=== PATIENT | female | born 1935 | race Caucasian/White ===

== ENCOUNTER 2023-07-30 11:47 | Inpatient (IN) ==
--- NOTE | 2023-07-30 12:27 | Emergency Department Note ---
Impression & Plan Bradycardia, Complete heart block ED Provider Note Diagnosis: Heart block Disposition: Admission CHIEF COMPLAINT: Dizziness HPI: Patient is an 88-year-old female presenting with complaint of dizziness. Patient states intermittently she has been feeling generalized weakness for the past 2 to 3 days. Patient's family checked her vital signs yesterday and found her to have a pulse of 40. Patient is not on any reported beta-blockers. Patient denies any chest pain or shortness of breath. Patient asymptomatic while sitting down currently in the ER bay. PAST MEDICAL HISTORY: See Below PAST SURGICAL HISTORY: See Below SOCIAL HISTORY: See Below HOME MEDICATIONS: See Below ALLERGIES: See Below VITALS: See Below PHYSICAL EXAMINATION: GENERAL: Well appearing, well nourished, NAD, non-toxic. EYE EXAM: Normal conjunctiva. OROPHARYNX: Moist mucus membranes. Grossly normal dentition. NECK: Supple, LUNGS: Clear to auscultation. Normal chest wall mechanics. HEART: Bradycardia ABDOMEN: Abdomen soft, non-tender, normo-active bowel sounds, no masses, no rebound or guarding BACK: No CVA TTP. SKIN: No rashes and no bruising. UPPER EXTREMITIES: Upper extremities are grossly normal LOWER EXTREMITIES: Grossly normal, no edema. NEURO EXAM: A&O x3,, normal speech, moves all 4 extremities PSYCH: Cooperative MEDICAL DECISION MAKING: Reviewed external documents: History obtained from: Patient ER Course: Patient is a 88-year-old female presenting with 2 days of feeling generalized weakness and dizziness. Patient is asymptomatic upon laying in the stretcher in the emergency room. Patient denies any chest pain or shortness of breath. Patient's EKG shows complete heart block. Patient's blood pressure is 130 systolic. Patient is on no beta-blockers. Case discussed with cardiology team who plans for pacemaker. Patient admitted to hospitalist service. Labs (independently interpreted) are significant for: No significant electrolyte abnormalities, troponin negative Imaging results (independently interpreted): Chest x-ray clear EKG interpretation (independently interpreted): Complete heart block Consultants: Discussed with Dr. Thomas of cardiology came down and evaluated the patient at bedside agrees that heart block is present we will plan for echo and pacemaker Case discussed with hospitalist service accepts patient to their service further treatment evaluation Triage Nursing notes reviewed and agree them. Vital Signs: reviewed and remarkable for: Bradycardia Past Med/Surg History Medical History Asthma Anxiety and depression Hypothyroidism HTN (hypertension) Surgical History History of hysterectomy History of cholecystectomy Family History Other Asthma Cancer Diabetes Stroke Social History Smoking Status: Former smoker Cigarettes Per Day: light smoker for 3 years in 1962; Smoking End Date: smoked 0.1ppd x 3 years in 1962; Hx Alcohol Use: No Hx Substance Use: No Preferred Language: [place] Citizen Feels Safe at Home: Yes Allergies Allergies Allergy/AdvReac Type Severity Reaction Status Date / Time pollen extracts Allergy Intermediate ITCHY Verified 11/26/22 18:52 EYES, SNEEZING, CONGESTION Home Meds Home Medications Medication Instructions Recorded Confirmed hydrochlorothiazide 25 mg tablet 25 mg PO DAILY 11/26/22 07/30/23 levothyroxine 125 mcg tablet 125 mcg PO DAILYBB 11/26/22 07/30/23 (Synthroid) loratadine 10 mg tablet (Claritin) 10 mg PO DAILY 11/26/22 07/30/23 multivitamin 1 tab PO DAILY 11/26/22 07/30/23 sertraline 25 mg tablet 25 mg PO DAILY 11/26/22 07/30/23 hydroxyzine HCl 10 mg tablet 10 mg PO HS PRN Insomnia 07/30/23 07/30/23 lisinopril 10 mg tablet 10 mg PO DAILY 07/30/23 07/30/23 Results & Data (ED) Vital Signs Vital Signs - 24 hr 07/30/23 11:55 07/30/23 11:55 07/30/23 11:55 Temperature 37.1 C 37.1 C Temperature Source Oral Oral Pulse Rate 57 L Pulse Rate [Apical] 57 L Respiratory Rate 18 18 Respiratory Effort / Characteristics Non-Labored Spontaneous Non-Labored Spontaneous Respiratory Depth Normal Normal Blood Pressure 132/44 L Blood Pressure [Left Arm] 132/44 L Blood Pressure Mean 73 Blood Pressure Mean [Left Arm] 73 Blood Pressure Position Semi-fowlers Blood Pressure Position [Left Arm] Semi-fowlers Pulse Oximetry 93 93 93 Oxygen Delivery Method Room Air Room Air Room Air Sepsis Recent Fever Within 48 Hours No Sepsis New/Unexplained Change in Mental Status N/A Sepsis Action Taken by Nursing No Action Required 07/30/23 12:15 07/30/23 12:23 07/30/23 14:39 Temperature Temperature Source Pulse Rate 54 L 56 L Pulse Rate [Apical] 56 L Respiratory Rate 18 18 Respiratory Effort / Characteristics Non-Labored Spontaneous Respiratory Depth Normal Blood Pressure Blood Pressure [Left Arm] 123/60 Blood Pressure Mean Blood Pressure Mean [Left Arm] 81 Blood Pressure Position Blood Pressure Position [Left Arm] Pulse Oximetry 93 91 Oxygen Delivery Method Room Air Room Air Sepsis Recent Fever Within 48 Hours Sepsis New/Unexplained Change in Mental Status Sepsis Action Taken by Nursing Laboratory Data 07/30/23 12:38 07/30/23 12:38 Lab Results 07/30/23 Range/Units 12:38 WBC 12.54 H (4.8-10.8) K/ul RBC 3.57 L (4.20-5.40) M/uL Hgb 10.6 L (12.0-16.0) g/dl Hct 31.7 L (37.0-47.0) % MCV 88.8 (80.0-100.0) fL MCH 29.7 (25.0-34.0) pg MCHC 33.4 (32.0-36.0) g/dL RDW Std Deviation 41.2 (36.4-46.3) fL RDW Coeff of Bruce 12.5 (11.5-14.5) % Plt Count 269 (130-400) K/uL MPV 11.0 (9.4-12.4) fL Immature Gran % (Auto) 0.5 % Neut % (Auto) 79.2 % Lymph % (Auto) 8.6 % [place] % (Auto) 10.2 % Eos % (Auto) 1.0 % Baso % (Auto) 0.5 % Neut # (Auto) 9.94 H (1.40-6.50) K/uL Lymph # (Auto) 1.08 L (1.20-3.40) K/uL [place] # (Auto) 1.28 H (0.11-0.59) K/uL Eos # (Auto) 0.12 (0.00-0.50) K/uL Baso # (Auto) 0.06 (0.00-0.20) K/uL Immature Gran # (Auto) 0.06 (0.01-0.20) K/uL Sodium 135 L (136-145) mmol/L Potassium 3.9 (3.5-5.1) mmol/L Chloride 101 (98-107) mmol/L Carbon Dioxide 27 (21-32) mmol/L Anion Gap 7 (3-11) BUN 25 H (6-23) mg/dl Creatinine 0.73 (0.6-1.2) mg/dl Est Cr Clr Drug Dosing 46.9 ml/min Est GFR ( Amer) 85.8 ml/min Est GFR (Non-Af Amer) 74.1 ml/min BUN/Creatinine Ratio 34.2 H (10-20) Glucose 123 H (70-99(Fasting)) mg/dl Calcium 9.1 (8.6-10.3) mg/dl Magnesium 1.6 L (1.7-2.4) mg/dl Iron 13 L (35-150) mcg/dl Transferrin 141 L (200-360) mg/dl Total Bilirubin 0.5 (0.2-1.0) mg/dl AST 26 (13-39) U/L ALT 34 (7-52) U/L Alkaline Phosphatase 59 (34-104) U/L Troponin I High Sens 16.4 H (0-14) pg/ml Total Protein 6.2 (6.0-8.3) gm/dl Albumin 3.5 (3.4-5.0) gm/dl Globulin 2.7 (2.5-4.0) gm/dl Albumin/Globulin Ratio 1.3 (0.9-2) Lipase 25 (11-82) U/L TSH 3.146 (0.300-4.500) uIu/ml Imaging Data Radiologist's Impression: Chest X-Ray 07/30/23 12:13 SINGLE VIEW CHEST CLINICAL HISTORY: Atypical chest pain. FINDINGS: An AP, portable, upright chest radiograph is obtained. No prior studies are available for comparison at the time of dictation. The examination is degraded by portable technique and patient rotation. The heart is enlarged noting atherosclerotic calcification of the thoracic aorta. There is pulmonary vascular congestion. The mitral annulus is densely calcified. Fullness of the right hilum may be related to enlargement of the pulmonary artery and patient rotation. There is bibasilar scarring/atelectasis. No airspace consolidation or large pleural effusion is identified. No pneumothorax is seen. The skeletal structures are osteopenic. The bony thorax is grossly intact. Advanced arthritic change is seen in the shoulders. IMPRESSION: 1. Cardiomegaly with pulmonary vascular congestion. 2. Fullness of the right hilum may be related to enlargement of the pulmonary artery. Correlation with a contrast enhanced chest CT is recommended to exclude underlying lesion or lymphadenopathy. ACT 112: Negative or not required by law. Electronically signed by: Siva Fan M.D. 07/30/2023 1:11 PM Discharge Plan Visit Data Chief Complaint: Cardiac Assessment Stated Complaint: DIZZINESS, CARDIAC ED Provider: Jason Rodriguez Discharge Problem: Bradycardia, Complete heart block Patient Disposition: Admitted As Inpatient Discharge Instructions Interventions: ED Discharge Assessment Last Done: 07/30/23 15:48
[2023-07-30 13:03] LABS: Basophils # (auto) 0.06 K/uL (0.00-0.20); Basophils % (auto) 0.5 %; Eosinophils # (auto) 0.12 K/uL (0.00-0.50); Hematocrit (blood only) 31.7 % (37.0-47.0); Hemoglobin 10.6 g/dl (12.0-16.0); Immature Granulocytes # (auto) 0.06 K/uL (0.01-0.20); Immature Granulocytes % (auto) 0.5 %; Lymphocytes # (auto) 1.08 K/uL (1.20-3.40); Lymphocytes % (auto) 8.6 %; Mean Corpuscular Hemoglobin 29.7 pg (25.0-34.0); Mean Corpuscular Hgb Conc 33.4 g/dL (32.0-36.0); Mean Corpuscular Volume 88.8 fL (80.0-100.0); Monocytes # (auto) 1.28 K/uL (0.11-0.59); Monocytes % (auto) 10.2 %; Neutrophils # (auto) 9.94 K/uL (1.40-6.50); Neutrophils % (auto) 79.2 %; Platelet Count 269 K/uL (130-400); RDW Coefficient of Variation 12.5 % (11.5-14.5); RDW Standard Deviation 41.2 fL (36.4-46.3); Red Blood Count 3.57 M/uL (4.20-5.40); White Blood Count 12.54 K/ul (4.8-10.8)
--- NOTE | 2023-07-30 13:12 | XRay Report ---
SINGLE VIEW CHEST CLINICAL HISTORY: Atypical chest pain. FINDINGS: An AP, portable, upright chest radiograph is obtained. No prior studies are available for c omparison at the time of dictation. The examination is degraded by portable technique and patient rot ation. The heart is enlarged noting atherosclerotic calcification of the thoracic aorta. There is pu lmonary vascular congestion. The mitral annulus is densely calcified. Fullness of the right hilum may be related to enlargement of the pulmonary artery and patient rotation. There is bibasilar scarring/ atelectasis. No airspace consolidation or large pleural effusion is identified. No pneumothorax is se en. The skeletal structures are osteopenic. The bony thorax is grossly intact. Advanced arthritic viktoria nge is seen in the shoulders. IMPRESSION: 1. Cardiomegaly with pulmonary vascular congestion. 2. Fullness of the right hilum may be related to enlargement of the pulmonary artery. Correlation wit h a contrast enhanced chest CT is recommended to exclude underlying lesion or lymphadenopathy. ACT 112: Negative or not required by law. Electronically signed by: Siva Fan M.D. 07/30/2023 1:11 PM
[2023-07-30 13:39] LABS: Albumin Globulin Ratio 1.3 (0.9-2); Albumin Level 3.5 gm/dl (3.4-5.0); BUN Creatinine Ratio 34.2 (10-20); Bilirubin,Total 0.5 mg/dl (0.2-1.0); Calcium 9.1 mg/dl (8.6-10.3); Creatinine Clr Calc Pharmacy 46.9 ml/min; Est GFR (African American) 85.8 ml/min; Est GFR (Non-African American) 74.1 ml/min; Globulin 2.7 gm/dl (2.5-4.0); Magnesium 1.6 mg/dl (1.7-2.4); Potassium 3.9 mmol/L (3.5-5.1); Total Protein 6.2 gm/dl (6.0-8.3)
[2023-07-30 13:44] LABS: Troponin I High Sensitivity 16.4 pg/ml (0-14)
[2023-07-30 13:53] LABS: Thyroid Stimulating Hormone 3.146 uIu/ml (0.300-4.500)
--- NOTE | 2023-07-30 14:04 | Cardiology Consultation ---
Date of Consultation July 30, 2023 Assessment & Plan (1) High-grade atrioventricular block: Plan 88 year old female who presents today to the ED due to a 1 week history of lightheadedness/dizziness Found to be in high grade AVB. rates 40-50s High grade AV block: CHB on telemetry/EKG- HR 40-50s. Currently asymptomatic. Hemodynamically stable. 1. Patient to remain NPO for possible pace maker placement later this afternoon. 2. Maintain bedrest. Pacing pads to be placed-- not connected. 3. Monitor heart rates/rhythm on telemetry. 4. Echo pending. Case discussed with Dr. Thomas-- further recommendations pending his assessment. I spent a total of 45 minutes on the date of service in preparation, delivery, and documentation of the care provided to the patient excluding any time spent in the performance of separately billed services. VON Clarke Department of Cardiology, [facility] This chart was completed in part utilizing Speech Voice Recognition Software. Grammatical errors, random word insertions, pronoun errors, and incomplete sentences are an occasional consequence of this system due to software limitations, ambient noise, and hardware issues. Any formal questions or concerns about the content, text, or information contained within the body of this dictation should be directly addressed to the provider for clarification. Supervising Physician Co-Signing Physician Notes Patient is an 88-year-old female without prior history of cardiac disease who presents with 3-day history of marked fatigue. Does carry history of past falls in the last 6 months no overt syncope Denies chest pains or shortness of breath. No fevers chills unexplained infections. Exam heart rate 45-50. Rhythm sinus with high degree AV block Well-perfused on exam Echocardiogram with hyperdynamic LV function calcific aortic valve disease without stenosis Chest x-ray with mild increased interstitial markings Plan as outlined. Will require permanent pacemaker Tentatively arrange for a.m. 07/31/2023 N.p.o. after midnight History of Present Illness Reason for Consultation: High grade AV block Requesting Physician: Fausto martin History of Present Illness 88-year-old female who presented to her PCP office today due to 1 week history of lightheadedness/dizziness. Heart rates were in the 40s. EKG in the ED showing high grade AVB. She is not on any AV an blocking agents. No prior cardiac history except hypertension. Upon entrance to the room patient resting comfortably in bed. She is currently asymptomatic. Denies chest pain or shortness of breath. No palpitations. Lightheadedness improved since she has been on bedrest. Blood pressures are stable. Echo currently being obtained. Past medical history: Hypertension Hypothyroidism Allergies Allergy/AdvReac Type Severity Reaction Status Date / Time pollen extracts Allergy Intermediate ITCHY Verified 11/26/22 18:52 EYES, SNEEZING, CONGESTION Home Medications Medication Instructions Recorded Confirmed Type hydrochlorothiazide 25 mg tablet 25 mg PO DAILY 11/26/22 07/30/23 History levothyroxine 125 mcg tablet 125 mcg PO DAILYBB 11/26/22 07/30/23 History (Synthroid) loratadine 10 mg tablet (Claritin) 10 mg PO DAILY 11/26/22 07/30/23 History multivitamin 1 tab PO DAILY 11/26/22 07/30/23 History sertraline 25 mg tablet 25 mg PO DAILY 11/26/22 07/30/23 History hydroxyzine HCl 10 mg tablet 10 mg PO HS PRN Insomnia 07/30/23 07/30/23 History lisinopril 10 mg tablet 10 mg PO DAILY 07/30/23 07/30/23 History Patient History Medical History Asthma Anxiety and depression Hypothyroidism HTN (hypertension) Surgical History History of hysterectomy History of cholecystectomy Family History Other Asthma Cancer Diabetes Stroke Social History Smoking Status: Former smoker Cigarettes Per Day: light smoker for 3 years in 1962; Smoking End Date: smoked 0.1ppd x 3 years in 1962; Hx Alcohol Use: No Hx Substance Use: No Preferred Language: Portuguese Feels Safe at Home: Yes Review of Systems Review of Systems: All systems reviewed & are unremarkable except as noted in HPI & below Physical Exam Constitutional: WD/WN, vitals as above no acute distress ENMT: external ear and nose normal, oropharynx normal Neck: normal visual inspection and trachea midline Respiratory: normal respiratory effort, lungs clear to auscultation Cardiovascular: Rate/Rhythm: + bradycardic Heart Sounds: normal S1, normal S2 and + murmur (soft systolic murmur ) Vessels: no JVD Extremities: no edema Gastrointestinal (Abdomen): normal bowel sounds, soft, nontender, no hep atosplenomegaly Skin: no rashes, warm and dry Psychiatric: Orientation: alert and oriented x 3 Results & Data Vital Signs (Past 12 Hours) Vital Signs Temp Pulse Pulse Resp BP BP Pulse Ox 07/30/23 12:23 56 L 07/30/23 12:15 54 L 18 93 07/30/23 11:55 37.1 C 57 L 18 132/44 L 93 07/30/23 11:55 93 07/30/23 11:55 37.1 C 57 L 18 132/44 L 93 O2 Del Method 07/30/23 12:23 07/30/23 12:15 Room Air 07/30/23 11:55 Room Air 07/30/23 11:55 Room Air 07/30/23 11:55 Room Air Laboratory Results Cardiac Enzymes 07/30/23 Range/Units 12:38 AST 26 (13-39) U/L Troponin I High Sens 16.4 H (0-14) pg/ml CBC 07/30/23 Range/Units 12:38 WBC 12.54 H (4.8-10.8) K/ul RBC 3.57 L (4.20-5.40) M/uL Hgb 10.6 L (12.0-16.0) g/dl Hct 31.7 L (37.0-47.0) % Plt Count 269 (130-400) K/uL Neut # (Auto) 9.94 H (1.40-6.50) K/uL Lymph # (Auto) 1.08 L (1.20-3.40) K/uL [place] # (Auto) 1.28 H (0.11-0.59) K/uL Eos # (Auto) 0.12 (0.00-0.50) K/uL Baso # (Auto) 0.06 (0.00-0.20) K/uL Comprehensive Metabolic Panel 07/30/23 Range/Units 12:38 Sodium 135 L (136-145) mmol/L Potassium 3.9 (3.5-5.1) mmol/L Chloride 101 (98-107) mmol/L Carbon Dioxide 27 (21-32) mmol/L BUN 25 H (6-23) mg/dl Creatinine 0.73 (0.6-1.2) mg/dl Glucose 123 H (70-99(Fasting)) mg/dl Calcium 9.1 (8.6-10.3) mg/dl AST 26 (13-39) U/L ALT 34 (7-52) U/L Alkaline Phosphatase 59 (34-104) U/L Total Protein 6.2 (6.0-8.3) gm/dl Albumin 3.5 (3.4-5.0) gm/dl Intake and Output 07/29/23 07/30/23 07/30/23 22:59 06:59 14:59 Other: Weight 56.5 kg Weight Measurement Method Built in [facility] Patient Weight 07/31/23 06:59 Weight 56.5 kg
--- NOTE | 2023-07-30 14:14 | History & Physical Report ---
Date of Service July 30, 2023 Assessment & Plan (1) High-grade atrioventricular block: (2) CHB (complete heart block): Plan: Patient is 88-year-old female with PMH HTN, hypothyroidism, asthma, depression, anxiety, stress incontinence presented to ER with c/o exertional dizziness and fatigue x 3 days, bradycardia in 40's-50s per home pulse oximeter. Seen today in outpatient clinic and found to be bradycardic In ER afebrile, P: 57, R: 18, BP: 132/44, 93% RA EKG: sinus bradycardia, intermittent complete heart block, rate 57 TSH: 3.1. WBC: 12 In ER BP stable. Patient asymptomatic Lyme pending Pacer pads at bedside Cardiology consult. Ordered echo. Recommended bedrest and ICU admission. Possible pacemaker placement today [employer] consulted CBC, BMP in am (3) Hypomagnesemia: Plan: Magnesium: 1.6 Replace and monitor (4) Anemia: Plan: H/H: 10.6/31.7. Hgb: 15 on 06/15/23 Anemia labs pending (5) Abnormal CXR: Plan: CXR: (6) HTN (hypertension): Plan: BP currently stable Hold home lisinopril and HCTZ for now and monitor vitals (7) Hypothyroidism: Plan: TSH: 3.1 Continue Synthroid (8) Anxiety and depression: Plan: History depression, worse after passing of her months ago Prescribed sertraline 50mg daily and 25mg in the evenings. Patient states 1 week ago started just taking 25mg daily as she feels she is no longer depressed Continue sertraline (9) Asthma: Plan: Reported history asthma years ago. No longer on any inhalers No signs exacerbation at this time DVT Prophylaxis SCDs for now DNR/DNI as per discussion with patient Follows with Dr Poon for routine care Pt was seen and care coordinated with Dr Cat. See addendum I spent a total of 76 minutes reviewing notes, outpatient records, labs, medication, coordinating, documenting and providing care for this patient excluding time spent in the performance of separately billed services. History of Present Illness Chief Complaint: dizziness Primary Care Provider: Mariella Poon DO Patient is 88-year-old female with PMH HTN, hypothyroidism, asthma, depression, anxiety, presented to ER with c/o dizziness. History obtained from patient and outpatient chart review. Patient reports dizziness for past 3 days, worse with ambulation. Patient reports history dizziness described as vertigo but states this dizziness past 3 days feels different. Feeling very fatigued with minimal exertion. Also states SOB with walking past couple of days. She reports used home pulse oximeter yesterday and read pulse as 45bpm and she thought was a false read. Patient presented to PCPs office today and was found to be bradycardic in the 40's and sent to ER via EMS. Currently patient states lying in bed is without any dizziness or other symptoms. States chronic intermittent cough but denies any worsening. States takes loratadine daily for this however past 2-3 days has taken loratadine-D as she wondered if her symptoms were allergy/asthma related. Denies known recent tick bite. Denies fever/chills, diaphoresis, N/V/D/C, melena, hematochezia, WATKINS, syncope, vision changes, neck pain, CP, orthopnea, palpitations, sore throat, choking, otalgia, rhinorrhea, abdominal pain, paresthesias, extremity edema, rashes, urinary symptoms. Only took Synthroid this morning with sip of water. States did not eat or drink anything else today. Allergies Allergy/AdvReac Type Severity Reaction Status Date / Time pollen extracts Allergy Intermediate ITCHY Verified 11/26/22 18:52 EYES, SNEEZING, CONGESTION Home Medications Medication Instructions Recorded Confirmed Type hydrochlorothiazide 25 mg tablet 25 mg PO DAILY 11/26/22 07/30/23 History levothyroxine 125 mcg tablet 125 mcg PO DAILYBB 11/26/22 07/30/23 History (Synthroid) loratadine 10 mg tablet (Claritin) 10 mg PO DAILY 11/26/22 07/30/23 History multivitamin 1 tab PO DAILY 11/26/22 07/30/23 History sertraline 25 mg tablet 25 mg PO DAILY 11/26/22 07/30/23 History hydroxyzine HCl 10 mg tablet 10 mg PO HS PRN Insomnia 07/30/23 07/30/23 History lisinopril 10 mg tablet 10 mg PO DAILY 07/30/23 07/30/23 History Past Med/Surg History Medical History Asthma Anxiety and depression Hypothyroidism HTN (hypertension) Surgical History History of hysterectomy History of cholecystectomy Family History Other Asthma Cancer Diabetes Stroke Social History Smoking Status: Former smoker Cigarettes Per Day: light smoker for 3 years in 1962; Smoking End Date: smoked 0.1ppd x 3 years in 1962; Hx Alcohol Use: No Hx Substance Use: No Preferred Language: Spanish Communication Ability: Effective Electrical Tryout Person Required: No Beliefs That Will Affect Care: None Current Living Situation: Alone Other Information That Helps Us Care for You: No Feels Safe at Home: Yes Safety Concerns: Feels Safe At This Time Assistive Devices: Walker Review of Systems Review of Systems: All systems reviewed & are unremarkable except as noted in HPI & below Physical Exam Physical Exam: General: no distress, WDWN Head: normocephalic, atraumatic Eyes: conjunctiva non-injected, anicteric ENT: normal inspection external ears, nose, mucous membranes moist Neck: supple, trachea midline Lungs: clear, no respiratory distress, no wheezing/rhonchi/rales CV: +bradycardia, rate 54, + murmur, no pretibial edema Abd: normal BS, soft, non-tender Ext: no cyanosis, no calf tenderness Neuro: A&O x 3, no focal deficits noted, normal affect Skin: warm, dry Results & Data Results & Data Vital Signs (Past 12 Hours) Vital Signs Temp Pulse Pulse Resp BP BP Pulse Ox 07/30/23 12:23 56 L 07/30/23 12:15 54 L 18 93 07/30/23 11:55 37.1 C 57 L 18 132/44 L 93 07/30/23 11:55 93 07/30/23 11:55 37.1 C 57 L 18 132/44 L 93 O2 Del Method 07/30/23 12:23 07/30/23 12:15 Room Air 07/30/23 11:55 Room Air 07/30/23 11:55 Room Air 07/30/23 11:55 Room Air Laboratory Results Short CBC 07/30/23 Range/Units 12:38 WBC 12.54 H (4.8-10.8) K/ul Hgb 10.6 L (12.0-16.0) g/dl Hct 31.7 L (37.0-47.0) % Plt Count 269 (130-400) K/uL BMP 07/30/23 12:38 Sodium 135 L Potassium 3.9 Chloride 101 Carbon Dioxide 27 BUN 25 H Creatinine 0.73 Glucose 123 H Calcium 9.1 Liver Function 07/30/23 Range/Units 12:38 Total Bilirubin 0.5 (0.2-1.0) mg/dl AST 26 (13-39) U/L ALT 34 (7-52) U/L Alkaline Phosphatase 59 (34-104) U/L Albumin 3.5 (3.4-5.0) gm/dl Diagnostic Findings Chest X-Ray 07/30/23 12:13 SINGLE VIEW CHEST CLINICAL HISTORY: Atypical chest pain. FINDINGS: An AP, portable, upright chest radiograph is obtained. No prior studies are available for comparison at the time of dictation. The examination is degraded by portable technique and patient rotation. The heart is enlarged noting atherosclerotic calcification of the thoracic aorta. There is pulmonary vascular congestion. The mitral annulus is densely calcified. Fullness of the right hilum may be related to enlargement of the pulmonary artery and patient rotation. There is bibasilar scarring/atelectasis. No airspace consolidation or large pleural effusion is identified. No pneumothorax is seen. The skeletal structures are osteopenic. The bony thorax is grossly intact. Advanced arthritic change is seen in the shoulders. IMPRESSION: 1. Cardiomegaly with pulmonary vascular congestion. 2. Fullness of the right hilum may be related to enlargement of the pulmonary artery. Correlation with a contrast enhanced chest CT is recommended to exclude underlying lesion or lymphadenopathy. ACT 112: Negative or not required by law. Electronically signed by: Siva Fan M.D. 07/30/2023 1:11 PM Supervising Physician Co-Signing Physician Notes I have seen and examined the patient and have discussed the case with the provider above. I have reviewed the advanced practitioner's documentation, and I agree with, and take responsibility for that plan of care. 88-year-old female presented with several days of lightheadedness. History as noted above. Found to be in third-degree heart block. She was evaluated in the ER by cardiology with pacemaker planned for this admission. She is not on any home beta- blockers. No history of tick bites, Lyme screen negative. Echocardiogram reveals EF of greater than 70% with calcified aortic valve. Continue supportive care pending pacemaker placement, planned for a.m. Family was at the bedside and was updated on the plan, Em[place], DO
--- NOTE | 2023-07-30 14:17 | Electrocardiogram Report ---
Test Reason : Blood Pressure : / mmHG Vent. Rate : 057 BPM Atrial Rate : 057 BPM P-R Int : 158 ms QRS Dur : 122 ms QT Int : 452 ms P-R-T Axes : 012 079 030 degrees QTc Int : 439 ms Sinus bradycardia with intermittent complete heart block Septal infarct , age undetermined Abnormal ECG No previous ECGs available Confirmed by Freddie Oviedo ([id number]) on 07/30/2023 2:16:59 PM Referred By: Confirmed By:Freddie Oviedo
[2023-07-30 16:28] LABS: Ferritin 245.8 ng/ml (8-388)
[2023-07-30 16:30] LABS: Folate (Folic Acid),Ser orPlas > 22.30 ng/ml (>5.38)
[2023-07-30 16:31] LABS: Vitamin B12 555 pg/ml (180-914)
[2023-07-30] MEDS: MAGNESIUM SULFATE / D5W 1 GM/100 ML BAG IV STA (16:44)
[2023-07-30 17:40] LABS: Reticulocyte % 1.31 % (0.50-2.00); Reticulocytes # 0.05 10^6/uL (0.020-0.100)
[2023-07-30] MEDS: ICU Protocol for HYPERglycemia SCH (17:50)
[2023-07-30] MEDS: FUROSEMIDE INJ 20 MG/2 ML VIAL IV ONE (17:54)
--- NOTE | 2023-07-30 18:02 | Critical Care Consultation ---
Date of Consultation July 30, 2023 Assessment & Plan (1) Complete heart block: (2) Abnormal CXR: (3) Anemia: (4) Anxiety and depression: (5) Hypothyroidism: (6) HTN (hypertension): Plan Reason Critically Ill: 88-year-old female past medical history of hypertension, anxiety/depression admitted to the ICU with complete heart block. Neuro - [facility]: Negative -- Anxiety/depression On sertraline at home Continue with 25 mg dose Cardiac - -- Bradycardia with complete heart block Not on any beta-blockers at home Continue to monitor, if the patient is symptomatically bradycardic then start the patient on dopamine Pacer pads Cardiology on board EKG 07/30/2023 1156: Complete heart block, PVCs, heart rate 57. QTc 439 TSH within normal limit -- History of hypertension Hold blood pressure medications for the time being Respiratory - Chest x-ray 07/30/2023: Good inspiratory effort, portable film, increased pulmonary vascular congestion, bilateral costophrenic and cardiophrenic angles are clean --Mild pulmonary vascular congestion Saturating well on room air Consider Lasix as needed GI - -- Mild nausea prior to presentation As needed antiemetic RENAL/LYTES - -- Monitor BUNs/creatinine Avoid nephrotoxic medication ENDO - -- Hypothyroidism Continue with levothyroxine TSH 3.14 HEME - -- Normocytic anemia Monitor H&H ID - -- Leukocytosis Likely reactive --Prophylaxis VTE: None GI: None Lines: Peripheral Diet: N.p.o. Plan: Bedrest. Pacer pads to be initiated if patient has symptomatic bradycardia Follow-up lyme antibody Cardiology on board, for possible permanent pacemaker placement tomorrow N.p.o. postmidnight Please note the above document was generated using voice recognition software. It may contain grammatical, syntax or spelling errors.Any formal questions or concerns about the content, text or information contained within the body of this dictation should be directly addressed to the provider for clarification. History of Present Illness Attending Physician: Estela Cat DO History of Present Illness 88-year-old female present to the hospital with complaints of dizziness Past medical history: Hypertension, hypothyroidism, depression, anxiety She was found to be in complete heart block and was sent for to ICU for observation distal she gets pacemaker At the time of examination patient's family was in the room Her heart rate was ranging in the mid 50s with PVCs. Systolic blood pressure was in the 150s. She denies any recent fever or chills No dysuria, or diarrhea No nausea or vomiting. No blurry vision She stated that she has been having exertional shortness of breath and dizziness since the last 3-4 days which has been progressively getting worse Denies any known history of any tick bites. Social history: Lifetime non-smoker. 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 Allergies Allergy/AdvReac Type Severity Reaction Status Date / Time pollen extracts Allergy Intermediate ITCHY Verified 11/26/22 18:52 EYES, SNEEZING, CONGESTION Home Medications Medication Instructions Recorded Confirmed Type hydrochlorothiazide 25 mg tablet 25 mg PO DAILY 11/26/22 07/30/23 History levothyroxine 125 mcg tablet 125 mcg PO DAILYBB 11/26/22 07/30/23 History (Synthroid) loratadine 10 mg tablet (Claritin) 10 mg PO DAILY 11/26/22 07/30/23 History multivitamin 1 tab PO DAILY 11/26/22 07/30/23 History sertraline 25 mg tablet 25 mg PO DAILY 11/26/22 07/30/23 History hydroxyzine HCl 10 mg tablet 10 mg PO HS PRN Insomnia 07/30/23 07/30/23 History lisinopril 10 mg tablet 10 mg PO DAILY 07/30/23 07/30/23 History Patient History Medical History Asthma Anxiety and depression Hypothyroidism HTN (hypertension) Surgical History History of hysterectomy History of cholecystectomy Family History Other Asthma Cancer Diabetes Stroke Social History Smoking Status: Former smoker Cigarettes Per Day: light smoker for 3 years in 1962; Smoking End Date: smoked 0.1ppd x 3 years in 1962; Hx Alcohol Use: No Hx Substance Use: No Preferred Language: Bermudian Communication Ability: Effective Cell Support Operator Required: No Beliefs That Will Affect Care: None Current Living Situation: Alone Other Information That Helps Us Care for You: No Feels Safe at Home: Yes Safety Concerns: Feels Safe At This Time Assistive Devices: Walker Review of Systems 2 Review of Systems: All systems reviewed & are unremarkable except as noted in HPI & below Physical Exam 2 Physical Exam: Constitutional: No acute distress HEENT: EOMI, PERRLA Respiratory system: Good air entry bilaterally, no wheeze, no rhonchi, no crackles CVS: S1-S2 positive, no murmurs or gallops, accentuated P2 Abdomen: Soft, nontender, nondistended, positive bowel sounds x4 Extremities: +2 pulses bilaterally radialis/ dorsalis pedis, no cyanosis, +1 pitting edema bilateral lower extremity Neuro: Awake alert oriented x3 Psych: Normal mood and affect G/U: No Martin Skin: no rashes, warm and dry Lymphatic: no cervical or axillary lymphadenopathy Results & Data Results & Data Vital Signs (Past 12 Hours) Vital Signs Temp Pulse Pulse Resp BP BP Pulse Ox 07/30/23 17:02 116/53 L 07/30/23 17:02 54 L 26 H 95 07/30/23 16:18 54 L 07/30/23 16:08 07/30/23 16:02 156/46 H 07/30/23 16:02 54 L 20 93 07/30/23 16:00 37.0 C 07/30/23 14:39 56 L 18 123/60 91 07/30/23 12:23 56 L 07/30/23 12:15 54 L 18 93 07/30/23 11:55 37.1 C 57 L 18 132/44 L 93 07/30/23 11:55 93 07/30/23 11:55 37.1 C 57 L 18 132/44 L 93 O2 Del Method 07/30/23 17:02 07/30/23 17:02 07/30/23 16:18 07/30/23 16:08 Room Air 07/30/23 16:02 07/30/23 16:02 Room Air 07/30/23 16:00 07/30/23 14:39 Room Air 07/30/23 12:23 07/30/23 12:15 Room Air 07/30/23 11:55 Room Air 07/30/23 11:55 Room Air 07/30/23 11:55 Room Air Laboratory Results 07/30/23 12:38 07/30/23 12:38 Coding Level of Care Code 45847 IN/OBS CONSULT LVL 4,60M Diagnoses Complete heart block I44.2 Abnormal CXR R93.89 Anemia D64.9 Anxiety and depression F41.9; F32.A Hypothyroidism E03.9 HTN (hypertension) I10
[2023-07-31] MEDS: ACETAMINOPHEN 1,000 MG/100 ML VIAL IV PRN (00:53)
--- OUTSIDE RECORDS SUMMARY | 2023-07-31 02:56 | External Medical Summary | Summary of Care ---
Author Name Unknown Organization [facility] Address [address] [place] [address] Phone [phone] Care Team Providers Care Head Refrigerating Engineer Name Role Phone Mariella Poon DO Primary Care Provider [phone] Reason for Visit * Reason Onset Date Comments Advice 06/17/2023 HANDICAPPED PLAC NOMAN Encounter Details Date Type Department Care Team (Late st Contact Info) Description 06/17/2023 Telephone Family Medicine [address] [phone] Mariella Poon DO [address] [place], [place] [address] [phone] Advice (HANDICAPPED PLACARD) Allergies No known active allergiesdocumented as of this encounter (statuses as of 06/22/2023) Medications Medication Sig Dispensed Refills Start Date End Date Status MULTIVITAMINS PO CAPS None Entered 0 A ctive hydroCHLOROthiazide 25 MG Oral Tablet (Hydrodiuril) Take 1 Tablet by mouth in the morning. 90 Tablet 3 06/02/2022 Active Loratadine 10 MG Oral Tablet (Claritin) Take 1 Tablet by mouth in the morning. 30 Tablet 5 06/02/2022 Active Cyclobenzaprine HCl 5 MG Oral Tablet (Flexeril) Take 1 Tablet by mouth daily as needed for Muscle spasms. 90 Tablet 1 11/04/2022 Active Clobetasol Propionate 0.05 % External Cream (Temovate)Indications: Nummular dermatitis APPLY CREAM TOPICALLY TO AFFECTED AREA TWICE DAILY. LEGS/ARMS/TRUNK, TWICE DAILY NEEDED FOR RASH. 60 g 1 11/06/2022 Active Synthroid 125 MCG Oral TabletIndications:Acqu ired hypothyroidism Take 1 Tablet by mouth daily first thing in the morning. (at least 30 min prior to breakfast or other meds) 90 Tablet 3 02/01/2023 Active Sertraline HCl 50 MG Oral Tablet (Zoloft) Take 1 Tablet by mouth in the morning. 90 Tablet 1 03/03/2023 Active Sertraline HCl 25 MG Oral Tablet (Zoloft) Take 1 Tablet by mouth every evening. 90 Tablet 1 03/03/2023 Active Lisinopril 10 MG Oral Tablet (Prinivil) Take 1 Tablet by mouth in the morning. 90 Tablet 3 06/15/2023 Active hydrOXYzine HCl 10 MG Oral Tablet (Atarax) Take 1 Tablet by mouth at bedtime as needed for Anxiety (sleep). 30 Tablet 0 06/15/2023 Active documented as of this encounter (statuses as of 06/22/2023) Active Problems Problem Noted Date Diagnosed Date Adjustment disorder with mix ed disturbance of emotions and conduct 12/01/2022 Asthma in remission 12/17/2020 Seasonal allergies 06/18/2020 Nummular dermatitis 05/05/2017 Essential hypertension with goal blood pressure less than 140/90 04/08/2016 Asthma, allergic 01/28/2010 Sensorineural hearing loss, bilateral 07/02/2009 Overview: Does not need hearing aids Female stress incontinence 11/07/2008 GENERAL OSTEOARTHROSIS 11/06/2003 Acquired hypothyroidism documented as of this encounter (statuses as of 06/22/2023) Resolved Problems Problem Noted Date Diagnosed Date Resolved Date Chronic kidney disease, stage 3a 12/23/2020 06/04/2022 Overview: Per CKD protocol Intermittent asthma with rel iever use up to twice per week 03/20/2015 09/23/2015 COPD, moderate 10/13/2014 08/17/2018 Allergic rhinitis 03/27/2014 03/27/2014 Allergic rhinitis 05/30/2013 01/16/2014 HTN, goal below 140/90 07/29/201104/08 [employer] Other*[id number] 12/13/2009 02/03/2010 Asthma with severity to be determined 12/05/2009 12/12/2009 Overview: Per Asthma Taxonomy ICD-10 update of inactive term ADVANCE DIRECTIVE INFORMATION 09/26/2009 05/05/2017 Overview: No, Advance Directive brochure given to patient at prior appointment. Subjective tinnitus 07/02/2009 05/05/20 17 CHR OTITIS EXTERNA ,W/CERUMENOSIS 07/02/2009 05/05/2017 Impacted cerumen 07/02/2009 01/16/2014 INTERFACED RESULT 11/07/2008 11/12/2011 EXTRINSIC ASTHMA, UNSPEC 12/08/2005 Vasomotor rhinitis 11/06/2003 9 HYPERTENSION NOS 11/06/2003 02/01/2012 Overview: Modified per HTN protocol #16. Syncope and collapse 01/14/2001 014 Malaise and fatigue 01/14/2001 01/17/20 14 documented as of this encounter (statuses as of 06/22/2023) Immunizations Name Administration Dates Next Due COVID-19 mRNA, LNP-s, No Pre serve, 2-Dose Series (Overblog) 04/17/2021,08/10/2020,07/20/2020 COVID-19, LNP-s, No Preserve , Samy-sucrose, Ages 12+ (Pfizer) 12/02/2021 COVID-19, MRNA-LNP, 23-24, P F, 30 MCG/0.3 mL, 12 YRS AND ABOVE, IM (Optify-Comirnat) 03/26/2023 Covid-19, Mrna, Lnp-s, Pf, B ivalent, 30 Mcg, IM, 12 yrs and above (Overblog) 03/24/2022 PPD 05/18/2006 Pneumococcal Conjugate Vacc, 13 Valent (Prevnar) 04/08/2016 Pneumococcal Polysaccharide PPV23 (Pneumovax) 05/15/2008,05/04/2000 RSV Vac., Recomb, Adjuvant, PF,0.5 Ml (Arexvy) 06/17/2023 Season Influenza, Quad, PF, Adjuvanted, 65+ Yrs, IM (FLUAD) 02/08/2020 Seasonal Influenza, PF, 6 M & above, IM , (FluLaval or Fluzone) 08/17/2018,03/08/2017 Seasonal Influenza, Quadriva lent Hd (Fluzone Hd) 03/03/2023,03/24/2022 Seasonal Influenza, Quadriva lent, No Preserve, IM 03/26/2015 Seasonal Influenza, Split, I IV3, With Preserve, Inj 03/13/2016,04/27/2014,03/03/2013,02/24,03/17/2011,02/28/2010,03/18/2009 ,04/11/2008,04/06/2006,03/21/2002 Seasonal Influenza, Trivalen t, Adjuvanted, 65+ yrs 02/20/2021,02/08/2020,04/08/2019 TD, Preservative Free 05/15/2008 TDAP (age 10 and older)(Boostrix) 02/20/2021 Varicella Zoster Vaccine (Adult) 08/16/2006 Zoster Vaccine Recombinant (Shingrix) 05/23/2020 ,02/08/2020 documented as of this encounter Social History Tobacco Use Types Packs/Day Years Used Date Smoking Tobacco: Former Cigarettes 0.1 3 Q uit: 06/14/1965 Smokeless Tobacco: Never Comments:50 years ago Alcohol Use Standard Drinks/Week Comments Yes 0 (1 standard drink = 0.6 oz pur e alcohol) less than 1 drink in a year PHQ-2 Answer Date Recorded PHQ-2 Score 0 04/29/2020 Hunger Vital Sign Answer Date Recorded Worried About Running Out of Food in the Last Ye ar Never true 12/12/2019 Ran Out of Food in the Last Year Never true 12/12/2019 Sex and Gender Information Value Date Recorded Sex Assigned at Not on file Gender Identity Not on file Sexual Orientation Not on file Job Start Date Occupation Industry Not on file Not on file Not on file documented as of this encounter Miscellaneous Notes * Telephone Encounter - Sanya Moffett OSA - 06/22/2023 3:00 PM EST Rec'd call from pt advised form is at front end ui developer and was sent to [facility] per previous note. No additional action taken. * Telephone Encounter - Oralia Aponte RN - 06/22/2023 2:54 PM EST Form at front end ui developer,and sent to [facility]. Message left on patients voice mail * Telephone Encounter - Mariella Poon DO - 06/18/2023 1:27 PM EST Signed and in nurse basket at my desk * Telephone Encounter - Oralia Aponte RN - 06/18/2023 11:33 AM EST Ok for this? Handicap Placard pended under communication tab. Pt has had a lot of falls recently per your note * Telephone Encounter - Slim Leiva OSA - 06/17/2023 12:28 PM EST Pt asking if she can have a Handicapped Placard. Please call pt to discuss it. Thank you. documented in this encounter Plan of Treatment Upcoming Encounters Date Type Department Care Team (Late st Contact Info) Description 01/19/2024 2:30 PM EDT Office Visit Family Medicine [address] [place] [phone] Mariella Poon DO [address] [place] [address] [place] [phone] Health Maintenance Due Date Last Done Comments Depression Screening 04/29/2021 04/29/2020 TSH 12/02/2023 12/01/2022, 04/12/2021, 06/18/2020, Additional history exists DXA Scan 02/07/2024 02/06/2019, 04/14, 05/24/2008 Albumin/Creatinine Ratio 12/01/2025 12/01/2022, 09/13 DTaP,Tdap,and Td Vaccines (2 - Td or Tdap) 02/20/2031 02/20/2021, 05/15/2008 Pneumococcal Vaccine: 65+ Years Completed 04/08/2016, 05/15/2008, 05/04/2000 Zoster Vaccines Completed 05/23/2020, 01/13, 08/16/2006 Influenza Vaccine (FLU shot) Completed , 03/24/2022, 03/24/2022, Additional history exists COVID-19 Vaccine Completed 03/26/2023, 04/2022, 12/02/2021, Additional history exists GARDASIL-HPV IMMUNIZATION SERIES Aged Out No longer eligible based on patient's age to complete this topic Hepatitis B Aged Out No longer eligi ble based on patient's age to complete this topic MENINGOCOCCAL (MENACTRA/MENVEO) Aged Out No longer eligible based on patient's age to complete this topic documented as of this encounter Medical Devices Implanted Type Area Servicing Manager Device Identifier Shelf Expiration Date Model / Serial / Lot Sling Align Retropubic [id number] - [id number] Implanted:Qty: 1 on 11/07/2008 at [place] [facility] [place] N/A: Urethra INACTIVE CR BARD : UROLOGICAL 09/12/2010 [id number] / / [id number] documented as of this encounter Care Teams Head Refrigerating Engineer Relationship Specialty Start Date End Date Mariella Poon DO [address] [place] [address] [place] [address] PCP - General Internal Medicine 05/05/17 documented as of this encounter
--- OUTSIDE RECORDS SUMMARY | 2023-07-31 02:56 | External Medical Summary | Summary of Care ---
Author Name Unknown Organization [facility] Address [address] [place] [address] Phone [phone] Care Team Providers Care Ironworker Foreman Name Role Phone Mariella Poon DO Primary Care Provider [phone] Reason for Visit * Reason Onset Date Comments Advice 06/17/2023 HANDICAPPED PLAC NOMAN Encounter Details Date Type Department Care Team (Late st Contact Info) Description 06/17/2023 Telephone Family Medicine [address] [phone] Mariella Poon DO [address] [place], [place] [address] [phone] Advice (HANDICAPPED PLACARD) Allergies No [...] 05/30/2013 01/16/2014 HTN, goal below 140/90 07/29/201104/08 [employer] Other*[id number] 12/13/2009 02/03/2010 Asthma with severity to be [...] mRNA, LNP-s, No Pre serve, 2-Dose Series (Playbasis) 04/17/2021,08/10/2020,07/20/2020 COVID-19, LNP-s, No Preserve , Samy-sucrose, Ages 12+ (Pfizer) 12/02/2021 COVID-19, MRNA-LNP, 23-24, P F, 30 MCG/0.3 mL, 12 YRS AND ABOVE, IM ([email or web address]-Comirnat) 03/26/2023 Covid-19, Mrna, Lnp-s, Pf, B ivalent, 30 Mcg, IM, 12 yrs and above (Playbasis) 03/24/2022 PPD 05/18/2006 Pneumococcal Conjugate Vacc, 13 [...] from pt advised form is at front desk manager and was sent to [facility] per previous note. No additional action taken. * Telephone Encounter - Oralia Aponte RN - 06/22/2023 2:54 PM EST Form at front desk manager,and sent to [facility]. Message left on patients voice mail * [...] 2:30 PM EDT Office Visit Family Medicine [address] [place] [phone] Mariella Poon DO [address] [place] [address] [place] [address] Health Maintenance Due Date Last Done Comments [...] this encounter Medical Devices Implanted Type Area Newspaper Managing Editor Device Identifier Shelf Expiration Date Model / Serial / Lot Sling Align Retropubic [id number] - [id number] Implanted:Qty: 1 on 11/07/2008 at [place] [facility] [place] N/A: Urethra INACTIVE CR BARD : UROLOGICAL 09/12/2010 [id number] / / [id number] documented as of this encounter Care Teams Ironworker Foreman Relationship Specialty Start Date End Date Mariella Poon DO [address] [place] [address] [place] [phone] PCP - General Internal Medicine 05/05/17 documented as of this encounter
--- OUTSIDE RECORDS SUMMARY | 2023-07-31 02:56 | External Medical Summary | Summary of Care ---
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 LEGS/ARMS/TRUNK , TWICE DAILY NEEDED FOR RASH. 60 g 1 11/06/2022 Active Synthroid 125 MCG Oral TabletIndications:Acq uired hypothyroidism Take 1 Tablet by mouth daily [...] Anxiety (sleep). 30 Tablet 0 06/15/2023 Active RSVPreF3 Vac Recomb Adjuvanted 120 MCG/0.5ML Intramuscular Suspension Reconstituted Inject 1 Each into a large muscle once for 1 dose. 1 Each 0 06/15/2023 06/15/2023 documented as of this encounter (statuses as of 06/17/2023) Active Problems Problem Noted Date Diagnosed Date [...] as of this encounter (statuses as of 06/17/2023) Resolved Problems Problem Noted Date Diagnosed Date Resolved Date Chronic kidney disease, stage 3a 12/23/2020 06/04/2022 Overview: Per CKD protocol Intermittent asthma with rel iever use up to twice per week 03/20/2015 09/23/2015 COPD, moderate 10/13/2014 08/17/2018 Allergic rhinitis 03/27/2014 03/27/2014 Allergic rhinitis 05/30/2013 01/16/2014 HTN, goal below 140/90 07/29/201104/08 [employer] Other*[id number] 12/13/2009 02/03/2010 Asthma with severity to be [...] as of this encounter (statuses as of 06/17/2023) Immunizations Name Administration Dates Next Due COVID-19 mRNA, LNP-s, No Pre serve, 2-Dose Series ([employer]) 04/17/2021,08/10/2020,07/20/2020 COVID-19, LNP-s, No Preserve , Samy-sucrose, Ages 12+ (Pfizer) 12/02/2021 COVID-19, MRNA-LNP, 23-24, P F, 30 MCG/0.3 mL, 12 YRS AND ABOVE, IM ([employer]-Comirnat) 03/26/2023 Covid-19, Mrna, Lnp-s, Pf, B ivalent, 30 Mcg, IM, 12 yrs and above ([employer]) 03/24/2022 PPD 05/18/2006 Pneumococcal Conjugate Vacc, 13 Valent (Prevnar) 04/08/2016 Pneumococcal Polysaccharide PPV23 (Pneumovax) 05/15/2008,05/04/2000 Season Influenza, Quad, PF, Adjuvanted, 65+ Yrs, [...] as of this encounter Miscellaneous Notes * Addendum Note - Yessi Lozano DO - 06/17/2023 2:03 PM ESTAddended by: YESSI LOZANO on: 06/17/2023 02:03 PM Modules accepted: Orders documented in this encounter Plan of Treatment Upcoming Encounters Date Type Department Care Team (Late st Contact Info) Description 01/19/2024 2:30 PM EDT Office Visit Family Medicine [address] [place] [phone] Yessi Lozano DO [address] [place] [address] [place] [address] Scheduled Orders Name Type Priority Associated Diagnoses Orde r Schedule BASIC METABOLIC PANEL Lab Routine Hyponatremia Expected: 07/01/2023 (Approximate), Expires: 06/16/2024 Health Maintenance Due Date Last Done Comments Depression Screening 04/29/2021 04/29/2020 TSH 12/02/2023 12/01/2022, 09/13, 06/18/2020, Additional history exists DXA Scan 02/07/2024 [...] this encounter Medical Devices Implanted Type Area Client Services Analyst Device Identifier Shelf Expiration Date Model / Serial / Lot Sling Align Retropubic [id number] - [id number] Implanted:Qty: 1 on 11[place]07[place] [facility] [place]: Urethra INACTIVE CR BARD : UROLOGICAL 09/12/2010 [id number] / / [id number] documented as of this encounter Procedures Procedure Name Priority Date/Time Associated Diagnosis Comments DIFFERENTIAL, AUTOMATED Routine 06/15/2023 3:35 PM EST group home current use of therapeutic drug HEMOGLOBIN A1C Routine 06/15/2023 3:35 PM EST Elevated blood sugar COMPREHENSIVE METABOLIC PANEL Routine 06/15/2023 3:35 PM EST aix architect current use of therapeutic drug CBC Routine 06/15/2023 3:35 PM EST group home current use of therapeutic drug CBC Routine 06/15/2023 3:35 PM EST group home current use of therapeutic drug documented in this encounter Results * (ABNORMAL) DIFFERENTIAL, AUTOMATED (06/15/2023 3:35 PM EST) WBC 8.76 4.00 - 10.80 K/uL 06/15/2023 9:54 PM EST [facility] Neutrophils % 62.5 40.0 - 75.0 % 06/15/2023 9:54 PM EST [facility] Lymphocytes % 23.7 18.0 - 42.0 % 06/15/2023 9:54 PM EST [facility] Monocytes % 11.2(H) 1.0 - 11.0 % 06/15/2023 9:54 PM EST [facility] Eosinophils % 1.5 0.0 - 6.0 % 06/15/2023 9:54 PM EST [facility] Basophils % 0.9 0.0 - 2.0 % 06/15/2023 9:54 PM EST [facility] Immature Granulocytes % 0.2 0.0 - 2.0 % 06/15/2023 9:54 PM EST [facility] Absolute Neutrophils 5.47 1.80 - 7.70 K/uL 06/15/2023 9:54 PM EST [facility] Absolute Lymphocytes 2.08 1.00 - 4.80 K/ul 06/15/2023 9:54 PM EST [facility] Absolute Monocytes 0.98 0.00 - 1.10 K/uL 06/15/2023 9:54 PM EST [facility] Absolute Eosinophils 0.13 0.00 - 0.70 K/uL 06/15/2023 9:54 PM EST [facility] Absolute Basophils 0.08 0.00 - 0.20 K/uL 06/15/2023 9:54 PM EST [facility] Absolute Immature Granulocytes 0.02 0.00 - 0.20 K/uL 06/15/2023 9:54 PM EST [facility] Blood Venous blood specimen / Unknown Venipuncture / Unknown 06/15/2023 3:35 PM EST 06/15/2023 3:35 PM EST Yessi Lozano DO LAB BLOOD ORDERABLES Performing Organization Address City/State/[facility] Co de Phone Number [facility] [address] [place] [address] * CBC (06/15/2023 3:35 PM EST) WBC 8.76 4.00 - 10.80 K/uL 06/15/2023 9:54 PM EST [facility] RBC 4.32 3.85 - 5.15 M/uL 06/15/2023 9:54 PM EST [facility] HGB 15.2 12.0 - 15.3 g/dL 06/15/2023 9:54 PM EST [facility] HCT 41.8 36.0 - 45.2 % 06/15/2023 9:54 PM EST [facility] MCV 96.8 81.5 - 97.5 fL 06/15/2023 9:54 PM EST [facility] MCH 35.2 27.0 - 34.0 pg 06/15/2023 9:54 PM EST [facility] MCHC 36.4 32.0 - 36.0 g/dL 06/15/2023 9:54 PM EST [facility] RDW 12.8 11.5 - 15.5 % 06/15/2023 9:54 PM EST [facility] PLT 368 140 - 400 K/uL 06/15/2023 9:54 PM EST [facility] MPV 10.1 6.6 - 11.1 fL 06/15/2023 9:54 PM EST [facility] nRBCs 0 <=0 /100 WBCs 06/15/2023 9:54 PM EST [facility] Blood Venous blood specimen / Unknown Venipuncture / Unknown 06/15/2023 3:35 PM EST 06/15/2023 3:35 PM EST Yessi Lozano LAB BLOOD ORDERABLES Performing Organization Address City/[facility] Co de Phone Number [facility] [address] [place] [address] * HEMOGLOBIN A1C (06/15/2023 3:35 PM EST) Hemoglobin A1C 5.4 4.0 - 5.6 % 06/15/2023 10:09 PM EST [facility] Comment:The use of HbA1c to monitor glycemic status is based on normal hemoglobin and HbA composition. This test should not be used in patients with abnormal hemoglobin that affects the half life of the red blood cell or the in vivo glycation rates. Estimated Average Glucose 108 <126 mg/dL 06/15/2023 10:09 PM EST [facility] Blood Venous blood specimen / Unknown Venipuncture / Unknown 06/15/2023 3:35 PM EST 06/15/2023 3:35 PM EST Yessi Lozano LAB BLOOD ORDERABLES Performing Organization Address [facility] Co de Phone Number [facility] [address] [place] [address] * (ABNORMAL) COMPREHENSIVE METABOLIC PANEL (06/15/2023 3:35 PM EST) BUN 15 6 - 20 mg/dL 06/15/2023 10:06 PM EST [facility] Creatinine 0.5 0.5 - 1.0 mg/dL 06/15/2023 10:06 PM EST [facility] Estimated Glomerular Filtration Rate 89 >=60 mL/min 06/15/2023 10:06 PM EST [facility] Comment:eGFR is calculated b ased on the CKD-EPI 2020 equation Sodium 133(L) 135 - 146 mmol/L 06/15/2023 10:06 PM EST [facility] Potassium 4.4 3.5 - 5.1 mmol/L 06/15/2023 10:06 PM EST [facility] Chloride 91(L) 98 - 107 mmol/L 06/15/2023 10:06 PM EST [facility] CO2 29 22 - 32 mmol/L 06/15/2023 10:06 PM EST [facility] Anion Gap 13 7 - 15 mmol/L 06/15/2023 10:06 PM EST [facility] Glucose 102 70 - 120 mg/dL 06/15/2023 10:06 PM EST [facility] Albumin 4.8 3.8 - 5.0 g/dL 06/15/2023 10:06 PM EST [facility] AST 25 10 - 35 U/L 06/15/2023 10:06 PM EST [facility] Alkaline Phosphatase 78 35 - 130 U/L 06/15/2023 10:06 PM EST [facility] Bilirubin, Total 0.3 <=1.2 mg/dL 06/15/2023 10:06 PM EST [facility] Calcium 10.1 8.4 - 10.2 mg/dL 06/15/2023 10:06 PM EST [facility] Protein 6.9 6.0 - 8.3 g/dL 06/15/2023 10:06 PM EST [facility] ALT 30 10 - 35 U/L 06/15/2023 10:06 PM EST [facility] Blood Venous blood specimen / Unknown Venipuncture / Unknown 06/15/2023 3:35 PM EST 06/15/2023 3:35 PM EST Yessi Lozano DO LAB BLOOD ORDERABLES [facility] [address] [facility] [place] [address] documented in this encounter Visit Diagnoses Diagnosis Hyponatremia- Primary Hyposmolality and/or hyponatremia aix architect current use of therapeutic drug Elevated blood sugar Other abnormal glucose documented in this encounter Care Teams Planning Lead Relationship Specialty Start Date End Date Yessi Lozano DO [address] [place] [address] [place] [phone] PCP - General Internal Medicine 05/05/17 documented as of this encounter
--- OUTSIDE RECORDS SUMMARY | 2023-07-31 02:57 | External Medical Summary ---
Author Name Unknown Address Unknown Organization K01:LABORATORY [facility] - [address] [facility] [address] Laboratory Report Ordering Provider Test Date Status MARTA DIKCSON 06/15/2023 15:35:28 Final Observation Date Value Abnormality Reference (Units ) Status SYNC LEUKOCYTES IN BLOOD BY AUTOMATED COUNT 06/15/2023 15:35:28 8.76 4.00-10.80 (K/uL) Final Segs 06/15/2023 15:35:28 62.5 40.0-75.0 (%) Final Lymphs % 06/15/2023 15:35:28 23.7 18.0-42.0 (%) Final Monos 06/15/2023 15:35:28 11.2 Above high normal 1.0-11.0 (%) Final Eosinophils 06/15/2023 15:35:28 1.5 0.0-6.0 (%) Final Basos 06/15/2023 15:35:28 0.9 0.0-2.0 (%) Final Immature Granulocyte, Percent 06/15/2023 15:35:28 0.2 0.0-2.0 (%) Final Absolute Segs 06/15/2023 15:35:28 5.47 1.80-7.70 (K/uL) Final Lymphs, absolute 06/15/2023 15:35:28 2.08 1.00-4.80 (K/ul) Final Monos, Abs 06/15/2023 15:35:28 0.98 0.00-1.10 (K/uL) Final Eos, Abs 06/15/2023 15:35:28 0.13 0.00-0.70 (K/uL) Final Basos, Abs 06/15/2023 15:35:28 0.08 0.00-0.20 (K/uL) Final Immature Granulocytes, Number 06/15/2023 15:35:28 0.02 0.00-0.20 (K/uL) Final Performing Location LABORATORY [facility] - [facility] [address]. [facility] [address]
--- OUTSIDE RECORDS SUMMARY | 2023-07-31 02:57 | External Medical Summary | Summary of Care ---
Author Name Unknown Organization [facility] Address [address] [place] [address] Phone [phone] Care Team Providers Care Personnel Associate Name Role Phone Mariella Poon DO Primary Care Provider Reason for Visit * Reason Onset Date Comments Appointment 04/28/2023 Encounter Details Date Type Department Care Team (Late st Contact Info) Description 04/28/2023 Telephone Radiology [address] [place] [address] Jennie Loja TECH Appointment Allergies No known active allergiesdocumented as of this encounter (statuses as of 04/28/2023) Medications Medication Sig Dispensed Refills Start Date [...] every evening. 90 Tablet 1 03/03/2023 Active documented as of this encounter (statuses as of 04/28/2023) Active Problems Problem Noted Date Diagnosed Date [...] as of this encounter (statuses as of 04/28/2023) Resolved Problems Problem Noted Date Diagnosed Date Resolved Date Chronic kidney disease, stage 3a 12/23/2020 06/04/2022 Overview: Per CKD protocol Intermittent asthma with rel iever use up to twice per week 03/20/2015 09/23/2015 COPD, moderate 10/13/2014 08/17/2018 Allergic rhinitis 03/27/2014 03/27/2014 Allergic rhinitis 05/30/2013 01/16/2014 HTN, goal below 140/90 07/29/201104/08 [employer] Other*[id number] 12/13/2009 02/03/2010 Asthma with severity to be [...] as of this encounter (statuses as of 04/28/2023) Immunizations Name Administration Dates Next Due COVID-19 mRNA, LNP-s, No Pre serve, 2-Dose Series ([employer]) 04/17/2021,08/10/2020,07/20/2020 COVID-19, LNP-s, No Preserve , Samy-sucrose, Ages 12+ ([employer]) 12/02/2021 COVID-19, MRNA-LNP, 23-24, P F, 30 MCG/0.3 mL, 12 YRS AND ABOVE, IM ([employer]-Comirnat) 03/26/2023 Covid-19, Mrna, Lnp-s, Pf, B ivalent, 30 Mcg, IM, 12 yrs and above ([employer]) 03/24/2022 PPD 05/18/2006 Pneumococcal Conjugate Vacc, 13 Valent (Prevnar) 04/08/2016 Pneumococcal Polysaccharide PPV23 (Pneumovax) 05/15/2008,05/04/2000 SEASONAL INFLUENZA, PF, 6 M & Above, IM , (FLULAVAL or FLUZONE) 08/17/2018,03/08/2017 Season Influenza, Quad, PF, Adjuvanted, 65+ Yrs, IM (FLUAD) 02/08/2020 Seasonal Influenza, Quadriva lent Hd (Fluzone Hd) 03/03/2023,03/24/2022 Seasonal Influenza, Quadriva lent, No Preserve, IM 03/26/2015 Seasonal Influenza, Split, I IV3, With Preserve, Inj 03/13/2016,04/27/2014,03/03/2013,02/24,03/17/2011,02/28/2010,03/18/2009 ,04/11/2008,04/06/2006 Seasonal Influenza, Trivalen t, Adjuvanted, 65+ yrs [...] on file documented as of this encounter Plan of Treatment Upcoming Encounters Date Type Department Care Team (Late st Contact Info) Description 04/29/2023 1:45 PM EST Imaging Radiology [address] [place] [address] 06/15/2023 2:30 PM EST Office Visit Family Medicine [address] [place] [phone] [address] [place] [address] Health Maintenance Due Date Last Done Comments Depression Screening 04/29/2021 04/29/2020 TSH 12/02/2023 12/01/2022, 0412/2021, 06/18/2020, Additional history exists DXA Scan 02/07/2024 [...] this encounter Medical Devices Implanted Type Area Hourly Sign Language Interpreter Device Identifier Shelf Expiration Date Model / Serial / Lot Sling Align Retropubic [id number] - [id number] Implanted:Qty: 1 on 11/07/[address] [facility] [place] N/A: Urethra INACTIVE CR BARD : UROLOGICAL 09/12/2010 [id number] / / [id number] documented as of this encounter Care Teams Personnel Associate Relationship Specialty Start Date End Date Mariella Poon DO [address] [place] [address] [place] [phone] PCP - General Internal Medicine 05/05/17 documented as of this encounter
--- OUTSIDE RECORDS SUMMARY | 2023-07-31 02:57 | External Medical Summary | Summary of Care ---
Author Name Unknown Organization [facility] Address [address] [place] [address] Phone [phone] Care Team Providers Care Gas Controller Name Role Phone Mariella Poon DO Primary Care Provider Reason for Visit * Reason Comments Re-Check Encounter Details Date Type Department Care Team (Late st Contact Info) Description 06/15/2023 2:30 PM EST Office Visit Family Medicine [address] [phone] Mariella Poon DO [address] [place] [address] [place] [address] Acquired hypothyroidism*; Essential hypertension with goal blood pressure less than 140/90; Adjustment disorder with mixed disturbance of emotions and conduct; 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 90 Tablet 3 06/15/2023 Active RSVPreF3 Vac Recomb Adjuvanted 120 MCG/0.5ML Intramuscular Suspension Reconstituted Inject 1 Each into a large muscle once for 1 dose. 1 Each 0 06/15/2023 06/15/2023 Active hydrOXYzine HCl 10 MG Oral Tablet (Atarax) Take 1 Tablet by mouth at bedtime as needed for Anxiety (sleep). 30 Tablet 0 06/15/2023 Active documented as of this encounter (statuses as of 06/15/2023) Active Problems Problem Noted Date Diagnosed Date [...] as of this encounter (statuses as of 06/15/2023) Resolved Problems Problem Noted Date Diagnosed Date Resolved Date Chronic kidney disease, stage 3a 12/23/2020 06/04/2022 Overview: Per CKD protocol Intermittent asthma with rel iever use up to twice per week 03/20/2015 09/23/2015 COPD, moderate 10/13/2014 08/17/2018 Allergic rhinitis 03/27/2014 03/27/2014 Allergic rhinitis 05/30/2013 01/16/2014 HTN, goal below 140/90 07/29/201104/08 [employer] Other*[id number] 12/13/2009 02/03/2010 Asthma with severity to be [...] as of this encounter (statuses as of 06/15/2023) Immunizations Name Administration Dates Next Due COVID-19 mRNA, LNP-s, No Pre serve, 2-Dose Series ([employer]) 04/17/2021,08/10/2020,07/20/2020 COVID-19, LNP-s, No Preserve , Samy-sucrose, Ages 12+ ([employer]) 12/02/2021 COVID-19, MRNA-LNP, 23-24, P F, 30 MCG/0.3 mL, 12 YRS AND ABOVE, IM ([employer]-Comirnaty) 03/26/2023 Covid-19, Mrna, Lnp-s, Pf, B ivalent, 30 Mcg, IM, 12 yrs and above ([employer]) 03/24/2022 PPD 05/18/2006 Pneumococcal Conjugate Vacc, 13 [...] on file documented as of this encounter Last Filed Vital Signs Vital Sign Reading Time Taken Comments Blood Pressure 164/82 06/15/2023 2:34 PM EST Pulse 84 06/15/2023 2:34 PM EST Temperature 36.3 C (97.4 F) 06/15/2023 2:34 PM ES T Respiratory Rate - - Oxygen Saturation 97% 06/15/2023 2:34 PM EST Inhaled Oxygen Concentration - - Weight 60.1 kg (132 lb 6.4 oz) 06/15/2023 2:34 P M EST Height - - Body Mass Index 23.09 06/02/2022 2:07 PM EST documented in this encounter Progress Notes * Mariella Poon, - 06/15/2023 2:53 PM EST Subjective: Mayda Olvera is a 88 year old female. Chief Complaint Patient presents with Re-Check HPI: Mayda Olvera presents today for routine follow up. Since her last appointment her . She is having a hard time with this, but she istrying to get by. She has had multiple falls over the past year. She thinks most of this is due to her not paying attention to things. Her grandson is now staying with her at night and her family is checking in with her regularly. She continues to take her sertraline - not sure how much it is helping. She has been taking her thyroid medicine. She asks whether or not she should get her RSV vaccine. Discussed that I think she should. 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 BP is high since stopping the lisinopril. She is wiling to restart it. 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 90 Tablet 3 Loratadine 10 MG Oral Tablet (Claritin) Take 1 Tablet by mouth in the morning. 30 Tablet 5 Cyclobenzaprine HCl 5 MG Oral Tablet (Flexeril) Take 1 Tablet by mouth daily as needed for Muscle spasms. 90 Tablet 1 Clobetasol Propionate 0.05 % External Cream (Temovate) APPLY CREAM TOPICALLY TO AFFECTED AREA TWICEDAILY. LEGS/ARMS/TRUNK, TWICE DAILY NEEDED FOR RASH. 60 g 1 Synthroid 125 MCG Oral Tablet Take 1 Tablet by mouth daily first thing in the morning. (at least 30min prior to breakfast or other meds) 90 Tablet 3 Sertraline HCl 50 MG Oral Tablet (Zoloft) Take 1 Tablet by mouth in the morning. 90 Tablet 1 Sertraline HCl 25 MG Oral Tablet (Zoloft) Take 1 Tablet by mouth every evening. 90 Tablet 1 No current facility-administered medications for this visit. Review of patient's allergies indicates: No Known Allergies Objective: BP 164/82 | Pulse 84 | Temp 36.3 C (97.4 F) | Wt 60.1 kg (132 lb 6.4 oz) | SpO2 97% | BMI 23.09kg/m | BSA 1.64 m General: alert, healthy, no distress, well nourished, and well developed Neck: supple, no adenopathy, thyroid normal size, non-tender, without nodularity Heart: regular rate & rhythm and no murmur Lungs: chest symmetric with normal AP diameter, no chest deformities noted, normal respiratory rateand rhythm, lungs clear to auscultation Abdomen: abdomen soft and non-tender Extremities: no joint deformities, effusion, or inflammation, no edema Neuro Exam: alert & oriented x 3 with fluent speech, no focal motor/sensory deficits, gait normal Skin: skin color, texture, turgor are normal, no rashes or significant lesions Psych: tearful ASSESSMENT/PLAN: Acquired hypothyroidism (Primary) - continue levothyroxine. Essential hypertension with goal blood pressure less than 140/90 - continue HCTZ, restart lisinopril 10 mg. 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 Low dose hydroxyzine given to help her with sleep/anxiety at bedtime. 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 - HEMOGLOBIN A1C; Future; Expected date: 06/15/2023 Grief - her approximately 3 months ago. The holidays were difficult for her. Thankfully she has good family support. Other orders - Lisinopril 10 MG Oral Tablet (Prinivil); Take 1 Tablet by mouth in the morning. - RSVPreF3 Vac Recomb Adjuvanted 120 MCG/0.5ML Intramuscular Suspension Reconstituted; Inject 1 Each into a large muscle once for 1 dose. - hydrOXYzine HCl 10 MG Oral Tablet (Atarax); Take 1 Tablet by mouth at bedtime as needed for Anxiety (sleep). Follow-up: Return in about 6 months (around 12/14/2023). | Check-out note: Labs today Mariella Poon DO documented in this encounter Plan of Treatment Upcoming Encounters Date Type Department Care Team (Late st Contact Info) Description 01/19/2024 2:30 PM EDT Office Visit Family Medicine [address] [phone] Mariella Poon DO [address] [place] [address] [place] [address] Pending Results Name Type Priority Associated Diagnoses Date /Time COMPREHENSIVE METABOLIC PANEL Lab Routine [facility] current use of therapeutic drug 06/15/2023 3:35 PM EST HEMOGLOBIN A1C Lab Routine Elevated blood sugar 06/15/2023 3:35 PM EST CBC WITH WBC DIFFERENTIAL Lab Routine [facility] current use of therapeutic drug 06/15/2023 3:35 PM EST Scheduled Orders Name Type Priority Associated Diagnoses Orde r Schedule COMPREHENSIVE METABOLIC PANEL Lab Routine [facility] current use of therapeutic drug Expected: 06/15/2023 (Approximate), Expires: 06/14/2024 HEMOGLOBIN A1C Lab Routine Elevated blood sugar Expected: 06/15/2023 (Approximate), Expires: 06/14/2024 CBC WITH WBC DIFFERENTIAL Lab Routine [facility] current use of therapeutic drug Expected: 06/15/2023 (Approximate), Expires: 06/15/2024 Health Maintenance Due Date Last Done Comments [...] this encounter Medical Devices Implanted Type Area Bunch Breaker Machine Operator Device Identifier Shelf Expiration Date Model / Serial / Lot Sling Align Retropubic [id number] - [id number] Implanted:Qty: 1 on 11/07/2008 at [place] [facility] [place]/A: Urethra INACTIVE CR BARD : UROLOGICAL 09/12/2010 [id number] / / [id number] documented as of this encounter Visit Diagnoses Diagnosis Acquired hypothyroidism- Primary Unspecified hypothyroidism Essential hypertension with goal blood pressure less than 140/90 Adjustment disorder with mixed disturbance of emotions and conduct 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
--- OUTSIDE RECORDS SUMMARY | 2023-07-31 02:57 | External Medical Summary | Summary of Care ---
Author Name Unknown Organization [facility] Address [address] [place] [address] Phone [phone] Care Team Providers Care Medicare Specialist Name Role Phone Mariella Poon DO Primary Care Provider Reason for Visit * Reason Comments Outpatient Testing Encounter Details Date Type Department Care Team (Late st Contact Info) Description 06/15/2023 3:40 PM EST Laboratory Laboratory [address] [place] [phone] [place] [address] snf current use of therapeutic drug; Elevated blood [...] HTN, goal below 140/90 07/29/201104/08 [employer] Other*[id number] 12/13/2009 02/03/2010 Asthma with severity to be [...] mRNA, LNP-s, No Pre serve, 2-Dose Series ([employer]) 04/17/2021,08/10/2020,07/20/2020 COVID-19, LNP-s, No Preserve , Samy-sucrose, Ages 12+ (Pfizer) 12/02/2021 COVID-19, MRNA-LNP, 23-24, P F, 30 MCG/0.3 mL, 12 YRS AND ABOVE, IM ([employer]-Comirnaty) 03/26/2023 Covid-19, Mrna, Lnp-s, Pf, B ivalent, 30 Mcg, IM, 12 yrs and above ([employer]) 03/24/2022 PPD 05/18/2006 Pneumococcal Conjugate Vacc, 13 [...] 2:30 PM EDT Office Visit Family Medicine [address] [place] [phone] Mariella Poon [address] [place] [address] Pending Results Name Type Priority Associated Diagnoses Date /Time COMPREHENSIVE METABOLIC PANEL Lab Routine snf current use of therapeutic drug 06/15/2023 3:35 PM EST HEMOGLOBIN A1C Lab Routine Elevated blood sugar 06/15/2023 3:35 PM EST CBC WITH WBC DIFFERENTIAL Lab Routine watermaster current use of therapeutic drug 06/15/2023 3:35 PM EST CBC Lab Routine snf current use of therapeutic drug 06/15/2023 3:35 PM EST DIFFERENTIAL, AUTOMATED Lab Routine watermaster current use of therapeutic drug 06/15/2023 3:35 PM EST Health Maintenance Due Date Last Done Comments [...] this encounter Medical Devices Implanted Type Area Brass Bobbin Winder Device Identifier Shelf Expiration Date Model / Serial / Lot Sling Align Retropubic [id number] - [id number] Implanted:Qty: 1 on 11/07/2008 at OR [facility] [place] N/A: Urethra INACTIVE CR BARD : UROLOGICAL 09/12/2010 [id number] / / [id number] documented as of this encounter Visit Diagnoses Diagnosis watermaster current use of therapeutic drug Elevated blood sugar Other abnormal glucose documented in this encounter Care Teams Medicare Specialist Relationship Specialty Start Date End Date Mariella Poon DO [address] [place] [address] [place] [address] PCP - General Internal Medicine 05/05/17 documented as of this encounter
--- OUTSIDE RECORDS SUMMARY | 2023-07-31 02:57 | External Medical Summary | Summary of Care ---
Author Name Unknown Organization [facility] Address [address] [place] [address] Phone [phone] Care Team Providers Care Wastewater Treatment Plant Supervisor Name Role Phone Mariella Poon Primary Care Provider [phone] Reason for Referral * Precert (Within 10 days (routine)) - Pending Review Specialty Diagnoses / Procedures Referred By Contac t Referred To Contact Radiology Diagnoses Abnormal CT scan, cervical spine Procedures MRI C SPINE W WO CONTRAST Jodie Martin PA-C [address] [place] [address] [place] [address] Referral ID Status Reason Start Date Expiration Date V isits Requested Visits Authorized [id number] Pending Review 04/02/2023 999 999 Reason for Visit * Reason Comments Hospital Follow-Up Encounter Details Date Type Department Care Team Description 03/26/2023 Office Visit Family Medicine [address] [place] [phone] Jodie Martin PA-C [address] [place] [address] [place] [address] Encounter for removal of sutures*; Abnormal CT scan, cervical spine Allergies No known active allergiesdocumented as of this encounter (statuses as of 03/26/2023) Medications Medication Sig Dispensed Refills Start Date [...] as of this encounter (statuses as of 03/26/2023) Active Problems Problem Noted Date 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 12/01/2022 Asthma in remission 12/17/2020 Seasonal allergies 06/18/2020 Nummular dermatitis 05/05/2017 Essential hypertension with goal blood p ressure less than 140/90 04/08/2016 Asthma, allergic 01/28/2010 Sensorineural hearing loss, bilateral Overview: Does not need hearing aids Female stress incontinence 11/07/2008 GENERAL OSTEOARTHROSIS 11/06/2003 Acquired hypothyroidism documented as of this encounter (statuses as of 03/26/2023) Resolved Problems Problem Noted Date Resolved Date Chronic kidney disease, stage 3a 12/23/2020 06/04/2022 Overview: Per CKD protocol Intermittent asthma with reliever use up to twic e per week 03/20/2015 09/23/2015 COPD, moderate 10/13/2014 08/17/2018 Allergic rhinitis 03/27/2014 03/27/2014 Allergic rhinitis 05/30/2013 01/16/2014 HTN, goal below 140/90 07/29/2011 6 [employer] Other*[id number] 12/13/2009 02/03/2010 Asthma with severity to be determined 12/05/2009 12/12/2009 Overview: Per Asthma Taxonomy ICD-10 update of inactive term ADVANCE DIRECTIVE INFORMATION 09/26/2009 Overview: No, Advance Directive brochure given to patient at prior appointment. Subjective tinnitus 07/02/2009 05/05/2017 CHR OTITIS EXTERNA ,W/CERUMENOSIS 07/02/2009 05/05/2017 Impacted cerumen 07/02/2009 01/16/2014 INTERFACED RESULT 11/07/2008 11/12/2011 EXTRINSIC ASTHMA, UNSPEC 12/08/2005 010 Vasomotor rhinitis 11/06/2003 02/06/2019 HYPERTENSION NOS 11/06/2003 02/01/2012 Overview: Modified per HTN protocol #16. Syncope and collapse 01/14/2001 01/16/2014 Malaise and fatigue 01/14/2001 01/16/2014 documented as of this encounter (statuses as of 03/26/2023) Immunizations Name Administration Dates Next Due COVID-19 mRNA, LNP-s, No Pre serve, 2-Dose Series ([employer]) 04/17/2021,08/10/2020,07/20/2020 COVID-19, LNP-s, No Preserve , Samy-sucrose, Ages 12+ (Pfizer) 12/02/2021 COVID-19, MRNA-LNP, 23-24, P F, 30 MCG/0.3 mL, 12 YRS AND ABOVE, IM ([employer]-Comirnaty) 03/26/2023 Covid-19, Mrna, Lnp-s, Pf, B ivalent, 30 Mcg, IM, 12 yrs and above ([employer]) 03/24/2022 PPD 05/18/2006 Pneumococcal Conjugate Vacc, 13 [...] 3 Q uit: 06/14/1964 Smokeless Tobacco: Never Tobacco Cessation:Counseling Given: Not Answered Comments:50 years ago Alcohol Use Standard Drinks/Week Comments Yes 0 (1 standard drink = 0.6 oz pur e alcohol) less than 1 drink in a year Food Insecurity Answer Date Recorded Within the past 12 months, y ou worried that your food would run out before you got money to buy more. Never true 12/12/2019 Within the past 12 months, t he food you bought just didn't last and you didn't have money to get more. Never true 12/12/2019 Sex Assigned at Date Recorded Not on file Job Start Date Occupation Industry Not on file Not on file Not on file documented as of this encounter Last Filed Vital Signs Vital Sign Reading Time Taken Comments Blood Pressure 140/72 03/26/2023 2:18 PM EDT Pulse 80 03/26/2023 2:18 PM EDT Temperature 36.8 C (98.3 F) 03/26/2023 2:18 PM ED T Respiratory Rate - - Oxygen Saturation 99% 03/26/2023 2:18 PM EDT Inhaled Oxygen Concentration - - Weight 57.8 kg (127 lb 6.4 oz) 03/26/2023 2:18 P M EDT Height - - Body Mass Index 22.21 06/02/2022 2:07 PM EST documented in this encounter Progress Notes * Jodie Martin PA-C - 03/26/2023 2:17 PM EDT Nursing Notes: Catie Morrison LPN 03/26/23 1424 Signed Chief Complaint Patient presents with Hospital Follow-Up Fell on 03/15/2023 and Hit back right head Went to [facility] Laceration on back of scalp stapled CT done at hospital CT at hospital showed changes and they Recommend MRI The patient has been properly identified by confirmation of name and date of . Pt here today for suture removal. Pt fell and hit her head on 03/15/23. She had 3 patrice placed at [facility] ER. CT of cervical spine shows possible abnormality - could be realted to osteomyelitis. Rec MRI. This is ordered. Pt is doing well. Has no issues today. Her just a couple of days ago. Review of patient's allergies indicates: No Known Allergies Current Outpatient Medications Medication Sig Dispense Refill [...] No current facility-administered medications for this visit. Past Medical History: Diagnosis Date Allergic rhinitis due to other allergen Asthma, allergic CHR OTITIS EXTERNA ,W/CERUMENOSIS 07/02/2009 COPD, moderate (HCC) 10/13/2014 Essential hypertension with goal blood pressure less than 140/90 04/08/2016 FEM STRESS INCONTINENCE 11/07/2008 Generalized osteoarthritis HTN, goal below 140/90 07/29/2011 HTN, goal to be determined Impacted cerumen 07/02/2009 Intermittent asthma with reliever use up to twice per week 03/20/2015 MALAISE AND FATIGUE NOS 01/14/2001 Other specified acquired hypothyroidism Sensorineural hearing loss, bilateral 07/02/2009 Subjective tinnitus 07/02/2009 Syncope and collapse 01/14/2001 Vasomotor rhinitis 11/06/2003 Social History Socioeconomic History Marital status: Spouse name: Not on file Number of children: 2 Years of education: Not on file Highest education level: Not on file Occupational History 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 Tobacco Use Smoking status: Former Packs/day: 0.10 Years: 3.00 Pack years: 0.30 Types: Cigarettes Quit date: 06/14/1965 Years since quittin.8 Smokeless tobacco: Never Tobacco comments: 50 years ago Substance and Sexual Activity Alcohol use: Yes Comment: less than 1 drink in a year Drug use: No Sexual activity: Yes Partners: Male Other Topics Concern Service No Blood Transfusions No Caffeine Concern Yes Occupational Exposure No Hobby Hazards No Sleep Concern No Stress Concern No Weight Concern No Special Diet No Back Care Yes Exercise Yes Bike Helmet Not Asked Seat Belt Yes Self-Exams Not Asked Social History Narrative Not on file Social Determinants of Health Financial Resource Strain: Not on file Food Insecurity: Not on file Transportation Needs: Not on file Physical Activity: Not on file Stress: Not on file Social Connections: Not on file Intimate Partner Violence: Not on file Housing Stability: Not on file O:Blood pressure 140/72, pulse 80, temperature 36.8 C (98.3 F), temperature source Tympanic, weight 57.8 kg (127 lb 6.4 oz), SpO2 99 %. HEAD: 3 patrice placed at back of scalp. Healing well. No signs of infection A:Encounter for removal of sutures (Primary) - SUTURE REMOVAL-BY OTHER PROVIDER Abnormal CT scan, cervical spine - MRI C SPINE W WO CONTRAST; Future; Expected date: 04/02/2023 [place] removed using sterile staple remover. MRI ordered. Any questions/problems, please call. If anything changes, worsens, develops new sx, please call [facility]. Follow Up: Return if symptoms worsen or fail to improve. Jodie Martin PA-C documented in this encounter Nursing Notes * Catie Morrison LPN - 03/26/2023 2:16 PM EDT Chief Complaint Patient presents with Hospital Follow-Up Fell on 03/15/2023 and Hit back right head Went to [facility] Laceration on back of scalp stapled CT done at hospital CT at hospital showed changes and they Recommend MRI The patient has been properly identified by confirmation of name and date of . documented in this encounter Plan of Treatment Upcoming Encounters Date Type Specialty Care Team Description 03/26/2023 Immunization [place], Covid19 Vaccine [address] [place] [address] 04/29/2023 Imaging Radiology 06/15/2023 Office Visit Family Medicine Mariella Poon, [address] [place] [address] Scheduled Orders Name Type Priority Associated Diagnoses Orde r Schedule SUTURE REMOVAL-BY OTHER PROVIDER Procedures Routine Encounter for removal of sutures Ordered: 03/26/2023 MRI C SPINE W WO CONTRAST Medical Imaging Routine Abnormal CT scan, cervical spine Expected: 04/02/2023, Expires: 04/26/2024 Health Maintenance Due Date Last Done Comments [...] this encounter Medical Devices Implanted Type Area Clarification Operator Device Identifier Shelf Expiration Date Model / Serial / Lot Sling Align Retropubic [id number] - [id number] Implanted:Qty: 1 on 11/07/2008 [place] [facility] [place] Urethra INACTIVE CR BARD : UROLOGICAL 09/12/2010 [id number] / / [id number] documented as of this encounter Visit Diagnoses Diagnosis Encounter for removal of sutures- Primary Abnormal CT scan, cervical spine Nonspecific (abnormal) findings on radiological and other examination of musculoskeletal system documented in this encounter Care Teams Wastewater Treatment Plant Supervisor Relationship Specialty Start Date End Date Mariella Poon, [address] [place] [address] PCP - General Internal Medicine 05/05/17 documented as of this encounter
--- OUTSIDE RECORDS SUMMARY | 2023-07-31 02:57 | External Medical Summary ---
Author Name Unknown Address Unknown Organization [id number]:[facility] [place] [facility] [address] [facility] [address] Laboratory Report Ordering Provider Test Date Status MARTA DICKSON 06/15/2023 15:35:28 Final Observation Date Value Abnormality Reference (Units ) Status WBC, Total 06/15/2023 15:35:28 8.76 4.00-10.80 (K/uL) Final RBC 06/15/2023 15:35:28 4.32 3.85-5.15 (M/uL) Final Hemoglobin 06/15/2023 15:35:28 15.2 12.0-15.3 (g/dL) Final HCT 06/15/2023 15:35:28 41.8 36.0-45.2 (%) Final MCV 06/15/2023 15:35:28 96.8 81.5-97.5 (fL) Final MCH 06/15/2023 15:35:28 35.2 27.0-34.0 (pg) Final MCHC 06/15/2023 15:35:28 36.4 32.0-36.0 (g/dL) Final RDW 06/15/2023 15:35:28 12.8 11.5-15.5 (%) Final Platelets 06/15/2023 15:35:28 368 140-400 (K/uL) Final MPV 06/15/2023 15:35:28 10.1 6.6-11.1 (fL) Final Nucleated erythrocytes/100 leukocytes [Ratio] in Blood by Automated count 06/15/2023 15:35:28 0 <=0 (/100 WBCs) Final Performing Location [facility] [place] [address] [facility] [address]
--- OUTSIDE RECORDS SUMMARY | 2023-07-31 02:57 | External Medical Summary | Summary of Care ---
Author Name Unknown Organization [facility] Address [address] [place] [address] Phone [phone] Care Team Providers Care Seafood Service Team Member Name Role Phone Mariella Poon DO Primary Care Provider Encounter Details Date Type Department Care Team (Late st Contact Info) Description 03/15/2023 Orders Only Family Medicine [address] [place] [phone] Jodie Martin PA-C [address] [place] [address] [place] [address] Allergies No known active allergiesdocumented as of this encounter (statuses as of 04/29/2023) Medications Medication Sig Dispensed Refills Start Date [...] as of this encounter (statuses as of 04/29/2023) Active Problems Problem Noted Date Diagnosed Date [...] as of this encounter (statuses as of 04/29/2023) Resolved Problems Problem Noted Date Diagnosed Date Resolved Date Chronic kidney disease, stage 3a 12/23/2020 06/04/2022 Overview: Per CKD protocol Intermittent asthma with rel iever use up to twice per week 03/20/2015 09/23/2015 COPD, moderate 10/13/2014 08/17/2018 Allergic rhinitis 03/27/2014 03/27/2014 Allergic rhinitis 05/30/2013 01/16/2014 HTN, goal below 140/90 07/29/201104/08 [email or web address] Other*[id number] 12/13/2009 02/03/2010 Asthma with severity to be [...] as of this encounter (statuses as of 04/29/2023) Immunizations Name Administration Dates Next Due COVID-19 mRNA, LNP-s, No Pre serve, 2-Dose Series ([employer]) 04/17/2021,08/10/2020,07/20/2020 COVID-19, LNP-s, No Preserve , Samy-sucrose, Ages 12+ (Pfizer) 12/02/2021 Covid-19, Mrna, Lnp-s, Pf, B ivalent, 30 Mcg, IM, 12 yrs and above (Pfizer) 03/24/2022 PPD 05/18/2006 Pneumococcal Conjugate Vacc, 13 [...] 2:30 PM EST Office Visit Family Medicine [address] [place] [phone] [place] [address] Health Maintenance Due Date Last Done Comments [...] this encounter Medical Devices Implanted Type Area Curb Attendant Device Identifier Shelf Expiration Date Model / Serial / Lot Sling Align Retropubic [id number] - [id number] Implanted:Qty: 1 on 11/07/2008 at [place] [facility] [place]: Urethra INACTIVE CR BARD : UROLOGICAL 09/12/2010 [id number] / / [id number] documented as of this encounter Procedures Procedure Name Priority Date/Time Associated Diagnosis Comments RADIOLOGY EXAM - CT (IMAGES ONLY, NO REPORT) Routine 03/15/2023 8:25 PM EDT documented in this encounter Results * RADIOLOGY EXAM - CT (IMAGES ONLY, NO REPORT) (03/15/2023 8:25 PM EDT) 03/15/2023 8:21 PM EDT Narrative Scheduling, Silent - 04/29/2023 2:02 PM EST This is an imaging study not interpreted or resulted by a [facility] or [facility] [employer] contracted radiologist. Jodie Martin PA-C RAD CT documented in this encounter Care Teams Seafood Service Team Member Relationship Specialty Start Date End Date Mariella Poon DO [address] [place] [address] [place] [phone] PCP - General Internal Medicine 05/05/17 documented as of this encounter
--- OUTSIDE RECORDS SUMMARY | 2023-07-31 02:57 | External Medical Summary ---
Author Name Unknown Address Unknown Organization K01:[facility] [place] [address] [facility] [address] Laboratory Report Ordering Provider Test Date Status MARTA DICKSON 06/15/2023 15:35:28 Final Observation Date Value Abnormality Reference (Units ) Status HbA1C 06/15/2023 15:35:28 5.4 4.0-5.6 (% ) Final The use of HbA1c to monitor glycemic status is based on normal hemoglobin and HbA composition. This test should not be used in patients with abnormal hemoglobin that affects the half life of the red blood cell or the in vivo glycation rates. Glucose, estimated average 06/15/2023 15:35:28 108 <126 (mg/dL) Final Performing Location [facility] [place] [address] [facility] [address]
--- OUTSIDE RECORDS SUMMARY | 2023-07-31 02:57 | External Medical Summary | Summary of Care ---
Author Name Unknown Organization [facility] Address [address] [place] [address] Phone [phone] Care Team Providers Care Behavioral Health Assistant Name Role Phone Mariella Poon DO Primary Care Provider Encounter Details Date Type Department Care Team (Latest Contact Info) Description 03/15/2023 8:25 PM EDT - 03/15/2023 11:59 PM EDT Hospital Encounter Radiology Film File [address] [place] [address] Discharge Disposition: Home - Self Care Allergies No known active allergiesdocumented as of this encounter (statuses as of 04/30/2023) Medications Medication Sig Dispensed Refills Start Date [...] as of this encounter (statuses as of 04/30/2023) Active Problems Problem Noted Date Diagnosed Date [...] as of this encounter (statuses as of 04/30/2023) Resolved Problems Problem Noted Date Diagnosed Date Resolved Date Chronic kidney disease, stage 3a 12/23/2020 06/04/2022 Overview: Per CKD protocol Intermittent asthma with rel iever use up to twice per week 03/20/2015 09/23/2015 COPD, moderate 10/13/2014 08/17/2018 Allergic rhinitis 03/27/2014 03/27/2014 Allergic rhinitis 05/30/2013 01/16/2014 HTN, goal below 140/90 07/29/201104/08 [employer] Other*[id number] 12/13/2009 02/03/2010 Asthma with severity to be [...] as of this encounter (statuses as of 04/30/2023) Immunizations Name Administration Dates Next Due COVID-19 mRNA, LNP-s, No Pre serve, 2-Dose Series ([employer]) 04/17/2021,08/10/2020,07/20/2020 COVID-19, LNP-s, No Preserve , Samy-sucrose, Ages 12+ ([employer]) 12/02/2021 Covid-19, Mrna, Lnp-s, Pf, B ivalent, [...] 2:30 PM EST Office Visit Family Medicine [address] [place] [phone] [place] [address] Health Maintenance Due Date Last Done Comments [...] this encounter Medical Devices Implanted Type Area Editorial Clerk Device Identifier Shelf Expiration Date Model / Serial / Lot Sling Align Retropubic [id number] - [id number] Implanted:Qty: 1 on 11/07/2008 at OR [facility] [place] N/A: Urethra INACTIVE CR BARD : UROLOGICAL 09/12/2010 [id number] / / [id number] documented as of this encounter Procedures Procedure [...] study not interpreted or resulted by a [facility] or [facility] contracted radiologist. Jodie Martin PA-C RAD CT documented in this encounter Care Teams Behavioral Health Assistant Relationship Specialty Start Date End Date Mariella Poon DO [address] [place] [address] [place] [id number] PCP - General Internal Medicine 05/05/17 documented as of this encounter
--- OUTSIDE RECORDS SUMMARY | 2023-07-31 02:58 | External Medical Summary | Summary of Care ---
Author Name Unknown Organization [facility] Address [address] [place] [address] Phone [phone] Care Team Providers Care Production Lapping Machine Operator Name Role Phone Mariella Poon DO Primary Care Provider Reason for Visit * Reason Onset Date Comments Medication Refill 02/01/2023 Encounter Details Date Type Department Care Team Description 02/01/2023 Refill Family Medicine [address] [phone] Mariella Poon DO [address] [place], [place] [address] [address] Acquired hypothyroidism Allergies No known active allergiesdocumented as of this encounter (statuses as of 02/01/2023) Medications Medication Sig Dispensed Refills Start Date End Date Status MULTIVITAMINS PO CAPS None Entered 0 Active hydroCHLOROthiazide 25 MG Oral Tablet (Hydrodiuril) Take [...] Active Clobetasol Propionate 0.05 % External Cream (Temovate)Indication s:Nummular dermatitis APPLY CREAM TOPICALLY TO AFFECTED AREA TWICE DAILY. LEGS/ARMS/TRUN K, TWICE DAILY NEEDED FOR RASH. 60 g 1 11/06/2022 Active Sertraline HCl 25 MG Oral Tablet (Zoloft) Take 1 Tablet by mouth in the morning and 1 Tablet before bedtime. 180 Tablet 1 12/01/2022 Active Synthroid 125 MCG Oral TabletIndications:Ac quired hypothyroidism Take 1 Tablet by mouth daily first thing in the morning. (at least 30 min prior to breakfast or other meds) 90 Tablet 3 02/01/2023 Active Synthroid 125 MCG Oral TabletIndications:Ac quired hypothyroidism Take 1 Tablet by mouth daily first thing in the morning. (at least 30 min prior to breakfast or other meds) 90 Tablet 0 10/23/2022 3 Discontinue d(Refill) documented as of this encounter (statuses as of 02/01/2023) Active Problems Problem Noted Date Adjustment disorder [...] as of this encounter (statuses as of 02/01/2023) Resolved Problems Problem Noted Date Resolved Date Chronic kidney disease, stage 3a 12/23/2020 06/04/2022 Overview: Per CKD protocol Intermittent asthma with reliever use up to twic e per week 03/20/2015 09/23/2015 COPD, moderate 10/13/2014 08/17/2018 Allergic rhinitis 03/27/2014 03/27/2014 Allergic rhinitis 05/30/2013 01/16/2014 HTN, goal below 140/90 07/29/2011 6 MyCode Research Other*[id number] 12/13/2009 02/03/2010 Asthma with severity to be [...] as of this encounter (statuses as of 02/01/2023) Immunizations Name Administration Dates Next Due COVID-19 mRNA, LNP-s, No Pre serve, 2-Dose Series (Billetto) 04/17/2021,08/10/2020,07/20/2020 COVID-19, LNP-s, No Preserve , Samy-sucrose, Ages 12+ (Pfizer) 12/02/2021 Covid-19, Mrna, Lnp-s, Pf, B ivalent, 30 Mcg, IM, 12 yrs and above (Pfizer) 03/24/2022 PPD 05/18/2006 Pneumococcal Conjugate Vacc, 13 Valent (Prevnar) 04/08/2016 Pneumococcal Polysaccharide PPV23 (Pneumovax) 05/15/2008,05/04/2000 Season Influenza, Quad, PF, Adjuvanted, 65+ Yrs, IM (FLUAD) 02/08/2020 Seasonal Influenza, PF, 6 mo ns & Above, IM , (Flulaval) 08/17/2018,03/08/2017 Seasonal Influenza, Quadriva lent Hd (Fluzone Hd) 03/24/2022 Seasonal Influenza, Quadriva lent, No Preserve, IM [...] encounter Miscellaneous Notes * Telephone Encounter - Sathya Alonso MD - 02/01/2023 10:33 AM EDTSigned Prescriptions: Disp Refills Synthroid 125 MCG Oral Tablet 90 Tab*3 Sig: Take 1 Tablet by mouth daily first thing in the morning. (at least 30 min prior to breakfast or other meds) Authorizing Provider: SATHYA ALONSO * Telephone Encounter - Chanell Lilly LPN - 02/01/2023 8:58 AM EDTPending Prescriptions: Disp Refills Synthroid 125 MCG Oral Tablet 90 Tab*3 Sig: Take 1 Tablet by mouth daily first thing in the morning. (at least 30 min prior to breakfast or other meds) * Telephone Encounter - Chanell Lilly LPN - 02/01/2023 8:57 AM EDT Provider to address: refill Reason for Call: Medication Refill Contact: In Clinic Contact Type: Medication Outcome: Total Time including non face to face (minutes): 5 * Telephone Encounter - Mariela Tapia - 02/01/2023 8:47 AM EDT Did you pend patient's preferred pharmacy and medication before forwarding?yes Pharmacy: [facility] [address] [facility] Pending Prescriptions: Disp Refills Synthroid 125 MCG Oral Tablet 90 Tab*0 Sig: Take 1 Tablet by mouth daily first thing in the morning. (at least 30 min prior to breakfast or other meds) Last Visit: 12/08/2022 (in office), Visit date not found (telemedicine) Next Visit: 03/03/2023 If no future appointments scheduled, and last appointment is greater than a year ago, please schedule patient for a follow-up appointment Last date the medication was ordered: 10/23/2022 Is this request for a controlled substance?No Urine Drug Screen:No results found for this or any previous visit. Patient Phone Numbers Labs: Lab Results Component Value Date/Time CREAT 0.7 12/01/2022 04:06 PM CREAT 0.9 06/18/2020 11:54 AM POTASSIUM 3.7 12/01/2022 04:06 PM POTASSIUM 4.4 06/18/2020 11:54 AM TSH 1.34 12/01/2022 04:06 PM TSH 1.92 06/18/2020 11:54 AM LDLCALC 92 05/02/2012 10:31 AM ALT 21 02/16/2013 11:30 AM documented in this encounter Plan of Treatment Upcoming Encounters Date Type Specialty Care Team Description 03/03/2023 Office Visit Family Medicine Sierra Paulino PA-Priya [address] [place] [address] [place] [address] 06/15/2023 Office Visit Family Medicine Mariella Poon DO [address] [place] [address] [place] [address] Health Maintenance Due Date Last Done Comments Depression Screening, Annual for Pts 12 and Over 04/29/2021 04/29/2020 Influenza Vaccine (FLU shot) (#1) 2023 03/24/2022, 03/24/2022, 02/20/2021, Additional history exists TSH 12/02/2023 12/01/2022, 09/13, 06/18/2020, Additional history exists DXA Scan 02/07/2024 02/06/2019, 04/14, 05/24/2008 Albumin/Creatinine Ratio 12/01/2025 12/01/2022, 09/13 DTaP,Tdap,and Td Vaccines (2 - Td or Tdap) 02/20/2031 02/20/2021, 05/15/2008 Pneumococcal Vaccine: 65+ Years Completed 04/08/2016, 05/15/2008, 05/04/2000 Zoster Vaccines Completed 05/23/2020, 01/13, 08/16/2006 COVID-19 Vaccine Completed 03/24/2022, , 04/17/2021, Additional history exists GARDASIL-HPV IMMUNIZATION SERIES Aged Out No longer eligible based on patient's age to complete this topic Hepatitis B Aged Out No longer eligi ble based on patient's age to complete this topic MENINGOCOCCAL (MENACTRA/MENVEO) Aged Out No longer eligible based on patient's age to complete this topic documented as of this encounter Medical Devices Implanted Type Area Maternal Child Nurse Device Identifier Shelf Expiration Date Model / Serial / Lot Sling Align Retropubic [id number] - [id number] [place]ed:Q[place] 1 [place] [facility] [place] Urethra INACTIVE CR BARD : UROLOGICAL 09/12/2010 [id number] / / [id number] documented as of this encounter Visit Diagnoses Diagnosis Acquired hypothyroidism Unspecified hypothyroidism documented in this encounter Care Teams Production Lapping Machine Operator Relationship Specialty Start Date End Date Mariella Poon[address] [place] [address] PCP - General Internal Medicine 05/05/17 documented as of this encounter
--- OUTSIDE RECORDS SUMMARY | 2023-07-31 02:58 | External Medical Summary | Summary of Care ---
Author Name Unknown Organization [facility] Address [address] [place] [address] Phone [phone] Care Team Providers Care Respiratory Care Instructor Name Role Phone Mariella Poon DO Primary Care Provider Reason for Visit * Reason Onset Date Comments Re-Check Medication Administration 03/03/2023 Flu an d/or Pneumo Inj Encounter Details Date Type Department Care Team Description 03/03/2023 Office Visit Family Medicine [address] [phone] Sierra Paulino PALobo [address] [place] [address] [place] [address] Essential hypertension with goal blood pressure less than 140/90*; Need for prophylactic vaccination and inoculation against influenza; Adjustment disorder with mixed disturbance of emotions and conduct Allergies No known active allergiesdocumented as of this encounter (statuses as of 03/03/2023) Medications Medication Sig Dispensed Refills Start Date [...] 1 11/06/2022 Active Synthroid 125 MCG Oral TabletIndications:Ac quired [...] every evening. 90 Tablet 1 03/03/2023 Active Sertraline HCl 25 MG Oral Tablet (Zoloft) Take 1 Tablet by mouth in the morning and 1 Tablet before bedtime. 180 Tablet 1 12/01/2022 Discontinue d(Refill) documented as of this encounter (statuses as of 03/03/2023) Active Problems Problem Noted Date Adjustment disorder [...] as of this encounter (statuses as of 03/03/2023) Resolved Problems Problem Noted Date Resolved Date Chronic kidney disease, stage 3a 12/23/2020 06/04/2022 Overview: Per CKD protocol Intermittent asthma with reliever use up to twic e per week 03/20/2015 09/23/2015 COPD, moderate 10/13/2014 08/17/2018 Allergic rhinitis 03/27/2014 03/27/2014 Allergic rhinitis 05/30/2013 01/16/2014 HTN, goal below 140/90 07/29/2011 6 MyCode Research Other*[id number] 12/13/2009 02/03/2010 Asthma with severity to be [...] as of this encounter (statuses as of 03/03/2023) Immunizations Name Administration Dates Next Due COVID-19 mRNA, LNP-s, No Pre serve, 2-Dose Series (MySiteApp) 04/17/2021,08/10/2020,07/20/2020 COVID-19, LNP-s, No Preserve , Samy-sucrose, [...] Sign Reading Time Taken Comments Blood Pressure 148/76 03/03/2023 11:29 AM EDT Pulse 91 03/03/2023 11:29 AM EDT Temperature 36.1 C (96.9 F) 03/03/2023 11:29 AM E DT Respiratory Rate - - Oxygen Saturation 95% 03/03/2023 11:29 AM EDT Inhaled Oxygen Concentration - - Weight 58 kg (127 lb 14.4 oz) 03/03/2023 11:29 A M EDT Height - - Body Mass Index 22.3 06/02/2022 2:07 PM EST documented in this encounter Progress Notes * Sierra Paulino PA-C - 03/03/2023 11:37 AM EDT Images from the original note were not included. History of Present Illness Mayda Olvera is a 88 year old female that presents for Re-Check and Medication Administration (Flu and/or Pneumo Inj) Nursing Notes: Lakia Encarnacion, [facility] 03/03/23 1128 Sign at exiting of workspace She is here for a regular recheck today. She has no new complaints today. Brief Clinical History Ms. Olvera is an 88 year old woman last seen in Family Medicine 2 months ago (12-08-22). She is not due for eval of any conditions. HPI: Mayda Olvera is a 88 year old female presenting to the office today for recheck. She had 2 more falls since her appt in November. She has been up in the middle of the night for the other 2 and in the bathroom, and she didn't have lights turned on. She had the windows open and there was some moisture on the floor, and she slipped and fell. She has had some pain in her back since then. These were about 2 months ago. She has been taking some Motrin from time to time because of the back pain. She has been getting some pain patches OTC as well which have been helpful as well. Her has been on hospice for multiple months now, and he had an episode in November where he ended up being admitted to the hospital again for a few weeks. He had an episode at home of extreme vomiting and then they ended up deciding to call an ambulance. He was admitted after the hospital stay to [facility] in [place] where he is currently. He is expected to come home next week. They have [facility] involved with him, and they are going to provide services again when he gets home. Duyen's anxiety and depression have been worse again recently because of all of these things. She hasn't been eating well because of her nerves as well. Current Outpatient Medications Medication Instructions Clobetasol Propionate 0.05 % External Cream (Temovate) APPLY CREAM TOPICALLY TO AFFECTED AREA TWICEDAILY. LEGS/ARMS/TRUNK, TWICE DAILY NEEDED FOR RASH. cyclobenzaprine (FLEXERIL) 5 mg, Oral, DAILY PRN hydroCHLOROthiazide (HYDRODIURIL) 25 mg, Oral, Daily(AM) Loratadine (CLARITIN) 10 mg, Oral, Daily(AM) MULTIVITAMINS PO CAPS None Entered sertraline (ZOLOFT) 25 mg, Oral, BID (.AM/PM) Synthroid 125 mcg, Oral, [id number], (at least 30 min prior to breakfast or other meds) Med list reviewed by me today. Physical Exam Vitals: 03/03/23 1129 Temp: 36.1 C (96.9 F) Pulse: 91 SpO2: 95% BP: 148/76 BP Readings from Last 3 Encounters: 03/03/23 148/76 12/08/22 144/74 12/01/22 122/60 Wt Readings from Last 3 Encounters: 03/03/23 58 kg (127 lb 14.4 oz) 12/08/22 61.1 kg (134 lb 12.8 oz) 12/01/22 61 kg (134 lb 6.4 oz) Physical exam: General: Well-Developed. Well appearing. No acute distress. HENT: Normocephalic. Atraumatic. Hearing normal. Cardiovascular: RRR. Normal S1/S2 noted. No murmur, rub or gallop appreciated. Pulmonary: No respiratory distress. No accessory muscle use. No adventitious sounds appreciated. Normal breath sounds. Abdominal: Bowel sounds heard throughout. No tenderness to palpation. No organomegally or masses noted. No distention. Musculoskeletal: Walking with a cane. Psych: Mood and affect labile. Assessment and Plan Essential hypertension with goal blood pressure less than 140/90 BP controlled. Continue same. Need for prophylactic vaccination and inoculation against influenza - INFLUENZA VACC, QUAD, HIGH DOSE (FLUZONE HD) Adjustment disorder with mixed disturbance of emotions and conduct Increase sertraline to 50 mg in AM and keep 25 mg in PM. She agreed. Wrap-Up Check-out note: F/U with me my last week Time: I spent a total of 40-54 minutes (exact time 45 mins) on the date of service in preparation, delivery, and documentation of the care provided to Mayda Olvera excluding any time spent in the performance of separately billed services. * Lakia Encarnacion CMA - 03/03/2023 11:30 AM EDT PRE - ADMINISTRATION DOCUMENTATION Are you experiencing any cold symptoms or fever? No Have you had Guillain-[place] Syndrome (an illness that causes paralysis) within the last 6 weeks? No Have you had the flu shot in the past? YES Have you ever had a reaction to the flu shot? No Lakia Encarnacion CMA, 03/03/2023 11:30 AM Immunization Administration Documentation Time Out Procedure Performed: Yes Patient Identified (Ask Name/Date of ): Yes Does the patient have a fever greater than 101 degrees today? No Patient allergic to latex? No VFC Stock: No Immunization(s) verified: Yes, Immunization Name: Flu, VIS Sheet(s) given: Yes Verified Side and Site: Yes Verified Shot(s) with Parent(s)/Patient: Yes documented in this encounter Nursing Notes * Lakia Encarnacion CMA - 03/03/2023 11:28 AM EDT She is here for a regular recheck today. She has no new complaints today. documented in this encounter Plan of Treatment Upcoming Encounters Date Type Specialty Care Team Description 03/25/2023 Office Visit Family Medicine Sierra Paulino PA-C [address] [place] [address] [place] [id number] 06/15/2023 Office Visit Family Medicine Mariella Poon DO [address] [place] [address] [place] [address] Health Maintenance Due Date Last Done Comments [...] Completed 03/24/2022, , 04/17/2021, Additional history exists Influenza Vaccine (FLU shot) Completed , 03/24/2022, 03/24/2022, Additional history exists GARDASIL-HPV IMMUNIZATION SERIES Aged Out No longer eligible based on patient's age to complete this topic Hepatitis B Aged Out No longer eligi ble based on patient's age to complete this topic MENINGOCOCCAL (MENACTRA/MENVEO) Aged Out No longer eligible based on patient's age to complete this topic documented as of this encounter Medical Devices Implanted Type Area Head Of Global [employer] Partnerships Device Identifier Shelf Expiration Date Model / Serial / Lot Sling Align Retropubic [id number] - [id number] Implanted:Qty: 1 on 11/07/2008 at [place] [facility] [place] N/A: Urethra INACTIVE CR BARD : UROLOGICAL 09/12/2010 [id number] / / [id number] documented as of this encounter Visit Diagnoses Diagnosis Essential hypertension with goal blood pressure less than 140/90- Primary Need for prophylactic vaccination and inoculation against influenza Adjustment disorder with mixed disturbance of emotions and conduct documented in this encounter Care Teams Respiratory Care Instructor Relationship Specialty Start Date End Date Mariella Poon, [address] [place] [phone] PCP - General Internal Medicine 05/05/17 documented as of this encounter
--- OUTSIDE RECORDS SUMMARY | 2023-07-31 02:58 | External Medical Summary | Summary of Care ---
Author Name Unknown Organization [facility] Address [address] [place] [address] Phone [phone] Care Team Providers Care Commercial Retoucher Name Role Phone Mariella Poon DO Primary Care Provider Encounter Details Date Type Department Care Team Description 03/26/2023 Immunization Ancillary [address] [place] [address] [facility] Covid19 Vaccine [address] [place] [address] Allergies No known active allergiesdocumented as of [...] goal below 140/90 07/29/2011 6 MyCode Research Other*[id number] 12/13/2009 02/03/2010 Asthma with severity to be [...] mRNA, LNP-s, No Pre serve, 2-Dose Series (C3Nano) 04/17/2021,08/10/2020,07/20/2020 COVID-19, LNP-s, No Preserve , Samy-sucrose, Ages 12+ (C3Nano) 12/02/2021 COVID-19, MRNA-LNP, 23-24, P F, 30 MCG/0.3 mL, 12 YRS AND ABOVE, IM ([facility] [employer]) 03/26/2023 Covid-19, Mrna, Lnp-s, Pf, B ivalent, 30 Mcg, IM, 12 yrs and above (C3Nano) 03/24/2022 PPD 05/18/2006 Pneumococcal Conjugate Vacc, 13 [...] Encounters Date Type Specialty Care Team Description 04/29/2023 Imaging Radiology 06/15/2023 Office Visit Family Medicine Mariella Poon, [address] [place] [address] Health Maintenance Due Date Last Done Comments [...] this encounter Medical Devices Implanted Type Area Residence Counselor Device Identifier Shelf Expiration Date Model / Serial / Lot Sling Align Retropubic [id number] - [id number] Implanted:[place] 1 [place] [facility] [place] Urethra INACTIVE CR BARD : UROLOGICAL 09/12/2010 [id number] / / [id number] documented as of this encounter Care Teams Commercial Retoucher Relationship Specialty Start Date End Date Mariella Poon, [address] [place] [address] PCP - General Internal Medicine 05/05/17 documented as of this encounter
[2023-07-31 04:47] LABS: Basophils # (auto) 0.07 K/uL (0.00-0.20); Basophils % (auto) 0.6 %; Eosinophils # (auto) 0.25 K/uL (0.00-0.50); Hematocrit (blood only) 32.3 % (37.0-47.0); Immature Granulocytes # (auto) 0.06 K/uL (0.01-0.20); Immature Granulocytes % (auto) 0.5 %; Lymphocytes % (auto) 14.4 %; Mean Corpuscular Hgb Conc 34.1 g/dL (32.0-36.0); Mean Platelet Volume 10.7 fL (9.4-12.4); Monocytes # (auto) 1.56 K/uL (0.11-0.59); Monocytes % (auto) 12.5 %; Neutrophils # (auto) 8.74 K/uL (1.40-6.50); Platelet Count 314 K/uL (130-400); RDW Coefficient of Variation 12.6 % (11.5-14.5); Red Blood Count 3.67 M/uL (4.20-5.40); White Blood Count 12.48 K/ul (4.8-10.8)
[2023-07-31 05:05] LABS: BUN Creatinine Ratio 29.8 (10-20); Creatinine Clr Calc Pharmacy 36.4 ml/min; Est GFR (African American) 63.2 ml/min; Est GFR (Non-African American) 54.5 ml/min; Magnesium 1.9 mg/dl (1.7-2.4); Potassium 3.9 mmol/L (3.5-5.1)
--- NOTE | 2023-07-31 07:59 | Hospitalist Progress Note ---
Date of Service July 31, 2023 Assessment & Plan (1) High-grade atrioventricular block: (2) CHB (complete heart block): Plan: Patient is 88-year-old female with PMH HTN, hypothyroidism, asthma, depression, anxiety, stress incontinence presented to ER with c/o exertional dizziness and fatigue x 3 days, bradycardia in 40's-50s per home pulse oximeter. Seen today in outpatient clinic and found to be bradycardic In ER afebrile, P: 57, R: 18, BP: 132/44, 93% RA EKG: sinus bradycardia, intermittent complete heart block, rate 57 TSH: 3.1. WBC: 12 In ER BP stable. Patient asymptomatic Lyme negative Pacer pads at bedside Cardiology consulted - pt underwent pacemaker placement today 07/31/2023 [employer] consulted ->ok to downgrade to PCU CBC, BMP in am (3) Hypomagnesemia: Plan: Magnesium: 1.6 Replace and monitor (4) Anemia: Plan: H/H: 10.6/31.7. Hgb: 15 on 06/15/23 Anemia labs pending (5) Abnormal CXR: Plan: CXR: reviewed by editor sound/pulmonary - Good inspiratory effort, portable film, increased pulmonary vascular congestion, bilateral costophrenic and cardiophrenic angles are clean (6) HTN (hypertension): Plan: BP currently stable Hold home lisinopril and HCTZ for now and monitor vitals (7) Hypothyroidism: Plan: TSH: 3.1 Continue Synthroid (8) Anxiety and depression: Plan: History depression, worse after passing of her months ago Prescribed sertraline 50mg daily and 25mg in the evenings. Patient states 1 week ago started just taking 25mg daily as she feels she is no longer depressed Continue sertraline (9) Asthma: Plan: Reported history asthma years ago. No longer on any inhalers No signs exacerbation at this time DVT Prophylaxis SCDs for now DNR/DNI as per discussion with patient Follows with Dr Poon for routine care Admission and Anticipated Discharge Date Admission Date: July 30, 2023 Subjective Pt seen in follow up of complete heart block Cardiology consulted on admission, currently pt in ICU Patient underwent pacemaker placement earlier today Currently laying in bed, in no acute distress, feeling well. Says she is feeling a lot better. Denies chest pain shortness of breath, denies palpitations. Denies abdominal pain nausea vomiting Review of Systems Review of Systems: All systems reviewed & are unremarkable except as noted in Subjective Physical Exam Physical Exam: General: WDWN elderly F in NAD Head: normocephalic, atraumatic Eyes: conjunctiva non-injected, anicteric ENT: normal inspection external ears, nose, mucous membranes moist Neck: supple Lungs: clear, no respiratory distress, no wheezing/rhonchi/rales CV: rrr, + murmur, no pretibial edema Abd: normal BS, soft, non-tender Ext: moves extremities Neuro: A&O x 3, no focal deficits noted, normal affect Skin: warm, dry Results & Data Results & Data Vital Signs (Past 12 Hours) Vital Signs Pulse Resp BP Pulse Ox O2 Del Method O2 Flow Rate 07/31/23 07:40 39 L 24 95 07/31/23 07:30 39 L 26 H 96 07/31/23 07:20 39 L 14 96 07/31/23 07:10 39 L 25 H 93 07/31/23 07:01 38 L 22 94 07/31/23 07:01 135/51 L 07/31/23 07:00 39 L 25 H 93 07/31/23 06:50 40 L 19 94 07/31/23 06:40 40 L 26 H 95 07/31/23 06:30 41 L 21 96 07/31/23 06:20 41 L 14 97 07/31/23 06:10 39 L 20 94 Nasal Cannula 2 07/31/23 06:00 38 L 15 95 07/31/23 06:00 142/56 H 07/31/23 05:01 138/51 L 07/31/23 05:01 39 L 18 93 07/31/23 05:00 38 L 20 94 07/31/23 04:01 39 L 23 92 07/31/23 04:01 94/43 L 07/31/23 04:00 38 L 15 91 07/31/23 03:00 127/44 L 07/31/23 03:00 40 L 23 93 07/31/23 02:01 124/49 L 07/31/23 02:01 43 L 18 93 07/31/23 02:00 43 L 22 92 07/31/23 01:01 162/58 H 07/31/23 01:01 48 L 21 07/31/23 01:00 55 L 22 07/31/23 00:00 138/47 L 07/31/23 00:00 56 L 28 H 91 07/31/23 00:00 46 L 07/30/23 23:01 140/49 L 07/30/23 23:01 54 L 20 91 07/30/23 23:00 46 L 32 H 92 07/30/23 22:00 146/59 H 07/30/23 22:00 46 L 28 H 94 07/30/23 21:00 46 L 29 H 94 07/30/23 20:01 151/48 H 07/30/23 20:01 54 L 27 H 94 07/30/23 20:00 Nasal Cannula 2 07/30/23 20:00 56 L 24 92 07/30/23 20:00 53 L Laboratory Results 07/31/23 07/30/23 07/30/23 Range/Units 04:26 19:30 17:44 WBC 12.48 H (4.8-10.8) K/ul RBC 3.67 L (4.20-5.40) M/uL Hgb 11.0 L (12.0-16.0) g/dl Hct 32.3 L (37.0-47.0) % MCV 88.0 (80.0-100.0) fL MCH 30.0 (25.0-34.0) pg MCHC 34.1 (32.0-36.0) g/dL RDW Std Deviation 41.0 (36.4-46.3) fL RDW Coeff of Bruce 12.6 (11.5-14.5) % Plt Count 314 (130-400) K/uL MPV 10.7 (9.4-12.4) fL Immature Gran % (Auto) 0.5 % Neut % (Auto) 70.0 % Lymph % (Auto) 14.4 % Bond % (Auto) 12.5 % Eos % (Auto) 2.0 % Baso % (Auto) 0.6 % Reticulocyte % (Auto) (0.50-2.00) % Neut # (Auto) 8.74 H (1.40-6.50) K/uL Lymph # (Auto) 1.80 (1.20-3.40) K/uL Bond # (Auto) 1.56 H (0.11-0.59) K/uL Eos # (Auto) 0.25 (0.00-0.50) K/uL Baso # (Auto) 0.07 (0.00-0.20) K/uL Reticulocyte # (0.020-0.100) 10^6/uL Immature Gran # (Auto) 0.06 (0.01-0.20) K/uL Sodium 137 (136-145) mmol/L Potassium 3.9 (3.5-5.1) mmol/L Chloride 102 (98-107) mmol/L Carbon Dioxide 27 (21-32) mmol/L Anion Gap 8 (3-11) BUN 28 H (6-23) mg/dl Creatinine 0.94 (0.6-1.2) mg/dl Est Cr Clr Drug Dosing 36.4 ml/min Est GFR ( Amer) 63.2 ml/min Est GFR (Non-Af Amer) 54.5 ml/min BUN/Creatinine Ratio 29.8 H (10-20) Glucose 106 H (70-99(Fasting)) mg/dl POC Glucose 118 H 106 H (70-99) mg/dl Calcium 9.0 (8.6-10.3) mg/dl Magnesium 1.9 (1.7-2.4) mg/dl Iron (35-150) mcg/dl Transferrin (200-360) mg/dl Ferritin (8-388) ng/ml Total Bilirubin (0.2-1.0) mg/dl AST (13-39) U/L ALT (7-52) U/L Alkaline Phosphatase (34-104) U/L Troponin I High Sens (0-14) pg/ml Total Protein (6.0-8.3) gm/dl Albumin (3.4-5.0) gm/dl Globulin (2.5-4.0) gm/dl Albumin/Globulin Ratio (0.9-2) Lipase (11-82) U/L Vitamin B12 (180-914) pg/ml Folate (>5.38) ng/ml TSH (0.300-4.500) uIu/ml Nasal Screen MRSA (PCR) (Negative) Lyme Disease Screen (Negative) 02/16/24 02/16/24 02/16/24 Range/Units 16:00 15:34 12:38 WBC 12.54 H (4.8-10.8) K/ul RBC 3.57 L (4.20-5.40) M/uL Hgb 10.6 L (12.0-16.0) g/dl Hct 31.7 L (37.0-47.0) % MCV 88.8 (80.0-100.0) fL MCH 29.7 (25.0-34.0) pg MCHC 33.4 (32.0-36.0) g/dL RDW Std Deviation 41.2 (36.4-46.3) fL RDW Coeff of Bruce 12.5 (11.5-14.5) % Plt Count 269 (130-400) K/uL MPV 11.0 (9.4-12.4) fL Immature Gran % (Auto) 0.5 % Neut % (Auto) 79.2 % Lymph % (Auto) 8.6 % Bond % (Auto) 10.2 % Eos % (Auto) 1.0 % Baso % (Auto) 0.5 % Reticulocyte % (Auto) 1.31 (0.50-2.00) % Neut # (Auto) 9.94 H (1.40-6.50) K/uL Lymph # (Auto) 1.08 L (1.20-3.40) K/uL Bond # (Auto) 1.28 H (0.11-0.59) K/uL Eos # (Auto) 0.12 (0.00-0.50) K/uL Baso # (Auto) 0.06 (0.00-0.20) K/uL Reticulocyte # 0.050 (0.020-0.100) 10^6/uL Immature Gran # (Auto) 0.06 (0.01-0.20) K/uL Sodium 135 L (136-145) mmol/L Potassium 3.9 (3.5-5.1) mmol/L Chloride 101 (98-107) mmol/L Carbon Dioxide 27 (21-32) mmol/L Anion Gap 7 (3-11) BUN 25 H (6-23) mg/dl Creatinine 0.73 (0.6-1.2) mg/dl Est Cr Clr Drug Dosing 46.9 ml/min Est GFR ( Amer) 85.8 ml/min Est GFR (Non-Af Amer) 74.1 ml/min BUN/Creatinine Ratio 34.2 H (10-20) Glucose 123 H (70-99(Fasting)) mg/dl POC Glucose (70-99) mg/dl Calcium 9.1 (8.6-10.3) mg/dl Magnesium 1.6 L (1.7-2.4) mg/dl Iron Cancelled 13 L (35-150) mcg/dl Transferrin Cancelled 141 L (200-360) mg/dl Ferritin Cancelled 245.8 (8-388) ng/ml Total Bilirubin 0.5 (0.2-1.0) mg/dl AST 26 (13-39) U/L ALT 34 (7-52) U/L Alkaline Phosphatase 59 (34-104) U/L Troponin I High Sens 16.4 H (0-14) pg/ml Total Protein 6.2 (6.0-8.3) gm/dl Albumin 3.5 (3.4-5.0) gm/dl Globulin 2.7 (2.5-4.0) gm/dl Albumin/Globulin Ratio 1.3 (0.9-2) Lipase 25 (11-82) U/L Vitamin B12 555 (180-914) pg/ml Folate > 22.30 (>5.38) ng/ml TSH 3.146 (0.300-4.500) uIu/ml Nasal Screen MRSA (PCR) Negative (Negative) Lyme Disease Screen Negative (Negative) Medications Administered Current Inpatient Medications Acetaminophen (Ofirmev) 1,000 mg in 100 mls @ 400 mls/hr IV Q8H PRN PRN Reason: pain while NPO Stop: 08/03/23 00:19 Last Infusion: 07/31/23 02:35 Dose: Infused Magnesium Sulfate/Dextrose (Magnesium Sulfate / D5w) 1 gm in 100 mls @ 50 mls/ hr IV ONE ONE Stop: 07/31/23 09:52 Miscellaneous (Icu Protocol For Hyperglycemia) 1 each N/A ACHS ROBB Stop: 08/01/23 16:29 Last Admin: 07/31/23 07:32 Dose: Not Given Miscellaneous (Synthroid ~ Order Awaiting Action) 1 each N/A QS ROBB Stop: 08/30/23 00:00 Last Admin: 07/31/23 00:30 Dose: Not Given Sertraline HCl (Sertraline Hcl 50 Mg Tablet) 25 mg PO DAILY ROBB Stop: 08/30/23 08:59
[2023-07-31] MEDS: MAGNESIUM SULFATE / D5W 1 GM/100 ML BAG IV ONE (08:11)
--- NOTE | 2023-07-31 08:27 | Pre Anesthesia Assessment ---
Date of Service July 31, 2023 Pre Sedation Assessment Vital Signs Temp Pulse Pulse Resp BP BP Pulse Ox 07/31/23 07:40 39 L 24 95 07/31/23 07:30 39 L 26 H 96 07/31/23 07:20 39 L 14 96 07/31/23 07:10 39 L 25 H 93 07/31/23 07:01 38 L 22 94 07/31/23 07:01 135/51 L 07/31/23 07:00 39 L 25 H 93 07/31/23 06:50 40 L 19 94 07/31/23 06:40 40 L 26 H 95 07/31/23 06:30 41 L 21 96 07/31/23 06:20 41 L 14 97 07/31/23 06:10 39 L 20 94 07/31/23 06:00 38 L 15 95 07/31/23 06:00 142/56 H 07/31/23 05:01 138/51 L 07/31/23 05:01 39 L 18 93 07/31/23 05:00 38 L 20 94 07/31/23 04:01 39 L 23 92 07/31/23 04:01 94/43 L 07/31/23 04:00 38 L 15 91 07/31/23 03:00 127/44 L 07/31/23 03:00 40 L 23 93 07/31/23 02:01 124/49 L 07/31/23 02:01 43 L 18 93 07/31/23 02:00 43 L 22 92 07/31/23 01:01 162/58 H 07/31/23 01:01 48 L 21 07/31/23 01:00 55 L 22 07/31/23 00:00 138/47 L 07/31/23 00:00 56 L 28 H 91 07/31/23 00:00 46 L 07/30/23 23:01 140/49 L 07/30/23 23:01 54 L 20 91 07/30/23 23:00 46 L 32 H 92 07/30/23 22:00 146/59 H 07/30/23 22:00 46 L 28 H 94 07/30/23 21:00 46 L 29 H 94 07/30/23 20:01 151/48 H 07/30/23 20:01 54 L 27 H 94 07/30/23 20:00 07/30/23 20:00 56 L 24 92 07/30/23 20:00 53 L 07/30/23 19:28 36.8 C 07/30/23 19:01 53 L 21 95 07/30/23 19:01 160/89 H 07/30/23 19:00 46 L 17 95 07/30/23 18:25 07/30/23 18:24 07/30/23 18:09 155/50 H 07/30/23 18:09 54 L 22 92 07/30/23 17:02 116/53 L 07/30/23 17:02 54 L 26 H 95 07/30/23 16:18 54 L 07/30/23 16:08 07/30/23 16:02 156/46 H 07/30/23 16:02 54 L 20 93 07/30/23 16:00 37.0 C 07/30/23 14:39 56 L 18 123/60 91 07/30/23 12:23 56 L 07/30/23 12:15 54 L 18 93 07/30/23 11:55 37.1 C 57 L 18 132/44 L 93 07/30/23 11:55 93 07/30/23 11:55 37.1 C 57 L 18 132/44 L 93 O2 Del Method O2 Flow Rate 07/31/23 07:40 07/31/23 07:30 07/31/23 07:20 07/31/23 07:10 07/31/23 07:01 07/31/23 07:01 07/31/23 07:00 07/31/23 06:50 07/31/23 06:40 07/31/23 06:30 07/31/23 06:20 07/31/23 06:10 Nasal Cannula 2 07/31/23 06:00 07/31/23 06:00 07/31/23 05:01 07/31/23 05:01 07/31/23 05:00 07/31/23 04:01 07/31/23 04:01 07/31/23 04:00 07/31/23 03:00 07/31/23 03:00 07/31/23 02:01 07/31/23 02:01 07/31/23 02:00 07/31/23 01:01 07/31/23 01:01 07/31/23 01:00 07/31/23 00:00 07/31/23 00:00 07/31/23 00:00 07/30/23 23:01 07/30/23 23:01 07/30/23 23:00 07/30/23 22:00 07/30/23 22:00 07/30/23 21:00 07/30/23 20:01 07/30/23 20:01 07/30/23 20:00 Nasal Cannula 2 07/30/23 20:00 07/30/23 20:00 07/30/23 19:28 07/30/23 19:01 07/30/23 19:01 07/30/23 19:00 07/30/23 18:25 Nasal Cannula 2 07/30/23 18:24 Nasal Cannula 2 07/30/23 18:09 07/30/23 18:09 07/30/23 17:02 07/30/23 17:02 07/30/23 16:18 07/30/23 16:08 Room Air 07/30/23 16:02 07/30/23 16:02 Room Air 07/30/23 16:00 07/30/23 14:39 Room Air 07/30/23 12:23 07/30/23 12:15 Room Air 07/30/23 11:55 Room Air 07/30/23 11:55 Room Air 07/30/23 11:55 Room Air Cardiovascular + bradycardic Respiratory normal respiratory effort, lungs clear to auscultation Pre-Sedation Airway Assessment Smoking Status: Former smoker Hx Sleep Apnea: No Hx Difficult Intubation: No Short, Thick Neck: No Thyromental Distance: < 3.5 Finger Breadths Oral Cavity: + Dental Abnormalities Mallampati Class: II ASA: ASA3 NPO Status Date of Last Intake of Fluids: 07/30/23 Date of Last Intake of Solid Food: 07/30/23 Procedure Planning Contraindications for Sedation: none Current Medications Reviewed: Yes Notes The planned sedation has been discussed with the patient. Informed Consent was obtained. I have identified the patient, determined the appropriateness of sedation and have assessed the patient immediately prior to the procedure. All medicine(s) and interventions are by my order.
--- NOTE | 2023-07-31 08:29 | History & Physical Bridge Note ---
Date of Service July 31, 2023 History & Physical Bridge Note I have examined the patient, reviewed the History & Physical and in the interval since the performance of the History & Physical I have noted the following changes of clinical significance: Pt with CHB for an urgent pacemaker; discussed the procedure and potential risks with the patient she expressed an understanding and consents signed.
[2023-07-31] MEDS: BUPIVACAINE 0.25% PF 30 ML VIAL ONE (09:05)
[2023-07-31] MEDS: WATER, STERILE FOR INJ 10 ML VIAL ONE (09:05)
[2023-07-31] MEDS: ceFAZolin 330 MG/ML 1 GM VIAL ONE (09:05)
[2023-07-31] MEDS: LIDOCAINE 1% LOCAL 20 ML VIAL ONE (09:05)
[2023-07-31] MEDS: VANCOMYCIN HCL 1000MG/20ML VIAL ONE (09:05)
[2023-07-31] MEDS: MIDAZOLAM HCL 5 MG/ML 1 ML VIAL ONE (09:57)
[2023-07-31] MEDS: fentaNYL citrate PF 100 MCG/2 ML VIAL ONE ×2 (09:57→10:40)
[2023-07-31] MEDS: diphenhydrAMINE 50 MG/ML VIAL ONE (09:58)
--- NOTE | 2023-07-31 10:37 | Critical Care Progress Note ---
Date of Service July 31, 2023 Assessment & Plan (1) Complete heart block: (2) Abnormal CXR: (3) Anemia: (4) Anxiety and depression: (5) Hypothyroidism: (6) HTN (hypertension): Plan Reason Critically Ill: 88-year-old female past medical history of hypertension, anxiety/depression admitted to the ICU with complete heart block. Neuro - [facility] ICU: Negative -- Anxiety/depression On sertraline at home Continue with 25 mg dose Cardiac - -- Bradycardia with intermittent complete heart block Not on any beta-blockers at home Continue to monitor, if the patient is symptomatically bradycardic then start the patient on dopamine Pacer pads Cardiology on board EKG 07/30/2023 1156: Complete heart block, PVCs, heart rate 57. QTc 439 TSH within normal limit -- History of hypertension Hold blood pressure medications for the time being Respiratory - Chest x-ray 07/30/2023: Good inspiratory effort, portable film, increased pulmonary vascular congestion, bilateral costophrenic and cardiophrenic angles are clean --Mild pulmonary vascular congestion Saturating well on room air Consider Lasix as needed GI - -- Mild nausea prior to presentation As needed antiemetic RENAL/LYTES - -- Monitor BUNs/creatinine Avoid nephrotoxic medication ENDO - -- Hypothyroidism Continue with levothyroxine TSH 3.14 HEME - -- Normocytic anemia Monitor H&H ID - -- Leukocytosis Likely reactive --Prophylaxis VTE: None GI: None Lines: Peripheral Diet: N.p.o. Plan: In/out: -100, urine output 300 Magnesium being replaced Patient is for permanent pacemaker today Lyme disease screen was negative Please note the above document was generated using voice recognition software. It may contain grammatical, syntax or spelling errors.Any formal questions or concerns about the content, text or information contained within the body of this dictation should be directly addressed to the provider for clarification. Admission and Anticipated Discharge Date Admission Date: July 30, 2023 Subjective Patient seen and examined at bedside. No acute distress, no adverse events overnight No chest pain, no dizziness, no palpitation Heart rate was in the high 30s to low 40s seem to be in Mobitz type I on the telemetry strip Systolic blood pressure was in the 140s. Got Tylenol last night for shoulder pain which resolved her issues Review of Systems 2 Review of Systems: All systems reviewed & are unremarkable except as noted in Subjective Physical Exam 2 Physical Exam: Constitutional: No acute distress HEENT: EOMI, PERRLA Respiratory system: Good air entry bilaterally, no wheeze, no rhonchi, no crackles CVS: S1-S2 positive, no murmurs or gallops, accentuated P2 Abdomen: Soft, nontender, nondistended, positive bowel sounds x4 Extremities: +2 pulses bilaterally radialis/ dorsalis pedis, no cyanosis, +1 pitting edema bilateral lower extremity Neuro: Awake alert oriented x3 Psych: Normal mood and affect G/U: No Martin Skin: no rashes, warm and dry Lymphatic: no cervical or axillary lymphadenopathy Results & Data Results & Data Vital Signs (Past 12 Hours) Vital Signs Temp Pulse Resp BP Pulse Ox O2 Del Method O2 Flow Rate 07/31/23 08:27 36.7 C 07/31/23 08:20 40 L 25 H 07/31/23 08:10 43 L 20 07/31/23 08:00 145/70 H 07/31/23 08:00 39 L 24 95 07/31/23 07:50 40 L 18 94 07/31/23 07:40 39 L 24 95 07/31/23 07:30 39 L 26 H 96 07/31/23 07:20 39 L 14 96 07/31/23 07:10 39 L 25 H 93 07/31/23 07:01 38 L 22 94 07/31/23 07:01 135/51 L 07/31/23 07:00 39 L 25 H 93 07/31/23 06:50 40 L 19 94 07/31/23 06:40 40 L 26 H 95 07/31/23 06:30 41 L 21 96 07/31/23 06:20 41 L 14 97 07/31/23 06:10 39 L 20 94 Nasal Cannula 2 07/31/23 06:00 38 L 15 95 07/31/23 06:00 142/56 H 07/31/23 05:01 138/51 L 07/31/23 05:01 39 L 18 93 07/31/23 05:00 38 L 20 94 07/31/23 04:01 39 L 23 92 07/31/23 04:01 94/43 L 07/31/23 04:00 38 L 15 91 07/31/23 03:00 127/44 L 07/31/23 03:00 40 L 23 93 07/31/23 02:01 124/49 L 07/31/23 02:01 43 L 18 93 07/31/23 02:00 43 L 22 92 07/31/23 01:01 162/58 H 07/31/23 01:01 48 L 21 07/31/23 01:00 55 L 22 07/31/23 00:00 138/47 L 07/31/23 00:00 56 L 28 H 91 07/31/23 00:00 46 L 07/30/23 23:01 140/49 L 07/30/23 23:01 54 L 20 91 07/30/23 23:00 46 L 32 H 92 Laboratory Results 07/31/23 04:26 07/31/23 04:26 Coding Level of Care Code 20611 SUB INP/OBS CARE 3/50MIN Diagnoses Complete heart block I44.2 Abnormal CXR R93.89 Anemia D64.9 Anxiety and depression F41.9; F32.A Hypothyroidism E03.9 HTN (hypertension) I10
--- OUTSIDE RECORDS SUMMARY | 2023-07-31 10:46 | External Medical Summary | Summary of Care ---
Author Name Unknown Organization [facility] Address [address] [place] [address] Phone [phone] Care Team Providers Care Financial Service Representative Name Role Phone Mariella Poon DO Primary Care Provider [phone] Reason for Visit * Reason Comments Acute Encounter Details Date Type Department Care Team (Late st Contact Info) Description 07/30/2023 10:10 AM EST Office Visit Family Medicine [address] [phone] Mariella Poon DO [address] [place] [address] [place] [address] Cardiac arrhythmia, unspecified cardiac arrhythmia type*; Bradycardia; Generalized weakness Allergies No known active allergiesdocumented as of this encounter (statuses as of 07/30/2023) Medications Medication Sig Dispensed Refills Start Date End Date Status MULTIVITAMINS PO CAPS None Entered 0 Active hydroCHLOROthiazide 25 MG Oral Tablet (Hydrodiuril) Take 1 Tablet by mouth in the morning. 90 Tablet 3 06/02/2022 Active Loratadine 10 MG Oral Tablet (Claritin) Take 1 Tablet by mouth in the morning. 30 Tablet 5 06/02/2022 Active Clobetasol Propionate 0.05 % External Cream (Temovate)Indicatio ns:Nummular dermatitis APPLY CREAM TOPICALLY TO AFFECTED AREA TWICE DAILY. LEGS/ARMS/TRUN K, TWICE DAILY NEEDED FOR RASH. 60 g 1 11/06/2022 Active Synthroid 125 MCG Oral TabletIndications:A cquired hypothyroidism Take 1 Tablet by mouth daily [...] Anxiety (sleep). 30 Tablet 0 06/15/2023 Active Cyclobenzaprine HCl 5 MG Oral Tablet (Flexeril) Take 1 Tablet by mouth daily as needed for Muscle spasms. 90 Tablet 1 11/04/2022 Discontinued documented as of this encounter (statuses as of 07/30/2023) Active Problems Problem Noted Date Diagnosed Date [...] as of this encounter (statuses as of 07/30/2023) Resolved Problems Problem Noted Date Diagnosed Date Resolved Date Chronic kidney disease, stage 3a 12/23/2020 06/04/2022 Overview: Per CKD protocol Intermittent asthma with rel iever use up to twice per week 03/20/2015 09/23/2015 COPD, moderate 10/13/2014 08/17/2018 Allergic rhinitis 03/27/2014 03/27/2014 Allergic rhinitis 05/30/2013 01/16/2014 HTN, goal below 140/90 07/29/201104/08 [employer] Other*[id number] 12/13/2009 02/03/2010 Asthma with severity to be [...] as of this encounter (statuses as of 07/30/2023) Immunizations Name Administration Dates Next Due COVID-19 mRNA, LNP-s, No Pre serve, 2-Dose Series ([employer]) 04/17/2021,08/10/2020,07/20/2020 COVID-19, LNP-s, No Preserve , Samy-sucrose, Ages 12+ ([employer]) 12/02/2021 COVID-19, MRNA-LNP, 23-24, P F, 30 MCG/0.3 mL, 12 YRS AND ABOVE, IM ([employer]) 03/26/2023 Covid-19, Mrna, Lnp-s, Pf, B ivalent, 30 Mcg, IM, 12 yrs and above ([employer]) 03/24/2022 PPD 05/18/2006 Pneumococcal Conjugate Vacc, 13 [...] Sign Reading Time Taken Comments Blood Pressure 132/63 07/30/2023 10:38 AM EST Pulse 42 07/30/2023 10:38 AM EST Temperature - - Respiratory Rate - - Oxygen Saturation 90% 07/30/2023 10:38 AM EST Inhaled Oxygen Concentration - - Weight 59.9 kg (132 lb) 07/30/2023 10:38 AM EST Height 161.3 cm (5' 3.5") 07/30/2023 10:38 AM ES T Body Mass Index 23.02 07/30/2023 10:38 AM EST documented in this encounter Progress Notes * Mariella Poon, DO - 07/30/2023 10:54 AM EST Subjective: Mayda Olvera is a 88 year old female. Chief Complaint Patient presents with Acute HPI: Mayda Olvera presents today for evaluation of low heart rate and dizziness x 1 week. HR has been in the 40-50s at home. No chest pain. She does feel weak and short of breath. PMH: Patient Active Problem List Diagnosis Code [...] by mouth every evening. 90 Tablet 1 Lisinopril 10 MG Oral Tablet (Prinivil) Take 1 Tablet by mouth in the morning. 90 Tablet 3 hydrOXYzine HCl 10 MG Oral Tablet (Atarax) Take 1 Tablet by mouth at bedtime as needed for Anxiety (sleep). 30 Tablet 0 No current facility-administered medications for this visit. Review of patient's allergies indicates: No Known Allergies Objective: BP 132/63 | Pulse 42 | Ht 1.613 m (5' 3.5") | Wt 59.9 kg (132 lb) | SpO2 90% | BMI 23.02 kg/m | BSA 1.64 m General: alert, well nourished, well developed, and (+) laying on exam table. Heart: (+) irregular rhythm, bradycardic Lungs: normal respiratory effort ASSESSMENT/PLAN: Cardiac arrhythmia, unspecified cardiac arrhythmia type (Primary) - pt sent to ER for evaluation and treatment. EMS called for transport. Bradycardia Generalized weakness Stop cyclobenzaprine, which she had been taking daily. Check-out note: Follow up pending ER evaluation. Mariella Poon DO documented in this encounter Nursing Notes * Hilda Abreu LPN - 07/30/2023 10:30 AM EST 1 week of not feeling well Very weak Heart rate at home on pulsox in low 40's-50's Oxygen running low 90's at home documented in this encounter Plan of Treatment Upcoming Encounters Date Type Department Care Team (Late st Contact Info) Description 01/19/2024 2:30 PM EDT Office Visit Family Medicine [address] [place] [phone] Mariella Poon DO [address] [place] [address] [place] [id number] Health Maintenance Due Date Last Done Comments Depression Screening 04/29/2021 04/29/2020 TSH 12/02/2023 12/01/2022, 04/2 12/2021, 06/18/2020, Additional history exists DXA Scan 02/07/2024 [...] this encounter Medical Devices Implanted Type Area Keno Attendant Device Identifier Shelf Expiration Date Model / Serial / Lot Mesh Pelvic Gynamesh Gpsl - [id number] [place]ed:Q[place]: 1 [place]07[place] [facility] [place] Vaginal Vault [employer] 06/14/2013 GPSL / / [id number] Sling Align Retropubic [id number] - [id number] Implanted:Qty: 1 on 11[place]07/2008 [place] [facility] [place] Urethra INACTIVE CR BARD : UROLOGICAL 09/12/2010 [id number] / / [id number] documented as of this encounter Visit Diagnoses Diagnosis Cardiac arrhythmia, unspecified cardiac arrhythmia type- Primary Bradycardia Other specified cardiac dysrhythmias Generalized weakness Other malaise and fatigue documented in this encounter Care Teams Financial Service Representative Relationship Specialty Start Date End Date Mariella Poon DO [address] [place] [address] [place] [id number] PCP - General Internal Medicine 05/05/17 documented as of this encounter
--- NOTE | 2023-07-31 10:57 | Post Anesthesia Assessment ---
Date of Service July 31, 2023 Post Sedation Assessment Vital Signs Temp Pulse Pulse Resp BP BP Pulse Ox 07/31/23 08:27 36.7 C 07/31/23 08:20 40 L 25 H 07/31/23 08:10 43 L 20 07/31/23 08:00 145/70 H 07/31/23 08:00 39 L 24 95 07/31/23 07:50 40 L 18 94 07/31/23 07:40 39 L 24 95 07/31/23 07:30 39 L 26 H 96 07/31/23 07:20 39 L 14 96 07/31/23 07:10 39 L 25 H 93 07/31/23 07:01 38 L 22 94 07/31/23 07:01 135/51 L 07/31/23 07:00 39 L 25 H 93 07/31/23 06:50 40 L 19 94 07/31/23 06:40 40 L 26 H 95 07/31/23 06:30 41 L 21 96 07/31/23 06:20 41 L 14 97 07/31/23 06:10 39 L 20 94 07/31/23 06:00 38 L 15 95 07/31/23 06:00 142/56 H 07/31/23 05:01 138/51 L 07/31/23 05:01 39 L 18 93 07/31/23 05:00 38 L 20 94 07/31/23 04:01 39 L 23 92 07/31/23 04:01 94/43 L 07/31/23 04:00 38 L 15 91 07/31/23 03:00 127/44 L 07/31/23 03:00 40 L 23 93 07/31/23 02:01 124/49 L 07/31/23 02:01 43 L 18 93 07/31/23 02:00 43 L 22 92 07/31/23 01:01 162/58 H 07/31/23 01:01 48 L 21 07/31/23 01:00 55 L 22 07/31/23 00:00 138/47 L 07/31/23 00:00 56 L 28 H 91 07/31/23 00:00 46 L 07/30/23 23:01 140/49 L 07/30/23 23:01 54 L 20 91 07/30/23 23:00 46 L 32 H 92 07/30/23 22:00 146/59 H 07/30/23 22:00 46 L 28 H 94 07/30/23 21:00 46 L 29 H 94 07/30/23 20:01 151/48 H 07/30/23 20:01 54 L 27 H 94 07/30/23 20:00 07/30/23 20:00 56 L 24 92 07/30/23 20:00 53 L 07/30/23 19:28 36.8 C 07/30/23 19:01 53 L 21 95 07/30/23 19:01 160/89 H 07/30/23 19:00 46 L 17 95 07/30/23 18:25 07/30/23 18:24 07/30/23 18:09 155/50 H 07/30/23 18:09 54 L 22 92 07/30/23 17:02 116/53 L 07/30/23 17:02 54 L 26 H 95 07/30/23 16:18 54 L 07/30/23 16:08 07/30/23 16:02 156/46 H 07/30/23 16:02 54 L 20 93 07/30/23 16:00 37.0 C 07/30/23 14:39 56 L 18 123/60 91 07/30/23 12:23 56 L 07/30/23 12:15 54 L 18 93 07/30/23 11:55 37.1 C 57 L 18 132/44 L 93 07/30/23 11:55 93 07/30/23 11:55 37.1 C 57 L 18 132/44 L 93 O2 Del Method O2 Flow Rate 07/31/23 08:27 07/31/23 08:20 07/31/23 08:10 07/31/23 08:00 07/31/23 08:00 07/31/23 07:50 07/31/23 07:40 07/31/23 07:30 07/31/23 07:20 07/31/23 07:10 07/31/23 07:01 07/31/23 07:01 07/31/23 07:00 07/31/23 06:50 07/31/23 06:40 07/31/23 06:30 07/31/23 06:20 07/31/23 06:10 Nasal Cannula 2 07/31/23 06:00 07/31/23 06:00 07/31/23 05:01 07/31/23 05:01 07/31/23 05:00 07/31/23 04:01 07/31/23 04:01 07/31/23 04:00 07/31/23 03:00 07/31/23 03:00 07/31/23 02:01 07/31/23 02:01 07/31/23 02:00 07/31/23 01:01 07/31/23 01:01 07/31/23 01:00 07/31/23 00:00 07/31/23 00:00 07/31/23 00:00 07/30/23 23:01 07/30/23 23:01 07/30/23 23:00 07/30/23 22:00 07/30/23 22:00 07/30/23 21:00 07/30/23 20:01 07/30/23 20:01 07/30/23 20:00 Nasal Cannula 2 07/30/23 20:00 07/30/23 20:00 07/30/23 19:28 07/30/23 19:01 07/30/23 19:01 07/30/23 19:00 07/30/23 18:25 Nasal Cannula 2 07/30/23 18:24 Nasal Cannula 2 07/30/23 18:09 07/30/23 18:09 07/30/23 17:02 07/30/23 17:02 07/30/23 16:18 07/30/23 16:08 Room Air 07/30/23 16:02 07/30/23 16:02 Room Air 07/30/23 16:00 07/30/23 14:39 Room Air 07/30/23 12:23 07/30/23 12:15 Room Air 07/30/23 11:55 Room Air 07/30/23 11:55 Room Air 07/30/23 11:55 Room Air Recovery Score Activity: Moves 4 extremities Respiration: Deep Breath/Cough Circulation: +/-20% PreAnes Value Consciousness: Fully Awake Oxygen Saturation: > 92% On Room Air Discharge Sedation Level of Care: Fast Track Phase II Post Sedation Plan On clinical assessment, the patient appears to have tolerated the sedation without complications. Patient is recovering as anticipated. Patient will continue to be monitored by nursing and may be discharged when sedation discharge criteria are met per below protocol. Upon Completions of procedure up to 15 minutes continue every 5 minute vital signs and the P.A.R. score; then discharge to a Phase I or Fast Track to Phase II per the following guidelines: * Discharge Patient to appropriate Phase II area if PAR is 8 or greater or return to pre- procedure baseline. The post - procedure orders will be as directed. * If PAR score is less than 8 or not return to pre-procedure baseline then patient will follow Phase I monitoring till PAR is reached for Phase II. The Phase I may be done in procedure room or may call to secure a Phase I area. * If naloxone or flumazenil are used for reversal, hold in Phase I for continued monitoring from when last reversal dose was given for a minimum of 60 minutes or longer pending the nurse and/or physician discretion of patient condition before discharge to Phase II. Please call the Sedation Physician to re-evaluate and complete post-note for discharge to Phase II area. Do NOT discharge from procedure sedation or Phase 1 until post- sedation evaluation note is complete by procedure /sedation MD Sedation Discharge Instructions to be given to the patient at discharge to home.
--- NOTE | 2023-07-31 12:35 | XRay Report ---
XR chest 1V portable HISTORY: 88 years-old Female s/p ppm ensure no PTX status post placement of a left subclavian pacer COMPARISON: 07/30/2023 TECHNIQUE: AP view the chest FINDINGS: Cardiac silhouette is upper limits of normal in size. Pulmonary vascular congestion with interstitial coarsening. Status post placement of a dual lead left subclavian pacer. No pneumothorax, large pleur al effusion or new lobar airspace consolidation. Unchanged asymmetric right hilar prominence. IMPRESSION: Status post placement of a dual lead left subclavian pacer. No postprocedural pneumothora x identified. ACT 112: Negative or not required by law. The above report was generated using voice recognition software. It may contain grammatical, syntax o r spelling errors. Electronically signed by: Shahid Mccabe M.D. 07/31/2023 12:33 PM
--- NOTE | 2023-07-31 13:29 | Operative Report ---
Post Operative Report DICTATED BY:Teresita Bland D.O. DATE OF PROCEDURE: 07/31/2023 PREOPERATIVE DIAGNOSES: Complete heart block POSTOPERATIVE DIAGNOSIS: Same PROCEDURE: A dual-chamber rate responsive permanent pacemaker and intracardiac electrogram along with a peripheral venogram under fluoroscopic guidance. SURGEON: Teresita Bland DO ASSISTANTS: None. ANESTHESIA: Monitored conscious sedation administered under my supervision by Noam Montez. Start time 8:54, end time 10:46, a total of 5 mg of Versed and 200 mcg of fentanyl. INTRAVENOUS FLUIDS: 100 mL. CONTRAST: 30 mL. ANTIBIOTICS: 2 grams of Ancef. ADDITIONAL MEDICATIONS: 25mg Benadryl BLOOD LOSS: 60 mL. URINE OUTPUT: Not applicable. SPECIMENS: None. FINDINGS: See below. DRAINS: None. COMPLICATIONS: None. CONDITION: Stable. INDICATIONS: This is a 88-year-old female who has a past medical history HTN, Hypothyroidism, depression and anxiety. She presented to ED with increased dizziness and fatigue found to be in high degree AV block. She was recommended a dual chamber pacemaker prior to hospital discharge. CONSENT: Consent was obtained prior to the patient going into the electrophysiology lab. The patient was informed of the risks, benefits, and alternatives to the procedure. Risks include, but not limited to, sudden cardiac , cardiac arrhythmias, cerebrovascular accident, myocardial infarction, injury to his blood vessels, chamber of the heart and lung, bleeding and infection. The patient understood these risks and agreed to the procedure as planned. Informed consent was obtained. DESCRIPTION OF PROCEDURE: The patient was brought into electrophysiology lab in a fasting state. She was connected to continuous cardiac monitoring. A timeout was performed to ensure the patient's identity and procedure correctly. She was prepped and draped in the left infraclavicular space in normal surgical standard fashion. Monitored conscious sedation was given throughout the procedure for the patient's comfort level. [place] precautions were maintained throughout the procedure. Prophylactic antibiotics were given prior to incision. A 20 mL of 1% lidocaine and bupivacaine mixture were given in the left deltopectoral groove. An incision was made in the left deltopectoral groove. Blunt dissection was performed down to the pectoralis muscle. Then, using blunt dissection over the pectoralis muscle within the pectoral fascia, a pacemaker pocket was created. Then, a peripheral venogram was performed to identify the axillary vein. Venous axillary access was obtained through a needlestick without any problems. A guidewire was inserted without any resistance. A 6-Gibraltarian sheath was inserted over the guidewire without any resistance. Dilator was removed and a second guidewire was inserted through the sheath to allow for retained venous access. Then the 6 Gibraltarian sheath was flushed and reinserted over the dilator; then inserted over the guidewire into the axiliary vein without any resistance. The dilator and guidewire were removed. Then the right atrial lead was temporarily positioned into the RV apex to have back up pacing while positioning the left bundle lead. Of note the initial placement of the lead was not much beyond the tricuspid valve but it was capturing unipolar so I left it. But then at some point during the case while repositioning the Left bundle lead the back up lead was not capturing-so i did reposition the back up lead and this time it went further out into the RV apex and captured, Then a 9 Gibraltarian sheath was inserted over the retained guidewire. The guidewire and dilator were removed. Then, the [employer] Supervisor 3D medium sheath was inserted through the 9-Gibraltarian sheath over a Glidewire into the right ventricle. The Glidewire and dilator were removed. Then, the left bundle lead was advanced through the sheath. The patient's heart was rotated so SOTOMAYOR 10 was more like a true AP; I then moved the camera to SOTOMAYOR 40 and came on left bundle pacing. Given the heart rotation it was difficult to get perpendicular to the septum. The medium curve I felt was positioning me too low. So after a few attempts and I felt like I was not getting into the conduction system. I then swapped out for a small curved sheath; i tried positioning the bundle lead with this sheath a few times but felt again like the position and the EGMs did not look right. I then went back to the medium curved sheath but had manually altered the curve slightly. I then came on pacing and found the complex was an acceptable W formed pace complex in my lead V1, I then moved the camera to AMHARIC 20. Then the helix was extended into the septum. Then the helix locking tool was placed. Then the lead was screwed further into the septum while pacing by giving slow clockwise turns. The paced complex changed somewhat and impedance as well. I then gave contrast through the sheath to see how far the lead was into the septum and then I slit the [employer] Supervisor 3D medium sheath under fluoroscopic guidance and left the 9-Gibraltarian sheath in while I positioned the right atrial lead. The right atrial lead that was being used for pacing from the RV apex screw was retracted. The lead was then positioned into the right atrial appendage under fluoroscopic guidance. There was adequate pacing and sensing thresholds and no diaphragmatic stimulation with high output pacing. The 6-Gibraltarian sheath was peeled away and the lead was fixated to the pectoralis muscle using 0 silk suture. The 9-Gibraltarian sheath around the left bundle lead was peeled away and the lead was fixated to pectoralis muscle using 0 silk suture. The pocket was flushed with copious amounts of vancomycin and saline wash and inspected for hemostasis. The leads were then attached to the pulse generator making sure the pins were in appropriate position, passed set screws, and set screws were all tightened. Pulse generator was then placed in the pocket, making sure the leads were lying flat beneath the device. The incision was closed in a 3-layer fashion using 2-0 Vicryl interrupted suture, followed by 3-0 Vicryl interrupted suture, followed by 4-0 Monocryl running stitch. Then a primaseal dressing was placed EQUIPMENT: 1. Pulse generator is a [employer] MRI Model Number [id number] SN: [id number]. 2. Right atrial lead, [employer]arte SJM Tendril STS 8TC SN: [id number] 3. Left bundle lead, [employer] SJM Tendril STS 8TC SN: [id number] INTRAPROCEDURAL FINDINGS: 1. Right atrial lead, P waves 1.2 millivolts, impedance 450 ohms, threshold 1 volts at 0.4 milliseconds. 2. Left bundle lead, R waves none pt is paced, impedance 638 ohms, threshold 0.6 volts at 0.4 milliseconds. FINAL MEASUREMENTS THROUGH THE DEVICE: 1. Right atrial lead, P waves 1 millivolts, impedance 510 ohms, threshold 1 volt at 0.4 milliseconds. 2. Left bundle lead, R waves none pt is paced, impedance 600 ohms, threshold 0.75 volts at 0.4 milliseconds. FINAL PARAMETERS: DDD 60/120, right atrial amplitude 3.5 volts, pulse width 0.4 milliseconds, sensitivity 0.5 millivolts. Left bundle lead amplitude 4 volts, pulse width 0.4 milliseconds, sensitivity 2 millivolts. IMPRESSION: Successful dual chamber rate responsive permanent pacemaker under fluoroscopic guidance along with peripheral venogram, all under fluoroscopic guidance secondary to complete heart block PLAN: Monitor the patient post-procedure. A 12-lead ECG, chest x-ray. She is not to lift the left elbow or left shoulder for 1 month. She cannot lift more than 10 pounds with the left arm for 2 weeks. She is to keep the dressing on and dry until her wound check next week. Monitor overnight on telemetry. Remote check tomorrow.
--- NOTE | 2023-07-31 13:45 | Cardiology Progress Note ---
Date of Service July 31, 2023 Assessment & Plan (1) High-grade atrioventricular block: Plan 88 year old female who presented to the emergency department on 07/30/2023 with 1 week history of dizziness and lightheadedness. Patient found to be in complete heart block with ventricular rate in the 40s. Lyme screen was negative. She remained hemodynamically stable overnight last night and underwent an [employer]arte dual-chamber perm pacemaker, 1 to 07/31/2023. Patient resting comfortably post procedure during my assessment. Son at the bedside. No heparin or Lovenox for 72 hours to help reduce the risk of pocket hematoma. Will likely resume lisinopril/HCTZ on 08/01/2023. Stable for discharge out of the ICU to the PCU. Will arrange outpt wound check , device check in 7-10 days and outpt cardio visit. Admission and Anticipated Discharge Date Admission Date: July 30, 2023 Subjective Patient seen and in room 107 status post permanent pacemaker. Telemetry reveals atrial sensed rhythm with ventricular pacing in the 70s. Physical Exam Physical Exam: resting comfortably Results & Data Vital Signs (Past 12 Hours) Vital Signs Temp Pulse Resp BP Pulse Ox O2 Del Method O2 Flow Rate 07/31/23 13:15 75 17 96 07/31/23 13:00 120/71 07/31/23 13:00 74 19 95 07/31/23 12:45 75 17 95 07/31/23 12:45 126/61 07/31/23 12:31 75 16 93 07/31/23 12:31 130/58 L 07/31/23 12:31 130/58 L 07/31/23 12:30 74 16 95 07/31/23 12:15 111/53 L 07/31/23 12:15 76 15 96 07/31/23 12:00 126/55 L 07/31/23 12:00 77 16 94 07/31/23 11:45 121/61 07/31/23 11:45 76 17 95 07/31/23 11:31 77 28 H 96 07/31/23 11:31 112/55 L 07/31/23 11:30 77 14 95 07/31/23 11:15 78 17 96 07/31/23 11:15 146/63 H 07/31/23 11:12 125/57 L 07/31/23 11:12 78 12 96 07/31/23 11:07 77 28 H 95 07/31/23 11:00 Nasal Cannula 2 07/31/23 08:30 40 L 20 07/31/23 08:27 36.7 C 07/31/23 08:20 40 L 25 H 07/31/23 08:10 43 L 20 07/31/23 08:00 38 L 07/31/23 08:00 145/70 H 07/31/23 08:00 39 L 24 95 07/31/23 07:50 40 L 18 94 07/31/23 07:40 39 L 24 95 07/31/23 07:30 39 L 26 H 96 07/31/23 07:20 39 L 14 96 07/31/23 07:10 39 L 25 H 93 07/31/23 07:01 38 L 22 94 07/31/23 07:01 135/51 L 07/31/23 07:00 39 L 25 H 93 07/31/23 06:50 40 L 19 94 07/31/23 06:40 40 L 26 H 95 07/31/23 06:30 41 L 21 96 07/31/23 06:20 41 L 14 97 07/31/23 06:10 39 L 20 94 Nasal Cannula 2 07/31/23 06:00 38 L 15 95 07/31/23 06:00 142/56 H 07/31/23 05:01 138/51 L 07/31/23 05:01 39 L 18 93 07/31/23 05:00 38 L 20 94 07/31/23 04:01 39 L 23 92 07/31/23 04:01 94/43 L 07/31/23 04:00 38 L 15 91 07/31/23 03:00 127/44 L 07/31/23 03:00 40 L 23 93 07/31/23 02:01 124/49 L 07/31/23 02:01 43 L 18 93 07/31/23 02:00 43 L 22 92
[2023-07-31] MEDS: [UNRECOGNIZED DRUG - REMARK] PO SCH (15:24)
[2023-07-31] MEDS: SERTRALINE HCL 50 MG TABLET PO SCH (15:24)
--- NOTE | 2023-07-31 18:16 | Electrocardiogram Report ---
Test Reason : Blood Pressure : / mmHG Vent. Rate : 039 BPM Atrial Rate : 077 BPM P-R Int : 286 ms QRS Dur : 138 ms QT Int : 552 ms P-R-T Axes : 067 074 040 degrees QTc Int : 444 ms Sinus rhythm with 2nd degree A-V block with 2:1 A-V conduction Non-specific intra-ventricular conduction block Cannot rule out Septal infarct (cited on or before 30-JUL-2023) Abnormal ECG When compared with ECG of 30-JUL-2023 11:56, Sinus rhythm is now with 2nd degree A-V block Confirmed by Greg Garcia ([id number]) on 07/31/2023 6:16:06 PM Referred By: REFERRED SELF Confirmed By:Greg Garcia
[2023-08-01 05:25] LABS: Hematocrit (blood only) 30.7 % (37.0-47.0); Hemoglobin 10.5 g/dl (12.0-16.0); Mean Corpuscular Hemoglobin 30.3 pg (25.0-34.0); Mean Corpuscular Hgb Conc 34.2 g/dL (32.0-36.0); Mean Corpuscular Volume 88.5 fL (80.0-100.0); Mean Platelet Volume 10.8 fL (9.4-12.4); Platelet Count 296 K/uL (130-400); RDW Coefficient of Variation 12.4 % (11.5-14.5); RDW Standard Deviation 39.8 fL (36.4-46.3); Red Blood Count 3.47 M/uL (4.20-5.40); White Blood Count 10.03 K/ul (4.8-10.8)
[2023-08-01 05:49] LABS: BUN Creatinine Ratio 39.7 (10-20); Calcium 8.6 mg/dl (8.6-10.3); Est GFR (African American) 96.1 ml/min; Est GFR (Non-African American) 82.9 ml/min; Magnesium 1.9 mg/dl (1.7-2.4); Phosphorus 3.2 mg/dl (2.5-4.9); Potassium 4.2 mmol/L (3.5-5.1)
--- NOTE | 2023-08-01 10:38 | Cardiology Progress Note ---
Date of Service August 01, 2023 Assessment & Plan (1) High-grade atrioventricular block: (2) HTN (hypertension): Plan 88 year old female who presented to the emergency department on 07/30/2023 with 1 week history of dizziness and lightheadedness. Patient found to be in complete heart block with ventricular rate in the 40s. Lyme screen was negative. She remained hemodynamically stable overnight last night and underwent an Duarte dual-chamber permanent pacemaker 07/31/2023. Postprocedure chest x-ray on 07/31/2023 without evidence of pneumothorax. Remote device interrogation performed today 08/01/2023 and reviewed with the [employer] outbound telemarketing representative with normal device function. Will resume prior to hospital treatment with lisinopril 10 mg, HCTZ 25 mg as patient's blood pressures have rebounded toward being on the higher side, most recent measurement 158/78. Patient lives independently, she has a grandson that spends the night in her home and has children that live within 5 minutes. She is eager for discharge, but the nurse to care for her overnight did express some concerns with regards to her safety with ambulation. Patient stable from a cardiac perspective for discharge when deemed stable from an ambulation standpoint. I contacted the outpatient cardiology clinic and have requested a wound check/device check appointment within 6 to 10 days of procedure as well as a general cardiology follow-up visit. Admission and Anticipated Discharge Date Admission Date: July 30, 2023 Subjective Patient seen in cardiology follow-up. Sitting in the bedside chair in ICU room 107. Denies acute complaint. Telemetry reveals sinus rhythm with ventricular paced QRS complexes in the 70s. Physical Exam Physical Exam: resting comfortably Constitutional: WD/WN, vitals as above no acute distress Respiratory: normal respiratory effort, lungs clear to auscultation Cardiovascular: Heart Sounds: normal S1, normal S2 and + murmur (soft systolic murmur ) Vessels: no JVD Extremities: no edema Chest (Breasts): Additional Comments: Left infraclavicular pacemaker pocket dressing in place, not removed Gastrointestinal (Abdomen): normal bowel sounds, soft, nontender, no hepatosplenomegaly Skin: no rashes, warm and dry Psychiatric: Orientation: alert and oriented x 3 Results & Data Vital Signs (Past 12 Hours) Vital Signs Temp Pulse Resp BP Pulse Ox O2 Del Method O2 Flow Rate 08/01/23 09:11 36.5 C 02/18/24 09:01 21 92 Room Air 08/01/23 09:01 158/78 H 08/01/23 08:00 72 08/01/23 05:00 71 23 91 08/01/23 04:32 73 19 93 08/01/23 04:32 149/77 H 08/01/23 04:00 68 20 92 08/01/23 03:00 70 34 H 92 08/01/23 02:00 73 20 92 08/01/23 01:00 74 23 92 08/01/23 00:00 76 25 H 95 08/01/23 00:00 36.9 C 07/31/23 23:35 76 22 150/69 H 95 Nasal Cannula 1 07/31/23 23:35 77 28 H 95 07/31/23 23:00 75 30 H 92 Laboratory Results CBC 08/01/23 Range/Units 04:26 WBC 10.03 (4.8-10.8) K/ul RBC 3.47 L (4.20-5.40) M/uL Hgb 10.5 L (12.0-16.0) g/dl Hct 30.7 L (37.0-47.0) % Plt Count 296 (130-400) K/uL Comprehensive Metabolic Panel 08/01/23 Range/Units 04:26 Sodium 135 L (136-145) mmol/L Potassium 4.2 (3.5-5.1) mmol/L Chloride 102 (98-107) mmol/L Carbon Dioxide 29 (21-32) mmol/L BUN 23 (6-23) mg/dl Creatinine 0.58 L D (0.6-1.2) mg/dl Glucose 104 H (70-99(Fasting)) mg/dl Calcium 8.6 (8.6-10.3) mg/dl Intake and Output 07/31/23 08/01/23 08/01/23 22:59 06:59 14:59 Intake Total 400 / 940 440 / 940 240 / 240 Balance 400 / 940 440 / 940 240 / 240 Intake: IV 100 / 300 100 / 300 Acetaminophen 1,000 mg In 100 100 / 200 100 / 200 ml @ 400 mls/hr IV Q8H PRN Rx#: [id number] Oral 300 / 640 340 / 640 240 / 240 Other: # Unmeasured Voids 1 1
[2023-08-01] MEDS: hydroCHLOROthiazide 25 MG TAB PO SCH (11:04)
[2023-08-01] MEDS: lisinopril 10 MG TAB PO SCH (11:04)
--- NOTE | 2023-08-01 13:05 | Discharge Summary ---
Date of Service August 01, 2023 Admission HPI Per Admitting Provider Patient is 88-year-old female with PMH HTN, hypothyroidism, asthma, depression, anxiety, presented to ER with c/o dizziness. History obtained from patient and outpatient chart review. Patient reports dizziness for past 3 days, worse with ambulation. Patient reports history dizziness described as vertigo but states this dizziness past 3 days feels different. Feeling very fatigued with minimal exertion. Also states SOB with walking past couple of days. She reports used home pulse oximeter yesterday and read pulse as 45bpm and she thought was a false read. Patient presented to PCPs office today and was found to be bradycardic in the 40's and sent to ER via EMS. Currently patient states lying in bed is without any dizziness or other symptoms. States chronic intermittent cough but denies any worsening. States takes loratadine daily for this however past 2-3 days has taken loratadine-D as she wondered if her symptoms were allergy/asthma related. Denies known recent tick bite. Denies fever/chills, diaphoresis, N/V/D/C, melena, hematochezia, WATKINS, syncope, vision changes, neck pain, CP, orthopnea, palpitations, sore throat, choking, otalgia, rhinorrhea, abdominal pain, paresthesias, extremity edema, rashes, urinary symptoms. Only took Synthroid this morning with sip of water. States did not eat or drink anything else today. 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 Discharge Exam General: WDWN elderly F in NAD Head: normocephalic, atraumatic Eyes: conjunctiva non-injected, anicteric ENT: normal inspection external ears, nose, mucous membranes moist Neck: supple Lungs: clear, no respiratory distress, no wheezing/rhonchi/rales CV: rrr, + murmur, no pretibial edema Abd: normal BS, soft, non-tender Ext: moves extremities Neuro: A&O x 3, no focal deficits noted, normal affect Skin: warm, dry Discharge Data Allergies Allergy/AdvReac Type Severity Reaction Status Date / Time pollen extracts Allergy Intermediate ITCHY Verified 11/26/22 18:52 EYES, SNEEZING, CONGESTION Consultations 07/30/23 14:00 ED Decision to Admit Stat 07/30/23 16:18 Consult Cardiology Routine Consult Paralegal Internship Routine Procedures Performed Operation Date: 07/31/23 08:30 Actual Procedures p Pacer with A/V Leads (Dual) - Teresita Bland, DO p Venogram Extremity Unilateral - Teresita Bland, DO p Bundle of his Recording - Teresita Bland DO Ordered Studies 07/31/23 08:30 EP Lab Images for PACS ONCE Hospital Course (1) High-grade atrioventricular block: (2) CHB (complete heart block): Patient is 88-year-old female with PMH HTN, hypothyroidism, asthma, depression, anxiety, stress incontinence presented to ER with c/o exertional dizziness and fatigue x 3 days, bradycardia in 40's-50s per home pulse oximeter. Seen in outpatient clinic and found to be bradycardic In ER afebrile, P: 57, R: 18, BP: 132/44, 93% RA EKG: sinus bradycardia, intermittent complete heart block, rate 57 TSH: 3.1. WBC: 12 In ER BP stable. Patient asymptomatic Lyme negative Pacer pads at bedside Cardiology consulted - pt underwent pacemaker placement on 07/31/2023 (3) Hypomagnesemia: Magnesium: 1.6 Replace and monitor (4) Anemia: H/H: 10.6/31.7. Hgb: 15 on 06/15/23 iron level low, start iron supplement (5) Abnormal CXR: CXR: reviewed by eeg tech/pulmonary - Good inspiratory effort, portable film, increased pulmonary vascular congestion, bilateral costophrenic and cardiophrenic angles are clean (6) HTN (hypertension): BP currently stable Held home lisinopril and HCTZ initially, can resume on discharge (7) Hypothyroidism: TSH: 3.1 Continue Synthroid (8) Anxiety and depression: History depression, worse after passing of her months ago Prescribed sertraline 50mg daily and 25mg in the evenings. Patient states 1 week ago started just taking 25mg daily as she feels she is no longer depressed Continue sertraline (9) Asthma: Reported history asthma years ago. 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 Activity: As commented below Activity Comment: do not raise the left elbow over the left shoulder for 1 month Lifting: No more than 10 pounds Lifting Comment: do not lift more than 10 pounds with the left arm for 2 weeks Bathing: Keep incision dry Bathing Comment: keep dressing on & dry until wound check next week Non-emergency contact: Primary Care Provider and Av Specialist Call non-emergency contact if: you have any medication questions and your symptoms worsen Follow-up/Referrals: Mariella Poon DO [Primary Care Provider] - Diet: Heart Healthy Addtl Attending Provider Instructions: Follow up with primary care doctor and cardiology. Device and wound check at [facility] on Wednesday08/10/2023. Your iron level was found low, recommend to start taking iron supplement. Pending Studies at Discharge: No Stand-Alone Forms: My [facility] [email or web address], Smoking Cessation Medications and DC Order Prescriptions: New ferrous sulfate 325 mg (65 mg iron) tablet 325 mg PO DAILY Qty: 30 0RF Continued multivitamin Tablet 1 tab PO DAILY levothyroxine [Synthroid] 125 mcg tablet 125 mcg PO DAILYBB Rx Instructions: MUST BE BRAND NAME sertraline 25 mg tablet 25 mg PO DAILY hydrochlorothiazide 25 mg tablet 25 mg PO DAILY loratadine [Claritin] 10 mg Tablet 10 mg PO DAILY lisinopril 10 mg tablet 10 mg PO DAILY hydroxyzine HCl 10 mg tablet 10 mg PO HS PRN (Reason: Insomnia) Discharge Orders: Discharge Order (Routine); Ordered 08/01/23 Ordered By: Bob Samuel Admission Data Admit Date/Time: 07/30/23 14:46 Attending Provider: Bob Samuel Admit Provider: Estela Cat Primary Care Provider: Mariella Poon Other Providers: Estela Cat; Manpreet Thomas; Jhon Ascencio Other Interventions: Discharge Summary Assessment (RN) Last Done: 08/01/23 13:09
--- NOTE | 2023-08-01 21:53 | Electrocardiogram Report ---
Test Reason : Blood Pressure : / mmHG Vent. Rate : 076 BPM Atrial Rate : 076 BPM P-R Int : 172 ms QRS Dur : 148 ms QT Int : 446 ms P-R-T Axes : 062 -73 091 degrees QTc Int : 501 ms Atrial-sensed ventricular-paced rhythm Abnormal ECG When compared with ECG of 31-JUL-2023 05:51, (unconfirmed) Electronic ventricular pacemaker is now present Vent. rate has increased BY 37 BPM Confirmed by Greg Garcia ([id number]) on 08/01/2023 9:53:33 PM Referred By: REFERRED SELF Confirmed By:Greg Garcia
--- NOTE | 2023-08-02 06:42 | Electrocardiogram Report ---
Test Reason : Blood Pressure : / mmHG Vent. Rate : 071 BPM Atrial Rate : 071 BPM P-R Int : 174 ms QRS Dur : 144 ms QT Int : 440 ms P-R-T Axes : 074 -77 088 degrees QTc Int : 478 ms Atrial-sensed ventricular-paced rhythm Abnormal ECG When compared with ECG of 31-JUL-2023 11:36, (unconfirmed) Vent. rate has decreased BY 5 BPM Confirmed by Greg Garcia ([id number]) on 08/02/2023 6:42:34 AM Referred By: REFERRED SELF Confirmed By:Greg Garcia
== END 2023-08-01 13:58 | disposition home or self-care (01) | DRG 244 ==
LOC: ED 11:47 → 1E 14:46 → SUATTDRO 14:46 → 1E 15:48
DX: E83.42 Hypomagnesemia; I44.2 Atrioventricular block, complete; E03.9 Hypothyroidism, unspecified; Z87.891 Personal history of nicotine dependence; Z66 Do not resuscitate; Z79.890 Hormone replacement therapy; Z79.899 Other long term (current) drug therapy; J45.909 Unspecified asthma, uncomplicated; F41.9 Anxiety disorder, unspecified; Z91.048 Other nonmedicinal substance allergy status; D64.9 Anemia, unspecified; I10 Essential (primary) hypertension

== ENCOUNTER 2023-08-11 17:58 | Inpatient (IN) ==
[2023-08-11] MEDS: SODIUM CHLORIDE 0.9% 1,000 ML IV ONE (18:14)
--- NOTE | 2023-08-11 18:14 | Emergency Department Note ---
Impression & Plan Acute hyponatremia, Influenza A, Fever, Weakness ED Provider Note NAME: ANAHI NUNEZ AGE: 88 SEX: F : 1935 ARRIVES VIA: Ambulance INFORMANT: Patient ED PROVIDER(S): Faustino Browne DO CHIEF COMPLAINT: fever HPI: Patient is an 88-year-old female with a past medical history of anxiety, asthma, hypertension, complete heart block with a pacer placed 10 days ago who presents to the ER for fever. Patient admits to cough, congestion, and runny nose which has been present since Wednesday. Denies any headache or change in vision. No belly pain. No nausea, vomiting, or diarrhea. No dysuria, urgency, or frequency. No other exacerbating or remitting factors. ADDITIONAL HISTORY OBTAINED: Per HPI Chronic Medical/Social Conditions Affecting Care: Per HPI PAST MEDICAL HISTORY:See Below PAST SURGICAL HISTORY:See Below FAMILY HISTORY:See Below SOCIAL HISTORY:See Below HOME MEDICATIONS:See Below ALLERGIES:See Below VITALS:See Below PHYSICAL EXAMINATION: GENERAL: Sitting up in bed, alert, well appearing, well nourished, no distress, non-toxic, with a persistent cough EYE EXAM: normal conjunctiva. PERRL and EOM's grossly intact. OROPHARYNX: mucous membranes are moist CHEST: Pacer pocket left upper chest wall with no sutures in place. Faint erythema around the margin of the incision but no other surrounding erythema or induration. No drainage. NECK: supple, no nuchal rigidity, no adenopathy, non-tender LUNGS: Clear to auscultation. Normal chest wall mechanics HEART: no murmurs, S1 normal and S2 normal ABDOMEN: abdomen soft, non-tender, normo-active bowel sounds, no masses, no rebound or guarding. UPPER EXTREMITIES: upper extremities are grossly normal. LOWER EXTREMITIES: No pitting edema. NEURO EXAM: Normal sensorium, cranial nerves II-XII grossly intact, normal speech, no gross weakness of arms, no gross weakness of legs. MEDICAL DECISION MAKING: Patient is an 88-year-old female brought in for fevers and weakness. IV was established blood work was obtained. Prior to arrival per EMS patient had fever of 103. She was given IV Tylenol. She does also have a cough. Labs show no significant leukocytosis and mild anemia 11.3. BMP with a mild hyponatremia 128. BMP was otherwise unremarkable. Mag slightly low at 1.5. LFTs bilirubin was unremarkable. Troponin negative. Pro-Tico normal. Influenza A was positive. Chest x-ray showed some mild right hilar fullness which is unchanged from previous. Patient was given IV fluids and IV antibiotics prior to the results of the influenza testing and admitted to the hospital for further evaluation and close monitoring with recent surgery/pacer placement although I favor symptoms are purely secondary to influenza. Consults/Care Managements Discussions: Per [facility] Triage Nursing notes reviewed. Limited review of prior medical records performed Vital Signs: reviewed and remarkable for febrile and tachycardic Differential diagnosis: Differential diagnosis includes etiologies such as sepsis, UTI, pneumonia, metabolic, electrolyte abnormalities, cardiac sources, intracerebral event, toxicologic, neurological, as well as others were entertained. ER treatment provided: See below Diagnostics interpreted by me include EKG and cardiac monitoring as listed below: -Cardiac Monitoring: An order was placed for continuous cardiac monitoring. The monitor shows a rate of 80 with sinus rhythm. -ECG: Sinus rhythm with rate of 83 First-degree AV block T wave inversion in the inferior leads T wave inversion in V3 through V6 with ST depressions in V3 through V6 T wave inversions and ST depressions are changed from previous. -Laboratory studies:Interpreted by me as stated above in MDM and shown below. Imaging studies: Xrays: As interpreted by me: Portable AP upright 1 view of the chest shows no focal infiltrate CTs show: none Procedures:none Critical Care: None Past Med/Surg History Medical History Asthma Anxiety and depression Hypothyroidism HTN (hypertension) Surgical History History of hysterectomy History of cholecystectomy Family History Other Asthma Cancer Diabetes Stroke Social History Smoking Status: Former smoker Tobacco Type: Cigarettes Cigarettes Per Day: light smoker for 3 years in 1963; Hx Alcohol Use: No Hx Substance Use: No Preferred Language: Indonesian Communication Ability: Effective Master Motorcycle Technician Required: No Beliefs That Will Affect Care: None Current Living Situation: Alone Feels Safe at Home: Yes Assistive Devices: Cane and Walker Allergies Allergies Allergy/AdvReac Type Severity Reaction Status Date / Time pollen extracts Allergy Intermediate ITCHY Verified 08/11/23 18:47 EYES, SNEEZING, CONGESTION Home Meds Home Medications Medication Instructions Recorded Confirmed hydrochlorothiazide 25 mg tablet 25 mg PO DAILY 11/26/22 08/11/23 levothyroxine 125 mcg tablet 125 mcg PO DAILYBB 11/26/22 08/11/23 (Synthroid) loratadine 10 mg tablet (Claritin) 10 mg PO BID 11/26/22 08/11/23 multivitamin 1 tab PO DAILY 11/26/22 08/11/23 sertraline 25 mg tablet 25 mg PO QPM 11/26/22 08/11/23 hydroxyzine HCl 10 mg tablet 10 mg PO HS PRN Insomnia 07/30/23 08/11/23 lisinopril 10 mg tablet 10 mg PO DAILY 07/30/23 08/11/23 Results & Data (ED) Vital Signs Vital Signs - 24 hr 08/11/23 18:15 08/11/23 18:15 08/11/23 18:15 Temperature 37.3 C Temperature Source Oral Pulse Rate 81 81 Pulse Rate [Apical] 80 Pulse Rate from SpO2 Sensor Pulse Rhythm Regular Pulse Rhythm [Apical] Regular Pulse Strength Normal Pulse Strength [Apical] Normal Respiratory Rate 18 18 Respiratory Effort / Characteristics Non-Labored Non-Labored Respiratory Depth Normal Normal Respiratory Pattern Regular Blood Pressure 129/95 Blood Pressure Mean 106 Pulse Oximetry 98 98 Oxygen Delivery Method Room Air Room Air Sepsis Recent Fever Within 48 Hours No Sepsis New/Unexplained Change in Mental Status No Sepsis Action Taken by Nursing No Action Required 08/11/23 18:20 08/11/23 19:00 08/11/23 19:30 Temperature Temperature Source Pulse Rate 76 76 Pulse Rate [Apical] Pulse Rate from SpO2 Sensor 76 77 Pulse Rhythm Pulse Rhythm [Apical] Pulse Strength Pulse Strength [Apical] Respiratory Rate 24 20 Respiratory Effort / Characteristics Respiratory Depth Respiratory Pattern Blood Pressure 141/70 H Blood Pressure Mean 93 Pulse Oximetry 98 96 100 Oxygen Delivery Method Room Air Sepsis Recent Fever Within 48 Hours Sepsis New/Unexplained Change in Mental Status Sepsis Action Taken by Nursing 08/11/23 19:37 08/11/23 20:00 08/11/23 20:30 Temperature Temperature Source Pulse Rate 76 76 76 Pulse Rate [Apical] Pulse Rate from SpO2 Sensor 76 Pulse Rhythm Pulse Rhythm [Apical] Pulse Strength Pulse Strength [Apical] Respiratory Rate 24 23 27 H Respiratory Effort / Characteristics Respiratory Depth Respiratory Pattern Blood Pressure 140/68 141/70 H Blood Pressure Mean 92 93 Pulse Oximetry 97 Oxygen Delivery Method Sepsis Recent Fever Within 48 Hours Sepsis New/Unexplained Change in Mental Status Sepsis Action Taken by Nursing Laboratory Data 08/11/23 18:48 08/11/23 18:48 Lab Results 08/11/23 08/11/23 08/11/23 Range/Units 18:22 18:48 19:26 WBC 6.45 (4.8-10.8) K/ul RBC 3.73 L (4.20-5.40) M/uL Hgb 11.3 L (12.0-16.0) g/dl Hct 32.3 L (37.0-47.0) % MCV 86.6 (80.0-100.0) fL MCH 30.3 (25.0-34.0) pg MCHC 35.0 (32.0-36.0) g/dL RDW Std Deviation 40.3 (36.4-46.3) fL RDW Coeff of Bruce 12.9 (11.5-14.5) % Plt Count 289 (130-400) K/uL MPV 9.7 (9.4-12.4) fL Immature Gran % (Auto) 0.6 % Neut % (Auto) 65.8 % Lymph % (Auto) 13.0 % Briscoe % (Auto) 19.2 % Eos % (Auto) 0.3 % Baso % (Auto) 1.1 % Neut # (Auto) 4.24 (1.40-6.50) K/uL Lymph # (Auto) 0.84 L (1.20-3.40) K/uL Briscoe # (Auto) 1.24 H (0.11-0.59) K/uL Eos # (Auto) 0.02 (0.00-0.50) K/uL Baso # (Auto) 0.07 (0.00-0.20) K/uL Immature Gran # (Auto) 0.04 (0.01-0.20) K/uL Sodium 128 L (136-145) mmol/L Potassium 3.7 (3.5-5.1) mmol/L Chloride 95 L (98-107) mmol/L Carbon Dioxide 26 (21-32) mmol/L Anion Gap 7 (3-11) BUN 14 (6-23) mg/dl Creatinine 0.60 (0.6-1.2) mg/dl Est Cr Clr Drug Dosing 59.9 ml/min Est GFR ( Amer) 95.0 ml/min Est GFR (Non-Af Amer) 82.0 ml/min BUN/Creatinine Ratio 23.3 H (10-20) Glucose 107 H (70-99(Fasting)) mg/dl Lactate 0.9 (0.4-2.0) mmol/L Calcium 8.3 L (8.6-10.3) mg/dl Magnesium 1.5 L (1.7-2.4) mg/dl Total Bilirubin 0.2 (0.2-1.0) mg/dl Direct Bilirubin 0.1 (0-0.2) mg/dl AST 22 (13-39) U/L ALT 18 (7-52) U/L Alkaline Phosphatase 60 (34-104) U/L Troponin I High Sens 8.8 (0-14) pg/ml Total Protein 6.2 (6.0-8.3) gm/dl Albumin 3.6 (3.4-5.0) gm/dl Procalcitonin 0.03 (0-0.5) ng/ml Nasal Influ A H1 2008 PCR DETECTED A (NotDetected) Adenovirus (PCR) Not Detected (NotDetected) B. pertussis DNA (PCR) Not Detected (NotDetected) B.parapertussis DNA PCR Not Detected (NotDetected) C. pneumoniae DNA (PCR) Not Detected (NotDetected) Coronavirus OC43 (PCR) Not Detected (NotDetected) Coronavirus HKU1 (PCR) Not Detected (NotDetected) Coronavirus 229E (PCR) Not Detected (NotDetected) SARS-CoV-2 (PCR) Not Detected (NotDetected) Coronavirus NL63 (PCR) Not Detected (NotDetected) Human Metapneumovir PCR Not Detected (NotDetected) Influenza Type B (PCR) Not Detected (NotDetected) M. pneumoniae (PCR) Not Detected (NotDetected) Parainfluenza 1 (PCR) Not Detected (NotDetected) Parainfluenza 2 (PCR) Not Detected (NotDetected) Parainfluenza 3 (PCR) Not Detected (NotDetected) Parainfluenza 4 (PCR) Not Detected (NotDetected) RSV (PCR) Not Detected (NotDetected) Entero/Rhino (PCR) Not Detected (NotDetected) Administered Medications Discontinued Medications Sodium Chloride (Nss) 1,000 mls @ 999 mls/hr IV .Q1H1M ONE Stop: 08/11/23 19:09 Last Infusion: 08/11/23 19:17 Dose: Infused Documented By: Admin: 08/11/23 18:14 Dose: 999 mls/hr Documented By: SAWYER Cefepime HCl (Maxipime) 2,000 mg in 20 mls @ 5 mls/min IV NOW STA; Protocol Stop: 08/11/23 18:51 Last Admin: 08/11/23 19:34 Dose: 5 mls/min Documented By: ALVIN Imaging Data Radiologist's Impression: Chest X-Ray 08/11/23 18:09 XR chest 1V portable HISTORY: Sepsis COMPARISON: Chest 07/31/2023. FINDINGS: No pneumothorax. No pleural effusions. The heart is top normal in size. The left-sided dual-chamber pacemaker again noted. Mild pulmonary vascular congestion has improved. No new focal lung consolidations to suggest a pneumonia. Mild S-shaped scoliosis of the thoracolumbar spine. Degenerative changes within the shoulders. IMPRESSION: Interval improvement in the mild pulmonary vascular congestion. ACT 112: Negative or not required by law. Electronically signed by: Madi Ontiveros M.D. 08/11/2023 7:12 PM Discharge Plan Visit Data Chief Complaint: Weakness Stated Complaint: WEAKNESS ED Provider: Faustino Browne Discharge Problem: Acute hyponatremia, Influenza A, Fever, Weakness Forms Stand Alone Forms: My [employer] Prescriptions Prescriptions: No Action multivitamin Tablet 1 tab PO DAILY levothyroxine [Synthroid] 125 mcg tablet 125 mcg PO DAILYBB Rx Instructions: MUST BE BRAND NAME sertraline 25 mg tablet 25 mg PO QPM Rx Instructions: PER PT "HAVEN'T TAKEN FOR 2 WEEKS, NOT DEPRESSED, JUST SAD". hydrochlorothiazide 25 mg tablet 25 mg PO DAILY loratadine [Claritin] 10 mg Tablet 10 mg PO BID lisinopril 10 mg tablet 10 mg PO DAILY hydroxyzine HCl 10 mg tablet 10 mg PO HS PRN (Reason: Insomnia) Referrals Referrals: Mariella Poon DO [Primary Care Provider] - Discharge Problem: Fever Qualifiers: Fever type: unspecified Qualified Code(s): R50.9 - Fever, unspecified
--- NOTE | 2023-08-11 19:13 | XRay Report ---
XR chest 1V portable HISTORY: Sepsis COMPARISON: Chest 07/31/2023. FINDINGS: No pneumothorax. No pleural effusions. The heart is top normal in size. The left-sided dual -chamber pacemaker again noted. Mild pulmonary vascular congestion has improved. No new focal lung co nsolidations to suggest a pneumonia. Mild S-shaped scoliosis of the thoracolumbar spine. Degenerative changes within the shoulders. IMPRESSION: Interval improvement in the mild pulmonary vascular congestion. ACT 112: Negative or not required by law. Electronically signed by: Madi Ontiveros M.D. 08/11/2023 7:12 PM
[2023-08-11 19:24] LABS: Adenovirus PCR Not Detected (NotDetected); Bordetella parapertussis PCR Not Detected (NotDetected); Bordetella pertussis PCR Not Detected (NotDetected); Chlamydia pneumoniae PCR Not Detected (NotDetected); Coronavirus 229E PCR Not Detected (NotDetected); Coronavirus CoV-2 (COVID19)PCR Not Detected (NotDetected); Coronavirus HKU1 PCR Not Detected (NotDetected); Coronavirus NL63 PCR Not Detected (NotDetected); Coronavirus OC43PCR Not Detected (NotDetected); Human Metapneumovirus PCR Not Detected (NotDetected); Influenza A (H1 2009) PCR DETECTED (NotDetected); Influenza B PCR Not Detected (NotDetected); Mycoplasma pneumoniae PCR Not Detected (NotDetected); Parainfluenza Virus 1 PCR Not Detected (NotDetected); Parainfluenza Virus 2 PCR Not Detected (NotDetected); Parainfluenza Virus 3 PCR Not Detected (NotDetected); Parainfluenza Virus 4 PCR Not Detected (NotDetected); Respiratory Syncytial VirusPCR Not Detected (NotDetected); Rhinovirus/Enterovirus PCR Not Detected (NotDetected)
[2023-08-11 19:26] LABS: Albumin Level 3.6 gm/dl (3.4-5.0); BUN Creatinine Ratio 23.3 (10-20); Bilirubin Direct 0.1 mg/dl (0-0.2); Bilirubin,Total 0.2 mg/dl (0.2-1.0); Calcium 8.3 mg/dl (8.6-10.3); Creatinine Clr Calc Pharmacy 59.9 ml/min; Magnesium 1.5 mg/dl (1.7-2.4); Potassium 3.7 mmol/L (3.5-5.1); Total Protein 6.2 gm/dl (6.0-8.3)
[2023-08-11 19:32] LABS: Troponin I High Sensitivity 8.8 pg/ml (0-14)
[2023-08-11] MEDS: CEFEPIME 2,000 MG/20 ML VIAL IV STA (19:34)
[2023-08-11 20:02] LABS: Basophils # (auto) 0.07 K/uL (0.00-0.20); Basophils % (auto) 1.1 %; Eosinophils # (auto) 0.02 K/uL (0.00-0.50); Eosinophils % (auto) 0.3 %; Hematocrit (blood only) 32.3 % (37.0-47.0); Hemoglobin 11.3 g/dl (12.0-16.0); Immature Granulocytes # (auto) 0.04 K/uL (0.01-0.20); Immature Granulocytes % (auto) 0.6 %; Lymphocytes # (auto) 0.84 K/uL (1.20-3.40); Mean Corpuscular Hemoglobin 30.3 pg (25.0-34.0); Mean Corpuscular Volume 86.6 fL (80.0-100.0); Mean Platelet Volume 9.7 fL (9.4-12.4); Monocytes # (auto) 1.24 K/uL (0.11-0.59); Monocytes % (auto) 19.2 %; Neutrophils # (auto) 4.24 K/uL (1.40-6.50); Neutrophils % (auto) 65.8 %; Platelet Count 289 K/uL (130-400); RDW Coefficient of Variation 12.9 % (11.5-14.5); RDW Standard Deviation 40.3 fL (36.4-46.3); Red Blood Count 3.73 M/uL (4.20-5.40); White Blood Count 6.45 K/ul (4.8-10.8)
--- NOTE | 2023-08-11 22:01 | History & Physical Report ---
Date of Service August 11, 2023 Assessment & Plan (1) Weakness: Plan: 88-year-old female with past med history significant for hypothyroidism, allergic asthma, hypertension, female stress incontinence, general osteoarthrosis, bilateral sensorineural hearing loss, seasonal allergies, adjustment disorder, was recently in the hospital for complete heart block s/p pacemaker on July 31, 2023 and was discharged on August 01, 2023 and followed in cardiology office August 10, 2023 who lives at home and the grandson lives with her in the night time presents with weakness and found to have influenza. Son is in the room. For last couple of days patient is getting weak. Generally she can climb steps. Last night she required help of her grandson. But today she was feeling very weak. She was sitting on a chair but she could not get up when she slid down and fell down. Cleaning lady was there at that time. Her [id number], came and checked her. And later son came and checked her. And when son checked her temperature it was running at 101 F. And she was somewhat tachypneic. When she was laid down flat her oxygen sats were 86%. And she was brought to the hospital. Patient currently alert and oriented. Can give her history. When she fell she did not hit her head. No headache. Has some runny nose. No sore throat. Has some cough. Denies chest pain or shortness of breath. No nausea. No abdominal pain. Appetite has been not great. No diarrhea or constipation. Normal bowel and bladder movements. No rash. No swelling in the legs. Generally ambulates sometimes with walker and sometimes with cane. Weakness Influenza Tamiflu Supportive care Gentle fluids PT OT when stable History of complete heart block S/p pacemaker on July 31, 2023 Monitoring med/tele Cardiology consult in am per son request Hypomagnesemia Will replace Follow repeat labs Hyponatremia Sodium 128 Holding hydrochlorothiazide Gentle fluids Follow repeat labs Hypertension Continue lisinopril Holding hydrochlorothiazide Will monitor Hypothyroidism On Synthyroid Depression On Zoloft DVT prophylaxis SCDs Heparin subcu Disposition Med/tele CODE STATUS full code if there is chance of recovery as per discussion with the son. History of Present Illness Chief Complaint: Weakness and influenza Primary Care Provider: Mariella Poon DO 88-year-old female with past med history significant for hypothyroidism, allergic asthma, hypertension, female stress incontinence, general osteoarthrosis, bilateral sensorineural hearing loss, seasonal allergies, adjustment disorder, was recently in the hospital for complete heart block s/p pacemaker on July 31, 2023 and was discharged on August 01, 2023 and followed in cardiology office on August 10, 2023 who lives at home and the grandson lives with her in the night time presents with weakness and found to have influenza. Son is in the room. For last couple of days patient is getting weak. Generally she can climb steps. Last night she required help of her grandson. But today she was feeling very weak. She was sitting on a chair but she could not get up when she slid down and fell down. Cleaning lady was there at that time. Her [id number], came and checked her. And later son came and checked her. And when son checked her temperature it was running at 101 F. And she was somewhat tachypneic. When she was laid flat down her oxygen sats were 86%. And she was brought to the hospital. Patient currently alert and oriented. Can give her history. When she fell she did not hit her head. No headache. Has some runny nose. No sore throat. Has some cough. Denies chest pain or shortness of breath. No nausea. No abdominal pain. Appetite has been not great. No diarrhea or constipation. Normal bowel and bladder movements. No rash. No swelling in the legs. Generally ambulates sometimes with walker and sometimes with cane. Past medical history. As mentioned above Past surgical history. Bilateral cataracts. Laparoscopic surgical colpopexy. Cholecystectomy. Repair of bladder defect. Repair of vaginal. Vaginal hysterectomy. Social history. Quit smoking 1965. Smoked 0.1 pack a day for 3 years. Alcohol occasional. No drug use. Family history. Father had COPD. Mother had stroke. Brother has diabetes. Brother had lymphoma. Sister has asthma. Brother has asthma. Allergies Allergy/AdvReac Type Severity Reaction Status Date / Time pollen extracts Allergy Intermediate ITCHY Verified 08/11/23 18:47 EYES, SNEEZING, CONGESTION Home Medications Medication Instructions Recorded Confirmed Type hydrochlorothiazide 25 mg tablet 25 mg PO DAILY 11/26/22 08/11/23 History levothyroxine 125 mcg tablet 125 mcg PO DAILYBB 11/26/22 08/11/23 History (Synthroid) loratadine 10 mg tablet (Claritin) 10 mg PO BID 11/26/22 08/11/23 History multivitamin 1 tab PO DAILY 11/26/22 08/11/23 History sertraline 25 mg tablet 25 mg PO QPM 11/26/22 08/11/23 History hydroxyzine HCl 10 mg tablet 10 mg PO HS PRN Insomnia 07/30/23 08/11/23 History lisinopril 10 mg tablet 10 mg PO DAILY 07/30/23 08/11/23 History Past Med/Surg History Medical History Asthma Anxiety and depression Hypothyroidism HTN (hypertension) Surgical History History of hysterectomy History of cholecystectomy Family History Other Asthma Cancer Diabetes Stroke Social History Smoking Status: Former smoker Tobacco Type: Cigarettes Cigarettes Per Day: light smoker for 3 years in 1963; Hx Alcohol Use: No Hx Substance Use: No Preferred Language: Turkmen Communication Ability: Effective [employer] Tax Required: No Beliefs That Will Affect Care: None Current Living Situation: Alone Feels Safe at Home: Yes Safety Concerns: Feels Safe At This Time Assistive Devices: Cane and Walker Review of Systems Review of Systems: All systems reviewed & are unremarkable except as noted in HPI & below Physical Exam Physical Exam: General-Not in distress Head- atraumatic Eyes- PERRL. ENT- oropharynx clear Neck- supple, no JVD. Lungs- clear to auscultation no wheezing or crackles. Heart- regular rhythm; no murmur, no gallop.Pacemaker site no drainage seen Abdomen- normal bowel sounds, soft, nontender, no distension. Extremities- no pretibial edema, no erythema seen. Neuro- alert, oriented PERRL, no facial palsy; no dysarthria; obeys simple commands. Skin- warm & dry Results & Data Results & Data Vital Signs (Past 12 Hours) Vital Signs Temp Pulse Pulse Resp BP Pulse Ox O2 Del Method 08/11/23 21:31 79 21 161/74 H 08/11/23 21:30 79 22 08/11/23 21:00 77 22 142/75 H 08/11/23 20:34 77 22 146/83 H 08/11/23 20:30 76 27 H 08/11/23 20:00 76 23 141/70 H 08/11/23 19:37 76 24 140/68 97 08/11/23 19:30 76 20 141/70 H 100 08/11/23 19:00 76 24 96 08/11/23 18:20 98 Room Air 08/11/23 18:15 80 18 98 Room Air 08/11/23 18:15 37.3 C 81 18 129/95 98 Room Air 08/11/23 18:15 81 Diagnostic Findings Laboratory Results WBC 6.45 K/ul (4.8-10.8) 08/11/23 18:48 RBC 3.73 M/uL (4.20-5.40) L 08/11/23 18:48 Hgb 11.3 g/dl (12.0-16.0) L 08/11/23 18:48 Hct 32.3 % (37.0-47.0) L 08/11/23 18:48 MCV 86.6 fL (80.0-100.0) 08/11/23 18:48 MCH 30.3 pg (25.0-34.0) 08/11/23 18:48 MCHC 35.0 g/dL (32.0-36.0) 08/11/23 18:48 RDW Std Deviation 40.3 fL (36.4-46.3) 08/11/23 18:48 RDW Coeff of Bruce 12.9 % (11.5-14.5) 08/11/23 18:48 Plt Count 289 K/uL (130-400) 08/11/23 18:48 MPV 9.7 fL (9.4-12.4) 08/11/23 18:48 Immature Gran % (Auto) 0.6 % 08/11/23 18:48 Neut % (Auto) 65.8 % 08/11/23 18:48 Lymph % (Auto) 13.0 % 08/11/23 18:48 [place] % (Auto) 19.2 % 08/11/23 18:48 Eos % (Auto) 0.3 % 08/11/23 18:48 Baso % (Auto) 1.1 % 08/11/23 18:48 Neut # (Auto) 4.24 K/uL (1.40-6.50) 08/11/23 18:48 Lymph # (Auto) 0.84 K/uL (1.20-3.40) L 08/11/23 18:48 [place] # (Auto) 1.24 K/uL (0.11-0.59) H 08/11/23 18:48 Eos # (Auto) 0.02 K/uL (0.00-0.50) 08/11/23 18:48 Baso # (Auto) 0.07 K/uL (0.00-0.20) 08/11/23 18:48 Immature Gran # (Auto) 0.04 K/uL (0.01-0.20) 08/11/23 18:48 Sodium 128 mmol/L (136-145) L 08/11/23 18:48 Potassium 3.7 mmol/L (3.5-5.1) 08/11/23 18:48 Chloride 95 mmol/L (98-107) L 08/11/23 18:48 Carbon Dioxide 26 mmol/L (21-32) 08/11/23 18:48 Anion Gap 7 (3-11) 08/11/23 18:48 BUN 14 mg/dl (6-23) 08/11/23 18:48 Creatinine 0.60 mg/dl (0.6-1.2) 08/11/23 18:48 Est Cr Clr Drug Dosing 59.9 ml/min 08/11/23 18:48 Est GFR ( Amer) 95.0 ml/min 08/11/23 18:48 Est GFR (Non-Af Amer) 82.0 ml/min 08/11/23 18:48 BUN/Creatinine Ratio 23.3 (10-20) H 08/11/23 18:48 Glucose 107 mg/dl (70-99(Fasting)) H 08/11/23 18:48 Lactate 0.9 mmol/L (0.4-2.0) 08/11/23 19:26 Calcium 8.3 mg/dl (8.6-10.3) L 08/11/23 18:48 Magnesium 1.5 mg/dl (1.7-2.4) L 08/11/23 18:48 Total Bilirubin 0.2 mg/dl (0.2-1.0) 08/11/23 18:48 Direct Bilirubin 0.1 mg/dl (0-0.2) 08/11/23 18:48 AST 22 U/L (13-39) 08/11/23 18:48 ALT 18 U/L (7-52) 08/11/23 18:48 Alkaline Phosphatase 60 U/L (34-104) 08/11/23 18:48 Troponin I High Sens 8.8 pg/ml (0-14) 08/11/23 18:48 Total Protein 6.2 gm/dl (6.0-8.3) 08/11/23 18:48 Albumin 3.6 gm/dl (3.4-5.0) 08/11/23 18:48 Procalcitonin 0.03 ng/ml (0-0.5) 08/11/23 18:48 Nasal Influ A H1 2008 PCR DETECTED (NotDetected) A 08/11/23 18:22 Adenovirus (PCR) Not Detected (NotDetected) 08/11/23 18:22 B. pertussis DNA (PCR) Not Detected (NotDetected) 08/11/23 18:22 B.parapertussis DNA PCR Not Detected (NotDetected) 08/11/23 18:22 C. pneumoniae DNA (PCR) Not Detected (NotDetected) 08/11/23 18:22 Coronavirus OC43 (PCR) Not Detected (NotDetected) 08/11/23 18:22 Coronavirus HKU1 (PCR) Not Detected (NotDetected) 08/11/23 18:22 Coronavirus 229E (PCR) Not Detected (NotDetected) 08/11/23 18:22 SARS-CoV-2 (PCR) Not Detected (NotDetected) 08/11/23 18:22 Coronavirus NL63 (PCR) Not Detected (NotDetected) 08/11/23 18:22 Human Metapneumovir PCR Not Detected (NotDetected) 08/11/23 18:22 Influenza Type B (PCR) Not Detected (NotDetected) 08/11/23 18:22 M. pneumoniae (PCR) Not Detected (NotDetected) 08/11/23 18:22 Parainfluenza 1 (PCR) Not Detected (NotDetected) 08/11/23 18:22 Parainfluenza 2 (PCR) Not Detected (NotDetected) 08/11/23 18:22 Parainfluenza 3 (PCR) Not Detected (NotDetected) 08/11/23 18:22 Parainfluenza 4 (PCR) Not Detected (NotDetected) 08/11/23 18:22 RSV (PCR) Not Detected (NotDetected) 08/11/23 18:22 Entero/Rhino (PCR) Not Detected (NotDetected) 08/11/23 18:22 Impressions Chest X-Ray 08/11/23 18:09 XR chest 1V portable HISTORY: Sepsis COMPARISON: Chest 07/31/2023. FINDINGS: No pneumothorax. No pleural effusions. The heart is top normal in size. The left-sided dual-chamber pacemaker again noted. Mild pulmonary vascular congestion has improved. No new focal lung consolidations to suggest a pneumonia. Mild S-shaped scoliosis of the thoracolumbar spine. Degenerative changes within the shoulders. IMPRESSION: Interval improvement in the mild pulmonary vascular congestion. ACT 112: Negative or not required by law. Electronically signed by: Madi Ontiveros M.D. 08/11/2023 7:12 PM ECG Additional Comments: ECG. Sinus rhythm with first-degree AV block at a rate of 83.. Nonspecific intravitreal conduction block. T wave inversions in leads V3, V4, V5 and V6 Code Status & VTE Plan VTE Prophylaxis Plan VTE Prophylaxis will be ordered: Yes
[2023-08-11] MEDS ORDERED: NITROGLYCERIN SL 0.4 MG/TAB TAB SL PRN (22:42)
[2023-08-11] MEDS: MAGNESIUM SULFATE / D5W 1 GM/100 ML BAG IV SCH (23:04)
[2023-08-11] MEDS: OSELTAMIVIR PHOSPHATE 75 MG CAP PO SCH (23:04)
[2023-08-11] MEDS: SODIUM CHLORIDE 0.9% 1,000 ML IV SCH (23:04)
[2023-08-12 04:53] LABS: Basophils # (auto) 0.07 K/uL (0.00-0.20); Basophils % (auto) 1.2 %; Eosinophils # (auto) 0.05 K/uL (0.00-0.50); Eosinophils % (auto) 0.9 %; Hematocrit (blood only) 34.2 % (37.0-47.0); Hemoglobin 11.6 g/dl (12.0-16.0); Immature Granulocytes # (auto) 0.06 K/uL (0.01-0.20); Lymphocytes # (auto) 0.94 K/uL (1.20-3.40); Mean Corpuscular Hemoglobin 29.2 pg (25.0-34.0); Mean Corpuscular Hgb Conc 33.9 g/dL (32.0-36.0); Mean Corpuscular Volume 86.1 fL (80.0-100.0); Mean Platelet Volume 9.5 fL (9.4-12.4); Monocytes # (auto) 1.64 K/uL (0.11-0.59); Neutrophils % (auto) 52.9 %; Platelet Count 270 K/uL (130-400); RDW Coefficient of Variation 12.9 % (11.5-14.5); RDW Standard Deviation 40.1 fL (36.4-46.3); Red Blood Count 3.97 M/uL (4.20-5.40); White Blood Count 5.86 K/ul (4.8-10.8)
[2023-08-12 05:01] LABS: BUN Creatinine Ratio 24.5 (10-20); Calcium 8.5 mg/dl (8.6-10.3); Creatinine Clr Calc Pharmacy 67.8 ml/min; Est GFR (African American) 98.9 ml/min; Est GFR (Non-African American) 85.4 ml/min; Magnesium 2.1 mg/dl (1.7-2.4); Potassium 3.8 mmol/L (3.5-5.1)
[2023-08-12] MEDS: lisinopril 10 MG TAB PO SCH (09:47)
[2023-08-12] MEDS: MULTIVITAMIN TAB PO SCH (09:47)
[2023-08-12] MEDS: LEVOTHYROXINE SODIUM 125 MCG PO SCH (09:48)
[2023-08-12] MEDS: HEPARIN SOD 5,000 UNIT/0.5 ML VIAL SQ SCH (09:48)
--- NOTE | 2023-08-12 12:51 | Hospitalist Progress Note ---
Date of Service August 12, 2023 Assessment & Plan (1) Weakness: Plan: Patient is an 88 yr old female with past med history significant for hypothyroidism, allergic asthma, hypertension, female stress incontinence, general osteoarthrosis, bilateral sensorineural hearing loss, seasonal allergies, adjustment disorder, was recently in the hospital for complete heart block s/p pacemaker on July 31, 2023 and was discharged on August 01, 2023 and followed in cardiology office August 10, 2023 who lives at home and the grandson lives with her in the night time presents with weakness and found to have influenza. Son is in the room. For last couple of days patient is getting weak. Generally she can climb steps. Last night she required help of her grandson. But today she was feeling very weak. She was sitting on a chair but she could not get up when she slid down and fell down. Cleaning lady was there at that time. Her [id number], came and checked her. And later son came and checked her. And when son checked her temperature it was running at 101 F. And she was somewhat tachypneic. When she was laid down flat her oxygen sats were 86%. And she was brought to the hospital. Patient currently alert and oriented. Can give her history. When she fell she did not hit her head. No headache. Has some runny nose. No sore throat. Has some cough. Denies chest pain or shortness of breath. No nausea. No abdominal pain. Appetite has been not great. No diarrhea or constipation. Normal bowel and bladder movements. No rash. No swelling in the legs. Generally ambulates sometimes with walker and sometimes with cane. Influenza A Generalized deconditioning Continue Tamiflu Saturating well on room air PT OT as able H/O complete heart block S/p pacemaker on July 31, 2023 Cardiology consulted per patient's family's request Hypomagnesemia Replete electrolytes as needed Monitor Acute on chronic hyponatremia HCTZ, dehydration contributing Continue gentle IV fluids Consider to discontinue HCTZ upon discharge as well Monitor sodium levels Consider nephrology evaluation if needed Hypertension Continue lisinopril Hold HCTZ for now Monitor BP Hypothyroidism Continue levothyroxine Depression On Zoloft DVT Px: Heparin SQ CODE STATUS Full Code Admission and Anticipated Discharge Date Admission Date: August 11, 2023 Subjective Patient is seen and examined at bedside Subjectively feels minimally improved today Still has some cough associated with dyspnea and generalized weakness Denies any chest pain, nausea, vomiting, abdominal pain No other complaints Saturating well on room air Review of Systems Review of Systems: All systems reviewed & are unremarkable except as noted in Subjective Physical Exam Physical Exam: Physical Exam: Vitals signs as noted above General Appearance:Moderately built and nourished, no apparent distress, elderly, frail Head: normocephalic, Atraumatic Eyes: normal inspection, EOMI Neck: supple, Trachea midline Respiratory/Chest: Normal breath sounds, CTA, No accessory muscle use Cardiovascular: S1, S2,+murmur Abdomen/GI:Soft, Non tender, Bowel sounds present Extremities/Musculoskeletal:normal inspection, no edema Neurologic/Psych:AAO, grossly no focal neurological deficits Skin: normal color, warm Results & Data Results & Data Vital Signs (Past 12 Hours) Vital Signs Pulse 08/12/23 07:16 79 08/12/23 00:49 76 Laboratory Results Short CBC 08/11/23 08/12/23 Range/Units 18:48 04:16 WBC 6.45 5.86 (4.8-10.8) K/ul Hgb 11.3 L 11.6 L (12.0-16.0) g/dl Hct 32.3 L 34.2 L (37.0-47.0) % Plt Count 289 270 (130-400) K/uL BMP 08/11/23 08/12/23 18:48 04:16 Sodium 128 L 125 L Potassium 3.7 3.8 Chloride 95 L 92 L Carbon Dioxide 26 27 BUN 14 13 Creatinine 0.60 0.53 L Glucose 107 H 104 H Calcium 8.3 L 8.5 L Liver Function 08/11/23 Range/Units 18:48 Total Bilirubin 0.2 (0.2-1.0) mg/dl Direct Bilirubin 0.1 (0-0.2) mg/dl AST 22 (13-39) U/L ALT 18 (7-52) U/L Alkaline Phosphatase 60 (34-104) U/L Albumin 3.6 (3.4-5.0) gm/dl
--- NOTE | 2023-08-12 13:02 | Electrocardiogram Report ---
Test Reason : Blood Pressure : / mmHG Vent. Rate : 083 BPM Atrial Rate : 083 BPM P-R Int : 282 ms QRS Dur : 140 ms QT Int : 392 ms P-R-T Axes : 070 073 -66 degrees QTc Int : 460 ms Sinus rhythm with 1st degree A-V block Non-specific intra-ventricular conduction block T wave abnormality, consider anterolateral ischemia T wave abnormality, consider inferior ischemia Abnormal ECG When compared with ECG of 01-AUG-2023 06:07, Sinus rhythm has replaced Electronic ventricular pacemaker Confirmed by Freddie Oviedo ([id number]) on 08/12/2023 1:02:20 PM Referred By: REFERRED SELF Confirmed By:Freddie Oviedo
--- OUTSIDE RECORDS SUMMARY | 2023-08-12 15:04 | External Medical Summary | Summary of Care ---
Author Name Unknown Organization [facility] Address [address] [place] [address] Phone [phone] Care Team Providers Care Sports Official Name Role Phone Mariella Poon DO Primary Care Provider Reason for Visit * Reason Onset Date Comments Hospital Follow-Up Pt states fee ling "each day gets better". Pt denies any concerns. Hospital Follow-Up 08/06/2023 Encounter Details Date Type Department Care Team (Late st Contact Info) Description 08/06/2023 11:50 AM EST Office Visit Family Medicine [address] [phone] Mariella Poon [address] [place] [address] Hospital discharge follow-up*; AV block, complete (HCC); S/P placement of cardiac pacemaker Allergies No known active allergiesdocumented as of this encounter (statuses as of 08/06/2023) Medications Medication Sig Dispensed Refills Start Date End Date Status MULTIVITAMINS PO CAPS None Entered 0 Active Loratadine 10 MG Oral Tablet (Claritin) Take 1 Tablet by mouth in the morning. 30 Tablet 5 2 Active Clobetasol Propionate 0.05 % External Cream (Temovate)Indicatio ns:Nummular dermatitis APPLY CREAM TOPICALLY TO AFFECTED AREA TWICE DAILY. LEGS/ARMS/TRUNK, TWICE DAILY NEEDED FOR RASH. 60 g 1 3 Active Synthroid 125 MCG Oral TabletIndications:A cquired hypothyroidism Take 1 Tablet by mouth daily first thing in the morning. (at least 30 min prior to breakfast or other meds) 90 Tablet 3 3 Active Sertraline HCl 25 MG Oral Tablet (Zoloft) Take 1 Tablet by mouth every evening. 90 Tablet 1 3 Active Lisinopril 10 MG Oral Tablet (Prinivil) Take 1 Tablet by mouth in the morning. 90 Tablet 3 4 Active hydrOXYzine HCl 10 MG Oral Tablet (Atarax) Take 1 Tablet by mouth at bedtime as needed for Anxiety (sleep). 30 Tablet 0 4 Active Walker Use as needed for ambulation. Dx: ambulatory dysfunction 1 Each 0 4 Active Ferrous Sulfate 325 (65 Fe) MG Oral Tablet Delayed Release Take 1 Tablet by mouth in the morning. 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 Essential hypertension with goal blood pressure less than 140/90 04/08/2016 Asthma, allergic 01/28/2010 Sensorineural hearing loss, bilateral 07/02/2009 Overview: Does not need hearing aids Female stress incontinence 11/07/2008 GENERAL OSTEOARTHROSIS 11/06/2003 Acquired hypothyroidism documented as of this encounter (statuses as of 08/06/2023) Resolved Problems Problem Noted Date Diagnosed Date Resolved Date Chronic kidney disease, stage 3a 12/23/2020 06/04/2022 Overview: Per CKD protocol Intermittent asthma with rel iever use up to twice per week 03/20/2015 09/23/2015 COPD, moderate 10/13/2014 08/17/2018 Allergic rhinitis 03/27/2014 03/27/2014 Allergic rhinitis 05/30/2013 01/16/2014 HTN, goal below 140/90 07/29/201104/08 [employer] Other*[id number] 12/13/2009 02/03/2010 Asthma with severity to be [...] as of this encounter (statuses as of 08/06/2023) Immunizations Name Administration Dates Next Due COVID-19 mRNA, LNP-s, No Pre serve, 2-Dose Series ([employer]ed) 04/17/2021,08/10/2020,07/20/2020 COVID-19, LNP-s, No Preserve , Samy-sucrose, Ages 12+ (Pfizer) 12/02/2021 COVID-19, MRNA-LNP, 23-24, P F, 30 MCG/0.3 mL, 12 YRS AND ABOVE, IM (PFIZER-Comirnaty) 03/26/2023 Covid-19, Mrna, Lnp-s, Pf, B ivalent, 30 Mcg, IM, 12 yrs and above (AdAdapted) 03/24/2022 PPD 05/18/2006 Pneumococcal Conjugate Vacc, 13 [...] Date Smoking Tobacco: Former Cigarettes 0.1 3 0 06/14/1962 - 06/14/1965 Smokeless Tobacco: Never Comments:50 years ago [...] Sign Reading Time Taken Comments Blood Pressure 146/70 08/06/2023 11:55 AM EST Pulse 96 08/06/2023 11:55 AM EST Temperature - - Respiratory Rate - - Oxygen Saturation - - Inhaled Oxygen Concentration - - Weight 60 kg (132 lb 3.2 oz) 08/06/2023 11:55 AM EST Height - - Body Mass Index 23.05 07/30/2023 10:38 AM EST documented in this encounter Progress Notes * Ahmet Poonanda Shireen, - 08/06/2023 12:08 PM EST SUBJECTIVE: Mayda Olvera is a 88 year old female. Chief Complaint Patient presents with Hospital Follow-Up Pt states feeling "each day gets better". Pt denies any concerns. Hospital Follow-Up Recent Admission: Patient was recently admitted to [facility]. The date of discharge was 08/01/23. Discharge report receivedand reviewed. Sent to the ER for high grade AV block with symptomatic bradycardia. Underwent dual chamber pacemaker placement. HPI: Mayda Olvera presents today for HD follow up. Today she reports doing okay. Feels a little stronger every day. She cancelled her pacemaker follow up appointment as she would like to go on Wednesday next week when her daughter is able to take her. Strength is coming back a little bit at a time. No fevers, chills. No redness around the dressing, which remains in place. Patient Active Problem List Diagnosis Code Acquired [...] Dispense Refill MULTIVITAMINS PO CAPS None Entered Loratadine 10 MG Oral Tablet (Claritin) Take 1 Tablet by mouth in the morning. 30 Tablet 5 Clobetasol Propionate 0.05 % External Cream (Temovate) APPLY CREAM TOPICALLY TO AFFECTED AREA TWICEDAILY. LEGS/ARMS/TRUNK, TWICE DAILY NEEDED FOR RASH. 60 g 1 Synthroid 125 MCG Oral Tablet Take 1 Tablet by mouth daily first thing in the morning. (at least 30min prior to breakfast or other meds) 90 Tablet 3 Sertraline HCl 25 MG Oral Tablet (Zoloft) Take 1 Tablet by mouth every evening. 90 Tablet 1 Lisinopril 10 MG Oral Tablet (Prinivil) Take 1 Tablet by mouth in the morning. 90 Tablet 3 hydrOXYzine HCl 10 MG Oral Tablet (Atarax) Take 1 Tablet by mouth at bedtime as needed for Anxiety (sleep). 30 Tablet 0 Walker Use as needed for ambulation. Dx: ambulatory dysfunction 1 Each 0 Ferrous Sulfate 325 (65 Fe) MG Oral Tablet Delayed Release Take 1 Tablet by mouth in the morning. (Patient not taking: Reported on 08/06/2023) No current facility-administered medications for this visit. Current and discharge medications have been reconciled. Review of patient's allergies indicates: No Known Allergies OBJECTIVE: BP 146/70 | Pulse 96 | Wt 60 kg (132 lb 3.2 oz) | BMI 23.05 kg/m | BSA 1.64 m Review Of Systems: Skin: negative Eyes: negative Ears/Nose/Throat: negative Respiratory: negative Cardiovascular: negative Gastrointestinal: negative Genitourinary: negative Musculoskeletal: negative Neurologic: negative Psychiatric: negative Hematologic/Lymphatic/Immunologic: negative Endocrine: negative PHYSICAL EXAM: General: alert, healthy, no distress, well nourished, and well developed Neck: supple, no adenopathy, thyroid normal size, non-tender, without nodularity Heart: regular rate & rhythm and no murmur, pacemaker dressing is in place Lungs: chest symmetric with normal AP diameter, no chest deformities noted, normal respiratory rateand rhythm, lungs clear to auscultation Abdomen: abdomen soft and non-tender Extremities: no joint deformities, effusion, or inflammation, no edema Neuro Exam: alert & oriented x 3 with fluent speech, no focal motor/sensory deficits, gait normal ASSESSMENT/PLAN: Hospital discharge follow-up (Primary) - overall doing well. HR improved today. Her strength is coming back. Will make sure she gets rescheduled with cardiology pacemaker clinic. - DISCH MED RECON CUR MED LIS AV block, complete (HCC) S/P placement of cardiac pacemaker Follow Up: Return for as scheduled. | For: as scheduled I spent a total of 30-39 minutes (exact time 31 mins) minutes on the date of service in preparation, delivery, and documentation of the care provided to Mayda Olvera excluding any time spent in performance of separately billed services. Mariella Poon DO documented in this encounter Plan of Treatment Upcoming Encounters Date Type Department Care Team (Late st Contact Info) Description 01/19/2024 2:30 PM EDT Office Visit Family Medicine [address] [place] [phone] Mariella Poon[address] [place] [address] Health Maintenance Due Date Last Done Comments [...] this encounter Medical Devices Implanted Type Area Dental Hygiene Professor Device Identifier Shelf Expiration Date Model / Serial / Lot Mesh Pelvic Gynamesh Gpsl - [id number] Implanted:Qty: 1 on 11/07/2008 at OR [facility] [place] N/A: Vaginal Vault [employer] 06/14/2013 GPSL / / [id number] Sling Align Retropubic [id number] - [id number] Implanted:Qty: 1 on 11/07/2008 at OR [facility] [place] N/A: Urethra INACTIVE CR BARD : UROLOGICAL 09/12/2010 [id number] / / [id number] documented as of this encounter Visit Diagnoses Diagnosis Hospital discharge follow-up- Primary Other follow-up examination AV block, complete (HCC) Atrioventricular block, complete S/P placement of cardiac pacemaker Cardiac pacemaker in situ documented in this encounter Care Teams Sports Official Relationship Specialty Start Date End Date Mariella Poon DO [address] [place] [address] [place] [address] PCP - General Internal Medicine 05/05/17 documented as of this encounter
--- OUTSIDE RECORDS SUMMARY | 2023-08-12 15:04 | External Medical Summary | Summary of Care ---
Author Name Unknown Organization [facility] Address [address] [place] [address] Phone [phone] Care Team Providers Care Dietetic Intern Name Role Phone Mariella Poon DO Primary Care Provider Encounter Details Date Type Department Care Team (Late st Contact Info) Description 08/03/2023 Orders Only Family Medicine [address] [phone] Mariella Poon DO [address] [place] [address] [place] [address] Allergies No known active allergiesdocumented as of this encounter (statuses as of 08/03/2023) Medications Medication Sig Dispensed Refills Start Date End Date Status MULTIVITAMINS PO CAPS None Entered 0 A ctive Loratadine 10 MG Oral Tablet (Claritin) Take [...] 90 Tablet 3 02/01/2023 Active Sertraline HCl 25 MG Oral Tablet (Zoloft) Take 1 Tablet by mouth every evening. 90 Tablet 1 03/03/2023 Active Lisinopril 10 MG Oral Tablet (Prinivil) Take 1 Tablet by mouth in the morning. 90 Tablet 3 06/15/2023 Active hydrOXYzine HCl 10 MG Oral Tablet (Atarax) Take 1 Tablet by mouth at bedtime as needed for Anxiety (sleep). 30 Tablet 0 06/15/2023 Active Walker Use as needed for ambulation. Dx: ambulatory dysfunction 1 Each 0 08/02/2023 Active Ferrous Sulfate 325 (65 Fe) MG Oral Tablet Delayed Release Take 1 Tablet by mouth in the morning. 0 08/01/2023 Active documented as of this encounter (statuses as of 08/03/2023) Active Problems Problem Noted Date Diagnosed Date [...] as of this encounter (statuses as of 08/03/2023) Resolved Problems Problem Noted Date Diagnosed Date Resolved Date Chronic kidney disease, stage 3a 12/23/2020 06/04/2022 Overview: Per CKD protocol Intermittent asthma with rel iever use up to twice per week 03/20/2015 09/23/2015 COPD, moderate 10/13/2014 08/17/2018 Allergic rhinitis 03/27/2014 03/27/2014 Allergic rhinitis 05/30/2013 01/16/2014 HTN, goal below 140/90 07/29/201104/08 [employer] Other*[id number] 12/13/2009 02/03/2010 Asthma with severity to be [...] as of this encounter (statuses as of 08/03/2023) Immunizations Name Administration Dates Next Due COVID-19 mRNA, LNP-s, No Pre serve, 2-Dose Series ([employer]) 04/17/2021,08/10/2020,07/20/2020 COVID-19, LNP-s, No Preserve , Samy-sucrose, Ages 12+ ([employer]) 12/02/2021 COVID-19, MRNA-LNP, 23-24, P F, 30 MCG/0.3 mL, 12 YRS AND ABOVE, IM (amBX-Comirnat) 03/26/2023 Covid-19, Mrna, Lnp-s, Pf, B ivalent, 30 Mcg, IM, 12 yrs and above ([employer]) 03/24/2022 PPD 05/18/2006 Pneumococcal Conjugate Vacc, 13 [...] 11:50 AM EST Office Visit Family Medicine [address] [place] [phone] Mareilla Poon [address] [place] [address] 08/10/2023 1:30 PM EST Cardiac Studies Cardiology, [facility] 132 [facility] [place] [address] [facility] [address] [place] [address] 01/19/2024 2:30 PM EDT Office Visit Family Medicine [address] [place] [phone] Mariella Poon[address] [place] [address] Health Maintenance Due Date Last Done Comments [...] this encounter Medical Devices Implanted Type Area Insurance Verify Rep Device Identifier Shelf Expiration Date Model / Serial / Lot Mesh Pelvic Gynamesh Gpsl - [id number] Implanted:Qty: 1 on 11/07/2008 at OR [facility] N/A: Vaginal Vault [employer] 06/14/2013 GPSL / / [id number] Sling Align Retropubic [id number] - [id number] Implanted:Qty: 1 on 11/07/2008 at OR [facility] N/A: Urethra INACTIVE CR BARD : UROLOGICAL 09/12/2010 [id number] / / [id number] documented as of this encounter Procedures Procedure Name Priority Date/Time Associated Diagnosis Comments XR CHEST 1 VIEW Routine 07/31/2023 documented in this encounter Results * XR CHEST 1 VIEW (07/31/2023) Anatomical Region Laterality Modality Chest Other 07/31/2023 Teresita Bland DO RADIOLOGY (RAD GENERAL) documented in this encounter Care Teams Dietetic Intern Relationship Specialty Start Date End Date Mariella Poon DO [address] [place] [address] [place] [address] PCP - General Internal Medicine 05/05/17 documented as of this encounter
--- OUTSIDE RECORDS SUMMARY | 2023-08-12 15:04 | External Medical Summary | Summary of Care ---
Author Name Unknown Organization [facility] Address [address] [place] [address] Phone [phone] Care Team Providers Care Mold Repair Technician Name Role Phone Mariella Poon Primary Care Provider [phone] Reason for Visit * Reason Onset Date Comments Hospital Follow-Up 07/31/2023 Encounter Details Date Type Department Care Team (Late st Contact Info) Description 07/31/2023 Telephone Cardiology, [facility] [address] [place] [address] Saturnion Almaraz DO [address] [place] [address] Hospital Follow-Up Allergies No known active allergiesdocumented as of this encounter (statuses as of 08/04/2023) Medications Medication Sig Dispensed Refills Start Date [...] Anxiety (sleep). 30 Tablet 0 06/15/2023 Active hydroCHLOROthiazide 25 MG Oral Tablet (Hydrodiuril) Take 1 Tablet by mouth in the morning. 90 Tablet 3 06/02/2022 4 Discontinue d(Medicatio n List Clean Up) Sertraline HCl 50 MG Oral Tablet (Zoloft) Take 1 Tablet by mouth in the morning. 90 Tablet 1 03/03/2023 4 Discontinue d(Medicatio n List Clean Up) documented as of this encounter (statuses as of 08/04/2023) Active Problems Problem Noted Date Diagnosed Date [...] as of this encounter (statuses as of 08/04/2023) Resolved Problems Problem Noted Date Diagnosed Date Resolved Date Chronic kidney disease, stage 3a 12/23/2020 06/04/2022 Overview: Per CKD protocol Intermittent asthma with rel iever use up to twice per week 03/20/2015 09/23/2015 COPD, moderate 10/13/2014 08/17/2018 Allergic rhinitis 03/27/2014 03/27/2014 Allergic rhinitis 05/30/2013 01/16/2014 HTN, goal below 140/90 07/29/201104/08 [employer] Other*[id number] 12/13/2009 02/03/2010 Asthma with severity to be [...] as of this encounter (statuses as of 08/04/2023) Immunizations Name Administration Dates Next Due COVID-19 mRNA, LNP-s, No Pre serve, 2-Dose Series ([employer]) 04/17/2021,08/10/2020,07/20/2020 COVID-19, LNP-s, No Preserve , Samy-sucrose, Ages 12+ (Pfizer) 12/02/2021 COVID-19, MRNA-LNP, 23-24, P F, 30 MCG/0.3 mL, 12 YRS AND ABOVE, IM (PFIZER-Comirnaty) 03/26/2023 Covid-19, Mrna, Lnp-s, Pf, B ivalent, 30 Mcg, IM, 12 yrs and above ([employer]) 03/24/2022 PPD 05/18/2006 Pneumococcal Conjugate Vacc, 13 [...] encounter Miscellaneous Notes * Telephone Encounter - Sowmya Stoll OSA - 08/04/2023 10:28 AM EST Pt added to the spreadsheet for Dr. Bland on 08/30 at 1:15. * Telephone Encounter - Saturnino Almaraz DO - 07/31/2023 1:44 PM EST Pt underwent Duarte Dual chamber pacemaker with Dr Bland on 07/30/23. Anticipate discharge in the next 24-48 hrs. Please help arrange wound check / device check as per new device protocol in 7- 10 days. EP / general cardiology follow up in a month. Saturnino Almaraz DO documented in this encounter Plan of Treatment Upcoming Encounters Date Type Department Care Team (Late st Contact Info) Description 08/06/2023 11:50 AM EST Office Visit [address] [place] [phone] Mariella Poon [address] [place] [address] 08/10/2023 1:30 PM EST Cardiac Studies Cardiology, [facility] 132 [facility] [place] [address] [place], [facility] 132 [facility] [place] [address] 01/19/2024 2:30 PM EDT Office Visit [address] [place] [phone] Mariella Poon [address] [place] [address] Health Maintenance Due Date Last Done Comments [...] this encounter Medical Devices Implanted Type Area Lvn Device Identifier Shelf Expiration Date Model / Serial / Lot Mesh Pelvic Gynamesh Gpsl - [id number] Implanted:Qty: 1 on 11/07/2008 at OR [facility] [place] N/A: Vaginal Vault [employer] 06/14/2013 GPSL / / [id number] Sling Align Retropubic [id number] - [id number] Implanted:Qty: 1 on 11/07/2008 at OR [facility] N/A: Urethra INACTIVE CR BARD : UROLOGICAL 09/12/2010 [id number] / / [id number] documented as of this encounter Care Teams Mold Repair Technician Relationship Specialty Start Date End Date Mariella Poon DO [address] [place] [address] [place] [address] PCP - General Internal Medicine 05/05/17 documented as of this encounter
--- OUTSIDE RECORDS SUMMARY | 2023-08-12 15:04 | External Medical Summary | Summary of Care ---
Author Name Unknown Organization [facility] Address [address] [place] [address] Phone [phone] Care Team Providers Care Patient Portal Representative Name Role Phone Mariella Poon DO Primary Care Provider Reason for Visit * Reason Comments Pacemaker Clinic Encounter Details Date Type Department Care Team (Latest Contact Info) Description 08/10/2023 1:30 PM EST Cardiac Studies Cardiology, [facility] [address] [place] [address] [place], Pacer Clinic [facility] [address] [place] [address] Cardiac pacemaker in situ*; Third degree heart block (HCC) Allergies No known active allergiesdocumented as of this encounter (statuses as of 08/10/2023) Medications Medication Sig Dispensed Refills Start Date [...] ambulatory dysfunction 1 Each 0 08/02/2023 Active documented as of this encounter (statuses as of 08/10/2023) Active Problems Problem Noted Date Diagnosed Date [...] as of this encounter (statuses as of 08/10/2023) Resolved Problems Problem Noted Date Diagnosed Date Resolved Date Chronic kidney disease, stage 3a 12/23/2020 06/04/2022 Overview: Per CKD protocol Intermittent asthma with rel iever use up to twice per week 03/20/2015 09/23/2015 COPD, moderate 10/13/2014 08/17/2018 Allergic rhinitis 03/27/2014 03/27/2014 Allergic rhinitis 05/30/2013 01/16/2014 HTN, goal below 140/90 07/29/201104/08 [employer] Other*[id number] 12/13/2009 02/03/2010 Asthma with severity to be [...] as of this encounter (statuses as of 08/10/2023) Immunizations Name Administration Dates Next Due COVID-19 mRNA, LNP-s, No Pre serve, 2-Dose Series ([employer]) 04/17/2021,08/10/2020,07/20/2020 COVID-19, LNP-s, No Preserve , Samy-sucrose, Ages 12+ ([employer]) 12/02/2021 COVID-19, MRNA-LNP, 23-24, P F, 30 MCG/0.3 mL, 12 YRS AND ABOVE, IM (SANDOW-Comirnat) 03/26/2023 Covid-19, Mrna, Lnp-s, Pf, B ivalent, 30 Mcg, IM, 12 yrs and above ([employer]) 03/24/2022 PPD 05/18/2006 Pneumococcal Conjugate Vacc, 13 [...] on file documented as of this encounter Nursing Notes * Joceline Headley RN - 08/10/2023 2:30 PM EST In office device / wound check performed. Providers see scanned report in scans tab. Post op dressing removed at visit today. Incision well approximated. No swelling, redness, or drainage. Dried blood noted at incision line, area cleaned with chlora prep. Incision left open to air. Patient teaching about new devices and device follow explained. Do not raise your elbow on the incision side above shoulder level in a repetitive manner. This gives the device lead wires time to attach securely inside your heart. Cleanse area with antibacterial soap and pat dry Advoidance of dental procedures for 6 months Carry an ID card that contains information about your pacemaker. You can show this card if your pacemaker sets off a metal detector. You should also show it to avoid screening with a hand-held security wand. Keep your cell phone away from your pacemaker. Dont carry the phone in your shirt pocket, even when its turned off. Avoid strong magnets. Examples are those used in MRIs or in hand-held security wands. Avoid strong electrical ryan. Examples are those made by radio transmitting towers, ham radios, and heavy-duty electrical equipment. Avoid leaning over the open douglass of a running car. A running engine creates an electrical field. Return in 3 months for chronic threshold testing. Rep: Felicia Terrell documented in this encounter Plan of Treatment Upcoming Encounters Date Type Department Care Team (Late st Contact Info) Description 01/19/2024 2:30 PM EDT Office Visit Family Medicine [address] [place] [phone] Mariella Poon[address] [place] [address] Scheduled Orders Name Type Priority Associated Diagnoses Orde r Schedule POSTOP F-UP VISIT IN GLOBAL Procedures Routine Cardiac pacemaker in situ Third degree heart block (HCC) Ordered: 08/10/2023 Health Maintenance Due Date Last Done Comments [...] this encounter Medical Devices Implanted Type Area Phlebotomy Technologist Device Identifier Shelf Expiration Date Model / Serial / Lot Mesh Pelvic Gynamesh Gpsl - [id number] Implanted:Qty: 1 on 11/07/2008 at OR [facility] N/A: Vaginal Vault [employer] 06/14/2013 GPSL / / [id number] Sling Align Retropubic [id number] - [id number] Implanted:Qty: 1 on 11/07/2008 at OR [facility] N/A: Urethra INACTIVE CR BARD : UROLOGICAL 09/12/2010 [id number] / / [id number] documented as of this encounter Visit Diagnoses Diagnosis Cardiac pacemaker in situ- Primary Third degree heart block (HCC) Atrioventricular block, complete documented in this encounter Care Teams Patient Portal Representative Relationship Specialty Start Date End Date Mariella Poon DO [address] [place] [address] [place] [phone] PCP - General Internal Medicine 05/05/17 documented as of this encounter
--- OUTSIDE RECORDS SUMMARY | 2023-08-12 15:04 | External Medical Summary | Summary of Care ---
Author Name Unknown Organization [facility] Address [address] [place] [address] Phone [phone] Care Team Providers Care Printer Assistant Name Role Phone Mariella Poon DO Primary Care Provider [phone] Reason for Visit * Reason Onset Date Comments Appointment 08/10/2023 Encounter Details Date Type Department Care Team (Late st Contact Info) Description 08/10/2023 Telephone Access Center, [place] [address] [facility] *DO NOT REMOVE THIS DEPARTMENT* [place] [address] Services, Scheduling [address] [place] [address] Appointment Allergies No known active allergiesdocumented as [...] 05/30/2013 01/16/2014 HTN, goal below 140/90 07/29/201104/08 [employer] Other*[id number] 12/13/2009 02/03/2010 Asthma with severity to be [...] mRNA, LNP-s, No Pre serve, 2-Dose Series ([employer]) 04/17/2021,08/10/2020,07/20/2020 COVID-19, LNP-s, No Preserve , Samy-sucrose, Ages 12+ (Pfizer) 12/02/2021 COVID-19, MRNA-LNP, 23-24, P F, 30 MCG/0.3 mL, 12 YRS AND ABOVE, IM ([employer]-Comirnaty) 03/26/2023 Covid-19, Mrna, Lnp-s, Pf, B ivalent, 30 Mcg, IM, 12 yrs and above ([employer]) 03/24/2022 PPD 05/18/2006 Pneumococcal Conjugate Vacc, 13 [...] Telephone Encounter - Sowmya Stoll OSA - 08/10/2023 10:17 AM EST Spoke with Pt's daughter, Pt added back on the schedule for 1:30 today. Okay per Joceline. * Telephone Encounter - Sowmya Stoll OSA - 08/10/2023 10:00 AM EST Pt is a wound check that the daughter cancelled. Please advise. * Telephone Encounter - Cheryl Braswell OSA - 08/10/2023 9:44 AM EST Person calling: Clover Relationship to patient: Daughter Number to return call: [phone] Reason for call: Would like to schedule pacer check for today if possible. I was unable to schedulethis due to restrictions. Please advise. Outcome: N/A Pharmacy: N/A Provider Name: N/A documented in this encounter Plan of Treatment Upcoming Encounters Date Type Department Care Team (Late st Contact Info) Description 08/10/2023 1:30 PM EST Cardiac Studies Cardiology, [facility] [address] [facility] [place] [address] [place], Pacer Clinic [facility] [address] [facility] [place] [address] 01/19/2024 2:30 PM EDT Office Visit Family Medicine [address] [place] [phone] [place] [address] Health Maintenance Due Date Last Done Comments [...] this encounter Medical Devices Implanted Type Area Looseleaf Binder Coverer Device Identifier Shelf Expiration Date Model / Serial / Lot Mesh Pelvic Gynamesh Gpsl - [id number] Implanted:Qty: 1 on 11/07/2008 at OR [facility] [place] N/A: Vaginal Vault CAROL [employer] CAROL 06/14/2013 GPSL / / [id number] Sling Align Retropubic [id number] - [id number] Implanted:Qty: 1 on 11/07/2008 at OR [facility] [place] N/A: Urethra INACTIVE CR BARD : UROLOGICAL 09/12/2010 [id number] / / [id number] documented as of this encounter Care Teams Printer Assistant Relationship Specialty Start Date End Date Mariella Poon DO [address] [place] [address] [place] [address] PCP - General Internal Medicine 05/05/17 documented as of this encounter
--- OUTSIDE RECORDS SUMMARY | 2023-08-12 15:04 | External Medical Summary | Summary of Care ---
Author Name Unknown Organization [facility] Address [address] [place] [address] Phone [phone] Care Team Providers Care Dowel Inserting Machine Operator Name Role Phone Mariella Poon DO Primary Care Provider [phone] Encounter Details Date Type Department Care Team (Late st Contact Info) Description 07/31/2023 Result Scan Unspecified Department <No scans attached> Allergies No known active allergiesdocumented as of [...] 05/30/2013 01/16/2014 HTN, goal below 140/90 07/29/201104/08 [employer] Other*[id number] 12/13/2009 02/03/2010 Asthma with severity to be [...] HYPERTENSION NOS 11/06/2003 02/01/2012 Overview: Modified per [facility] protocol #16. Syncope and collapse 01/14/2001 014 Malaise and fatigue 01/14/2001 01/17/20 14 documented as of this encounter (statuses as of 08/03/2023) Immunizations Name Administration Dates Next Due COVID-19 mRNA, LNP-s, No Pre serve, 2-Dose Series ([employer]) 04/17/2021,08/10/2020,07/20/2020 COVID-19, LNP-s, No Preserve , Samy-sucrose, Ages 12+ (Pfizer) 12/02/2021 COVID-19, MRNA-LNP, 23-24, P F, 30 MCG/0.3 mL, 12 YRS AND ABOVE, IM ([facility]) 03/26/2023 Covid-19, Mrna, Lnp-s, Pf, B ivalent, 30 Mcg, IM, 12 yrs and above ([employer]ics) 03/24/2022 PPD 05/18/2006 Pneumococcal Conjugate Vacc, 13 [...] 08/06/2023 11:50 AM EST Office Visit Family [address] [phone] [place] [address] 08/10/2023 1:30 PM EST Cardiac Studies Cardiology, [facility] [address] [facility] [place] [address] [place], Pacer Clinic [facility] [address] [facility] [place] [address] 01/19/2024 2:30 PM EDT Office Visit Family Medicine [address] [place] [address] [address] [place] [address] Health Maintenance Due Date Last Done Comments [...] this encounter Medical Devices Implanted Type Area Tip Banding Machine Operator Device Identifier Shelf Expiration Date Model / Serial / Lot Mesh Pelvic Gynamesh Gpsl - [id number] Implanted:Qty: 1 on 11/07/2008 at [place] [facility] [place] N/A: Vaginal Vault CAROL [employer] CAROL 06/14/2013 GPSL / / [id number] Sling Align Retropubic [id number] - [id number] Implanted:Qty: 1 on 11/07/2008 at [place] [facility] [place] N/A: Urethra INACTIVE CR BARD : UROLOGICAL 09/12/2010 [id number] / / [id number] documented as of this encounter Procedures Procedure Name Priority Date/Time Associated Diagnosis Comments EKG SCANNED RESULT 07/31/2023 documented in this encounter Results * EKG SCANNED RESULT (07/31/2023) 07/31/2023 No Physician Data Unknown EKG documented in this encounter Care Teams Dowel Inserting Machine Operator Relationship Specialty Start Date End Date Mariella Poon DO [address] [place] [address] [place] [address] PCP - General Internal Medicine 05/05/17 documented as of this encounter
--- OUTSIDE RECORDS SUMMARY | 2023-08-12 15:04 | External Medical Summary | Summary of Care ---
Author Name Unknown Organization [facility] Address [address] [place] [address] Phone [phone] Care Team Providers Care Licensed Clinical Social Worker Name Role Phone Mariella Poon DO Primary Care Provider [phone] Reason for Visit * Reason Onset Date Comments Appointment 08/10/2023 Encounter Details Date Type Department Care Team (Late st Contact Info) Description 08/10/2023 Telephone Access Center, [place] [address] [facility] *DO NOT REMOVE THIS DEPARTMENT* [place] [address] Services, Scheduling [address] [place] [address] Appointment Allergies No known active allergiesdocumented as [...] 05/30/2013 01/16/2014 HTN, goal below 140/90 07/29/201104/08 [employer] Other*[id number] 12/13/2009 02/03/2010 Asthma with severity to be [...] mRNA, LNP-s, No Pre serve, 2-Dose Series ([employer]) 04/17/2021,08/10/2020,07/20/2020 COVID-19, LNP-s, No Preserve , Samy-sucrose, Ages 12+ (Pfizer) 12/02/2021 COVID-19, MRNA-LNP, 23-24, P F, 30 MCG/0.3 mL, 12 YRS AND ABOVE, IM ([employer]-Comirnaty) 03/26/2023 Covid-19, Mrna, Lnp-s, Pf, B ivalent, 30 Mcg, IM, 12 yrs and above ([employer]) 03/24/2022 PPD 05/18/2006 Pneumococcal Conjugate Vacc, 13 [...] to patient: Daughter Number to return call: [phone] Reason for call: Would like to schedule pacer check for today if possible. I was unable to schedulethis due to restrictions. Please advise. Outcome: N/A Pharmacy: N/A Provider Name: N/A documented in this encounter Plan of Treatment Upcoming Encounters Date Type Department Care Team (Late st Contact Info) Description 01/19/2024 2:30 PM EDT Office Visit Family Medicine [address] [place] [address] [place] [address] Health Maintenance Due Date Last Done Comments [...] this encounter Medical Devices Implanted Type Area Bolt Loader Device Identifier Shelf Expiration Date Model / Serial / Lot Mesh Pelvic Gynamesh Gpsl - [id number] Implanted:Qty: 1 on 11/07/2008 at [place] [facility] [place]/A: Vaginal Vault [employer]OL [employer] CAROL 06/14/2013 GPSL / / [id number] Sling Align Retropubic [id number] - [id number] Implanted:Qty: 1 on 11/07/2008 at [place] [facility] [place] N/A: Urethra INACTIVE CR BARD : UROLOGICAL 09/12/2010 [id number] / / [id number] documented as of this encounter Care Teams Licensed Clinical Social Worker Relationship Specialty Start Date End Date Mariella Poon DO [address] [place] [address] [place] [address] PCP - General Internal Medicine 05/05/17 documented as of this encounter
--- OUTSIDE RECORDS SUMMARY | 2023-08-12 15:04 | External Medical Summary | Summary of Care ---
Author Name Unknown Organization [facility] Address [address] [place] [address] Phone [phone] Care Team Providers Care Dispatcher Tugboat Name Role Phone Mariella Poon DO Primary Care Provider Reason for Visit * Reason Onset Date Comments Appointment 08/10/2023 Encounter Details Date Type Department Care Team (Late st Contact Info) Description 08/10/2023 Telephone Access Center, [place] [address] [facility] *DO NOT REMOVE THIS DEPARTMENT* [place] [address] Services, Scheduling [address] [place] [address] Appointment Allergies No known active allergiesdocumented as [...] 05/30/2013 01/16/2014 HTN, goal below 140/90 07/29/201104/08 [employer] Other*[id number] 12/13/2009 02/03/2010 Asthma with severity to be [...] mRNA, LNP-s, No Pre serve, 2-Dose Series ([employer]ir[employer]) 04/17/2021,08/10/2020,07/20/2020 COVID-19, LNP-s, No Preserve , Samy-sucrose, Ages 12+ (Pfizer) 12/02/2021 COVID-19, MRNA-LNP, 23-24, P F, 30 MCG/0.3 mL, 12 YRS AND ABOVE, IM ([employer]-Comirnaty) 03/26/2023 Covid-19, Mrna, Lnp-s, Pf, B ivalent, 30 Mcg, IM, 12 yrs and above (TeraFirrma) 03/24/2022 PPD 05/18/2006 Pneumococcal Conjugate Vacc, 13 [...] to patient: Daughter Number to return call: [phone] Reason for call: Would like to schedule pacer check for today if possible. I was unable to schedulethis due to restrictions. Please advise. Outcome: N/A Pharmacy: N/A Provider Name: N/A documented in this encounter Plan of Treatment Upcoming Encounters Date Type Department Care Team (Late st Contact Info) Description 01/19/2024 2:30 PM EDT Office Visit Family Medicine [address] [place] [address] [address] [place] [address] Health Maintenance Due Date Last Done Comments [...] this encounter Medical Devices Implanted Type Area Electric Arc Welder Device Identifier Shelf Expiration Date Model / Serial / Lot Mesh Pelvic Gynamesh Gpsl - [id number] Implanted:Qty: 1 on 11/07/2008 [place] [facility] [place]/A: Vaginal Vault CAROL [employer] CAROL 06/14/2013 GPSL / / [id number] Sling Align Retropubic [id number] - [id number] Implanted:Qty: 1 on 11/07/2008 [place] [facility] [place] N/A: Urethra INACTIVE CR BARD : UROLOGICAL 09/12/2010 [id number] / / [id number] documented as of this encounter Care Teams Dispatcher Tugboat Relationship Specialty Start Date End Date Mariella Poon DO [address] [place] [address] [place] [address] PCP - General Internal Medicine 05/05/17 documented as of this encounter
--- OUTSIDE RECORDS SUMMARY | 2023-08-12 15:04 | External Medical Summary | Summary of Care ---
Author Name Unknown Organization [facility] Address [address] [place] [address] Phone [phone] Care Team Providers Care Marine Architect Name Role Phone Mariella Poon DO Primary Care Provider Reason for Visit * Reason Onset Date Comments Appointment 08/10/2023 Encounter Details Date Type Department Care Team (Late st Contact Info) Description 08/10/2023 Telephone Access Center, [place] [address] [facility] *DO NOT REMOVE THIS DEPARTMENT* [place] [address] Services, Scheduling [address] [place] [address] Appointment Allergies No known active allergiesdocumented as [...] 05/30/2013 01/16/2014 HTN, goal below 140/90 07/29/201104/08 [employer] Other*[id number] 12/13/2009 02/03/2010 Asthma with severity to be [...] mRNA, LNP-s, No Pre serve, 2-Dose Series ([employer]) 04/17/2021,08/10/2020,07/20/2020 COVID-19, LNP-s, No Preserve , Samy-sucrose, Ages 12+ (Pfizer) 12/02/2021 COVID-19, MRNA-LNP, 23-24, P F, 30 MCG/0.3 mL, 12 YRS AND ABOVE, IM ([employer]-Comirnaty) 03/26/2023 Covid-19, Mrna, Lnp-s, Pf, B ivalent, 30 Mcg, IM, 12 yrs and above ([employer]) 03/24/2022 PPD 05/18/2006 Pneumococcal Conjugate Vacc, 13 [...] to patient: Daughter Number to return call: [phone] Reason for call: Would like to schedule pacer check for today if possible. I was unable to schedulethis due to restrictions. Please advise. Outcome: N/A Pharmacy: N/A Provider Name: N/A documented in this encounter Plan of Treatment Upcoming Encounters Date Type Department Care Team (Late st Contact Info) Description 01/19/2024 2:30 PM EDT Office Visit Family Medicine [address] [place] [address] [place] [address] Health Maintenance Due Date Last Done Comments [...] this encounter Medical Devices Implanted Type Area Ammonia Box Operator Device Identifier Shelf Expiration Date Model / Serial / Lot Mesh Pelvic Gynamesh Gpsl - [id number] Implanted:Qty: 1 on 11/07/2008 at [place] [facility] [place] N/A: Vaginal Vault [employer]OL [employer] CAROL 06/14/2013 GPSL / / [id number] Sling Align Retropubic [id number] - [id number] Implanted:Qty: 1 on 11/07/2008 at [place] [facility] [place] N/A: Urethra INACTIVE CR BARD : UROLOGICAL 09/12/2010 [id number] / / [id number] documented as of this encounter Care Teams Marine Architect Relationship Specialty Start Date End Date Mariella Poon DO [address] [place] [address] [place] [address] PCP - General Internal Medicine 05/05/17 documented as of this encounter
--- OUTSIDE RECORDS SUMMARY | 2023-08-12 15:05 | External Medical Summary | Summary of Care ---
Author Name Unknown Organization [facility] Address [address] [place] [address] Phone [phone] Care Team Providers Care Golf Course Laborer Name Role Phone Yessi Lozano DO Primary Care Provider Reason for Visit * Reason Comments Acute Encounter Details Date Type Department Care Team (Late st Contact Info) Description 07/30/2023 10:10 AM EST Office Visit Family Medicine [address] [phone] Yessi Lozano DO [address] [place] [address] [place] [address] Cardiac arrhythmia, unspecified cardiac arrhythmia type*; Bradycardia; [...] 05/30/2013 01/16/2014 HTN, goal below 140/90 07/29/201104/08 [employer] Other*[id number] 12/13/2009 02/03/2010 Asthma with severity to be [...] mRNA, LNP-s, No Pre serve, 2-Dose Series ([employer]) 04/17/2021,08/10/2020,07/20/2020 COVID-19, LNP-s, No Preserve , Samy-sucrose, Ages 12+ ([employer]) 12/02/2021 COVID-19, MRNA-LNP, 23-24, P F, 30 MCG/0.3 mL, 12 YRS AND ABOVE, IM ([employer]Comirnaty) 03/26/2023 Covid-19, Mrna, Lnp-s, Pf, B ivalent, 30 Mcg, IM, 12 yrs and above ([employer]) 03/24/2022 PPD 05/18/2006 Pneumococcal Conjugate Vacc, 13 [...] documented in this encounter Progress Notes * Yessi Lozano, DO - 07/30/2023 10:54 AM EST Subjective: [...] Check-out note: Follow up pending ER evaluation. Yessi Lozano DO documented in this encounter Nursing Notes * Hilda Abreu LPN - 07/30/2023 10:30 AM EST 1 week of not feeling well Very weak Heart rate at home on pulsox in low 40's-50's Oxygen running low 90's at home documented in this encounter Miscellaneous Notes * Addendum Note - Yessi Lozano DO - 07/30/2023 1:34 PM ESTAddended by: YESSI LOZANO on: 07/30/2023 01:34 PM Modules accepted: Orders documented in this encounter Plan of Treatment Upcoming Encounters Date Type Department Care Team (Late st Contact Info) Description 01/19/2024 2:30 PM EDT Office Visit [address] [phone] Yessi Lozano, [address] [place] [address] Scheduled Orders Name Type Priority Associated Diagnoses Orde r Schedule EKG EKG Routine Cardiac arrhythmia, unspecified cardiac arrhythmia type Bradycardia Expected: 07/30/2023 (Approximate), Expires: 08/27/2024 Health Maintenance Due Date Last Done Comments [...] this encounter Medical Devices Implanted Type Area Loading Machine Operator Helper Device Identifier Shelf Expiration Date Model / Serial / Lot Mesh Pelvic Gynamesh Gpsl - [id number] Implanted:Qty: 1 on 11[place]07[place] [facility] [place]A: Vaginal Vault CAROL [employer] CAROL 06/14/2013 GPSL / / [id number] Sling Align Retropubic [id number] - [id number] Implanted:Qty: 1 on 11/07/2008 [place] [facility] [place]/A: Urethra INACTIVE CR BARD : UROLOGICAL 09/12/2010 [id number] / / [id number] documented as of this encounter Visit Diagnoses Diagnosis Cardiac arrhythmia, unspecified cardiac arrhythmia type- Primary Bradycardia Other specified cardiac dysrhythmias Generalized weakness Other malaise and fatigue documented in this encounter Care Teams Golf Course Laborer Relationship Specialty Start Date End Date Yessi Lozano DO [address] [place] [address] [place] [id number] PCP - General Internal Medicine 05/05/17 documented as of this encounter
--- OUTSIDE RECORDS SUMMARY | 2023-08-12 15:05 | External Medical Summary | Summary of Care ---
Author Name Unknown Organization [facility] Address [address] [place] [address] Phone [phone] Care Team Providers Care Bryologist Name Role Phone Mariella Poon DO Primary Care Provider Reason for Visit * Reason Onset Date Comments Order Request 07/30/2023 Encounter Details Date Type Department Care Team ([facility] st Contact Info) Description 07/30/2023 Telephone Family Medicine [address] [phone] Mariella Poon DO [address] [place] [address] [place] [address] Order Request Allergies No known active allergiesdocumented as of [...] 05/30/2013 01/16/2014 HTN, goal below 140/90 07/29/201104/08 [employer] Research Other*[id number] 12/13/2009 02/03/2010 Asthma with severity to be [...] mRNA, LNP-s, No Pre serve, 2-Dose Series ([employer]) 04/17/2021,08/10/2020,07/20/2020 COVID-19, LNP-s, No Preserve , Samy-sucrose, Ages 12+ ([employer]) 12/02/2021 COVID-19, MRNA-LNP, 23-24, P F, 30 MCG/0.3 mL, 12 YRS AND ABOVE, IM ([facility]) 03/26/2023 Covid-19, Mrna, Lnp-s, Pf, B ivalent, 30 Mcg, IM, 12 yrs and above ([employer]) 03/24/2022 PPD 05/18/2006 Pneumococcal Conjugate Vacc, 13 [...] encounter Miscellaneous Notes * Telephone Encounter - Mariella Poon DO - 07/30/2023 1:34 PM EST Order placed. * Telephone Encounter - Carie Flowers OSA - 07/30/2023 1:04 PM EST Can you please place an order for the EKG done today for processing and billing. documented in this encounter Plan of Treatment Upcoming Encounters Date Type Department Care Team (Late st Contact Info) Description 01/19/2024 2:30 PM EDT Office Visit Family Medicine [address] [place] [phone] [place] [address] Health Maintenance Due Date Last Done Comments [...] this encounter Medical Devices Implanted Type Area Straightening Press Operator Helper Device Identifier Shelf Expiration Date Model / Serial / Lot Mesh Pelvic Gynamesh Gpsl - [id number] Implanted:Qty: 1 on 11/07/2008 at [place] [facility] [place] N/A: Vaginal Vault CAROL [employer] CAROL 06/14/2013 GPSL / / [id number] Sling Align Retropubic [id number] - [id number] Implanted:Qty: 1 on 11/07/2008 at [place] [facility] [place] N/A: Urethra INACTIVE CR BARD : UROLOGICAL 09/12/2010 [id number] / / [id number] documented as of this encounter Care Teams Bryologist Relationship Specialty Start Date End Date Mariella Poon DO [address] [place] [address] [place] [id number] PCP - General Internal Medicine 05/05/17 documented as of this encounter
--- OUTSIDE RECORDS SUMMARY | 2023-08-12 15:05 | External Medical Summary | Summary of Care ---
Author Name Unknown Organization [facility] Address [address] [place] [address] Phone [phone] Care Team Providers Care Form Maker Name Role Phone Mariella Poon DO Primary Care Provider Reason for Visit * Reason Onset Date Comments Order Request 08/02/2023 Encounter Details Date Type Department Care Team ([facility] st Contact Info) Description 08/02/2023 Telephone Family Medicine [address] [phone] Mariella Poon DO [address] [place] [address] [place] [address] Order Request Allergies No known active allergiesdocumented as of this encounter (statuses as of 08/02/2023) Medications Medication Sig Dispensed Refills Start Date [...] as of this encounter (statuses as of 08/02/2023) Active Problems Problem Noted Date Diagnosed Date [...] as of this encounter (statuses as of 08/02/2023) Resolved Problems Problem Noted Date Diagnosed Date Resolved Date Chronic kidney disease, stage 3a 12/23/2020 06/04/2022 Overview: Per CKD protocol Intermittent asthma with rel iever use up to twice per week 03/20/2015 09/23/2015 COPD, moderate 10/13/2014 08/17/2018 Allergic rhinitis 03/27/2014 03/27/2014 Allergic rhinitis 05/30/2013 01/16/2014 HTN, goal below 140/90 07/29/201104/08 [employer] Other*[id number] 12/13/2009 02/03/2010 Asthma with severity to be [...] as of this encounter (statuses as of 08/02/2023) Immunizations Name Administration Dates Next Due COVID-19 mRNA, LNP-s, No Pre serve, 2-Dose Series ([employer]) 04/17/2021,08/10/2020,07/20/2020 COVID-19, LNP-s, No Preserve , Samy-sucrose, Ages 12+ (Pfizer) 12/02/2021 COVID-19, MRNA-LNP, 23-24, P F, 30 MCG/0.3 mL, 12 YRS AND ABOVE, IM ([facility] 03/26/2023 Covid-19, Mrna, Lnp-s, Pf, B ivalent, 30 Mcg, IM, 12 yrs and above ([employer]) 03/24/2022 PPD 05/18/2006 Pneumococcal Conjugate Vacc, 13 [...] encounter Miscellaneous Notes * Telephone Encounter - Joceline Headley RN - 08/02/2023 12:51 PM EST Family notified script ready for worm picker at [facility]. * Telephone Encounter - Mariella Poon DO - 08/02/2023 12:06 PM EST I ordered a walker - script printed. Please notify pt/family that they can come to the office to pick it up. * Telephone Encounter - Joceline Headley RN - 08/02/2023 8:38 AM EST Patient d/c'd from [facility] over the weekend s/p pacemaker implant. Upon d/c, patient advised will need walker for use with ambulating. Please advise if able to place order as per d/c recommendation from primary care standpoint. documented in this encounter Plan of Treatment Upcoming Encounters Date Type Department Care Team (Late st Contact Info) Description 08/10/2023 1:30 PM EST Cardiac Studies Cardiology, [facility] [address] [facility] [place] [address] [place], Pacer Clinic [facility] [address] [facility] [place] [address] 01/19/2024 2:30 PM EDT Office Visit Family Medicine [address] [place] [phone] Mariella Poon DO [address] [place] [address] [place] [address] Health Maintenance Due Date Last Done Comments [...] this encounter Medical Devices Implanted Type Area Database Support Device Identifier Shelf Expiration Date Model / Serial / Lot Mesh Pelvic Gynamesh Gpsl - [id number] [place] 1 [place] [facility] [place]A: Vaginal Vault [employer] 06/14/2013 GPSL / / [id number] Sling Align Retropubic [id number] - [id number] Implanted:Qty: 1 on 11[place]07[place] [facility] [place]A: Urethra INACTIVE CR BARD : UROLOGICAL 09/12/2010 [id number] / / [id number] documented as of this encounter Care Teams Form Maker Relationship Specialty Start Date End Date Mariella Poon DO [address] [place] [address] [place] [phone] PCP - General Internal Medicine 05/05/17 documented as of this encounter
--- OUTSIDE RECORDS SUMMARY | 2023-08-12 15:05 | External Medical Summary | Summary of Care ---
Author Name Unknown Organization [facility] Address [address] [place] [address] Phone [phone] Care Team Providers Care It Communications Manager Name Role Phone Mariella Poon DO Primary Care Provider [phone] Reason for Visit * Reason Onset Date Comments Hospital Follow-Up 08/02/2023 Jessica for [facility] Encounter Details Date Type Department Care Team (Late st Contact Info) Description 08/02/2023 Telephone Ancillary [address] [place] [address] Aleyda Maynard, [facility] Hospital Follow-Up (Jessica for [facility]) Allergies No known active allergiesdocumented as of [...] mouth in the morning. 0 08/01/2023 Active hydroCHLOROthiazide 25 MG Oral Tablet (Hydrodiuril) [...] 05/30/2013 01/16/2014 HTN, goal below 140/90 07/29/201104/08 [employer] Other*[id number] 12/13/2009 02/03/2010 Asthma with severity to be [...] mRNA, LNP-s, No Pre serve, 2-Dose Series (Placeword) 04/17/2021,08/10/2020,07/20/2020 COVID-19, LNP-s, No Preserve , Samy-sucrose, [...] encounter Miscellaneous Notes * Telephone Encounter - Aleyda Maynard RN - 08/02/2023 1:14 PM EST Transitions of Care Note Reason for Referral:Recent Admission Phone visit for follow up: jessica Admitted to: [facility], Date: 07.30.23 Discharged to: home, Date: 08.01.23 Diagnosis driving hospitalization: 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 Poon CV: Denies problems Pulmonary: Denies problems Chills/Sweats/Fever:Denies chills/sweats Denies fever Appetite:Denies problems such as nausea, vomiting, burning, decreased appetite, patient trying "to make herself eat something, even if its small", counseled her to stay hydrated too. Current diet: reg Bowel: denies problems Bladder: denies problems Wound (If applicable): N/A Pain:Denies Sleep:Denies problems FUNCTIONAL STATUS: ADL'S: Needs Assistance With:N/A as pt is independent IADL'S: Needs Assistance With:N/A as pt is independent Cognitive and Mental Health: denies problems, alert and oriented x 3, and able to communicate, understand instructions, process information. MEDICATION RECONCILIATION Medications: patient does decline iron tabs and has stopped her sertraline 5 days ago and "is doingfine off of them" New ferrous sulfate 325 mg (65 mg iron) tablet 325 mg PO DAILY Qty: 30 0RF OBJECTIVE ASSESSMENT Medication Risk Assessment: counseled patient they did want her to start a iron tab, patient declined. Did patient fail outpatient treatment? Yes Discharge instructions available for review? Yes PLAN Symptom Monitoring Interventions:Member/caregiver education - signs and symptoms to contact PrimaryCare (DO NOT DELETE-Three goldman symptoms patient is to report to PCP) 1. Chest pain 2. sob 3. palpitations Supervisor Engine RepairBlower Installer of Care interventions/Action Plan: 5 - 7 day follow-up with PCP in place - Date: 08.06.23 Educated on role of JESSICA completed with patient/caregiver. Educated patient/caregiver on patient right to have input on JESSICA plan of care. Verification of Home Health/DME if indicated: NO patient declined, states she has two kids that work locally. Identified Care Gaps: Yes Care Gaps closed this call: Transition of Care follow-up communication Re-evaluation of Plan of Care and progress towards goals achievement: Patient education this visit: Verbal, patient to rest , stay hydrated and no living over 10lbs Plan to follow-up as previously scheduled, instructed to call Primary Care Provider with change in symptoms or as needed before next follow-up, verbalizes understanding and agrees with plan. Aleyda Maynard RN documented in this encounter Plan of Treatment Upcoming Encounters Date Type Department Care Team (Late st Contact Info) Description 08/06/2023 11:50 AM EST Office Visit Family [address] [place] [address] [place] [address] 08/10/2023 1:30 PM EST Cardiac Studies Cardiology, [facility] [address] [facility] [place] [address] Cristóbal aLndin [facility] 132 [facility] [place] [address] 01/19/2024 2:30 PM EDT Office Visit [address] [place] [address] [place] [address] Health Maintenance Due Date Last Done Comments [...] this encounter Medical Devices Implanted Type Area Woodworking Belt Sander Device Identifier Shelf Expiration Date Model / Serial / Lot Mesh Pelvic Gynamesh Gpsl - [id number] Implanted:Qty: 1 on 11/07/2008 [place] [facility] [place]: Vaginal Vault [employer] 06/14/2013 GPSL / / [id number] Sling Align Retropubic [id number] - [id number] Implanted:Qty: 1 on 11/07/2008 at [place] [facility] [place] N/A: Urethra INACTIVE CR BARD : UROLOGICAL 09/12/2010 [id number] / / [id number] documented as of this encounter Care Teams It Communications Manager Relationship Specialty Start Date End Date Mariella Poon DO [address] [place] [address] [place] [address] PCP - General Internal Medicine 05/05/17 documented as of this encounter
--- OUTSIDE RECORDS SUMMARY | 2023-08-12 15:05 | External Medical Summary | Summary of Care ---
Author Name Unknown Organization [facility] Address [address] [place] [address] Phone [phone] Care Team Providers Care Company Truck Driver Name Role Phone Mariella Poon DO Primary Care Provider [phone] Encounter Details Date Type Department Care Team (Late st Contact Info) Description 07/30/2023 Result Scan Unspecified Department Manpreet Thomas MD [address] [place] [address] <No scans attached> Allergies No known active [...] HTN, goal below 140/90 07/29/201104/08 [employer] Other*[id number] 12/13/2009 02/03/2010 Asthma with severity to be [...] mRNA, LNP-s, No Pre serve, 2-Dose Series (SweetSlap) 04/17/2021,08/10/2020,07/20/2020 COVID-19, LNP-s, No Preserve , Samy-sucrose, Ages 12+ (Pfizer) 12/02/2021 COVID-19, MRNA-LNP, 23-24, P F, 30 MCG/0.3 mL, 12 YRS AND ABOVE, IM ([employer] [facility]) 03/26/2023 Covid-19, Mrna, Lnp-s, Pf, B ivalent, 30 Mcg, IM, 12 yrs and above (SweetSlap) 03/24/2022 PPD 05/18/2006 Pneumococcal Conjugate Vacc, 13 [...] 08/06/2023 11:50 AM EST Office Visit Family [address] [phone] Mariella Poon, [address] [place] [address] 08/10/2023 1:30 PM EST Cardiac Studies Cardiology, [facility] 132 [facility] [place] [address] [facility] 132 [facility] [place] [address] 01/19/2024 2:30 PM EDT Office Visit Family [address] [phone] Mariella Poon, [address] [place] [address] Health Maintenance Due Date Last Done Comments [...] this encounter Medical Devices Implanted Type Area Wafer Slicer Device Identifier Shelf Expiration Date Model / Serial / Lot Mesh Pelvic Gynamesh Gpsl - [id number] [place]ed:[place] 1 [place] [facility] [place] Vaginal Vault [employer] 06/14/2013 GPSL / / [id number] Sling Align Retropubic [id number] - [id number] Implanted:Qty: 1 [place] 11[place]07[place] [facility] [place]A: Urethra INACTIVE CR BARD : UROLOGICAL 09/12/2010 [id number] / / [id number] documented as of this encounter Procedures Procedure Name Priority Date/Time Associated Diagnosis Comments ECHOCARDIOLOGY SCANNED RESULT 07/30/2023 documented in this encounter Results * ECHOCARDIOLOGY SCANNED RESULT (07/30/2023) 07/30/2023 Manpreet Thomas MD ECHOCARDIOLOGY documented in this encounter Care Teams Company Truck Driver Relationship Specialty Start Date End Date Mariella Poon DO [address] [place] [address] [place] [address] PCP - General Internal Medicine 05/05/17 documented as of this encounter
[2023-08-12 15:28] LABS: BUN Creatinine Ratio 22.2 (10-20); Calcium 8.3 mg/dl (8.6-10.3); Creatinine Clr Calc Pharmacy 79.2 ml/min; Est GFR (African American) 104.4 ml/min; Est GFR (Non-African American) 90.1 ml/min; Potassium 4.2 mmol/L (3.5-5.1)
--- NOTE | 2023-08-12 16:06 | Cardiology Consultation ---
Date of Consultation August 12, 2023 Assessment & Plan (1) Influenza A: (2) Fever: (3) Complete heart block: (4) Cardiac pacemaker in situ: Plan Assessment: 88 year-old female admitted with acute weakness and URI symptoms, subsequently diagnosed with influenza. Cardiology asked to see patient at family's request due to recent pacemaker implant. Plan: 1. Influenza A 2. Fever -Continued management per primary team with use of Belén-flu and supportive care. 3. Complete heart block 4. Cardiac pacemaker in situ - Review of telemetry shows SR,no acute events. -patient was to have initial Pacemaker clinic appt on 08/10/23; however, cancelled due to acute illness. Will send telephone encounter to office to please reschedule once flu symptoms have resolved. -Will obtain device interrogation for good measure due to recent implant (Duarte) We will continue to follow as needed during course of hospitalization Case has been discussed with Dr. Torres. Further recommendations regarding plan of care as per his assessment. I spent a total of 30 minutes on the date of service in preparation, delivery, documentation of the care provided to the patient excluding any time spent in the performance of separately billed services. [facility] Cardiology [facility] Supervising Physician Co-Signing Physician Notes I have reviewed the advance practitioner's documentation, and I agree with, and take responsibility for the plan of care. 88-year-old female admitted with influenza infection. Recent pacemaker implantation 07/31/2023. Denies chest pain or shortness of breath. Hydrochlorothiazide on hold due to hyponatremia. Telemetry reveals sinus rhythm in the 70s with an interventricular conduction delay. PE: VSS. Gen: NAD, AAO x3. Heart: regular rhythm. Normal S1-S2. 1/6 systolic ejection murmur. Lungs: Diminished breath sounds at the bases bilateral. No rales, rhonchi, wheeze. Extremities: Trace edema. A/P: 88-year-old female admitted with acute influenza A infection. Recent cardiac history significant for complete heart block status post pacemaker implantation. No acute cardiac issues at present. Continue current medications as noted above. Will arrange for pacemaker interrogation remotely (Duarte device). I spent a total of 20 minutes on the date of service in preparation, delivery, and documentation of the care provided to this patient, excluding any time spent in the performance of separately billed services. History of Present Illness Reason for Consultation: hx of recent pacemaker implant, son's request Requesting Physician: Fausto cardiology Attending Physician: Ranjan Shankar MD History of Present Illness HPI: Patient is a 88 year-ole female with PMHx significant for complete heart block s/p PPM placement on 07/31/23, HTN, hypothyroidism, stress incontinence, OA, and hearing loss that presented to the ED with concerns of progressive weakness and subsequently diagnosed with influenza. patient seen and examined at bedside today reporting that she has just felt so weak, but did not provide details of her encounter. Per review of record, family reports that patient has progressive weakness over the past 3 days, a fever of 101F and was noted to be tachypneic. She does endorse a weak cough and a runny nose. EKG demonstrates SR with 1st degree AVB. IVCD. patient denies any chest pain, pressure, palpitations, no PND, pre-syncope, syncope or edema. Allergies Allergy/AdvReac Type Severity Reaction Status Date / Time pollen extracts Allergy Intermediate ITCHY Verified 08/11/23 18:47 EYES, SNEEZING, CONGESTION Home Medications Medication Instructions Recorded Confirmed Type hydrochlorothiazide 25 mg tablet 25 mg PO DAILY 11/26/22 08/11/23 History levothyroxine 125 mcg tablet 125 mcg PO DAILYBB 11/26/22 08/11/23 History (Synthroid) loratadine 10 mg tablet (Claritin) 10 mg PO BID 11/26/22 08/11/23 History multivitamin 1 tab PO DAILY 11/26/22 08/11/23 History sertraline 25 mg tablet 25 mg PO QPM 11/26/22 08/11/23 History hydroxyzine HCl 10 mg tablet 10 mg PO HS PRN Insomnia 07/30/23 08/11/23 History lisinopril 10 mg tablet 10 mg PO DAILY 07/30/23 08/11/23 History Patient History Medical History Asthma Anxiety and depression Hypothyroidism HTN (hypertension) Surgical History History of hysterectomy History of cholecystectomy Family History Other Asthma Cancer Diabetes Stroke Social History Smoking Status: Former smoker Tobacco Type: Cigarettes Cigarettes Per Day: light smoker for 3 years in 1963; Hx Alcohol Use: No Hx Substance Use: No Preferred Language: Greek Communication Ability: Effective Tmd Teacher Assistant Required: No Beliefs That Will Affect Care: None Current Living Situation: Alone Feels Safe at Home: Yes Safety Concerns: Feels Safe At This Time Assistive Devices: Cane and Walker Review of Systems Review of Systems: All systems reviewed & are unremarkable except as noted in HPI & below Physical Exam Constitutional: well developed, well nourished and + ill appearing; no acute distress Neck: normal visual inspection and trachea midline Respiratory: normal respiratory effort and + cough (weak, non-productive ); no respiratory distress Auscultation: + wheezes (scattered exp. wheezes throughout ) Cardiovascular: Rate/Rhythm: regular rate and regular rhythm Heart Sounds: normal S1 and normal S2; no murmur Vessels: dorsalis pedis pulses present; no JVD Extremities: no edema Skin: no rashes, warm and dry (left anterior chest wall PPM pocket c/d/i well approximated. ) Psychiatric: Orientation: oriented x 3 Results & Data Vital Signs (Past 12 Hours) Vital Signs Pulse 08/12/23 07:16 79 Laboratory Results Cardiac Enzymes 08/11/23 Range/Units 18:48 AST 22 (13-39) U/L Troponin I High Sens 8.8 (0-14) pg/ml CBC 08/11/23 08/12/23 Range/Units 18:48 04:16 WBC 6.45 5.86 (4.8-10.8) K/ul RBC 3.73 L 3.97 L (4.20-5.40) M/uL Hgb 11.3 L 11.6 L (12.0-16.0) g/dl Hct 32.3 L 34.2 L (37.0-47.0) % Plt Count 289 270 (130-400) K/uL Neut # (Auto) 4.24 3.10 (1.40-6.50) K/uL Lymph # (Auto) 0.84 L 0.94 L (1.20-3.40) K/uL [place] # (Auto) 1.24 H 1.64 H (0.11-0.59) K/uL Eos # (Auto) 0.02 0.05 (0.00-0.50) K/uL Baso # (Auto) 0.07 0.07 (0.00-0.20) K/uL Comprehensive Metabolic Panel 08/11/23 08/12/23 08/12/23 Range/Units 18:48 04:16 14:34 Sodium 128 L 125 L 127 L (136-145) mmol/L Potassium 3.7 3.8 4.2 (3.5-5.1) mmol/L Chloride 95 L 92 L 92 L (98-107) mmol/L Carbon Dioxide 26 27 29 (21-32) mmol/L BUN 14 13 10 (6-23) mg/dl Creatinine 0.60 0.53 L 0.45 L (0.6-1.2) mg/dl Glucose 107 H 104 H 127 H (70-99(Fasting)) mg/dl Calcium 8.3 L 8.5 L 8.3 L (8.6-10.3) mg/dl Direct Bilirubin 0.1 (0-0.2) mg/dl AST 22 (13-39) U/L ALT 18 (7-52) U/L Alkaline Phosphatase 60 (34-104) U/L Total Protein 6.2 (6.0-8.3) gm/dl Albumin 3.6 (3.4-5.0) gm/dl Intake and Output 08/12/23 08/12/23 08/12/23 06:59 14:59 22:59 Intake Total 200 / 1200 942.5 / 942.5 Balance 200 / 1200 942.5 / 942.5 Intake: IV 200 / 1200 942.5 / 942.5 Magnesium Sulfate / D5w 1 gm In 200 / 200 100 ml @ 50 mls/hr IV Q2H ROBB Rx#:[id number] Sodium Chloride 0.9% 1,000 ml @ 942.5 / 942.5 75 mls/hr IV .[id number] ROBB Rx#: [id number] Oral 0 / 0 Other: Weight 65 kg 63.8 kg Weight Measurement Method Wheelchair Patient Weight 03/01/24 06:59 Weight 63.8 kg (2) Fever Fever type: unspecified Qualified Code(s): R50.9 - Fever, unspecified
[2023-08-12 19:49] LABS: Appearance Urine Clear (Clear); Bilirubin Urine Negative (Negative); Blood Urine Negative (Negative); Color Urine Yellow; Glucose Urine UA Negative (Negative); Ketones Urine Negative (Negative); Leukocyte Esterase Urine Negative (Negative); Nitrite Urine Negative (Negative); Protein Urine Negative (Negative); Specific Gravity Urine 1.009 (1.000-1.030); Urobilinogen Urine Negative (Negative); pH Urine 5.5 (4.5-7.5)
[2023-08-12] MEDS: SERTRALINE HCL 50 MG TABLET PO SCH (20:36)
[2023-08-12] MEDS: ACETAMINOPHEN 325 MG TAB PO PRN (20:40)
[2023-08-12 21:15] LABS: BUN Creatinine Ratio 21.8 (10-20); Calcium 8.6 mg/dl (8.6-10.3); Creatinine Clr Calc Pharmacy 64.8 ml/min; Est GFR (African American) 97.7 ml/min; Est GFR (Non-African American) 84.3 ml/min; Potassium 4.4 mmol/L (3.5-5.1)
[2023-08-13 05:22] LABS: Hematocrit (blood only) 35.7 % (37.0-47.0); Hemoglobin 12.2 g/dl (12.0-16.0); Mean Corpuscular Hemoglobin 29.4 pg (25.0-34.0); Mean Corpuscular Hgb Conc 34.2 g/dL (32.0-36.0); Platelet Count 271 K/uL (130-400); RDW Coefficient of Variation 12.8 % (11.5-14.5); RDW Standard Deviation 39.8 fL (36.4-46.3); Red Blood Count 4.15 M/uL (4.20-5.40); White Blood Count 4.39 K/ul (4.8-10.8)
[2023-08-13 05:34] LABS: Calcium 8.4 mg/dl (8.6-10.3); Creatinine Clr Calc Pharmacy 84.9 ml/min; Est GFR (African American) 106.8 ml/min; Est GFR (Non-African American) 92.2 ml/min; Magnesium 1.8 mg/dl (1.7-2.4); Potassium 4.2 mmol/L (3.5-5.1)
[2023-08-13] MEDS: LORATADINE 10 MG TAB PO SCH (11:45)
--- NOTE | 2023-08-13 14:55 | Hospitalist Progress Note ---
Date of Service August 13, 2023 Assessment & Plan (1) Weakness: Plan: Patient is an 88 yr old female with past med history significant for hypothyroidism, allergic asthma, hypertension, female stress incontinence, general osteoarthrosis, bilateral sensorineural hearing loss, seasonal allergies, adjustment disorder, was recently in the hospital for complete heart block s/p pacemaker on July 31, 2023 and was discharged on August 01, 2023 and followed in cardiology office August 10, 2023 who lives at home and the grandson lives with her in the night time presents with weakness and found to have influenza. Son is in the room. For last couple of days patient is getting weak. Generally she can climb steps. Last night she required help of her grandson. But today she was feeling very weak. She was sitting on a chair but she could not get up when she slid down and fell down. Cleaning lady was there at that time. Her [id number], came and checked her. And later son came and checked her. And when son checked her temperature it was running at 101 F. And she was somewhat tachypneic. When she was laid down flat her oxygen sats were 86%. And she was brought to the hospital. Patient currently alert and oriented. Can give her history. When she fell she did not hit her head. No headache. Has some runny nose. No sore throat. Has some cough. Denies chest pain or shortness of breath. No nausea. No abdominal pain. Appetite has been not great. No diarrhea or constipation. Normal bowel and bladder movements. No rash. No swelling in the legs. Generally ambulates sometimes with walker and sometimes with cane. Influenza A Generalized deconditioning Continue Tamiflu Saturating well on room air Has cough, no mucus. Monitor changes in sputum production/color. PT OT as able H/O complete heart block S/p pacemaker on July 31, 2023 Cardiology consulted per patient's family's request - cardio evaled, appreciate recs. Plan for pacemaker interrogation remotely. Hypomagnesemia Replete electrolytes as needed Monitor Acute on chronic hyponatremia HCTZ, dehydration contributing DC IVF, pt w/ improving po intake. Consider to discontinue HCTZ upon discharge as well Monitor sodium levels - improving w/ improving appetite. Consider nephrology evaluation if needed Hypertension Continue lisinopril Hold HCTZ for now Monitor BP Hypothyroidism Continue levothyroxine Depression On Zoloft DVT Px: Heparin SQ CODE STATUS Full Code Admission and Anticipated Discharge Date Admission Date: August 11, 2023 Subjective Patient is seen and examined at bedside Patient reports cough but is not making mucus. Patient reports eating okay and is moving bowels. Patient denies any chest pain, nausea, vomiting, abdominal pain. Saturating well on room air. Patient has been afebrile. Physical Exam Physical Exam: General Appearance:Moderately built and nourished, no apparent distress, elderly, frail Head: normocephalic, Atraumatic Eyes: normal inspection, EOMI Neck: supple, Trachea midline Respiratory/Chest: Normal breath sounds, CTA, No accessory muscle use, occ b/l crackles Cardiovascular: S1, S2,+murmur Abdomen/GI:Soft, Non tender, Bowel sounds present Extremities/Musculoskeletal:normal inspection, no edema Neurologic/Psych:AAO, grossly no focal neurological deficits Skin: normal color, warm Results & Data Results & Data Vital Signs (Past 12 Hours) Vital Signs Temp Pulse Pulse Resp BP Pulse Ox O2 Del Method 08/13/23 11:40 36.9 C 74 16 153/73 H 94 Room Air 08/13/23 09:14 Room Air 08/13/23 08:26 76 08/13/23 07:45 36.6 C 76 18 159/76 H 95 Room Air 08/13/23 03:28 36.4 C L 74 18 173/79 H 98 Room Air
[2023-08-13] MEDS: PANTOprazole 40 MG TAB PO PRN (21:25)
[2023-08-14] MEDS: hydrOXYzine HCl 10 MG TAB PO PRN (02:35)
[2023-08-14 07:28] LABS: Hematocrit (blood only) 36.1 % (37.0-47.0); Hemoglobin 12.1 g/dl (12.0-16.0); Mean Corpuscular Hemoglobin 29.3 pg (25.0-34.0); Mean Corpuscular Hgb Conc 33.5 g/dL (32.0-36.0); Mean Corpuscular Volume 87.4 fL (80.0-100.0); Mean Platelet Volume 9.6 fL (9.4-12.4); Platelet Count 297 K/uL (130-400); RDW Coefficient of Variation 12.8 % (11.5-14.5); RDW Standard Deviation 40.8 fL (36.4-46.3); Red Blood Count 4.13 M/uL (4.20-5.40); White Blood Count 4.46 K/ul (4.8-10.8)
[2023-08-14 07:51] LABS: BUN Creatinine Ratio 32.6 (10-20); Calcium 8.9 mg/dl (8.6-10.3); Creatinine Clr Calc Pharmacy 76.2 ml/min; Est GFR (Non-African American) 91.5 ml/min; Magnesium 1.7 mg/dl (1.7-2.4); Phosphorus 3.1 mg/dl (2.5-4.9); Potassium 4.8 mmol/L (3.5-5.1)
--- NOTE | 2023-08-14 17:57 | Hospitalist Progress Note ---
Date of Service August 14, 2023 Assessment & Plan (1) Weakness: Plan: Patient is an 88 yr old female with past med history significant for hypothyroidism, allergic asthma, hypertension, female stress incontinence, general osteoarthrosis, bilateral sensorineural hearing loss, seasonal allergies, adjustment disorder, was recently in the hospital for complete heart block s/p pacemaker on July 31, 2023 and was discharged on August 01, 2023 and followed in cardiology office August 10, 2023 who lives at home and the grandson lives with her in the night time presents with weakness and found to have influenza. Son is in the room. For last couple of days patient is getting weak. Generally she can climb steps. Last night she required help of her grandson. But today she was feeling very weak. She was sitting on a chair but she could not get up when she slid down and fell down. Cleaning lady was there at that time. Her [id number], came and checked her. And later son came and checked her. And when son checked her temperature it was running at 101 F. And she was somewhat tachypneic. When she was laid down flat her oxygen sats were 86%. And she was brought to the hospital. Patient currently alert and oriented. Can give her history. When she fell she did not hit her head. No headache. Has some runny nose. No sore throat. Has some cough. Denies chest pain or shortness of breath. No nausea. No abdominal pain. Appetite has been not great. No diarrhea or constipation. Normal bowel and bladder movements. No rash. No swelling in the legs. Generally ambulates sometimes with walker and sometimes with cane. Influenza A Generalized deconditioning Continue Tamiflu Saturating well on room air Has cough, no mucus. Monitor changes in sputum production/color. PT OT as able-likely to need placement Clinically improved with decreasing cough and also shortness of breath which has improved a lot Remains very weak and lethargic and will need to have more physical therapy No fever and or chills and has been saturating normally on room air H/O complete heart block S/p pacemaker on July 31, 2023 Cardiology consulted per patient's family's request - cardio evaled, appreciate recs. Plan for pacemaker interrogation remotely. Heart rate remains stable and without any more cardiac symptoms Hypomagnesemia Replete electrolytes as needed Monitor Acute on chronic hyponatremia HCTZ, dehydration contributing DC IVF, pt w/ improving po intake. Consider to discontinue HCTZ upon discharge as well Monitor sodium levels - improving w/ improving appetite. Consider nephrology evaluation if needed Sodium level has been stable at 133 Will monitor while in the hospital Hypertension Continue lisinopril Hold HCTZ for now Monitor BP Hypothyroidism Continue levothyroxine Depression On Zoloft DVT Px: Heparin SQ CODE STATUS Full Code Admission and Anticipated Discharge Date Admission Date: August 11, 2023 Subjective 08/14/2023 The patient was seen and examined in medical telemetry unit She has been feeling much better today Remains extremely weak and lethargic Respiratory symptoms are better Advised to continue with PT and OT Review of Systems Review of Systems: All systems reviewed and are unremarkable except as noted below Physical Exam Physical Exam: Lying in bed without any acute distress Constitutional: + ill appearing and average body habitus Eyes: PERRL, conjunctivae normal, anicteric sclerae ENMT: external ear and nose normal, oropharynx normal Neck: trachea midline, no thyromegaly Respiratory: no respiratory distress Auscultation: + diminished lung sounds and + crackles (Minimal crackles at the bases ) Cardiovascular: Rate/Rhythm: regular rate and regular rhythm; not tachycardic Heart Sounds: normal S1 and normal S2; no murmur Extremities: + edema (Trace edema bilaterally) Gastrointestinal (Abdomen): Inspection/Auscultation: abdomen not distended Percussion/Palpation: abdomen soft; abdomen nontender Musculoskeletal: No acute arthritis involving any of the joint Neurologic: normal touch/pain/proprioception and moves all extremities; no focal motor deficits Lymphatic: no cervical or axillary lymphadenopathy Results & Data Results & Data Vital Signs (Past 12 Hours) Vital Signs Temp Pulse Pulse Resp BP Pulse Ox O2 Del Method 08/14/23 15:32 83 08/14/23 15:10 36.7 C 77 18 168/83 H 98 Room Air 08/14/23 11:25 36.3 C L 74 16 132/73 93 Room Air 08/14/23 11:16 Room Air 08/14/23 07:29 70 08/14/23 07:14 36.8 C 74 16 154/74 H 92 Room Air Laboratory Results Short CBC 08/14/23 Range/Units 07:04 WBC 4.46 L (4.8-10.8) K/ul Hgb 12.1 (12.0-16.0) g/dl Hct 36.1 L (37.0-47.0) % Plt Count 297 (130-400) K/uL BMP 08/14/23 07:04 Sodium 133 L Potassium 4.8 Chloride 99 Carbon Dioxide 30 BUN 14 Creatinine 0.43 L Glucose 96 Calcium 8.9 Medications Administered Current Inpatient Medications Acetaminophen (Acetaminophen 325 Mg Tab) 650 mg PO Q4H PRN PRN Reason: Pain or Fever Stop: 09/10/23 22:41 Last Admin: 08/13/23 23:12 Dose: 650 mg Heparin Sodium (Porcine) (Heparin Sod 5,000 Unit/0.5 Ml Vial) 5,000 units SQ Q12 [facility] Stop: 09/11/23 08:59 Last Admin: 08/14/23 08:42 Dose: 5,000 units Hydroxyzine HCl (Hydroxyzine Hcl 10 Mg Tab) 10 mg PO HS PRN PRN Reason: Insomnia Stop: 09/10/23 22:41 Last Admin: 08/14/23 02:35 Dose: 10 mg Levothyroxine Sodium (Pom - Levothyroxine Sodium 125 Mcg Tablet) 125 mcg PO DAILYBB [facility] Stop: 09/11/23 06:29 Last Admin: 08/14/23 05:19 Dose: 125 mcg Lisinopril (Lisinopril 10 Mg Tab) 10 mg PO DAILY [facility] Stop: 09/11/23 08:59 Last Admin: 08/14/23 08:42 Dose: 10 mg Loratadine (Loratadine 10 Mg Tab) 10 mg PO BID [facility] Stop: 09/12/23 11:29 Last Admin: 08/14/23 08:42 Dose: 10 mg Multivitamins (Multivitamin Tab) 1 tab PO DAILY [facility] Stop: 09/11/23 08:59 Last Admin: 08/14/23 08:42 Dose: 1 tab Nitroglycerin (Nitroglycerin Sl 0.4 Mg/Tab Tab) 0.4 mg SL Q5M PRN PRN Reason: Chest Pain Stop: 09/10/23 22:41 Oseltamivir Phosphate (Oseltamivir Phosphate 75 Mg Cap) 75 mg PO BID [facility]; Protocol Stop: 08/16/23 22:41 Last Admin: 08/14/23 08:42 Dose: 75 mg Pantoprazole Sodium (Pantoprazole 40 Mg Tab) 40 mg PO HS PRN PRN Reason: Heartburn Stop: 09/12/23 20:59 Last Admin: 08/13/23 21:25 Dose: 40 mg Sertraline HCl (Sertraline Hcl 50 Mg Tablet) 25 mg PO QPM [facility] Stop: 09/11/23 20:59 Last Admin: 08/13/23 21:26 Dose: Not Given
[2023-08-15 07:20] LABS: Calcium 9.2 mg/dl (8.6-10.3); Magnesium 1.7 mg/dl (1.7-2.4); Potassium 4.4 mmol/L (3.5-5.1)
[2023-08-15 07:26] LABS: Creatinine Clr Calc Pharmacy 65.6 ml/min; Est GFR (African American) 100.9 ml/min; Phosphorus 3.6 mg/dl (2.5-4.9)
[2023-08-15] MEDS: guaiFENesin/DEXTROM SYRUP 200MG/20MG 10ML UDC PO SCH (12:44)
--- NOTE | 2023-08-15 16:15 | Hospitalist Progress Note ---
Date of Service August 15, 2023 Assessment & Plan (1) Weakness: Plan: Patient is an 88 yr old female with past med history significant for hypothyroidism, allergic asthma, hypertension, female stress incontinence, general osteoarthrosis, bilateral sensorineural hearing loss, seasonal allergies, adjustment disorder, was recently in the hospital for complete heart block s/p pacemaker on July 31, 2023 and was discharged on August 01, 2023 and followed in cardiology office August 10, 2023 who lives at home and the grandson lives with her in the night time presents with weakness and found to have influenza. Son is in the room. For last couple of days patient is getting weak. Generally she can climb steps. Last night she required help of her grandson. But today she was feeling very weak. She was sitting on a chair but she could not get up when she slid down and fell down. Cleaning lady was there at that time. Her [id number], came and checked her. And later son came and checked her. And when son checked her temperature it was running at 101 F. And she was somewhat tachypneic. When she was laid down flat her oxygen sats were 86%. And she was brought to the hospital. Patient currently alert and oriented. Can give her history. When she fell she did not hit her head. No headache. Has some runny nose. No sore throat. Has some cough. Denies chest pain or shortness of breath. No nausea. No abdominal pain. Appetite has been not great. No diarrhea or constipation. Normal bowel and bladder movements. No rash. No swelling in the legs. Generally ambulates sometimes with walker and sometimes with cane. Influenza A Generalized deconditioning Continue Tamiflu Saturating well on room air Has cough, no mucus. Monitor changes in sputum production/color. PT OT as able-likely to need placement Clinically improved with decreasing cough and also shortness of breath which has improved a lot Remains very weak and lethargic and will need to have more physical therapy No fever and or chills and has been saturating normally on room air Has been coughing a lot without any shortness of breath at rest Denies any fever and or chills but remains extremely weak and lethargic Will give cough medicine and continue with PT and OT evaluation Likely to need placement H/O complete heart block S/p pacemaker on July 31, 2023 Cardiology consulted per patient's family's request - cardio evaled, appreciate recs. Plan for pacemaker interrogation remotely. Heart rate remains stable and without any more cardiac symptoms Hypomagnesemia Replete electrolytes as needed Monitor Acute on chronic hyponatremia HCTZ, dehydration contributing DC IVF, pt w/ improving po intake. Consider to discontinue HCTZ upon discharge as well Monitor sodium levels - improving w/ improving appetite. Consider nephrology evaluation if needed Sodium level has been stable at 133 Will monitor while in the hospital-sodium level is lipid low at 130 today Hypertension Continue lisinopril Hold HCTZ for now Monitor BP Hypothyroidism Continue levothyroxine Depression On Zoloft DVT Px: Heparin SQ CODE STATUS Full Code Admission and Anticipated Discharge Date Admission Date: August 11, 2023 Subjective 08/14/2023 The patient was seen and examined in medical telemetry unit She has been feeling much better today Remains extremely weak and lethargic Respiratory symptoms are better Advised to continue with PT and OT 08/15/2023 The patient was seen and examined in medical telemetry unit She has been feeling much better today Has been coughing a lot and remains very weak and lethargic Denies any chest pain and/or palpitation or shortness of breath Review of Systems Review of Systems: All systems reviewed and are unremarkable except as noted below Physical Exam Physical Exam: Lying in bed without any acute distress Constitutional: + ill appearing and average body habitus Eyes: PERRL, conjunctivae normal, anicteric sclerae ENMT: external ear and nose normal, oropharynx normal Neck: trachea midline, no thyromegaly Respiratory: no respiratory distress Auscultation: + diminished lung sounds and + crackles (Minimal crackles at the bases ) Cardiovascular: Rate/Rhythm: regular rate and regular rhythm; not tachycardic Heart Sounds: normal S1 and normal S2; no murmur Extremities: + edema (Trace edema bilaterally) Gastrointestinal (Abdomen): Inspection/Auscultation: abdomen not distended Percussion/Palpation: abdomen soft; abdomen nontender Musculoskeletal: No acute arthritis involving any of the joint Neurologic: normal touch/pain/proprioception and moves all extremities; no focal motor deficits Lymphatic: no cervical or axillary lymphadenopathy Results & Data Results & Data Vital Signs (Past 12 Hours) Vital Signs Temp Pulse Pulse Resp BP Pulse Ox O2 Del Method 08/15/23 15:13 37.0 C 77 18 156/68 H 94 Room Air 08/15/23 11:25 37.2 C 84 18 153/82 H 91 Room Air 08/15/23 09:26 76 08/15/23 07:31 36.4 C L 75 18 137/71 91 Room Air Laboratory Results [facility] 08/15/23 05:59 Sodium 130 L Potassium 4.4 Chloride 96 L Carbon Dioxide 29 BUN 11 Creatinine 0.50 L Glucose 89 Calcium 9.2 Medications Administered Current Inpatient Medications Acetaminophen (Acetaminophen 325 Mg Tab) 650 mg PO Q4H PRN PRN Reason: Pain or Fever Stop: 09/10/23 22:41 Last Admin: 08/15/23 11:46 Dose: 650 mg Guaifenesin/Dextromethorphan (Guaifenesin/Dextrom Syrup 200mg/20mg 10ml Udc) 10 ml PO Q6H [facility] Stop: 09/14/23 11:59 Last Admin: 08/15/23 12:55 Dose: 10 ml Heparin Sodium (Porcine) (Heparin Sod 5,000 Unit/0.5 Ml Vial) 5,000 units SQ Q12 [facility] Stop: 09/11/23 08:59 Last Admin: 08/15/23 08:54 Dose: 5,000 units Hydroxyzine HCl (Hydroxyzine Hcl 10 Mg Tab) 10 mg PO HS PRN PRN Reason: Insomnia Stop: 09/10/23 22:41 Last Admin: 08/14/23 23:22 Dose: 10 mg Levothyroxine Sodium (Pom - Levothyroxine Sodium 125 Mcg Tablet) 125 mcg PO DAILYBB [facility] Stop: 09/11/23 06:29 Last Admin: 08/15/23 05:33 Dose: 125 mcg Lisinopril (Lisinopril 10 Mg Tab) 10 mg PO DAILY [facility] Stop: 09/11/23 08:59 Last Admin: 08/15/23 08:53 Dose: 10 mg Loratadine (Loratadine 10 Mg Tab) 10 mg PO BID [facility] Stop: 09/12/23 11:29 Last Admin: 08/15/23 10:02 Dose: 10 mg Multivitamins (Multivitamin Tab) 1 tab PO DAILY [facility] Stop: 09/11/23 08:59 Last Admin: 08/15/23 08:53 Dose: 1 tab Nitroglycerin (Nitroglycerin Sl 0.4 Mg/Tab Tab) 0.4 mg SL Q5M PRN PRN Reason: Chest Pain Stop: 09/10/23 22:41 Oseltamivir Phosphate (Oseltamivir Phosphate 75 Mg Cap) 75 mg PO BID [facility]; Protocol Stop: 08/16/23 22:41 Last Admin: 08/15/23 08:53 Dose: 75 mg Pantoprazole Sodium (Pantoprazole 40 Mg Tab) 40 mg PO HS PRN PRN Reason: Heartburn Stop: 09/12/23 20:59 Last Admin: 08/14/23 21:36 Dose: 40 mg Sertraline HCl (Sertraline Hcl 50 Mg Tablet) 25 mg PO QPM [facility] Stop: 09/11/23 20:59 Last Admin: 08/14/23 21:34 Dose: Not Given
[2023-08-16 07:52] LABS: BUN Creatinine Ratio 27.1 (10-20); Calcium 9.3 mg/dl (8.6-10.3); Creatinine Clr Calc Pharmacy 55.6 ml/min; Est GFR (African American) 95.5 ml/min; Est GFR (Non-African American) 82.4 ml/min; Potassium 4.5 mmol/L (3.5-5.1)
--- NOTE | 2023-08-16 15:31 | Hospitalist Progress Note ---
Date of Service August 16, 2023 Assessment & Plan (1) Weakness: Plan: Patient is an 88 yr old female with past med history significant for hypothyroidism, allergic asthma, hypertension, female stress incontinence, general osteoarthrosis, bilateral sensorineural hearing loss, seasonal allergies, adjustment disorder, was recently in the hospital for complete heart block s/p pacemaker on July 31, 2023 and was discharged on August 01, 2023 and followed in cardiology office August 10, 2023 who lives at home and the grandson lives with her in the night time presents with weakness and found to have influenza. Son is in the room. For last couple of days patient is getting weak. Generally she can climb steps. Last night she required help of her grandson. But today she was feeling very weak. She was sitting on a chair but she could not get up when she slid down and fell down. Cleaning lady was there at that time. Her [id number], came and checked her. And later son came and checked her. And when son checked her temperature it was running at 101 F. And she was somewhat tachypneic. When she was laid down flat her oxygen sats were 86%. And she was brought to the hospital. Patient currently alert and oriented. Can give her history. When she fell she did not hit her head. No headache. Has some runny nose. No sore throat. Has some cough. Denies chest pain or shortness of breath. No nausea. No abdominal pain. Appetite has been not great. No diarrhea or constipation. Normal bowel and bladder movements. No rash. No swelling in the legs. Generally ambulates sometimes with walker and sometimes with cane. Influenza A Generalized deconditioning Continue Tamiflu Saturating well on room air Has cough, no mucus. Monitor changes in sputum production/color. PT OT as able-likely to need placement Clinically improved with decreasing cough and also shortness of breath which has improved a lot Remains very weak and lethargic and will need to have more physical therapy No fever and or chills and has been saturating normally on room air Has been coughing a lot without any shortness of breath at rest Denies any fever and or chills but remains extremely weak and lethargic Will give cough medicine and continue with PT and OT evaluation Cough is much improved and PT/OT recommended that she could go home Clinically much improved and better She will be discharged tomorrow H/O complete heart block S/p pacemaker on July 31, 2023 Cardiology consulted per patient's family's request - cardio jemima, rachel recharika. Plan for pacemaker interrogation remotely. Heart rate remains stable and without any more cardiac symptoms Hypomagnesemia Replete electrolytes as needed Monitor Acute on chronic hyponatremia HCTZ, dehydration contributing DC IVF, pt w/ improving po intake. Consider to discontinue HCTZ upon discharge as well Monitor sodium levels - improving w/ improving appetite. Consider nephrology evaluation if needed Sodium level has been stable at 133 Will monitor while in the hospital-sodium level is lipid low at 130 Sodium level remains low at 130-continue with salt tablet Hypertension Continue lisinopril Hold HCTZ for now Monitor BP Hypothyroidism Continue levothyroxine Depression On Zoloft DVT Px: Heparin SQ CODE STATUS Full Code Admission and Anticipated Discharge Date Admission Date: August 11, 2023 Subjective 08/14/2023 The patient was seen and examined in medical telemetry unit She has been feeling much better today Remains extremely weak and lethargic Respiratory symptoms are better Advised to continue with PT and OT 08/15/2023 The patient was seen and examined in medical telemetry unit She has been feeling much better today Has been coughing a lot and remains very weak and lethargic Denies any chest pain and/or palpitation or shortness of breath 08/16/2023 The patient was seen and examined in medical telemetry unit She has been feeling much better and the cough is improved Her weakness is getting better to She has had physical therapy and recommended home Review of Systems Review of Systems: All systems reviewed and are unremarkable except as noted below Physical Exam Physical Exam: Lying in bed without any acute distress Constitutional: + ill appearing and average body habitus Eyes: PERRL, conjunctivae normal, anicteric sclerae ENMT: external ear and nose normal, oropharynx normal Neck: trachea midline, no thyromegaly Respiratory: no respiratory distress Auscultation: + diminished lung sounds and + crackles (Minimal crackles at the bases ) Cardiovascular: Rate/Rhythm: regular rate and regular rhythm; not tachycardic Heart Sounds: normal S1 and normal S2; no murmur Extremities: + edema (Trace edema bilaterally) Gastrointestinal (Abdomen): Inspection/Auscultation: abdomen not distended Percussion/Palpation: abdomen soft; abdomen nontender Musculoskeletal: No acute arthritis involving any of the joint Neurologic: normal touch/pain/proprioception and moves all extremities; no focal motor deficits Lymphatic: no cervical or axillary lymphadenopathy Results & Data Results & Data Vital Signs (Past 12 Hours) Vital Signs Temp Pulse Pulse Resp BP Pulse Ox O2 Del Method 08/16/23 12:09 36.9 C 80 16 126/86 93 Room Air 08/16/23 09:09 Room Air 08/16/23 08:25 36.9 C 69 16 150/66 H 95 Room Air 08/16/23 07:16 75 Laboratory Results [facility] 08/16/23 07:01 Sodium 130 L Potassium 4.5 Chloride 96 L Carbon Dioxide 28 BUN 16 Creatinine 0.59 L Glucose 104 H Calcium 9.3 Medications Administered Current Inpatient Medications Acetaminophen (Acetaminophen 325 Mg Tab) 650 mg PO Q4H PRN PRN Reason: Pain or Fever Stop: 09/10/23 22:41 Last Admin: 08/16/23 05:04 Dose: 650 mg Guaifenesin/Dextromethorphan (Guaifenesin/Dextrom Syrup 200mg/20mg 10ml Udc) 10 ml PO Q6H [facility] Stop: 09/14/23 11:59 Last Admin: 08/16/23 11:06 Dose: 10 ml Heparin Sodium (Porcine) (Heparin Sod 5,000 Unit/0.5 Ml Vial) 5,000 units SQ Q12 [facility] Stop: 09/11/23 08:59 Last Admin: 08/16/23 08:45 Dose: 5,000 units Hydroxyzine HCl (Hydroxyzine Hcl 10 Mg Tab) 10 mg PO HS PRN PRN Reason: Insomnia Stop: 09/10/23 22:41 Last Admin: 08/15/23 23:02 Dose: 10 mg Levothyroxine Sodium (Pom - Levothyroxine Sodium 125 Mcg Tablet) 125 mcg PO DAILYBB [facility] Stop: 09/11/23 06:29 Last Admin: 08/16/23 06:00 Dose: 125 mcg Lisinopril (Lisinopril 10 Mg Tab) 10 mg PO DAILY [facility] Stop: 09/11/23 08:59 Last Admin: 08/16/23 08:48 Dose: 10 mg Loratadine (Loratadine 10 Mg Tab) 10 mg PO BID [facility] Stop: 09/12/23 11:29 Last Admin: 08/16/23 08:47 Dose: 10 mg Multivitamins (Multivitamin Tab) 1 tab PO DAILY [facility] Stop: 09/11/23 08:59 Last Admin: 08/16/23 08:48 Dose: 1 tab Nitroglycerin (Nitroglycerin Sl 0.4 Mg/Tab Tab) 0.4 mg SL Q5M PRN PRN Reason: Chest Pain Stop: 09/10/23 22:41 Oseltamivir Phosphate (Oseltamivir Phosphate 75 Mg Cap) 75 mg PO BID [facility]; Protocol Stop: 08/16/23 22:41 Last Admin: 08/16/23 08:47 Dose: 75 mg Pantoprazole Sodium (Pantoprazole 40 Mg Tab) 40 mg PO HS PRN PRN Reason: Heartburn Stop: 09/12/23 20:59 Last Admin: 08/15/23 20:51 Dose: 40 mg Sertraline HCl (Sertraline Hcl 50 Mg Tablet) 25 mg PO QPM [facility] Stop: 09/11/23 20:59 Last Admin: 08/15/23 20:51 Dose: Not Given
[2023-08-17 08:13] LABS: BUN Creatinine Ratio 22.8 (10-20); Calcium 9.2 mg/dl (8.6-10.3); Creatinine Clr Calc Pharmacy 57.5 ml/min; Est GFR (African American) 96.6 ml/min; Est GFR (Non-African American) 83.4 ml/min; Magnesium 1.7 mg/dl (1.7-2.4); Phosphorus 3.3 mg/dl (2.5-4.9); Potassium 4.3 mmol/L (3.5-5.1)
--- NOTE | 2023-08-17 15:27 | Hospitalist Progress Note ---
Date of Service August 17, 2023 Assessment & Plan (1) Weakness: Plan: Patient is an 88 yr old female with past med history significant for hypothyroidism, allergic asthma, hypertension, female stress incontinence, general osteoarthrosis, bilateral sensorineural hearing loss, seasonal allergies, adjustment disorder, was recently in the hospital for complete heart block s/p pacemaker on July 31, 2023 and was discharged on August 01, 2023 and followed in cardiology office August 10, 2023 who lives at home and the grandson lives with her in the night time presents with weakness and found to have influenza. Son is in the room. For last couple of days patient is getting weak. Generally she can climb steps. Last night she required help of her grandson. But today she was feeling very weak. She was sitting on a chair but she could not get up when she slid down and fell down. Cleaning lady was there at that time. Her pegngvzt-ea-iqm, came and checked her. And later son came and checked her. And when son checked her temperature it was running at 101 F. And she was somewhat tachypneic. When she was laid down flat her oxygen sats were 86%. And she was brought to the hospital. Patient currently alert and oriented. Can give her history. When she fell she did not hit her head. No headache. Has some runny nose. No sore throat. Has some cough. Denies chest pain or shortness of breath. No nausea. No abdominal pain. Appetite has been not great. No diarrhea or constipation. Normal bowel and bladder movements. No rash. No swelling in the legs. Generally ambulates sometimes with walker and sometimes with cane. Influenza A Generalized deconditioning Continue Tamiflu Saturating well on room air Has cough, no mucus. Monitor changes in sputum production/color. PT OT as able-likely to need placement Clinically improved with decreasing cough and also shortness of breath which has improved a lot Remains very weak and lethargic and will need to have more physical therapy No fever and or chills and has been saturating normally on room air Has been coughing a lot without any shortness of breath at rest Denies any fever and or chills but remains extremely weak and lethargic Will give cough medicine and continue with PT and OT evaluation Cough is much improved and PT/OT recommended that she could go home Clinically much improved and better She will be discharged tomorrow Still has minimal cough but no shortness of breath at rest Minimal wheezing and she feels she is not yet ready to be discharged Continue PT and likely discharge on when more help will be available at home H/O complete heart block S/p pacemaker on July 31, 2023 Cardiology consulted per patient's family's request - cardio jemima, rachel brown. Plan for pacemaker interrogation remotely. Heart rate remains stable and without any more cardiac symptoms Hypomagnesemia Replete electrolytes as needed Monitor -corrected Acute on chronic hyponatremia HCTZ, dehydration contributing DC IVF, pt w/ improving po intake. Consider to discontinue HCTZ upon discharge as well Monitor sodium levels - improving w/ improving appetite. Consider nephrology evaluation if needed Sodium level has been stable at 133 Will monitor while in the hospital-sodium level is lipid low at 130 Sodium level remains low at 130-continue with salt tablet Continue the salt tablet and she was advised to have extra salt in her diet Hypertension Continue lisinopril Hold HCTZ for now Monitor BP Hypothyroidism Continue levothyroxine Depression On Zoloft DVT Px: Heparin SQ CODE STATUS Full Code Admission and Anticipated Discharge Date Admission Date: August 11, 2023 Subjective 08/14/2023 The patient was seen and examined in medical telemetry unit She has been feeling much better today Remains extremely weak and lethargic Respiratory symptoms are better Advised to continue with PT and OT 08/15/2023 The patient was seen and examined in medical telemetry unit She has been feeling much better today Has been coughing a lot and remains very weak and lethargic Denies any chest pain and/or palpitation or shortness of breath 08/16/2023 The patient was seen and examined in medical telemetry unit She has been feeling much better and the cough is improved Her weakness is getting better to She has had physical therapy and recommended home 08/17/2023 The patient was seen and examined in medical telemetry unit She has been feeling better but remains very weak and lethargic Cough is improved and shortness of breath is better to She feels she is not yet ready to go home Review of Systems Review of Systems: All systems reviewed and are unremarkable except as noted below Physical Exam Physical Exam: Lying in bed without any acute distress Constitutional: + ill appearing and average body habitus Eyes: PERRL, conjunctivae normal, anicteric sclerae ENMT: external ear and nose normal, oropharynx normal Neck: trachea midline, no thyromegaly Respiratory: no respiratory distress Auscultation: + diminished lung sounds and + crackles (Minimal crackles at the bases ) Cardiovascular: Rate/Rhythm: regular rate and regular rhythm; not tachycardic Heart Sounds: normal S1 and normal S2; no murmur Extremities: + edema (Trace edema bilaterally) Gastrointestinal (Abdomen): Inspection/Auscultation: abdomen not distended Percussion/Palpation: abdomen soft; abdomen nontender Neurologic: normal touch/pain/proprioception and moves all extremities; no focal motor deficits Lymphatic: no cervical or axillary lymphadenopathy Results & Data Results & Data Vital Signs (Past 12 Hours) Vital Signs Temp Pulse Pulse Resp BP Pulse Ox O2 Del Method 08/17/23 15:17 76 08/17/23 12:31 36.9 C 77 16 141/73 H 93 Room Air 08/17/23 09:06 Room Air 08/17/23 07:32 37.0 C 70 16 139/77 95 Room Air 08/17/23 06:58 76 Laboratory Results BMP 08/17/23 07:05 Sodium 129 L Potassium 4.3 Chloride 96 L Carbon Dioxide 27 BUN 13 Creatinine 0.57 L Glucose 111 H Calcium 9.2 Medications Administered Current Inpatient Medications Acetaminophen (Acetaminophen 325 Mg Tab) 650 mg PO Q4H PRN PRN Reason: Pain or Fever Stop: 09/10/23 22:41 Last Admin: 08/17/23 06:00 Dose: 650 mg Guaifenesin/Dextromethorphan (Guaifenesin/Dextrom Syrup 200mg/20mg 10ml Udc) 10 ml PO Q6H ROBB Stop: 09/14/23 11:59 Last Admin: 08/17/23 12:21 Dose: 10 ml Heparin Sodium (Porcine) (Heparin Sod 5,000 Unit/0.5 Ml Vial) 5,000 units SQ Q12 ROBB Stop: 09/11/23 08:59 Last Admin: 08/17/23 08:50 Dose: 5,000 units Hydroxyzine HCl (Hydroxyzine Hcl 10 Mg Tab) 10 mg PO HS PRN PRN Reason: Insomnia Stop: 09/10/23 22:41 Last Admin: 08/16/23 23:13 Dose: 10 mg Levothyroxine Sodium (Pom - Levothyroxine Sodium 125 Mcg Tablet) 125 mcg PO DAILYBB ROBB Stop: 09/11/23 06:29 Last Admin: 08/17/23 06:01 Dose: 125 mcg Lisinopril (Lisinopril 10 Mg Tab) 10 mg PO DAILY [facility] Stop: 09/11/23 08:59 Last Admin: 08/17/23 08:53 Dose: 10 mg Loratadine (Loratadine 10 Mg Tab) 10 mg PO BID [facility] Stop: 09/12/23 11:29 Last Admin: 08/17/23 08:51 Dose: 10 mg Multivitamins (Multivitamin Tab) 1 tab PO DAILY [facility] Stop: 09/11/23 08:59 Last Admin: 08/17/23 08:52 Dose: 1 tab Nitroglycerin (Nitroglycerin Sl 0.4 Mg/Tab Tab) 0.4 mg SL Q5M PRN PRN Reason: Chest Pain Stop: 09/10/23 22:41 Pantoprazole Sodium (Pantoprazole 40 Mg Tab) 40 mg PO HS PRN PRN Reason: Heartburn Stop: 09/12/23 20:59 Last Admin: 08/15/23 20:51 Dose: 40 mg Sertraline HCl (Sertraline Hcl 50 Mg Tablet) 25 mg PO QPM [facility] Stop: 09/11/23 20:59 Last Admin: 08/16/23 20:02 Dose: 25 mg
--- NOTE | 2023-08-18 13:20 | Hospitalist Progress Note ---
Date of Service August 18, 2023 Assessment & Plan (1) Weakness: Plan: Patient is an 88 yr old female with past med history significant for hypothyroidism, allergic asthma, hypertension, female stress incontinence, general osteoarthrosis, bilateral sensorineural hearing loss, seasonal allergies, adjustment disorder, was recently in the hospital for complete heart block s/p pacemaker on July 31, 2023 and was discharged on August 01, 2023 and followed in cardiology office August 10, 2023 who lives at home and the grandson lives with her in the night time presents with weakness and found to have influenza. Son is in the room. For last couple of days patient is getting weak. Generally she can climb steps. Last night she required help of her grandson. But today she was feeling very weak. She was sitting on a chair but she could not get up when she slid down and fell down. Cleaning lady was there at that time. Her [id number], came and checked her. And later son came and checked her. And when son checked her temperature it was running at 101 F. And she was somewhat tachypneic. When she was laid down flat her oxygen sats were 86%. And she was brought to the hospital. Patient currently alert and oriented. Can give her history. When she fell she did not hit her head. No headache. Has some runny nose. No sore throat. Has some cough. Denies chest pain or shortness of breath. No nausea. No abdominal pain. Appetite has been not great. No diarrhea or constipation. Normal bowel and bladder movements. No rash. No swelling in the legs. Generally ambulates sometimes with walker and sometimes with cane. Influenza A Generalized deconditioning Completed Tamiflu course Saturating well on room air Evaluated by PT OT Plan to discharge home today H/O complete heart block S/p pacemaker on July 31, 2023 Cardiology consulted per patient's family's request - cardio jemima, appreciate recs. Plan for pacemaker interrogation remotely. Heart rate remains stable and without any more cardiac symptoms Hypomagnesemia Replete electrolytes as needed Monitor Acute on chronic hyponatremia HCTZ, dehydration contributed HCTZ discontinued Received gentle IV fluids Also received salt tablets Hypertension Continue lisinopril HCTZ discontinued due to chronic hyponatremia Monitor BP Hypothyroidism Continue levothyroxine Depression On Zoloft DVT Px: Heparin SQ CODE STATUS Full Code Disposition Home Admission and Anticipated Discharge Date Admission Date: August 11, 2023 Subjective Patient is seen and examined at bedside Reports minimal cough intermittently Had vomiting overnight secondary to cough but no issues this morning Denies any chest pain, dyspnea, dizziness, nausea, abdominal pain today Eager to get discharged home today Review of Systems Review of Systems: All systems reviewed & are unremarkable except as noted in Subjective Physical Exam Physical Exam: Physical Exam: Vitals signs as noted above General Appearance:Moderately built and nourished, no apparent distress, elderly, frail Head: normocephalic, Atraumatic Eyes: normal inspection, EOMI Neck: supple, Trachea midline Respiratory/Chest: Normal breath sounds, scattered crackles, No accessory muscle use Cardiovascular: S1, S2,+murmur Abdomen/GI:Soft, Non tender, Bowel sounds present Extremities/Musculoskeletal:normal inspection, no edema Neurologic/Psych:AAO, grossly no focal neurological deficits Skin: normal color, warm Results & Data Results & Data Vital Signs (Past 12 Hours) Vital Signs Temp Pulse Pulse Resp BP Pulse Ox O2 Del Method 08/18/23 11:20 36.6 C 80 16 145/75 H 92 Room Air 08/18/23 08:04 Room Air 08/18/23 07:47 36.9 C 89 16 155/83 H 92 Room Air 08/18/23 07:24 78 08/18/23 03:13 36.5 C 91 H 20 185/75 H 92 Room Air
--- NOTE | 2023-08-18 13:30 | Discharge Summary ---
Date of Service August 18, 2023 Admission HPI Per Admitting Provider 88-year-old female with past med history significant for hypothyroidism, allergic asthma, hypertension, female stress incontinence, general osteoarthrosis, bilateral sensorineural hearing loss, seasonal allergies, adjust ment disorder, was recently in the hospital for complete heart block s/p pacemaker on July 31, 2023 and was discharged on August 01, 2023 and followed in cardiology office on August 10, 2023 who lives at home and the grandson lives with her in the night time presents with weakness and found to have influenza. Son is in the room. For last couple of days patient is getting weak. Generally she can climb steps. Last night she required help of her grandson. But today she was feeling very weak. She was sitting on a chair but she could not get up when she slid down and fell down. Cleaning lady was there at that time. Her [id number], came and checked her. And later son came and checked her. And when son checked her temperature it was running at 101 F. And she was somewhat tachypneic. When she was laid flat down her oxygen sats were 86%. And she was brought to the hospital. Patient currently alert and oriented. Can give her history. When she fell she did not hit her head. No headache. Has some runny nose. No sore throat. Has some cough. Denies chest pain or shortness of breath. No nausea. No abdominal pain. Appetite has been not great. No diarrhea or constipation. Normal bowel and bladder movements. No rash. No swelling in the legs. Generally ambulates sometimes with walker and sometimes with cane. Past medical history. As mentioned above Past surgical history. Bilateral cataracts. Laparoscopic surgical colpopexy. Cholecystectomy. Repair of bladder defect. Repair of vaginal. Vaginal hysterectomy. Social history. Quit smoking 1965. Smoked 0.1 pack a day for 3 years. Alcohol occasional. No drug use. Family history. Father had COPD. Mother had stroke. Brother has diabetes. Brother had lymphoma. Sister has asthma. Brother has asthma. Admission Exam Per Admitting Provider General-Not in distress Head- atraumatic Eyes- PERRL. ENT- oropharynx clear Neck- supple, no JVD. Lungs- clear to auscultation no wheezing or crackles. Heart- regular rhythm; no murmur, no gallop.Pacemaker site no drainage seen Abdomen- normal bowel sounds, soft, nontender, no distension. Extremities- no pretibial edema, no erythema seen. Neuro- alert, oriented PERRL, no facial palsy; no dysarthria; obeys simple commands. Skin- warm & dry Principal Diagnosis Influenza A infection Hypomagnesemia Acute on Chronic Hyponatremia Discharge Data Allergies Allergy/AdvReac Type Severity Reaction Status Date / Time pollen extracts Allergy Intermediate ITCHY Verified 08/11/23 18:47 EYES, SNEEZING, CONGESTION Consultations 08/11/23 19:49 ED Decision to Admit Stat 08/12/23 08:00 Consult Cardiology Routine Hospital Course (1) Weakness: Patient is an 88 yr old female with past med history significant for hypothyroidism, allergic asthma, hypertension, female stress incontinence, ge neral osteoarthrosis, bilateral sensorineural hearing loss, seasonal allergies, adjustment disorder, was recently in the hospital for complete heart block s/p pacemaker on July 31, 2023 and was discharged on August 01, 2023 and followed in cardiology office August 10, 2023 who lives at home and the grandson lives with her in the night time presents with weakness and found to have influenza. Son is in the room. For last couple of days patient is getting weak. Generally she can climb steps. Last night she required help of her grandson. But today she was feeling very weak. She was sitting on a chair but she could not get up when she slid down and fell down. Cleaning lady was there at that time. Her [id number]-poa, came and checked her. And later son came and checked her. And when son checked her temperature it was running at 101 F. And she was somewhat tachypneic. When she was laid down flat her oxygen sats were 86%. And she was brought to the hospital. Patient currently alert and oriented. Can give her history. When she fell she did not hit her head. No headache. Has some runny nose. No sore throat. Has some cough. Denies chest pain or shortness of breath. No nausea. No abdominal pain. Appetite has been not great. No diarrhea or constipation. Normal bowel and bladder movements. No rash. No swelling in the legs. Generally ambulates sometimes with walker and sometimes with cane. Influenza A Generalized deconditioning Completed Tamiflu course Saturating well on room air Evaluated by PT OT Plan to discharge home today H/O complete heart block S/p pacemaker on July 31, 2023 Cardiology consulted per patient's family's request - cardio rachel onofre. Plan for pacemaker interrogation remotely. Heart rate remains stable and without any more cardiac symptoms Hypomagnesemia Replete electrolytes as needed Monitor Acute on chronic hyponatremia HCTZ, dehydration contributed HCTZ discontinued Received gentle IV fluids Also received salt tablets Hypertension Continue lisinopril HCTZ discontinued due to chronic hyponatremia Monitor BP Hypothyroidism Continue levothyroxine Depression On Zoloft DVT Px: Heparin SQ CODE STATUS Full Code Disposition Home Total Time Total Time Spent Total Time Spent (In Minutes): 54 minutes Discharge Plan Discharge Items Patient Disposition: Home - Self-Care Reason For Visit: WEAKNESS, FLU Discharge Diagnosis: Influenza A infection Hypomagnesemia Acute on Chronic Hyponatremia Activity: Per Instructions section Exercise/Sports: Gradually increase as tolerated Non-emergency contact: Primary Care Provider Call non-emergency contact if: you have any medication questions, your symptoms worsen, your pain is concerning for you and you have a fever Follow-up/Referrals: Mariella Poon, [Primary Care Provider] - (Date & Time 08/25/2023 11:00 AM Provider Jodie Martin PA-C Department Family [facility] ) Diet: Heart Healthy Diet Texture: Easy to Chew Addtl Attending Provider Instructions: Follow-up with your primary care physician on 08/25/2023 11:00 AM -- Get blood test (basic metabolic panel) in 1 week and follow-up with your physician for monitoring sodium levels --Monitor your blood pressure regularly at home and discuss with your physician for further adjustment of medications as needed. Seek immediate medical attention if your symptoms reoccur or worsen Please take all medications as instructed on discharge list below. Please call if you have any questions or problems. You can reach a [facility] hospitalist on duty at [facility] 24 hours a day by calling [phone] Pending Studies at Discharge: No Stand-Alone Forms: My [facility] [place], Smoking Cessation Medications and DC Order Prescriptions: Continued multivitamin Tablet 1 tab PO DAILY levothyroxine [Synthroid] 125 mcg tablet 125 mcg PO DAILYBB Rx Instructions: MUST BE BRAND NAME sertraline 25 mg tablet 25 mg PO QPM Rx Instructions: PER PT "HAVEN'T TAKEN FOR 2 WEEKS, NOT DEPRESSED, JUST SAD". loratadine [Claritin] 10 mg Tablet 10 mg PO BID omeprazole 20 mg PO HS lisinopril 10 mg tablet 10 mg PO DAILY hydroxyzine HCl 10 mg tablet 10 mg PO HS PRN (Reason: Insomnia) Discontinued hydrochlorothiazide 25 mg tablet 25 mg PO DAILY Discharge Orders: Discharge Order (Routine); Ordered 08/18/23 Ordered By: Ranjan Shankar Admission Data Admit Date/Time: 08/11/23 21:53 Attending Provider: Ranjan Shankar Admit Provider: Isaias Westfall Primary Care Provider: Mariella Poon Other Providers: Isaias Westfall; Indra Ramirez
== END 2023-08-18 15:47 | disposition home or self-care (01) | DRG 194 ==
LOC: ED 17:58 → SUATTDRO 21:53 → EDINP 21:53 → 2W 22:42

== ENCOUNTER 2023-08-19 01:33 | Inpatient (IN) ==
--- NOTE | 2023-08-19 02:08 | CT Scan Report ---
Exam(s): CT HEAD Without Contrast EXAM: CT Head Without Intravenous Contrast CLINICAL HISTORY: Reason for exam: fall from standing. TECHNIQUE: Axial computed tomography images of the head/brain without intravenous contrast. CTDI is 36 mGy and DLP is 624.41 mGy-cm. Automated exposure control was utilized for the study. A dose lowering technique was utilized adhering to the principles of ALARA. COMPARISON: CT Head dated 03/15/23 FINDINGS: Brain: Volume loss with prominent ventricles and sulci. Periventricular and subcortical white matter hypoattenuation likely reflects chronic small vessel disease. No hemorrhage. Punctate right frontoparietal calcifications are nonspecific. May relate to prior neurocysticercosis or other dystrophic calcifications. Ventricles: See above. Bones/joints: Unremarkable. No acute fracture. Soft tissues: Posterior scalp swelling. Sinuses: Unremarkable as visualized. No acute sinusitis. Mastoid air cells: Unremarkable as visualized. No mastoid effusion. IMPRESSION: 1. No evidence of acute intracranial abnormality or skull fracture. 2. Posterior scalp swelling. Electronically signed by: Blayne Venegas M.D. 08/19/23 02:07 AM
--- NOTE | 2023-08-19 02:14 | CT Scan Report ---
Exam(s): CT C SPINE EXAM: CT Cervical Spine Without Intravenous Contrast CLINICAL HISTORY: Reason for exam: fall from standing. TECHNIQUE: Axial computed tomography images of the cervical spine without intravenous contrast. CTDI is 23.77 mGy and DLP is 419.27 mGy-cm. Automated exposure control was utilized for the study. A dose lowering technique was utilized adhering to the principles of ALARA. COMPARISON: CT Cervical Spine dated 03/15/23 FINDINGS: Vertebrae: Straightening of the cervical lordosis, stable appearance. No acute fracture. Discs/spinal canal/neural foramina: Multilevel degenerative changes mostly similar. 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 Varying degrees of canal and foraminal stenoses, similar to the prior. Moderate to severe canal stenosis at C5-6. Soft tissues: Unremarkable. IMPRESSION: No evidence of acute fracture or malalignment. Electronically signed by: Blayne Venegas M.D. 08/19/23 02:14 AM
--- NOTE | 2023-08-19 02:40 | Emergency Department Note ---
Impression & Plan Fall from standing, Laceration of scalp, Generalized weakness, Ambulatory dysfunction ED Provider Note HISTORY OF PRESENT ILLNESS: Patient is an 88-year-old female presenting with a head laceration after a fall. Patient reports she was ambulating to the bathroom to get some Vicks vapor rub for her nose when she lost her balance and fell, falling down about 5 stairs. She did strike her head but did not lose consciousness. She is currently on subq. heparin. She was able to ambulate post fall. Denies any pelvic pain or leg pain. Denies any chest pain, shortness of breath or lightheadedness prior to the fall. Reports that she just lost her balance. She denies any headache or changes in vision. Denies any numbness or tingling or weakness in her extremities. She is complaining of some right flank pain. Tetanus is up-to-date. ROS: as above PHYSICAL EXAM: Constitutional: Patient appears in no acute distress. HENT: Head: Normocephalic. 5 cm linear laceration to the crown of the head with some gaping. Eyes: EOMI, PERRL Mouth/Throat: Mucous membranes moist. Neck: Trachea midline. Neck supple. No midline cervical spine tenderness to palpation Cardiovascular: RRR, No murmurs, rubs or gallops. Intact distal pulses. Pulmonary/Chest: No respiratory distress. Breath sounds clear and equal bilaterally. No wheezes or rales. No chest wall tenderness to palpation. Abdominal: Abdomen soft, no tenderness, rebound or guarding. Back: No midline spinal tenderness, no paraspinal tenderness, no CVA tenderness. Musculoskeletal: No edema, tenderness or deformity noted. Skin: Warm and dry. Psychiatric: Appropriate mood and affect for situation. Neurological: Alert and keenly responsive. CN II-XII grossly intact, moving all extremities equally and fully. MDM: - Vitals signs showed hypertension - History obtained via patient. History as above. - Chronic conditions affecting care: HTN; hypothyroidism - Differential diagnoses include, but are not limited to: Intracranial hemorrhage; skull fracture; UTI; pneumonia; electrolyte abnormality - Order placed for continuous cardiac monitoring. At this time, monitor showed rate of 90 bpm with normal sinus rhythm, per my interpretation. - External medical records reviewed. Discharge summary dated 08/18/2023 was reviewed. Patient was admitted at that time for weakness and found to have influenza. Patient was admitted from 08/11/2023 to 08/18/2023. - Laboratory workup interpreted by myself showed leukocytosis (WBC 16.43) with left shift; hyponatremia (Na 127) - CXR negative for pneumonia, per my interpretation - CT head wo contrast negative for acute pathology - CT cervical spine wo contrast negative for acute pathology - Laceration repaired by myself. Please see procedure note. - Discussed results with the patient and his family at bedside. Family does not feel comfortable taking the patient home, secondary to her recurrent falls. - Discussion was had with case finishing machine adjuster about patient's case and need for admission - Hospitalist consulted for admission - Patient admitted to [facility] service for further evaluation and management. PROCEDURE: Laceration repair Location: crown of head Total length: 5 cm Complexity: simple Verbal consent was obtained after the risks and benefits were explained, including but not limited to bleeding, scarring, infection, pain, and bone/joint/nerve damage. At this time, the risks of the procedure are less than the risks of NOT performing the procedure. A time out was taken and the correct patient and site identified. Copious irrigation was performed using hydrogen peroxide. The wound was explored for foreign bodies and none found. Examination revealed no injury to deep structures such as tendons, bone, or significant blood vessels. Debridement was not performed. The wound edges were approximated using 5 patrice. Hemostasis and excellent approximation was achieved. Detailed wound care instructions and signs and symptoms of infection reviewed with the patient. No complications and the patient tolerated the procedure well. 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 Beliefs That Will Affect Care: None Current Living Situation: Alone Feels Safe at Home: Yes Assistive Devices: Cane and Walker Allergies Allergies Allergy/AdvReac Type Severity Reaction Status Date / Time pollen extracts Allergy Intermediate ITCHY Verified 08/19/23 02:53 EYES, SNEEZING, CONGESTION dust Allergy Intermediate itchy Uncoded 08/19/23 02:54 eyes, sneezing Home Meds Home Medications Medication Instructions Recorded Confirmed levothyroxine 125 mcg tablet 125 mcg PO DAILYBB 11/26/22 08/19/23 (Synthroid) loratadine 10 mg tablet (Claritin) 10 mg PO BID 11/26/22 08/19/23 multivitamin 1 tab PO DAILY 11/26/22 08/19/23 sertraline 25 mg tablet 25 mg PO QPM 11/26/22 08/19/23 hydroxyzine HCl 10 mg tablet 10 mg PO HS PRN Insomnia 07/30/23 08/19/23 lisinopril 10 mg tablet 10 mg PO DAILY 07/30/23 08/19/23 pantoprazole 20 mg tablet,delayed 20 mg PO HS 08/19/23 08/19/23 release Results & Data (ED) Vital Signs Vital Signs - 24 hr 08/19/23 01:39 Temperature 36.5 C Temperature Source Temporal Artery Scan Pulse Rate 92 H Respiratory Rate 19 Blood Pressure 173/100 H Blood Pressure Mean 124 Pulse Oximetry 95 Oxygen Delivery Method Room Air Sepsis Recent Fever Within 48 Hours No Sepsis New/Unexplained Change in Mental Status N/A Sepsis Action Taken by Nursing No Action Required Laboratory Data 08/19/23 03:36 08/19/23 03:36 Lab Results 08/19/23 Range/Units 03:36 WBC 16.43 H (4.8-10.8) K/ul RBC 4.67 (4.20-5.40) M/uL Hgb 13.9 (12.0-16.0) g/dl Hct 40.6 (37.0-47.0) % MCV 86.9 (80.0-100.0) fL MCH 29.8 (25.0-34.0) pg MCHC 34.2 (32.0-36.0) g/dL RDW Std Deviation 40.5 (36.4-46.3) fL RDW Coeff of Bruce 13.1 (11.5-14.5) % Plt Count 309 (130-400) K/uL MPV 9.7 (9.4-12.4) fL Immature Gran % (Auto) 0.8 % Neut % (Auto) 78.5 % Lymph % (Auto) 11.3 % [place] % (Auto) 8.6 % Eos % (Auto) 0.4 % Baso % (Auto) 0.4 % Neut # (Auto) 12.89 H (1.40-6.50) K/uL Lymph # (Auto) 1.86 (1.20-3.40) K/uL [place] # (Auto) 1.42 H (0.11-0.59) K/uL Eos # (Auto) 0.07 (0.00-0.50) K/uL Baso # (Auto) 0.06 (0.00-0.20) K/uL Immature Gran # (Auto) 0.13 (0.01-0.20) K/uL PT 10.6 (9.0-12.0) Seconds INR 1.0 (0.9-1.1) APTT 31 (21-31) Seconds PTT Ratio 1.1 Sodium 127 L (136-145) mmol/L Potassium TNP Chloride 93 L (98-107) mmol/L Carbon Dioxide 27 (21-32) mmol/L Anion Gap 7 (3-11) BUN 15 (6-23) mg/dl Creatinine 0.70 (0.6-1.2) mg/dl Est Cr Clr Drug Dosing 46.8 ml/min Est GFR ( Amer) 90.3 ml/min Est GFR (Non-Af Amer) 77.9 ml/min BUN/Creatinine Ratio 21.4 H (10-20) Glucose 117 H (70-99(Fasting)) mg/dl Osmolality 273 L (280-300) mOsm/kg Calcium 9.9 (8.6-10.3) mg/dl Magnesium 1.8 (1.7-2.4) mg/dl Total Bilirubin 0.6 (0.2-1.0) mg/dl AST TNP ALT 72 H (7-52) U/L Alkaline Phosphatase 67 (34-104) U/L Total Protein 7.8 (6.0-8.3) gm/dl Albumin 4.6 (3.4-5.0) gm/dl Globulin 3.2 (2.5-4.0) gm/dl Albumin/Globulin Ratio 1.4 (0.9-2) TSH 1.101 (0.300-4.500) uIu/ml Administered Medications Discontinued Medications Amlodipine Besylate (Amlodipine Besylate 5 Mg Tab) 2.5 mg PO NOW STA Stop: 08/19/23 05:04 Last Admin: 08/19/23 05:31 Dose: 2.5 mg Documented By: SB Imaging Data Radiologist's Impression: Cervical Spine CT 08/19/23 01:37 Exam(s): CT C SPINE EXAM: CT Cervical Spine Without Intravenous Contrast CLINICAL HISTORY: Reason for exam: fall from standing. TECHNIQUE: Axial computed tomography images of the cervical spine without intravenous contrast. CTDI is 23.77 mGy and DLP is 419.27 mGy-cm. Automated exposure control was utilized for the study. A dose lowering technique was utilized adhering to the principles of ALARA. COMPARISON: CT Cervical Spine dated 03/15/23 FINDINGS: Vertebrae: Straightening of the cervical lordosis, stable appearance. No acute fracture. Discs/spinal canal/neural foramina: Multilevel degenerative changes mostly similar. 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 Varying degrees of canal and foraminal stenoses, similar to the prior. Moderate to severe canal stenosis at C5-6. Soft tissues: Unremarkable. IMPRESSION: No evidence of acute fracture or malalignment. Electronically signed by: Blayne Venegas M.D. 08/19/23 02:[address] 08/19/23 01:37 Exam(s): CT HEAD Without Contrast EXAM: CT Head Without Intravenous Contrast CLINICAL HISTORY: Reason for exam: fall from standing. TECHNIQUE: Axial computed tomography images of the head/brain without intravenous contrast. CTDI is 36 mGy and DLP is 624.41 mGy-cm. Automated exposure control was utilized for the study. A dose lowering technique was utilized adhering to the principles of ALARA. COMPARISON: CT Head dated 03/15/23 FINDINGS: Brain: Volume loss with prominent ventricles and sulci. Periventricular and subcortical white matter hypoattenuation likely reflects chronic small vessel disease. No hemorrhage. Punctate right frontoparietal calcifications are nonspecific. May relate to prior neurocysticercosis or other dystrophic calcifications. Ventricles: See above. Bones/joints: Unremarkable. No acute fracture. Soft tissues: Posterior scalp swelling. Sinuses: Unremarkable as visualized. No acute sinusitis. Mastoid air cells: Unremarkable as visualized. No mastoid effusion. IMPRESSION: 1. No evidence of acute intracranial abnormality or skull fracture. 2. Posterior scalp swelling. Electronically signed by: Blayne Venegas M.D. 08/19/23 02:07 AM Discharge Plan Visit Data Chief Complaint: Head Injury, Minor Stated Complaint: FALL AND HIT HEAD,LAC,BLEEDING ED Provider: Dianelys Childress Discharge Problem: Fall from standing, Laceration of scalp, Generalized weakness, Ambulatory dysfunction Forms Stand Alone Forms: My [facility] Prescriptions Prescriptions: No Action multivitamin Tablet 1 tab PO DAILY levothyroxine [Synthroid] 125 mcg tablet 125 mcg PO DAILYBB Rx Instructions: MUST BE BRAND NAME sertraline 25 mg tablet 25 mg PO QPM Rx Instructions: PER PT "HAVEN'T TAKEN FOR 2 WEEKS, NOT DEPRESSED, JUST SAD". loratadine [Claritin] 10 mg Tablet 10 mg PO BID lisinopril 10 mg tablet 10 mg PO DAILY hydroxyzine HCl 10 mg tablet 10 mg PO HS PRN (Reason: Insomnia) pantoprazole 20 mg Tablet,Delayed Release (Dr/Ec) 20 mg PO HS Referrals Referrals: Mariella Poon DO [Primary Care Provider] -
[2023-08-19 04:04] LABS: Basophils # (auto) 0.06 K/uL (0.00-0.20); Basophils % (auto) 0.4 %; Eosinophils # (auto) 0.07 K/uL (0.00-0.50); Eosinophils % (auto) 0.4 %; Hematocrit (blood only) 40.6 % (37.0-47.0); Hemoglobin 13.9 g/dl (12.0-16.0); Immature Granulocytes # (auto) 0.13 K/uL (0.01-0.20); Immature Granulocytes % (auto) 0.8 %; Lymphocytes # (auto) 1.86 K/uL (1.20-3.40); Lymphocytes % (auto) 11.3 %; Mean Corpuscular Hemoglobin 29.8 pg (25.0-34.0); Mean Corpuscular Hgb Conc 34.2 g/dL (32.0-36.0); Mean Corpuscular Volume 86.9 fL (80.0-100.0); Mean Platelet Volume 9.7 fL (9.4-12.4); Monocytes # (auto) 1.42 K/uL (0.11-0.59); Monocytes % (auto) 8.6 %; Neutrophils # (auto) 12.89 K/uL (1.40-6.50); Neutrophils % (auto) 78.5 %; Platelet Count 309 K/uL (130-400); RDW Coefficient of Variation 13.1 % (11.5-14.5); RDW Standard Deviation 40.5 fL (36.4-46.3); Red Blood Count 4.67 M/uL (4.20-5.40); White Blood Count 16.43 K/ul (4.8-10.8)
[2023-08-19 04:19] LABS: Alanine Aminotransferase 72 U/L (7-52); Albumin Globulin Ratio 1.4 (0.9-2); Albumin Level 4.6 gm/dl (3.4-5.0); Alkaline Phosphatase 67 U/L (34-104); Anion Gap 7 (3-11); BUN Creatinine Ratio 21.4 (10-20); Bilirubin,Total 0.6 mg/dl (0.2-1.0); Blood Urea Nitrogen 15 mg/dl (6-23); Calcium 9.9 mg/dl (8.6-10.3); Carbon Dioxide 27 mmol/L (21-32); Chloride 93 mmol/L (98-107); Creatinine Clr Calc Pharmacy 46.8 ml/min; Est GFR (African American) 90.3 ml/min; Est GFR (Non-African American) 77.9 ml/min; Globulin 3.2 gm/dl (2.5-4.0); Glucose 117 mg/dl (70-99(Fasting)); Magnesium 1.8 mg/dl (1.7-2.4); Sodium 127 mmol/L (136-145); Total Protein 7.8 gm/dl (6.0-8.3)
[2023-08-19 04:23] LABS: Partial Thromboplastin Ratio 1.1; Partial Thromboplastin Time 31 Seconds (21-31); Prothrombin Time 10.6 Seconds (9.0-12.0)
[2023-08-19 04:39] LABS: Thyroid Stimulating Hormone 1.101 uIu/ml (0.300-4.500)
[2023-08-19] MEDS: amLODIPine BESYLATE 5 MG TAB PO STA (05:31)
--- NOTE | 2023-08-19 05:43 | History & Physical Report ---
Date of Service August 19, 2023 Assessment & Plan (1) Hyponatremia: Plan: Acute on chronic ? 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 SCDs Re: Scalp hematoma Full code Text document was generated using [employer] voice recognition software. It may contain grammatical or spelling errors. Kindly contact undersigned for clarification of any documentation item in question. History of Present Illness Chief Complaint: Fall Primary Care Provider: Mariella Poon DO History obtained from patient and records. 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 07/30-08/01 Patient admitted for complete heart block status post PPM. -08/17 Weakness secondary to influenza illness status post Tamiflu, hyponatremia. HCTZ discontinued due to hyponatremia. Patient family thought she needed rehab before going home but she refused. Patient discharged home yesterday. Patient fell in her bathroom last night due to loss of balance which happens from time to time. Head trauma resulting in bleeding laceration. No chest pain, no SOB, no syncope. Patient brought to the ER for evaluation. SBP 170s upon arrival at the ER. Scalp laceration repaired at the ER. 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 Allergies Allergy/AdvReac Type Severity Reaction Status Date / Time pollen extracts Allergy Intermediate ITCHY Verified 08/19/23 02:53 EYES, SNEEZING, CONGESTION Home Medications Medication Instructions Recorded Confirmed Type levothyroxine 125 mcg tablet 125 mcg PO DAILYBB 11/26/22 08/19/23 History (Synthroid) loratadine 10 mg tablet (Claritin) 10 mg PO BID 11/26/22 08/19/23 History multivitamin 1 tab PO DAILY 11/26/22 08/19/23 History sertraline 25 mg tablet 25 mg PO QPM 11/26/22 08/19/23 History hydroxyzine HCl 10 mg tablet 10 mg PO HS PRN Insomnia 07/30/23 08/19/23 History lisinopril 10 mg tablet 10 mg PO DAILY 07/30/23 08/19/23 History pantoprazole 20 mg tablet,delayed 20 mg PO HS 08/19/23 08/19/23 History release Past Med/Surg History Medical History Asthma Anxiety and depression Hypothyroidism HTN (hypertension) Surgical History History of hysterectomy History of cholecystectomy Family History Other Asthma Cancer Diabetes Stroke Social History Smoking Status: Unknown if ever smoked Tobacco Type: Cigarettes Cigarettes Per Day: light smoker for 3 years in 1963; Hx Alcohol Use: No Hx Substance Use: No Preferred Language: Trinidadian Communication Ability: Effective 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 Required: No Beliefs That Will Affect Care: None Current Living Situation: Alone Feels Safe at Home: Yes Assistive Devices: Cane and Walker Review of Systems Review of Systems: As per HPI, all other systems reviewed and negative Physical Exam Physical Exam: GENERAL: Comfortable, pleasant, slightly hard of hearing, no respiratory distress SKIN: Pallor, warm HEENT: Scalp patrice noted, dried blood noted in patient's hair, pale palpebral conjunctivae, no ptosis, dry buccal mucosa NECK : Supple, no tenderness CHEST : Decreased breath sounds, no tenderness HEART : RRR, no obvious murmurs ABDOMEN: no distention, nontender EXTREMITIES : No LE swelling/tenderness, no other conspicuous deformities noted NEUROLOGIC : Coherent, no facial asymmetry, slightly hard of hearing, no other gross focality Results & Data Results & Data Vital Signs (Past 12 Hours) Vital Signs Temp Pulse Resp BP Pulse Ox O2 Del Method 08/19/23 01:39 36.5 C 92 H 19 173/100 H 95 Room Air Laboratory Results Laboratory Results WBC 16.43 K/ul (4.8-10.8) H 08/19/23 03:36 RBC 4.67 M/uL (4.20-5.40) 08/19/23 03:36 Hgb 13.9 g/dl (12.0-16.0) 08/19/23 03:36 Hct 40.6 % (37.0-47.0) 08/19/23 03:36 MCV 86.9 fL (80.0-100.0) 08/19/23 03:36 MCH 29.8 pg (25.0-34.0) 08/19/23 03:36 MCHC 34.2 g/dL (32.0-36.0) 08/19/23 03:36 RDW Std Deviation 40.5 fL (36.4-46.3) 08/19/23 03:36 RDW Coeff of Bruce 13.1 % (11.5-14.5) 08/19/23 03:36 Plt Count 309 K/uL (130-400) 08/19/23 03:36 MPV 9.7 fL (9.4-12.4) 08/19/23 03:36 Immature Gran % (Auto) 0.8 % 08/19/23 03:36 Neut % (Auto) 78.5 % 08/19/23 03:36 Lymph % (Auto) 11.3 % 08/19/23 03:36 [place] % (Auto) 8.6 % 08/19/23 03:36 Eos % (Auto) 0.4 % 08/19/23 03:36 Baso % (Auto) 0.4 % 08/19/23 03:36 Neut # (Auto) 12.89 K/uL (1.40-6.50) H 08/19/23 03:36 Lymph # (Auto) 1.86 K/uL (1.20-3.40) 08/19/23 03:36 [place] # (Auto) 1.42 K/uL (0.11-0.59) H 08/19/23 03:36 Eos # (Auto) 0.07 K/uL (0.00-0.50) 08/19/23 03:36 Baso # (Auto) 0.06 K/uL (0.00-0.20) 08/19/23 03:36 Immature Gran # (Auto) 0.13 K/uL (0.01-0.20) 08/19/23 03:36 PT 10.6 Seconds (9.0-12.0) 08/19/23 03:36 INR 1.0 (0.9-1.1) 08/19/23 03:36 APTT 31 Seconds (21-31) 08/19/23 03:36 PTT Ratio 1.1 08/19/23 03:36 Sodium 127 mmol/L (136-145) L 08/19/23 03:36 Potassium TNP 08/19/23 03:36 Chloride 93 mmol/L (98-107) L 08/19/23 03:36 Carbon Dioxide 27 mmol/L (21-32) 08/19/23 03:36 Anion Gap 7 (3-11) 08/19/23 03:36 BUN 15 mg/dl (6-23) 08/19/23 03:36 Creatinine 0.70 mg/dl (0.6-1.2) 08/19/23 03:36 Est Cr Clr Drug Dosing 46.8 ml/min 08/19/23 03:36 Est GFR ( Amer) 90.3 ml/min 08/19/23 03:36 Est GFR (Non-Af Amer) 77.9 ml/min 08/19/23 03:36 BUN/Creatinine Ratio 21.4 (10-20) H 08/19/23 03:36 Glucose 117 mg/dl (70-99(Fasting)) H 08/19/23 03:36 Osmolality 273 mOsm/kg (280-300) L 08/19/23 03:36 Calcium 9.9 mg/dl (8.6-10.3) 08/19/23 03:36 Magnesium 1.8 mg/dl (1.7-2.4) 08/19/23 03:36 Total Bilirubin 0.6 mg/dl (0.2-1.0) 08/19/23 03:36 AST TNP 08/19/23 03:36 ALT 72 U/L (7-52) H 08/19/23 03:36 Alkaline Phosphatase 67 U/L (34-104) 08/19/23 03:36 B-Natriuretic Peptide 89 pg/ml (0-100) 08/19/23 03:36 Total Protein 7.8 gm/dl (6.0-8.3) 08/19/23 03:36 Albumin 4.6 gm/dl (3.4-5.0) 08/19/23 03:36 Globulin 3.2 gm/dl (2.5-4.0) 08/19/23 03:36 Albumin/Globulin Ratio 1.4 (0.9-2) 08/19/23 03:36 TSH 1.101 uIu/ml (0.300-4.500) 08/19/23 03:[address] 08/19/23 01:37 Exam(s): CT C SPINE EXAM: CT Cervical Spine Without Intravenous Contrast CLINICAL HISTORY: Reason for exam: fall from standing. TECHNIQUE: Axial computed tomography images of the cervical spine without intravenous contrast. CTDI is 23.77 mGy and DLP is 419.27 mGy-cm. Automated exposure control was utilized for the study. A dose lowering technique was utilized adhering to the principles of ALARA. COMPARISON: CT Cervical Spine dated 03/15/23 FINDINGS: Vertebrae: Straightening of the cervical lordosis, stable appearance. No acute fracture. Discs/spinal canal/neural foramina: Multilevel degenerative changes mostly similar. 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 Varying degrees of canal and foraminal stenoses, similar to the prior. Moderate to severe canal stenosis at C5-6. Soft tissues: Unremarkable. IMPRESSION: No evidence of acute fracture or malalignment. Electronically signed by: Blayne Venegas M.D. 08/19/23 02:[address] 08/19/23 01:37 Exam(s): CT HEAD Without Contrast EXAM: CT Head Without Intravenous Contrast CLINICAL HISTORY: Reason for exam: fall from standing. TECHNIQUE: Axial computed tomography images of the head/brain without intravenous contrast. CTDI is 36 mGy and DLP is 624.41 mGy-cm. Automated exposure control was utilized for the study. A dose lowering technique was utilized adhering to the principles of ALARA. COMPARISON: CT Head dated 03/15/23 FINDINGS: Brain: Volume loss with prominent ventricles and sulci. Periventricular and subcortical white matter hypoattenuation likely reflects chronic small vessel disease. No hemorrhage. Punctate right frontoparietal calcifications are nonspecific. May relate to prior neurocysticercosis or other dystrophic calcifications. Ventricles: See above. Bones/joints: Unremarkable. No acute fracture. Soft tissues: Posterior scalp swelling. Sinuses: Unremarkable as visualized. No acute sinusitis. Mastoid air cells: Unremarkable as visualized. No mastoid effusion. IMPRESSION: 1. No evidence of acute intracranial abnormality or skull fracture. 2. Posterior scalp swelling. Electronically signed by: Blayne Venegas M.D. 08/19/23 02:07 AM Diagnostic Findings Chest x-ray as per my interpretation no congestion, PPM
[2023-08-19] MEDS ORDERED: oxyCODONE HCL IR 5 MG TAB (IMMEDIATE RELEASE) PO PRN (05:45)
[2023-08-19] MEDS ORDERED: PROMETHAZINE HCL 6.25 MG in SODIUM CHLORIDE 0.9% 50 ML IV PRN (05:45)
[2023-08-19] MEDS: SODIUM CHLORIDE 0.9% 500 ML IV STA (06:07)
--- NOTE | 2023-08-19 07:11 | XRay Report ---
XR chest 1V portable CLINICAL HISTORY: Fall TECHNIQUE: Single frontal radiograph of the chest was obtained. Comparison: Comparison is made to chest radiograph 08/11/2023 FINDINGS: An implanted pacemaker is seen. Degenerative changes are seen in the shoulder joints. Calcified aorti c knob is seen. The lungs are clear. No evidence of pleural effusion or pneumothorax. IMPRESSION: No acute chest disease. ACT 112: Negative or not required by law. Electronically signed by: Rupert Colby M.D. 08/19/2023 7:10 AM
[2023-08-19] MEDS: MULTIVITAMIN TAB PO SCH (08:17)
[2023-08-19] MEDS: LORATADINE 10 MG TAB PO SCH (08:17)
[2023-08-19] MEDS: ACETAMINOPHEN 325 MG TAB PO PRN (08:17)
[2023-08-19 10:41] LABS: Hematocrit (blood only) 34.3 % (37.0-47.0); Hemoglobin 11.7 g/dl (12.0-16.0)
--- NOTE | 2023-08-19 10:57 | Nephrology Consultation ---
Date of Consultation August 19, 2023 Assessment & Plan (1) Hyponatremia: presenting sodium 127 w/ serum osms 275, urine studies pending all day and now reordered; concern for malnutrition /failure to thrive in this pt but need urine studies to understand better. her urinalysis shows concentrated dark urine even after resuscitation with normal saline. Possible prerenal component here then. lisinopril and sertraline can both certainly cause hyponatremia but would not hold the latter given her challenges over the past year with her health and the loss of her -this am was on NS at 100 mL hourly pending repeat bmp >> repeat sNa is 127 so IVF held -maintain eukalemia/replete K as needed -daily bmp -recommend CT chest to look for structural lung dz given cough >> CXR unimpressive >> shows bronchiolitis which may cause hyponatremia >for now now FR (2) HTN (hypertension): labile and w/ acceptable control in current stressful situation; agree w/ avoiding thiazides -continue amlodipine -continue to monitor History of Present Illness Reason for Consultation: hyponatremia Requesting Physician: Dr Shankar Attending Physician: Ranjan Shankar MD History of Present Illness 88 y/o F whom I'm asked to see for hyponatremia was admitted this AM for worsened chronic hyponatremia and hypretensive urgency after falling at home w/ scalp laceration. 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 She has had 2 other admissions here since 07/30/23: 48 hrs on 07/30 for heart block w/ pacer implant; -08/17 for influenza and hyponatremia w/ discontinuation of thiazide diuretic. She had been on hctz for over a decade w/ only one low sodium value of 133 in early 2023. Rehab was recommended after most recent hospital d/c initially but then patient's functional status improved was discharged home. her serum sodium on presentation was 127 w/ serum osm of 273. urine studies are pending as is repeat sodium. urine sodium at 08/17 d/c was 129. Pt in ER received NS 100 mL hourly and one dose of amlodipine 2.5 mg. BP was 173/100 at 0140 this am; down to 141/77 by 0700 and 120/64 by 11 AM. she tells me she has lost a lot of weight over the past year and clinic records support this. In May 2022 per outpatient clinic records she weighed 157 lb. In October 2022 she was at 138 lb by February 2023 she was 28 lb and is up to 132 lb in July 2023. She tells me she has had a lot of psychosocial stressors her about 6 months ago. 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 She also tells me she had COVID 3 times and lost her sense of taste and smell without fully recovering it. It is to ongoing poor oral intake. Line Denies shortness of breath, denies worsening cough. Denies as pain controlled headache or scalp pain. She does endorse generalized weakness. No edema. No uncontrolled bleeding no nausea or vomiting. She tells me her is at baseline but has recently been productive of yellow sputum Allergies Allergy/AdvReac Type Severity Reaction Status Date / Time pollen extracts Allergy Intermediate ITCHY Verified 08/19/23 02:53 EYES, SNEEZING, CONGESTION Home Medications Medication Instructions Recorded Confirmed Type levothyroxine 125 mcg tablet 125 mcg PO DAILYBB 11/26/22 08/19/23 History (Synthroid) loratadine 10 mg tablet (Claritin) 10 mg PO BID 11/26/22 08/19/23 History multivitamin 1 tab PO DAILY 11/26/22 08/19/23 History sertraline 25 mg tablet 25 mg PO QPM 11/26/22 08/19/23 History hydroxyzine HCl 10 mg tablet 10 mg PO HS PRN Insomnia 07/30/23 08/19/23 History lisinopril 10 mg tablet 10 mg PO DAILY 07/30/23 08/19/23 History pantoprazole 20 mg tablet,delayed 20 mg PO HS 08/19/23 08/19/23 History release Patient History Medical History Asthma Anxiety and depression Hypothyroidism HTN (hypertension) Surgical History History of hysterectomy History of cholecystectomy Family History Other Asthma Cancer Diabetes Stroke Social History Smoking Status: Never smoker Tobacco Type: Cigarettes Cigarettes Per Day: light smoker for 3 years in 1963; Second Hand Exposure: No; Do You Dip or Chew Tobacco: No; Tobacco Cessation Education Requested by Patient: No Hx Alcohol Use: Yes Hx Substance Use: No Preferred Language: Guatemalan Communication Ability: Effective Rural Carrier Required: No Beliefs That Will Affect Care: None Current Living Situation: Alone Other Information That Helps Us Care for You: No Feels Safe at Home: Yes Safety Concerns: Feels Safe At This Time Assistive Devices: Cane, Glasses and Walker Review of Systems 2 Review of Systems: All systems reviewed & are unremarkable except as noted in HPI & below Physical Exam 2 Constitutional: well developed, well nourished, average body habitus, + frail appearing and cooperative; no acute distress Eyes: EOM intact bilaterally ENMT: Ears: no external ear abnormality Nose: no external nose abnormality Mouth: + dry oral mucous membranes Neck: no nuchal rigidity Respiratory: + cough ( frequent thick cough), able to speak in complete sentences ( but stops to gasp for air after most every sentence interrupting her speec) and + tachypneic Auscultation: + diminished lung sounds Cardiovascular: RRR, no murmur, no edema Gastrointestinal (Abdomen): Inspection/Auscultation: normal bowel sounds P ercussion/Palpation: abdomen soft; abdomen nontender Musculoskeletal: Extremities: strength 5/5 throughout Skin: no rashes, warm and dry Trauma: + laceration ( with 5 or 6 patrice top of her scalp midline) Neurologic: conroy, fluent speech, no tremor Psychiatric: Orientation: alert and oriented x 3 Results & Data Vital Signs (Past 12 Hours) Vital Signs Temp Pulse Pulse Resp BP BP Pulse Ox 08/19/23 08:24 52 L 18 141/77 H 96 08/19/23 07:37 98 H 19 141/77 H 96 08/19/23 01:39 36.5 C 92 H 19 173/100 H 95 O2 Del Method 08/19/23 08:24 Room Air 08/19/23 07:37 Room Air 08/19/23 01:39 Room Air Laboratory Results 08/19/23 10:14 3/7 bmp reviewed AM sOSM 273 Diagnostic Findings CXR, head CT, c spine CT all w/o acute findings apart from posterior scalp swelling
[2023-08-19 11:21] LABS: Calcium 9.1 mg/dl (8.6-10.3); Est GFR (African American) 93.5 ml/min; Est GFR (Non-African American) 80.6 ml/min; Potassium 4.2 mmol/L (3.5-5.1)
--- OUTSIDE RECORDS SUMMARY | 2023-08-19 13:38 | External Medical Summary | Summary of Care ---
Author Name Unknown Organization [facility] Address [address] [place] [address] Phone [phone] Care Team Providers Care Technician Trainee Name Role Phone Mariella Poon DO Primary Care Provider [phone] Reason for Visit * Reason Onset Date Comments Appointment 08/12/2023 Encounter Details Date Type Department Care Team (Late st Contact Info) Description 08/12/2023 Telephone Cardiology, [facility] [address] [facility] [address] Maria Del Rosario Zuniga CRNP [address] [facility] [address] Appointment Allergies No known active allergiesdocumented as of this encounter (statuses as of 08/13/2023) Medications Medication Sig Dispensed Refills Start Date [...] as of this encounter (statuses as of 08/13/2023) Active Problems Problem Noted Date Diagnosed Date [...] as of this encounter (statuses as of 08/13/2023) Resolved Problems Problem Noted Date Diagnosed Date Resolved Date Chronic kidney disease, stage 3a 12/23/2020 06/04/2022 Overview: Per CKD protocol Intermittent asthma with rel iever use up to twice per week 03/20/2015 09/23/2015 COPD, moderate 10/13/2014 08/17/2018 Allergic rhinitis 03/27/2014 03/27/2014 Allergic rhinitis 05/30/2013 01/16/2014 HTN, goal below 140/90 07/29/201104/08 [employer] Other*[id number] 12/13/2009 02/03/2010 Asthma with severity to be [...] as of this encounter (statuses as of 08/13/2023) Immunizations Name Administration Dates Next Due COVID-19 mRNA, LNP-s, No Pre serve, 2-Dose Series ([employer]) 04/17/2021,08/10/2020,07/20/2020 COVID-19, LNP-s, No Preserve , Samy-sucrose, Ages 12+ ([employer]) 12/02/2021 COVID-19, MRNA-LNP, 23-24, P F, 30 MCG/0.3 mL, 12 YRS AND ABOVE, IM ([employer]) 03/26/2023 Covid-19, Mrna, Lnp-s, Pf, B ivalent, 30 Mcg, IM, 12 yrs and above ([employer]) 03/24/2022 PPD 05/18/2006 Pneumococcal Conjugate Vacc, 13 [...] Telephone Encounter - Joceline Headley RN - 08/13/2023 11:17 AM EST Patient was evaluated in pacer clinic on 08/10/23. Report uploaded to [facility]/finalized. Patient should only need follow up in device clinic in 3 months at this time (around 11/08/23) unless sooner interrogation needed based on hospitalization. -Maria Del Rosario, patient also with no cardiology follow up at this time with provider, please advise if follow up should be scheduled and when. * Telephone Encounter - Sowmya Stoll OSA - 08/13/2023 7:29 AM EST Scheduled Pt for August 23 at 2:00 with the pacer clinic. * Telephone Encounter - Maria Del Rosario Zuniga CRNP - 08/12/2023 4:10 PM EST Patient was to be seen for pacemaker clinic on 08/10/23;however cancelled due to illness and is now hospitalized with Influenza A. I will have a remote interrogation done while hospitalized, but can we please get her rescheduled for pacer clinic in the next week or 2. ([employer] device) Thank you. documented in this encounter Plan of Treatment Upcoming Encounters Date Type Department Care Team (Late st Contact Info) Description 08/24/2023 2:00 PM EDT Cardiac Studies Cardiology, [facility] 132 [facility] [place] [address] [facility] 132 [facility] [place] [address] 01/19/2024 2:30 PM EDT Office Visit Family Medicine [address] [place] [phone] Mariella [address] [place] [address] Health Maintenance Due Date Last Done Comments [...] this encounter Medical Devices Implanted Type Area Converter Supervisor Device Identifier Shelf Expiration Date Model / Serial / Lot Mesh Pelvic Gynamesh Gpsl - [id number] Implanted:Qty: 1 on 11/07/2008 at OR [facility] [place] N/A: Vaginal Vault [employer] 06/14/2013 GPSL / / [id number] Sling Align Retropubic [id number] - [id number] Implanted:Qty: 1 on 11/07/2008 at OR [facility] [place] N/A: Urethra INACTIVE CR BARD : UROLOGICAL 09/12/2010 [id number] / / [id number] documented as of this encounter Care Teams Technician Trainee Relationship Specialty Start Date End Date Mariella Poon DO [address] [place] [address] [place] [id number] PCP - General Internal Medicine 05/05/17 documented as of this encounter
--- OUTSIDE RECORDS SUMMARY | 2023-08-19 13:38 | External Medical Summary | Summary of Care ---
Author Name Unknown Organization [facility] Address [address] [place] [address] Phone [phone] Care Team Providers Care Traffic Engineer Name Role Phone Mariella Poon DO Primary Care Provider [phone] Encounter Details Date Type Department Care Team (Late st Contact Info) Description 08/12/2023 Telephone Family Medicine [address] [phone] Mariella Poon DO [address] [place] [address] [place] [address] Allergies No known active allergiesdocumented as of this encounter (statuses as of 08/18/2023) Medications Medication Sig Dispensed Refills Start Date [...] as of this encounter (statuses as of 08/18/2023) Active Problems Problem Noted Date Diagnosed Date [...] as of this encounter (statuses as of 08/18/2023) Resolved Problems Problem Noted Date Diagnosed Date Resolved Date Chronic kidney disease, stage 3a 12/23/2020 06/04/2022 Overview: Per CKD protocol Intermittent asthma with rel iever use up to twice per week 03/20/2015 09/23/2015 COPD, moderate 10/13/2014 08/17/2018 Allergic rhinitis 03/27/2014 03/27/2014 Allergic rhinitis 05/30/2013 01/16/2014 HTN, goal below 140/90 07/29/201104/08 [employer] Other*[id number] 12/13/2009 02/03/2010 Asthma with severity to be [...] as of this encounter (statuses as of 08/18/2023) Immunizations Name Administration Dates Next Due COVID-19 mRNA, LNP-s, No Pre serve, 2-Dose Series ([employer]) 04/17/2021,08/10/2020,07/20/2020 COVID-19, LNP-s, No Preserve , Samy-sucrose, Ages 12+ ([employer]izer) 12/02/2021 COVID-19, MRNA-LNP, 23-24, P F, 30 MCG/0.3 mL, 12 YRS AND ABOVE, IM ([employer]) 03/26/2023 Covid-19, Mrna, Lnp-s, Pf, B ivalent, 30 Mcg, IM, 12 yrs and above ([employer]) 03/24/2022 PPD 05/18/2006 Pneumococcal Conjugate Vacc, 13 [...] encounter Miscellaneous Notes * Telephone Encounter - Chanell Lilly LPN - 08/12/2023 9:50 AM EST Received refill request for hctz. D/C summary states that it was held but can resume at discharge. I tried to call pt- no answer on home phone, and voicemail is full on mobile phone. Please ask pt if she is still taking the hctz 25mg daily if she calls back. documented in this encounter Plan of Treatment Upcoming Encounters Date Type Department Care Team (Late st Contact Info) Description 08/25/2023 11:00 AM EDT Office Visit [address] [phone] Jodie Martin PA-C [address] [place] [address] [place] [address] 11/16/2023 1:30 PM EDT Cardiac Studies Cardiology, [facility] 132 [facility] [place] [address] [place], Pacer Clinic [facility] [place] [address] 01/19/2024 2:30 PM EDT Office Visit [address] [phone] Mariella Poon DO [address] [place] [address] [place] [address] Health Maintenance Due Date Last Done Comments [...] this encounter Medical Devices Implanted Type Area Senior Bi Developer Device Identifier Shelf Expiration Date Model / Serial / Lot Mesh Pelvic Gynamesh Gpsl - [id number] Implanted:Qty: 1 on 11/07/[address] [facility] [place]: Vaginal Vault [employer]OL 06/14/2013 GPSL / / [id number] Sling Align Retropubic [id number] - [id number] Implanted:Qty: 1 on 11/07/[address] [facility] [place]A: Urethra INACTIVE CR BARD : UROLOGICAL 09/12/2010 [id number] / / [id number] documented as of this encounter Care Teams Traffic Engineer Relationship Specialty Start Date End Date Mariella Poon DO [address] [place] [address] [place] [phone] PCP - General Internal Medicine 05/05/17 documented as of this encounter
--- OUTSIDE RECORDS SUMMARY | 2023-08-19 13:38 | External Medical Summary | Summary of Care ---
Author Name Unknown Organization [facility] Address [address] [place] [address] Phone [phone] Care Team Providers Care Supervisor Gate Services Name Role Phone Mariella Poon DO Primary Care Provider Reason for Visit * Reason Onset Date Comments Appointment 08/12/2023 Encounter Details Date Type Department Care Team (Late st Contact Info) Description 08/12/2023 Telephone Cardiology, [facility] [address] [facility] [address] Maria Del Rosario Zuniga CRNP [address] [facility] [address] Appointment Allergies No known active allergiesdocumented as [...] 05/30/2013 01/16/2014 HTN, goal below 140/90 07/29/201104/08 [employer] Other*[id number] 12/13/2009 02/03/2010 Asthma with severity to be [...] mRNA, LNP-s, No Pre serve, 2-Dose Series ([employer]) 04/17/2021,08/10/2020,07/20/2020 COVID-19, LNP-s, No Preserve , Samy-sucrose, Ages 12+ (Prezto) 12/02/2021 COVID-19, MRNA-LNP, 23-24, P F, 30 MCG/0.3 mL, 12 YRS AND ABOVE, IM ([employer]) 03/26/2023 Covid-19, Mrna, Lnp-s, Pf, B ivalent, 30 Mcg, IM, 12 yrs and above (Prezto) 03/24/2022 PPD 05/18/2006 Pneumococcal Conjugate Vacc, 13 [...] 08/24/2023 2:00 PM EDT Cardiac Studies Cardiology, [facility] [address] [place] [address] [place], Pacer Clinic [facility] [address] [place] [address] 01/19/2024 2:30 PM EDT Office Visit Family Medicine [address] [place] [phone] [place] [address] Health Maintenance Due Date Last Done Comments [...] this encounter Medical Devices Implanted Type Area Billing Supervisor Device Identifier Shelf Expiration Date Model / Serial / Lot Mesh Pelvic Gynamesh Gpsl - [id number] Implanted:Qty: 1 on 11/07/2008 at OR [facility] [place] N/A: Vaginal Vault [employer]OL 06/14/2013 GPSL / / [id number] Sling Align Retropubic [id number] - [id number] Implanted:Qty: 1 on 11/07/2008 at OR [facility] [place] N/A: Urethra INACTIVE CR BARD : UROLOGICAL 09/12/2010 [id number] / / [id number] documented as of this encounter Care Teams Supervisor Gate Services Relationship Specialty Start Date End Date Mariella Poon DO [address] [place] [address] [place] [address] PCP - General Internal Medicine 05/05/17 documented as of this encounter
--- OUTSIDE RECORDS SUMMARY | 2023-08-19 13:38 | External Medical Summary | Summary of Care ---
Author Name Unknown Organization [facility] Address [address] [place] [address] Phone [phone] Care Team Providers Care Railroad Operator Name Role Phone Mariella Poon Primary Care Provider Encounter Details Date Type Department Care Team (Late st Contact Info) Description 08/12/2023 Result Scan Unspecified Department Teresita Bland DO [address] [place] [address] <No scans attached> Allergies No known active allergiesdocumented as of this encounter (statuses as of 08/12/2023) Medications Medication Sig Dispensed Refills Start Date [...] as of this encounter (statuses as of 08/12/2023) Active Problems Problem Noted Date Diagnosed Date [...] as of this encounter (statuses as of 08/12/2023) Resolved Problems Problem Noted Date Diagnosed Date Resolved Date Chronic kidney disease, stage 3a 12/23/2020 06/04/2022 Overview: Per CKD protocol Intermittent asthma with rel iever use up to twice per week 03/20/2015 09/23/2015 COPD, moderate 10/13/2014 08/17/2018 Allergic rhinitis 03/27/2014 03/27/2014 Allergic rhinitis 05/30/2013 01/16/2014 HTN, goal below 140/90 07/29/201104/08 [employer] Other*[id number] 12/13/2009 02/03/2010 Asthma with severity to be [...] as of this encounter (statuses as of 08/12/2023) Immunizations Name Administration Dates Next Due COVID-19 mRNA, LNP-s, No Pre serve, 2-Dose Series ([employer]) 04/17/2021,08/10/2020,07/20/2020 COVID-19, LNP-s, No Preserve , Samy-sucrose, Ages 12+ ([employer]) 12/02/2021 COVID-19, MRNA-LNP, 23-24, P F, 30 MCG/0.3 mL, 12 YRS AND ABOVE, IM ([employer]) 03/26/2023 Covid-19, Mrna, Lnp-s, Pf, B ivalent, 30 Mcg, IM, 12 yrs and above ([employer]) 03/24/2022 PPD 05/18/2006 Pneumococcal Conjugate Vacc, [...] PM EDT Office Visit Family Medicine [address] [place] [phone] Mariella Poon [address] [place] [address] Health Maintenance Due Date Last Done Comments [...] this encounter Medical Devices Implanted Type Area Printing Table Worker Device Identifier Shelf Expiration Date Model / Serial / Lot Mesh Pelvic Gynamesh Gpsl - [id number] Implanted:Qty: 1 on 11/07/2008 at [place] [facility] [place] N/A: Vaginal Vault [employer] 06/14/2013 GPSL / / [id number] Sling Align Retropubic [id number] - [id number] Implanted:Qty: 1 on 11/07/2008 at [place] [facility] [place] N/A: Urethra INACTIVE CR BARD : UROLOGICAL 09/12/2010 [id number] / / [id number] documented as of this encounter Procedures Procedure Name Priority Date/Time Associated Diagnosis Comments CARDIOLOGY SCANNED RESULT 08/12/2023 documented in this encounter Results * CARDIOLOGY SCANNED RESULT (08/12/2023) 08/12/2023 Teresita Bland DO OTHER documented in this encounter Care Teams Railroad Operator Relationship Specialty Start Date End Date Mariella Poon DO [address] [place] [address] [place] [address] PCP - General Internal Medicine 05/05/17 documented as of this encounter
--- OUTSIDE RECORDS SUMMARY | 2023-08-19 13:38 | External Medical Summary | Summary of Care ---
Author Name Unknown Organization [facility] Address [address] [place] [address] Phone [phone] Care Team Providers Care Stud Master/Mistress Name Role Phone Mariella Poon DO Primary Care Provider Reason for Visit * Reason Onset Date Comments Appointment 08/12/2023 Encounter Details Date Type Department Care Team (Late st Contact Info) Description 08/12/2023 Telephone Cardiology, [facility] [address] [facility] [address] Maria Del Rosario Zuniga CRNP [address] [facility] [address] Appointment Allergies No known active allergiesdocumented as of this encounter (statuses as of 08/16/2023) Medications Medication Sig Dispensed Refills Start Date [...] as of this encounter (statuses as of 08/16/2023) Active Problems Problem Noted Date Diagnosed Date [...] as of this encounter (statuses as of 08/16/2023) Resolved Problems Problem Noted Date Diagnosed Date Resolved Date Chronic kidney disease, stage 3a 12/23/2020 06/04/2022 Overview: Per CKD protocol Intermittent asthma with rel iever use up to twice per week 03/20/2015 09/23/2015 COPD, moderate 10/13/2014 08/17/2018 Allergic rhinitis 03/27/2014 03/27/2014 Allergic rhinitis 05/30/2013 01/16/2014 HTN, goal below 140/90 07/29/201104/08 [employer] Other*[id number] 12/13/2009 02/03/2010 Asthma with severity to be [...] as of this encounter (statuses as of 08/16/2023) Immunizations Name Administration Dates Next Due COVID-19 mRNA, LNP-s, No Pre serve, 2-Dose Series ([employer]) 04/17/2021,08/10/2020,07/20/2020 COVID-19, LNP-s, No Preserve , Samy-sucrose, Ages 12+ ([employer]) 12/02/2021 COVID-19, MRNA-LNP, 23-24, P F, 30 MCG/0.3 mL, 12 YRS AND ABOVE, IM ([employer]) 03/26/2023 Covid-19, Mrna, Lnp-s, Pf, B ivalent, 30 Mcg, IM, 12 yrs and above ([employer]) 03/24/2022 PPD 05/18/2006 Pneumococcal Conjugate Vacc, 13 [...] Telephone Encounter - Joceline Headley RN - 08/16/2023 10:23 AM EST Noted. * Telephone Encounter - Maria Del Rosario Zuniga CRNP - 08/14/2023 7:50 AM EST Thank you Joceline for Clarifying. After talking with the patient and son, we were under the impression that she was never seen. Long story. No , a 3 month follow up with pacer clinic is fine. Thank you Maria Del Rosario * Telephone Encounter - Joceline Headley RN [...] Care Team (Late st Contact Info) Description 11/16/2023 1:30 PM EDT [facility] 132 [facility] [place] [address] [place], Pacer Clinic [facility] [address] [place] [address] 01/19/2024 2:30 PM EDT Office Visit Family Medicine [address] [place] [phone] [place] [address] Health Maintenance Due Date Last Done Comments [...] this encounter Medical Devices Implanted Type Area Drum Handler Device Identifier Shelf Expiration Date Model / Serial / Lot Mesh Pelvic Gynamesh Gpsl - [id number] Implanted:Qty: 1 on 11/07/2008 at [place] [facility] [place] N/A: Vaginal Vault [employer] 06/14/2013 GPSL / / [id number] Sling Align Retropubic [id number] - [id number] Implanted:Qty: 1 on 11/07/2008 at OR [facility] N/A: Urethra INACTIVE CR BARD : UROLOGICAL 09/12/2010 [id number] / / [id number] documented as of this encounter Care Teams Stud Master/Mistress Relationship Specialty Start Date End Date Mariella Poon DO [address] [place] [address] [place] [phone] PCP - General Internal Medicine 05/05/17 documented as of this encounter
--- OUTSIDE RECORDS SUMMARY | 2023-08-19 13:38 | External Medical Summary | Summary of Care ---
Author Name Unknown Organization [facility] Address [address] [place] [address] Phone [phone] Care Team Providers Care Ground Crewman Name Role Phone Mariella Poon DO Primary Care Provider [phone] Reason for Visit * Reason Onset Date Comments Appointment 08/12/2023 Encounter Details Date Type Department Care Team (Late st Contact Info) Description 08/12/2023 Telephone Cardiology, [facility] [address] [facility] [id number] Maria Del Rosario Zuniga CRNP [address] [facility] [address] Appointment Allergies No known active allergiesdocumented as of this encounter (statuses as of 08/14/2023) Medications Medication Sig Dispensed Refills Start Date [...] as of this encounter (statuses as of 08/14/2023) Active Problems Problem Noted Date Diagnosed Date [...] as of this encounter (statuses as of 08/14/2023) Resolved Problems Problem Noted Date Diagnosed Date Resolved Date Chronic kidney disease, stage 3a 12/23/2020 06/04/2022 Overview: Per CKD protocol Intermittent asthma with rel iever use up to twice per week 03/20/2015 09/23/2015 COPD, moderate 10/13/2014 08/17/2018 Allergic rhinitis 03/27/2014 03/27/2014 Allergic rhinitis 05/30/2013 01/16/2014 HTN, goal below 140/90 07/29/201104/08 [employer] Other*[id number] 12/13/2009 02/03/2010 Asthma with severity to be [...] as of this encounter (statuses as of 08/14/2023) Immunizations Name Administration Dates Next Due COVID-19 mRNA, LNP-s, No Pre serve, 2-Dose Series ([employer]) 04/17/2021,08/10/2020,07/20/2020 COVID-19, LNP-s, No Preserve , Samy-sucrose, Ages 12+ ([employer] [facility]) 12/02/2021 COVID-19, MRNA-LNP, 23-24, P F, 30 MCG/0.3 mL, 12 YRS AND ABOVE, IM ([employer] [facility]) 03/26/2023 Covid-19, Mrna, Lnp-s, Pf, B ivalent, 30 Mcg, IM, 12 yrs and above ([employer] [place]) 03/24/2022 PPD 05/18/2006 Pneumococcal Conjugate Vacc, 13 [...] encounter Miscellaneous Notes * Telephone Encounter - Maria Del Rosario [...] 08/24/2023 2:00 PM EDT Cardiac Studies Cardiology, [facility] [address] [place] [address] [place] [address] [place] [address] 01/19/2024 2:30 PM EDT Office Visit Family [address] [place] [phone] Mariella Poon [address] [place] [address] Health Maintenance Due Date Last Done Comments [...] this encounter Medical Devices Implanted Type Area Java [employer] Device Identifier Shelf Expiration Date Model / Serial / Lot Mesh Pelvic Gynamesh Gps[employer] - [id number] Implanted:Qty: 1 on 11/07/2008 at [facility] N/A: Vaginal Vault [employer] 06/14/2013 GPSL / / [id number] Sling Align Retropubic [id number] - [id number] Implanted:Qty: 1 on 11/07/2008 at OR [facility] N/A: Urethra INACTIVE CR BARD : UROLOGICAL 09/12/2010 [id number] / / [id number] documented as of this encounter Care Teams Ground Crewman Relationship Specialty Start Date End Date Mariella Poon DO [address] [place] [address] [place] [id number] PCP - General Internal Medicine 05/05/17 documented as of this encounter
[2023-08-19] MEDS: DOXYCYCLINE HYCLATE 100 MG CAP PO SCH (15:08)
--- NOTE | 2023-08-19 15:18 | Hospitalist Progress Note ---
Date of Service August 19, 2023 Assessment & Plan (1) Hyponatremia: Plan: Acute on chronic hyponatremia Likely multifactorial secondary to medications, poor nutrition/dehydration, ?SIADH Normal TSH Serum osmolality 273 Urine sodium, urine osmolality pending HCTZ discontinued last admission Hold lisinopril for now Received IV fluids Monitor sodium levels Dietitian consulted for nutritional assessment Sodium 127 today Appreciate Nephrology Input Mechanical fall Traumatic scalp hematoma/laceration S/P sutures H/O recurrent falls, ambulatory dysfunction Fall precautions PT OT Acute bronchitis Recent influenza A infection Given persistent symptoms, will obtain CT chest Empirically started on doxycycline Hypertensive urgency Likely situational Lisinopril on hold On amlodipine for now Monitor BP Complete heart block S/P PPM 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) Evaluated by cardiology last admission Asthma/COPD Currently no signs of exacerbation Monitor Hypothyroidism Continue levothyroxine Anxiety/mood disorder On Zoloft Monitor DVT Px: SCDs Re: Scalp hematoma Code Status Full code Disposition PT OT prior to discharge Admission and Anticipated Discharge Date Admission Date: August 19, 2023 Subjective Patient is seen and examined at bedside Denies any significant pain at scalp laceration Admits to have cough with yellowish expectoration Denies any chest pain, dyspnea, nausea, vomiting, abdominal pain Interested to go to rehab if qualifies No other complaints Review of Systems Review of Systems: All systems reviewed & are unremarkable except as noted in Subjective Physical Exam Physical Exam: Physical Exam: Vitals signs as noted above General Appearance:Moderately built and nourished, no apparent distress, elderly, frail Head: normocephalic, traumatic, +Scalp Laceration Eyes: normal inspection, EOMI Neck: supple, Trachea midline Respiratory/Chest: Normal breath sounds, scattered crackles, No accessory muscle use Cardiovascular: S1, S2,+murmur Abdomen/GI:Soft, Non tender, Bowel sounds present Extremities/Musculoskeletal:normal inspection, no edema Neurologic/Psych:AAO, grossly no focal neurological deficits Skin: normal color, warm Results & Data Results & Data Vital Signs (Past 12 Hours) Vital Signs Pulse Resp BP Pulse Ox O2 Del Method 08/19/23 11:06 83 19 120/64 92 Room Air 08/19/23 08:24 52 L 18 141/77 H 96 Room Air 08/19/23 07:37 98 H 19 141/77 H 96 Room Air Laboratory Results Short CBC 08/19/23 08/19/23 Range/Units 03:36 10:14 WBC 16.43 H (4.8-10.8) K/ul Hgb 13.9 11.7 L (12.0-16.0) g/dl Hct 40.6 34.3 L (37.0-47.0) % Plt Count 309 (130-400) K/uL BMP 08/19/23 08/19/23 03:36 10:14 Sodium 127 L 127 L Potassium TNP 4.2 Chloride 93 L 96 L Carbon Dioxide 27 24 BUN 15 17 Creatinine 0.70 0.63 Glucose 117 H 123 H Calcium 9.9 9.1 Liver Function 08/19/23 Range/Units 03:36 Total Bilirubin 0.6 (0.2-1.0) mg/dl AST TNP ALT 72 H (7-52) U/L Alkaline Phosphatase 67 (34-104) U/L Albumin 4.6 (3.4-5.0) gm/dl
--- NOTE | 2023-08-19 16:08 | CT Scan Report ---
CT chest diagnostic wo con CT DOSE: 350.24 mGy.cm CLINICAL HISTORY: 88 years-old Female with cough. Acute cough TECHNIQUE: Multiaxial CT images of the chest were performed without contrast. A dose lowering techni que was utilized adhering to the principles of ALARA. COMPARISON: Chest radiograph of same day FINDINGS: Unremarkable thyroid. Left subclavian pacer. Heart is upper limits of normal in size. Moder ate coronary artery and severe mitral annular calcifications. Atherosclerosis of the aorta without an eurysm. Pulmonary arteries dilated to 3.7 cm suggestive of pulmonary arterial hypertension. No pneumothorax or pleural effusion. Bronchial wall thickening with multifocal mucus plugging. There is a bilateral mosaic attenuation with intermixed groundglass densities. Mild linear subsegmental bib asilar predominant consolidation. Mild patchy subsegmental tree-in-bud nodules in the basal right low er lobe. 2 mm low clinical suspicion solid nodule right lower lobe on image 184. Cholecystectomy. Small hiatal hernia with distal esophageal wall thickening. Unremarkable soft tissue s. No acute fracture. Severe osteoarthritis of the glenohumeral joints. Mild superior endplate compre ssion without retropulsion at T4 is likely chronic. Mild mid thoracic dextroscoliosis. IMPRESSION: 1. Bronchial wall thickening suggestive of bronchitis with multifocal mucus plugging, atelectasis and air trapping. 2. Subsegmental tree-in-bud nodules within the basal right lower lobe suggestive of a mild infectious or inflammatory bronchiolitis. Correlate clinically to exclude aspiration. 3. No lymphadenopathy or pleural effusion. 4. Small hiatal hernia. ACT 112: Negative or not required by law. Electronically signed by: Shahid Mccabe M.D. 08/19/2023 4:07 PM
[2023-08-19] MEDS ORDERED: guaiFENesin/DEXTROM SYRUP 100MG/10MG 5ML UDC PO PRN (16:52)
[2023-08-19 19:23] LABS: Appearance Urine Clear (Clear); Bilirubin Urine Negative (Negative); Blood Urine Negative (Negative); Color Urine Dark Yellow; Glucose Urine UA Negative (Negative); Ketones Urine Negative (Negative); Leukocyte Esterase Urine Negative (Negative); Nitrite Urine Negative (Negative); Protein Urine Negative (Negative); Specific Gravity Urine 1.022 (1.000-1.030); Urobilinogen Urine Negative (Negative)
[2023-08-19] MEDS: PANTOprazole 40 MG TAB PO SCH (21:04)
[2023-08-19] MEDS: SERTRALINE HCL 50 MG TABLET PO SCH (21:04)
[2023-08-19] MEDS: hydrOXYzine HCl 10 MG TAB PO PRN (22:08)
[2023-08-20 04:50] LABS: Basophils # (auto) 0.06 K/uL (0.00-0.20); Basophils % (auto) 0.6 %; Eosinophils # (auto) 0.27 K/uL (0.00-0.50); Eosinophils % (auto) 2.5 %; Hemoglobin 11.4 g/dl (12.0-16.0); Immature Granulocytes # (auto) 0.16 K/uL (0.01-0.20); Immature Granulocytes % (auto) 1.5 %; Lymphocytes # (auto) 2.82 K/uL (1.20-3.40); Lymphocytes % (auto) 26.4 %; Mean Corpuscular Hemoglobin 29.1 pg (25.0-34.0); Mean Corpuscular Hgb Conc 33.5 g/dL (32.0-36.0); Mean Corpuscular Volume 86.7 fL (80.0-100.0); Mean Platelet Volume 9.8 fL (9.4-12.4); Monocytes # (auto) 1.44 K/uL (0.11-0.59); Monocytes % (auto) 13.5 %; Neutrophils # (auto) 5.93 K/uL (1.40-6.50); Neutrophils % (auto) 55.5 %; Platelet Count 289 K/uL (130-400); RDW Coefficient of Variation 13.2 % (11.5-14.5); RDW Standard Deviation 41.1 fL (36.4-46.3); Red Blood Count 3.92 M/uL (4.20-5.40); White Blood Count 10.68 K/ul (4.8-10.8)
[2023-08-20 05:06] LABS: BUN Creatinine Ratio 25.5 (10-20); Est GFR (African American) 97.7 ml/min; Est GFR (Non-African American) 84.3 ml/min; Potassium 4.4 mmol/L (3.5-5.1)
[2023-08-20] MEDS: LEVOTHYROXINE SODIUM 125 MCG PO SCH (06:39)
[2023-08-20] MEDS: amLODIPine BESYLATE 5 MG TAB PO SCH (09:27)
--- NOTE | 2023-08-20 12:45 | Nephrology Progress Note ---
Date of Service August 20, 2023 Assessment & Plan (1) Hyponatremia: Plan: presenting sodium 127 w/ serum osms 273, urine osms 551, Sterling 29. has hardly moved sodium today. 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 lisinopril and sertraline can both certainly cause hyponatremia but would not hold the latter given her challenges over the past year with her health and the loss of her >>>>added urea 15 gm bid >fluid limit 1.5L >lasix 10 mg IV bid17 to continue -maintain eukalemia/replete K as needed > gave 20 po K today -daily bmp > goal sNa is no more than low 130s by tomorrow (2) HTN (hypertension): Plan: labile and w/ acceptable control in current stressful situation; agree w/ avoiding thiazides -continue amlodipine -trial lasix as above Admission and Anticipated Discharge Date Admission Date: August 19, 2023 Subjective seen on evening rounds. cough better today. ambulating w/ asst. no edema. voiding. no uncontrolled pain or n/v Review of Systems 2 Review of Systems: All systems reviewed & are unremarkable except as noted in Subjective Physical Exam 2 Constitutional: well developed, well nourished, average body habitus, + frail appearing and cooperative; no acute distress Eyes: EOM intact bilaterally ENMT: Ears: no external ear abnormality Nose: no external nose abnormality Mouth: + dry oral mucous membranes Neck: no nuchal rigidity Respiratory: + cough (today much less frequent but st ill thick cough) and able to speak in complete sentences (w/o pausing between them) Auscultation: + diminished lung sounds Cardiovascular: RRR, no murmur, no edema Gastrointestinal (Abdomen): Inspection/Auscultation: normal bowel sounds P ercussion/Palpation: abdomen soft; abdomen nontender Musculoskeletal: Extremities: strength 5/5 throughout Skin: no rashes, warm and dry Trauma: + laceration ( with 5 or 6 patrice top of her scalp midline) Psychiatric: Orientation: alert and oriented x 3 Results & Data Vital Signs (Past 12 Hours) Vital Signs Pulse Pulse Pulse Resp BP BP Pulse Ox 08/20/23 09:33 08/20/23 08:56 90 18 112/54 L 92 08/20/23 06:43 80 16 152/83 H 08/20/23 06:00 83 08/20/23 05:00 78 21 08/20/23 04:09 88 21 161/77 H 96 08/20/23 03:00 86 12 08/20/23 02:44 79 08/20/23 02:00 78 21 08/20/23 01:35 76 16 146/63 H 95 08/20/23 01:28 81 16 146/63 H 95 O2 Del Method 08/20/23 09:33 Room Air 08/20/23 08:56 Room Air 08/20/23 06:43 08/20/23 06:00 08/20/23 05:00 08/20/23 04:09 Room Air 08/20/23 03:00 08/20/23 02:44 08/20/23 02:00 08/20/23 01:35 Room Air 08/20/23 01:28 Room Air Laboratory Results 08/20/23 03:53 08/20/23 03:53 u osm 551; Sterling [address] w/ bronchiolitis and bronchitis w/ mucus plugging
[2023-08-20] MEDS: POTASSIUM CHLORIDE 10 MEQ TABCR PO SCH (13:49)
--- NOTE | 2023-08-20 17:29 | Hospitalist Progress Note ---
Date of Service August 20, 2023 Assessment & Plan (1) Hyponatremia: Plan: Acute on chronic hyponatremia Likely multifactorial secondary to medications, poor nutrition/dehydration, SIADH Normal TSH Serum osmolality 273 Urine osmolality 551 Urine sodium 29 Likely SIADH HCTZ discontinued last admission Hold lisinopril for now Received IV fluids--no improvement Monitor sodium levels Dietitian consulted for nutritional assessment Sodium 127 today Appreciate Nephrology Input IV Lasix, fluid restriction per nephrology Monitor sodium levels closely Mechanical fall Traumatic scalp hematoma/laceration S/P sutures H/O recurrent falls, ambulatory dysfunction Fall precautions PT OT--not safe to return home Rehab as able Case management to help with discharge planning Acute bronchitis/bronchiolitis Mucous plugging Recent influenza A infection --Chest CT:Bronchial wall thickening suggestive of bronchitis with multifocal mucus plugging, atelectasis and air trapping. Subsegmental tree-in-bud nodules within the basal right lower lobe suggestive of a mild infectious or inflammatory bronchiolitis. No lymphadenopathy or pleural effusion. 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) Evaluated by cardiology last admission Asthma/COPD Currently no signs of exacerbation Monitor Hypothyroidism Continue levothyroxine Anxiety/mood disorder On Zoloft Monitor DVT Px: SCDs Re: Scalp hematoma Code Status Full code Disposition To be determined Admission and Anticipated Discharge Date Admission Date: August 19, 2023 Subjective Patient is seen and examined at bedside " Cough loosening" per patient Eager to get discharged Denies any significant dyspnea, dizziness, nausea, vomiting, abdominal pain Sodium levels remain 127 today No other complaints Eager to get discharged Review of Systems Review of Systems: All systems reviewed & are unremarkable except as noted in Subjective Physical Exam Physical Exam: Physical Exam: Vitals signs as noted above General Appearance:Moderately built and nourished, no apparent distress, elderly, frail Head: normocephalic, traumatic, +Scalp Laceration Eyes: normal inspection, EOMI Neck: supple, Trachea midline Respiratory/Chest: Normal breath sounds, scattered crackles, No accessory muscle use Cardiovascular: S1, S2,+murmur Abdomen/GI:Soft, Non tender, Bowel sounds present Extremities/Musculoskeletal:normal inspection, no edema Neurologic/Psych:AAO, grossly no focal neurological deficits Skin: normal color, warm Results & Data Results & Data Vital Signs (Past 12 Hours) Vital Signs Temp Pulse Pulse Pulse Resp BP BP 08/20/23 17:01 36.3 C L 92 H 18 157/75 H 08/20/23 14:58 83 18 140/86 08/20/23 09:33 08/20/23 08:56 90 18 112/54 L 08/20/23 06:43 80 16 152/83 H 08/20/23 06:00 83 Pulse Ox O2 Del Method 08/20/23 17:01 97 Room Air 08/20/23 14:58 96 Room Air 08/20/23 09:33 Room Air 08/20/23 08:56 92 Room Air 08/20/23 06:43 08/20/23 06:00 Laboratory Results Short CBC 08/20/23 Range/Units 03:53 WBC 10.68 (4.8-10.8) K/ul Hgb 11.4 L (12.0-16.0) g/dl Hct 34.0 L (37.0-47.0) % Plt Count 289 (130-400) K/uL BMP 08/20/23 03:53 Sodium 127 L Potassium 4.4 Chloride 96 L Carbon Dioxide 27 BUN 14 Creatinine 0.55 L Glucose 104 H Calcium 9.0 Urine 08/19/23 Range/Units Unknown Urine Color Dark Yellow Urine Appearance Clear (Clear) Urine pH 6.0 (4.5-7.5) Ur Specific Earth 1.022 (1.000-1.030) Urine Protein Negative (Negative) Urine Glucose (UA) Negative (Negative)
[2023-08-20] MEDS: FUROSEMIDE INJ 20 MG/2 ML VIAL IV SCH (18:30)
[2023-08-20] MEDS: UREA (UREA-NA) 15 GM PACK PO SCH (21:19)
[2023-08-21 05:54] LABS: BUN Creatinine Ratio 52.5 (10-20); Calcium 9.1 mg/dl (8.6-10.3); Creatinine Clr Calc Pharmacy 51.4 ml/min; Est GFR (African American) 94.5 ml/min; Est GFR (Non-African American) 81.5 ml/min; Potassium 4.7 mmol/L (3.5-5.1)
--- NOTE | 2023-08-21 15:20 | Hospitalist Progress Note ---
Date of Service August 21, 2023 Assessment & Plan (1) Hyponatremia: Plan: Acute on chronic hyponatremia Likely multifactorial secondary to medications, poor nutrition/dehydration, SIADH Normal TSH Serum osmolality 273 Urine osmolality 551 Urine sodium 29 Likely SIADH HCTZ discontinued last admission Hold lisinopril for now Received IV fluids--no improvement Monitor sodium levels Dietitian consulted for nutritional assessment Sodium 131 today Appreciate Nephrology Input Continue IV Lasix, fluid restriction, urea per nephrology Plan to discharge to rehab facility as able Mechanical fall Traumatic scalp hematoma/laceration S/P sutures H/O recurrent falls, ambulatory dysfunction Fall precautions PT OT--not safe to return home Rehab as able Case management to help with discharge planning Acute bronchitis/bronchiolitis Mucous plugging Recent influenza A infection --Chest CT:Bronchial wall thickening suggestive of bronchitis with multifocal mucus plugging, atelectasis and air trapping. Subsegmental tree-in-bud nodules within the basal right lower lobe suggestive of a mild infectious or inflammatory bronchiolitis. No lymphadenopathy or pleural effusion. 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) Evaluated by cardiology last admission Asthma/COPD Currently no signs of exacerbation Monitor Hypothyroidism Continue levothyroxine Anxiety/mood disorder On Zoloft Monitor Severe malnutrition Dietitian consulted DVT Px: SCDs Re: Scalp hematoma Code Status Full code Disposition Rehab as able Admission and Anticipated Discharge Date Admission Date: August 19, 2023 Subjective Patient is seen and examined at bedside States feeling better today Cough much improved No new complaints Sodium improved to 131 today Denies any dyspnea, dizziness, nausea, vomiting, abdominal pain Plan to discharge to rehab facility as able Review of Systems Review of Systems: All systems reviewed & are unremarkable except as noted in Subjective Physical Exam Physical Exam: Physical Exam: Vitals signs as noted above General Appearance:Moderately built and nourished, no apparent distress, elderly, frail Head: normocephalic, traumatic, +Scalp Laceration Eyes: normal inspection, EOMI Neck: supple, Trachea midline Respiratory/Chest: Normal breath sounds, scattered crackles, No accessory muscle use Cardiovascular: S1, S2,+murmur Abdomen/GI:Soft, Non tender, Bowel sounds present Extremities/Musculoskeletal:normal inspection, no edema Neurologic/Psych:AAO, grossly no focal neurological deficits Skin: normal color, warm Results & Data Results & Data Vital Signs (Past 12 Hours) Vital Signs Temp Pulse Pulse Resp BP Pulse Ox O2 Del Method 08/21/23 15:07 83 08/21/23 11:27 36.7 C 81 18 138/76 96 Room Air 08/21/23 08:00 Room Air 08/21/23 07:57 36.5 C 83 20 149/72 H 93 Room Air 08/21/23 07:55 78 Laboratory Results [facility] 08/21/23 04:55 Sodium 131 L Potassium 4.7 Chloride 100 Carbon Dioxide 26 BUN 32 H Creatinine 0.61 Glucose 105 H Calcium 9.1 Diagnostic Findings [facility] 08/21/23 04:55 Sodium 131 L Potassium 4.7 Chloride 100 Carbon Dioxide 26 BUN 32 H Creatinine 0.61 Glucose 105 H Calcium 9.1
[2023-08-22 06:03] LABS: BUN Creatinine Ratio 77.3 (10-20); Calcium 9.5 mg/dl (8.6-10.3); Creatinine Clr Calc Pharmacy 41.8 ml/min; Est GFR (African American) 83.1 ml/min; Est GFR (Non-African American) 71.7 ml/min; Potassium 4.3 mmol/L (3.5-5.1)
[2023-08-22] MEDS ORDERED: MELATONIN 3 MG TAB PO PRN (13:42)
--- NOTE | 2023-08-22 17:14 | Hospitalist Progress Note ---
Date of Service August 22, 2023 Assessment & Plan (1) Hyponatremia: Plan: Acute on chronic hyponatremia Likely multifactorial secondary to medications, poor nutrition/dehydration, SIADH Normal TSH Serum osmolality 273 Urine osmolality 551 Urine sodium 29 Likely SIADH HCTZ discontinued last admission Hold lisinopril for now Received IV fluids--no improvement Monitor sodium levels Dietitian consulted for nutritional assessment Sodium 134 today Appreciate Nephrology Input Continue fluid restriction, Urea Hold Lasix tonight to avoid over correction Needs rehab placement Mechanical fall Traumatic scalp hematoma/laceration S/P sutures H/O recurrent falls, ambulatory dysfunction Fall precautions PT OT--not safe to return home Rehab as able Case management to help with discharge planning Acute bronchitis/bronchiolitis Mucous plugging Recent influenza A infection --Chest CT:Bronchial wall thickening suggestive of bronchitis with multifocal mucus plugging, atelectasis and air trapping. Subsegmental tree-in-bud nodules within the basal right lower lobe suggestive of a mild infectious or inflammatory bronchiolitis. No lymphadenopathy or pleural effusion. 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) Evaluated by cardiology last admission Asthma/COPD Currently no signs of exacerbation Monitor Hypothyroidism Continue levothyroxine Anxiety/mood disorder On Zoloft Monitor Severe malnutrition Dietitian consulted DVT Px: SCDs Re: Scalp hematoma Code Status Full code Disposition Rehab as able Admission and Anticipated Discharge Date Admission Date: August 19, 2023 Subjective Patient is seen and examined at bedside Less cough today Patient reports some frustration with IV Lasix due to excessive urination and poor sleep No other complaints Sodium improved to 134 today Denies any dyspnea, dizziness, nausea, vomiting, abdominal pain Plan to discharge to rehab facility as able Review of Systems Review of Systems: All systems reviewed & are unremarkable except as noted in Subjective Physical Exam Physical Exam: Physical Exam: Vitals signs as noted above General Appearance:Moderately built and nourished, no apparent distress, elderly, frail Head: normocephalic, traumatic, +Scalp Laceration Eyes: normal inspection, EOMI Neck: supple, Trachea midline Respiratory/Chest: Normal breath sounds, CTA, No accessory muscle use Cardiovascular: S1, S2,+murmur Abdomen/GI:Soft, Non tender, Bowel sounds present Extremities/Musculoskeletal:normal inspection, no edema Neurologic/Psych:AAO, grossly no focal neurological deficits Skin: normal color, warm Results & Data Results & Data Vital Signs (Past 12 Hours) Vital Signs Temp Pulse Pulse Resp BP BP Pulse Ox 08/22/23 16:15 36.6 C 93 H 18 123/68 92 08/22/23 15:29 95 H 08/22/23 11:34 36.6 C 84 18 124/63 93 08/22/23 09:00 08/22/23 07:50 36.7 C 94 H 18 126/70 93 08/22/23 07:09 88 O2 Del Method 08/22/23 16:15 Room Air 08/22/23 15:29 08/22/23 11:34 Room Air 08/22/23 09:00 Room Air 08/22/23 07:50 Room Air 08/22/23 07:09 Laboratory Results [facility] 08/22/23 05:03 Sodium 134 L Potassium 4.3 Chloride 99 Carbon Dioxide 28 BUN 58 H D Creatinine 0.75 Glucose 122 H Calcium 9.5
[2023-08-23 05:02] LABS: Calcium 10.1 mg/dl (8.6-10.3); Potassium 4.8 mmol/L (3.5-5.1)
[2023-08-23 05:07] LABS: BUN Creatinine Ratio 104.1 (10-20); Creatinine Clr Calc Pharmacy 42.4 ml/min; Est GFR (African American) 84.4 ml/min; Est GFR (Non-African American) 72.8 ml/min
--- NOTE | 2023-08-23 16:47 | Hospitalist Progress Note ---
Date of Service August 23, 2023 Assessment & Plan (1) Hyponatremia: Plan: Acute on chronic hyponatremia Likely multifactorial secondary to medications, poor nutrition/dehydration, SIADH Normal TSH Serum osmolality 273 Urine osmolality 551 Urine sodium 29 Likely SIADH HCTZ discontinued last admission Hold lisinopril for now Monitor sodium levels Dietitian consulted for nutritional assessment Sodium 136 today Appreciate Nephrology Input Continue fluid restriction Urea, Lasix discontinued Waiting for rehab placement Mechanical fall Traumatic scalp hematoma/laceration S/P sutures H/O recurrent falls, ambulatory dysfunction Fall precautions PT OT--not safe to return home Rehab as able Acute bronchitis/bronchiolitis Mucous plugging Recent influenza A infection --Chest CT:Bronchial wall thickening suggestive of bronchitis with multifocal mucus plugging, atelectasis and air trapping. Subsegmental tree-in-bud nodules within the basal right lower lobe suggestive of a mild infectious or inflammatory bronchiolitis. No lymphadenopathy or pleural effusion. 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) Evaluated by cardiology last admission Asthma/COPD Currently no signs of exacerbation Monitor Hypothyroidism Continue levothyroxine Anxiety/mood disorder On Zoloft Monitor Severe malnutrition Dietitian consulted DVT Px: SCDs Re: Scalp hematoma Code Status Full code Disposition Rehab as able Admission and Anticipated Discharge Date Admission Date: August 19, 2023 Subjective Patient is seen and examined at bedside States feeling a lot better today Ambulating in hallways with PT today Cough continues to improve No new complaints Discussed with nephrology today Denies any dyspnea, dizziness, nausea, vomiting, abdominal pain Waiting for rehab placement Review of Systems Review of Systems: All systems reviewed & are unremarkable except as noted in Subjective Physical Exam Physical Exam: Physical Exam: Vitals signs as noted above General Appearance:Moderately built and nourished, no apparent distress, elderly, frail Head: normocephalic, traumatic, +Scalp Laceration Eyes: normal inspection, EOMI Neck: supple, Trachea midline Respiratory/Chest: Normal breath sounds, CTA, No accessory muscle use Cardiovascular: S1, S2,+murmur Abdomen/GI:Soft, Non tender, Bowel sounds present Extremities/Musculoskeletal:normal inspection, no edema Neurologic/Psych:AAO, grossly no focal neurological deficits Skin: normal color, warm Results & Data Results & Data Vital Signs (Past 12 Hours) Vital Signs Temp Pulse Pulse Resp BP Pulse Ox O2 Del Method 08/23/23 16:35 36.6 C 91 H 17 121/67 95 Room Air 08/23/23 15:19 84 08/23/23 11:58 36.6 C 93 H 16 157/83 H 95 Room Air 08/23/23 10:11 Room Air 08/23/23 07:28 36.7 C 83 16 121/77 93 Room Air 08/23/23 07:12 85 Laboratory Results [facility] 08/23/23 03:19 Sodium 136 Potassium 4.8 Chloride 99 Carbon Dioxide 29 BUN 77 H Creatinine 0.74 Glucose 119 H Calcium 10.1
[2023-08-24 06:39] LABS: BUN Creatinine Ratio 79.4 (10-20); Calcium 9.9 mg/dl (8.6-10.3); Creatinine Clr Calc Pharmacy 46.1 ml/min; Est GFR (African American) 91.2 ml/min; Est GFR (Non-African American) 78.6 ml/min; Potassium 4.3 mmol/L (3.5-5.1)
--- NOTE | 2023-08-24 12:58 | Hospitalist Progress Note ---
Date of Service August 24, 2023 Assessment & Plan (1) Hyponatremia: Plan: Acute on chronic hyponatremia Likely multifactorial secondary to medications, poor nutrition/dehydration, SIADH Normal TSH Serum osmolality 273 Urine osmolality 551 Urine sodium 29 Likely SIADH HCTZ discontinued last admission Hold lisinopril for now Monitor sodium levels Dietitian consulted for nutritional assessment Sodium 139 today Appreciate Nephrology Input Continue fluid restriction Urea, Lasix discontinued Will increase fluid restriction to 2 L/day Waiting for rehab placement Mechanical fall Traumatic scalp hematoma/laceration S/P sutures H/O recurrent falls, ambulatory dysfunction Fall precautions PT OT--not safe to return home Rehab as able Acute bronchitis/bronchiolitis Mucous plugging Recent influenza A infection --Chest CT:Bronchial wall thickening suggestive of bronchitis with multifocal mucus plugging, atelectasis and air trapping. Subsegmental tree-in-bud nodules within the basal right lower lobe suggestive of a mild infectious or inflamma tory bronchiolitis. No lymphadenopathy or pleural effusion. 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) Evaluated by cardiology last admission Asthma/COPD Currently no signs of exacerbation Monitor Hypothyroidism Continue levothyroxine Anxiety/mood disorder On Zoloft Monitor Severe malnutrition Dietitian consulted DVT Px: SCDs Re: Scalp hematoma Code Status Full code Disposition Rehab when accepted Admission and Anticipated Discharge Date Admission Date: August 19, 2023 Subjective Patient is seen and examined at bedside No new complaints Waiting for rehab placement Denies any dyspnea, dizziness, nausea, vomiting, abdominal pain Insurance Auth pending Review of Systems Review of Systems: All systems reviewed & are unremarkable except as noted in Subjective Physical Exam Physical Exam: Physical Exam: Vitals signs as noted above General Appearance:Moderately built and nourished, no apparent distress, elderly, frail Head: normocephalic, traumatic, +Scalp Laceration Eyes: normal inspection, EOMI Neck: supple, Trachea midline Respiratory/Chest: Normal breath sounds, CTA, No accessory muscle use Cardiovascular: S1, S2,+murmur Abdomen/GI:Soft, Non tender, Bowel sounds present Extremities/Musculoskeletal:normal inspection, no edema Neurologic/Psych:AAO, grossly no focal neurological deficits Skin: normal color, warm Results & Data Results & Data Vital Signs (Past 12 Hours) Vital Signs Temp Pulse Pulse Resp BP BP Pulse Ox 08/24/23 11:47 36.3 C L 90 18 145/81 H 94 08/24/23 08:03 36.6 C 80 20 135/80 95 08/24/23 07:12 64 08/24/23 04:26 36.6 C 83 20 125/77 95 O2 Del Method 08/24/23 11:47 Room Air 08/24/23 08:03 Room Air 08/24/23 07:12 08/24/23 04:26 Room Air Laboratory Results [facility] 08/24/23 05:39 Sodium 139 Potassium 4.3 Chloride 102 Carbon Dioxide 30 BUN 54 H D Creatinine 0.68 Glucose 122 H Calcium 9.9
[2023-08-25 03:51] LABS: BUN Creatinine Ratio 54.5 (10-20); Calcium 9.5 mg/dl (8.6-10.3); Creatinine Clr Calc Pharmacy 40.7 ml/min; Est GFR (African American) 80.5 ml/min; Est GFR (Non-African American) 69.4 ml/min; Potassium 4.4 mmol/L (3.5-5.1)
--- NOTE | 2023-08-25 12:28 | Hospitalist Progress Note ---
Date of Service August 25, 2023 Assessment & Plan (1) Hyponatremia: Plan: Acute on chronic hyponatremia Likely multifactorial secondary to medications, poor nutrition/dehydration, SIADH Normal TSH Serum osmolality 273 Urine osmolality 551 Urine sodium 29 Likely SIADH HCTZ discontinued last admission Hold lisinopril for now Monitor sodium levels Dietitian consulted for nutritional assessment Sodium 139 today Appreciate Nephrology Input Continue fluid restriction Urea, Lasix discontinued Waiting for rehab placement Sodium levels remain stable Case management to help with discharge planning Mechanical fall Traumatic scalp hematoma/laceration S/P sutures H/O recurrent falls, ambulatory dysfunction Fall precautions PT OT--not safe to return home Rehab as able Acute bronchitis/bronchiolitis Mucous plugging Recent influenza A infection --Chest CT:Bronchial wall thickening suggestive of bronchitis with multifocal mucus plugging, atelectasis and air trapping. Subsegmental tree-in-bud nodules within the basal right lower lobe suggestive of a mild infectious or inflammatory bronchiolitis. No lymphadenopathy or pleural effusion. 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) Evaluated by cardiology last admission Asthma/COPD Currently no signs of exacerbation Monitor Hypothyroidism Continue levothyroxine Anxiety/mood disorder On Zoloft Monitor Severe malnutrition Dietitian consulted DVT Px: SCDs Re: Scalp hematoma Code Status Full code Disposition Rehab when accepted Admission and Anticipated Discharge Date Admission Date: August 19, 2023 Subjective Patient is seen and examined at bedside Patient reports having constipation overnight which resolved with prune juice Offers no other complaints today Denies any dyspnea, dizziness, nausea, vomiting, abdominal pain Waiting for rehab placement Review of Systems Review of Systems: All systems reviewed & are unremarkable except as noted in Subjective Physical Exam Physical Exam: Physical Exam: Vitals signs as noted above General Appearance:Moderately built and nourished, no apparent distress, elderly, frail Head: normocephalic, traumatic, +Scalp Laceration Eyes: normal inspection, EOMI Neck: supple, Trachea midline Respiratory/Chest: Normal breath sounds, CTA, No accessory muscle use Cardiovascular: S1, S2,+murmur Abdomen/GI:Soft, Non tender, Bowel sounds present Extremities/Musculoskeletal:normal inspection, no edema Neurologic/Psych:AAO, grossly no focal neurological deficits Skin: normal color, warm Results & Data Results & Data Vital Signs (Past 12 Hours) Vital Signs Temp Pulse Resp BP BP Pulse Ox O2 Del Method 08/25/23 11:33 36.8 C 86 18 115/69 94 Room Air 08/25/23 07:43 36.8 C 81 16 147/82 H 95 Room Air 08/25/23 03:48 36.8 C 86 18 124/73 94 Room Air Laboratory Results [facility] 08/25/23 03:01 Sodium 139 Potassium 4.4 Chloride 104 Carbon Dioxide 29 BUN 42 H Creatinine 0.77 Glucose 107 H Calcium 9.5
[2023-08-26 06:11] LABS: BUN Creatinine Ratio 52.9 (10-20); Calcium 9.5 mg/dl (8.6-10.3); Creatinine Clr Calc Pharmacy 44.8 ml/min; Est GFR (African American) 90.3 ml/min; Est GFR (Non-African American) 77.9 ml/min; Potassium 3.9 mmol/L (3.5-5.1)
--- NOTE | 2023-08-26 10:43 | Hospitalist Progress Note ---
Date of Service August 26, 2023 Assessment & Plan (1) Hyponatremia: Plan: Acute on chronic hyponatremia Likely multifactorial secondary to medications, poor nutrition/dehydration, SIADH Normal TSH Serum osmolality 273 Urine osmolality 551 Urine sodium 29 Likely SIADH HCTZ discontinued last admission Monitor sodium levels Dietitian consulted for nutritional assessment Sodium 134 today Appreciate Nephrology Input Continue fluid restriction Urea, Lasix discontinued Plan to be discharged to SNF today Mechanical fall Traumatic scalp hematoma/laceration S/P sutures H/O recurrent falls, ambulatory dysfunction Fall precautions PT OT--not safe to return home Rehab as able Acute bronchitis/bronchiolitis Mucous plugging Recent influenza A infection --Chest CT:Bronchial wall thickening suggestive of bronchitis with multifocal mucus plugging, atelectasis and air trapping. Subsegmental tree-in-bud nodules within the basal right lower lobe suggestive of a mild infectious or inflammatory bronchiolitis. No lymphadenopathy or pleural effusion. 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) Evaluated by cardiology last admission Asthma/COPD Currently no signs of exacerbation Monitor Hypothyroidism Continue levothyroxine Anxiety/mood disorder On Zoloft Monitor Severe malnutrition Dietitian consulted DVT Px: SCDs Re: Scalp hematoma Code Status Full code Disposition SNF Admission and Anticipated Discharge Date Admission Date: August 19, 2023 Subjective Patient is seen and examined at bedside States feeling well today Offers no other complaints today Denies any dyspnea, dizziness, nausea, vomiting, abdominal pain Plan to be discharged to SNF today Review of Systems Review of Systems: All systems reviewed & are unremarkable except as noted in Subjective Physical Exam Physical Exam: Physical Exam: Vitals signs as noted above General Appearance:Moderately built and nourished, no apparent distress, elderly, frail Head: normocephalic, traumatic, +Scalp Laceration Eyes: normal inspection, EOMI Neck: supple, Trachea midline Respiratory/Chest: Normal breath sounds, CTA, No accessory muscle use Cardiovascular: S1, S2,+murmur Abdomen/GI:Soft, Non tender, Bowel sounds present Extremities/Musculoskeletal:normal inspection, no edema Neurologic/Psych:AAO, grossly no focal neurological deficits Skin: normal color, warm Results & Data Results & Data Vital Signs (Past 12 Hours) Vital Signs Temp Pulse Resp BP BP Pulse Ox O2 Del Method 08/26/23 07:53 36.6 C 80 16 132/78 94 Room Air 08/26/23 03:55 36.5 C 90 16 120/62 93 Room Air 08/25/23 23:18 37.1 C 91 H 16 122/66 95 Room Air Laboratory Results [facility] 08/26/23 05:35 Sodium 140 Potassium 3.9 Chloride 105 Carbon Dioxide 28 BUN 37 H Creatinine 0.70 Glucose 102 H Calcium 9.5
--- NOTE | 2023-08-26 10:50 | Discharge Summary ---
Date of Service August 26, 2023 Admission HPI Per Admitting Provider History obtained from patient and records. Medical history significant for complete heart block status post PPM, valvular heart disease (mild MR/moderate TR), hypertension, chronic hyponatremia as per records, asthma/COPD, anxiety/mood disorder, past tobacco abuse 2 admissions last month at [facility]. 07/30-08/01 Patient admitted for complete heart block status post PPM. -08/17 Weakness secondary to influenza illness status post Tamiflu, hyponatremia. HCTZ discontinued due to hyponatremia. Patient family thought she needed rehab before going home but she refused. Patient discharged home yesterday. Patient fell in her bathroom last night due to loss of balance which happens from time to time. Head trauma resulting in bleeding laceration. No chest pain, no SOB, no syncope. Patient brought to the ER for evaluation. SBP 170s upon arrival at the ER. Scalp laceration repaired at the ER. 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 Exam Per Admitting Provider GENERAL: Comfortable, pleasant, slightly hard of hearing, no respiratory distress SKIN: Pallor, warm HEENT: Scalp patrice noted, dried blood noted in patient's hair, pale palpebral conjunctivae, no ptosis, dry buccal mucosa NECK : Supple, no tenderness CHEST : Decreased breath sounds, no tenderness HEART : RRR, no obvious murmurs ABDOMEN: no distention, nontender EXTREMITIES : No LE swelling/tenderness, no other conspicuous deformities noted NEUROLOGIC : Coherent, no facial asymmetry, slightly hard of hearing, no other gross focality Principal Diagnosis Acute on chronic hyponatremia Mechanical fall Traumatic scalp hematoma/laceration S/P sutures Acute bronchitis/bronchiolitis Mucous plugging Discharge Data Allergies Allergy/AdvReac Type Severity Reaction Status Date / Time pollen extracts Allergy Intermediate ITCHY Verified 08/19/23 02:53 EYES, SNEEZING, CONGESTION Consultations 08/19/23 05:06 ED Decision to Admit Stat 08/19/23 08:15 Consult Nephrology Routine Ordered Studies 08/19/23 01:37 CT cervical spine wo con Stat CT head/brain wo con Stat 08/19/23 15:01 CT chest diagnostic wo con Urgent Hospital Course (1) Hyponatremia: Acute on chronic hyponatremia Likely multifactorial secondary to medications, poor nutrition/dehydration, SIADH Normal TSH Serum osmolality 273 Urine osmolality 551 Urine sodium 29 Likely SIADH HCTZ discontinued last admission Monitor sodium levels Dietitian consulted for nutritional assessment Sodium 134 today Appreciate Nephrology Input Continue fluid restriction Urea, Lasix discontinued Plan to be discharged to SNF today Mechanical fall Traumatic scalp hematoma/laceration S/P sutures H/O recurrent falls, ambulatory dysfunction Fall precautions PT OT--not safe to return home Rehab as able Acute bronchitis/bronchiolitis Mucous plugging Recent influenza A infection --Chest CT:Bronchial wall thickening suggestive of bronchitis with multifocal mucus plugging, atelectasis and air trapping. Subsegmental tree-in-bud nodules within the basal right lower lobe suggestive of a mild infectious or inflammatory bronchiolitis. No lymphadenopathy or pleural effusion. 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) Evaluated by cardiology last admission Asthma/COPD Currently no signs of exacerbation Monitor Hypothyroidism Continue levothyroxine Anxiety/mood disorder On Zoloft Monitor Severe malnutrition Dietitian consulted DVT Px: SCDs Re: Scalp hematoma Code Status Full code Disposition SNF Total Time Total Time Spent Total Time Spent (In Minutes): 55 minutes Discharge Plan Discharge Items Patient Disposition: Transfer Longterm Fac Reason For Visit: HYPONATREMIA, HTN URG Discharge Diagnosis: Acute on chronic hyponatremia Mechanical fall Traumatic scalp hematoma/laceration S/P sutures Acute bronchitis/bronchiolitis Mucous plugging Activity: Per Instructions section Exercise/Sports: Gradually increase as tolerated Non-emergency contact: Primary Care Provider and Singe Machine Operator Call non-emergency contact if: you have any medication questions, your symptoms worsen, your pain is concerning for you and you have a fever Follow-up/Referrals: Mariella Poon DO [Primary Care Provider] - Dietitian Info: Minced and Moist Diet: Heart Healthy Fluids: 2000ml (8 cups) Addtl Attending Provider Instructions: Follow-up with your primary care physician in 1 week upon discharge from rehab facility Follow-up with your woodwinds teacher with repeat blood work--basic metabolic panel in 1 week for monitoring of sodium levels --Continue fluid restriction as advised -- Complete antibiotic course doxycycline as prescribed Seek immediate medical attention if your symptoms reoccur or worsen Please take all medications as instructed on discharge list below. Please call if you have any questions or problems. You can reach a [facility] hospitalist on duty at [facility] 24 hours a day by calling [phone] Pending Studies at Discharge: No Stand-Alone Forms: My [facility] Skilled Items Patient informed of condition?: Yes DNR: No Discharge Level of Care: Skilled Communicable Disease: No Discharge Prognosis: Stable Lines: None Urinary Catheter: No Medications and DC Order Prescriptions: Continued multivitamin Tablet 1 tab PO DAILY levothyroxine [Synthroid] 125 mcg tablet 125 mcg PO DAILYBB Rx Instructions: MUST BE BRAND NAME sertraline 25 mg tablet 25 mg PO QPM Rx Instructions: PER PT "HAVEN'T TAKEN FOR 2 WEEKS, NOT DEPRESSED, JUST SAD". loratadine [Claritin] 10 mg Tablet 10 mg PO BID lisinopril 10 mg tablet 10 mg PO DAILY hydroxyzine HCl 10 mg tablet 10 mg PO HS PRN (Reason: Insomnia) pantoprazole 20 mg Tablet,Delayed Release (Dr/Ec) 20 mg PO HS Discharge Orders: Discharge Order (Routine); Ordered 08/26/23 Ordered By: Ranjan Shankar Admission Data Admit Date/Time: 08/19/23 05:44 Attending Provider: Ranjan Shankar Admit Provider: Maxime Ramos Primary Care Provider: Mariella Poon Other Providers: Maxime Ramos; Nyla Kumari; Antoine Isaacs; Rosy Felipe Japheth E.; Michele Lugo; Katelyn Joseph; [facility]
== END 2023-08-26 13:43 | DRG 640 ==
LOC: ED 01:33 → EDINP 05:44 → 2W 08-20 06:21